=== PATIENT | female | born 1965 | race Caucasian/White ===

== ENCOUNTER 2016-10-26 10:09 | Outpatient (CLI) | payer OTHER ==
[~2016-10-26 10:09] MED LIST: AMLO1TAB12 PO; ATRN IH; CLON0.1T42 PO; HYDR-4446 PO; IBUP-974 PO; ORE25 PO; PRON IH
[2016-10-26 10:35] LABS: BASOPHILS # (AUTO) 0.1 K/uL (0.00-0.22); BASOPHILS % (AUTO) 0.9 % (0.0-2.0); EOSINOPHILS # (AUTO) 0.2 K/uL (0-0.4); HEMATOCRIT 37.3 % (36-48); HEMOGLOBIN 11.9 g/dL (12.0-16.0); LYMPHOCYTES # (AUTO) 0.9 K/uL (2.5-16.5); LYMPHOCYTES % (AUTO) 11.8 % (20.5-51.1); MEAN CORPUSCULAR HEMOGLOBIN 23 pg (27-31); MEAN CORPUSCULAR HGB CONC 32 g/dL (33-37); MEAN CORPUSCULAR VOLUME 72 fL (80-94); MONOCYTES # (AUTO) 0.2 K/uL (0.8-1.0); MONOCYTES % (AUTO) 3.3 % (1.7-9.3); NEUTROPHILS # (AUTO) 5.9 K/uL (1.8-7.7); PLATELET COUNT (AUTO) 238 K/uL (140-450); RED CELL DISTRIBUTION WIDTH 18.3 % (11.6-13.7); WHITE BLOOD COUNT (AUTO) 7.3 K/uL (4.8-10.8)
== END 2016-10-26 19:58 | disposition home or self-care (01) ==
LOC: MLB 10:09 → MRD 19:58
DX: L03.115 Cellulitis of right lower limb (principal)
CPT/HCPCS: 36415; 73610; 73630; 85025; 87040

== ENCOUNTER 2017-01-15 12:08 | Outpatient (CLI) | payer OTHER ==
[2017-01-15 13:06] LABS: ALANINE AMINOTRANSFERASE 17 U/L (14-59); ASPARTATE AMINOTRANSFERASE 22 U/L (15-37)
== END 2017-01-15 21:19 | disposition home or self-care (01) ==
LOC: MLB 12:08
DX: B35.1 Tinea unguium (principal)
CPT/HCPCS: 36415; 84450; 84460

== ENCOUNTER 2017-01-19 22:32 | Emergency (ER) | payer OTHER ==
[~2017-01-19] VITALS: Ht 167.6 cm; Wt 160.6 kg
[2017-01-19 22:36] VITALS: BP 179/102
[2017-01-20 03:05] VITALS: BP 140/80
== END 2017-01-20 03:00 | disposition home or self-care (01) ==
LOC: MED 22:32
DX: F41.0 Panic disorder [episodic paroxysmal anxiety] (principal); J45.909 Unspecified asthma, uncomplicated; I10 Essential (primary) hypertension; Z88.0 Allergy status to penicillin; Z88.8 Allergy status to other drugs, medicaments and biological substances; Z79.899 Other long term (current) drug therapy
CPT/HCPCS: 99284

== ENCOUNTER 2017-01-25 08:26 | Outpatient (CLI) | payer OTHER ==
[2017-01-25 09:05] LABS: BASOPHILS # (AUTO) 0.1 K/uL (0.00-0.22); BASOPHILS % (AUTO) 1.3 % (0.0-2.0); EOSINOPHILS # (AUTO) 0.1 K/uL (0-0.4); EOSINOPHILS % (AUTO) 2.3 % (0.0-4.0); HEMATOCRIT 36.8 % (36-48); HEMOGLOBIN 11.7 g/dL (12.0-16.0); LYMPHOCYTES # (AUTO) 0.9 K/uL (2.5-16.5); LYMPHOCYTES % (AUTO) 15.4 % (20.5-51.1); MEAN CORPUSCULAR HEMOGLOBIN 23 pg (27-31); MEAN CORPUSCULAR HGB CONC 32 g/dL (33-37); MEAN CORPUSCULAR VOLUME 74 fL (80-94); MONOCYTES # (AUTO) 0.2 K/uL (0.8-1.0); MONOCYTES % (AUTO) 3.3 % (1.7-9.3); NEUTROPHILS # (AUTO) 4.5 K/uL (1.8-7.7); NEUTROPHILS % (AUTO) 77.7 % (42.2-75.2); PLATELET COUNT (AUTO) 247 K/uL (140-450); RED BLOOD CELL COUNT(AUTO) 5.01 MIL/uL (4.20-5.40); RED CELL DISTRIBUTION WIDTH 17.5 % (11.6-13.7); WHITE BLOOD COUNT (AUTO) 5.8 K/uL (4.8-10.8)
[2017-01-25 10:02] LABS: ALBUMIN 3.7 g/dL (3.4-5.0); ANION GAP 11.3 (8-16); CALCIUM 8.6 mg/dL (8.5-10.1); CARBON DIOXIDE 28.7 mmol/L (21-32); CHOL/HDL RATIO 3.6 (1-4.5); CREATININE 0.9 mg/dL (0.6-1.3); FREE T4 (FREE THYROXINE) 1.17 ng/dL (0.76-1.46); THYROID STIMULATING HORMONE 2.46 uIU/mL (0.34-3.74); TOTAL BILIRUBIN 0.4 mg/dL (0.0-1.0); TOTAL PROTEIN, SERUM 8.2 g/dL (6.4-8.2)
[2017-01-26 06:22] LABS: HEMOGLOBIN A1C 5.1 % (4.8-5.6)
[2017-01-26 08:53] LABS: VITAMIN D, 25-HYDROXY 20.8 ng/mL (30.0-100.0)
== END 2017-01-25 21:19 | disposition home or self-care (01) ==
LOC: MLB 08:26
DX: I10 Essential (primary) hypertension (principal); E66.9 Obesity, unspecified; E11.9 Type 2 diabetes mellitus without complications; J45.909 Unspecified asthma, uncomplicated
CPT/HCPCS: 36415; 80053; 82306; 83036; 84439; 84443; 85025

== ENCOUNTER 2017-03-10 05:52 | Inpatient (IN) | payer OTHER ==
[~2017-03-10] VITALS: Ht 167.6 cm; Wt 168.7 kg
[~2017-03-10 05:52] MED LIST changes: -AMLO1TAB12 PO; -ATRN IH; +ATROVENT 00.5 MG/3 M IH; +CATAPRES0.1 MG PO; -CLON0.1T42 PO; +EXFORGE 10 MG-11 TAB PO; -HYDR-4446 PO; -IBUP-974 PO; +IRON325 M2; +MOTRIN800 MG PO; +NORCO 5/325 MG1 TAB PO; -ORE25 PO; +ORETIC25 MG PO; -PRON IH; +PROVENTIL2.5 MG/3 M IH
[2017-03-10 05:56] VITALS: BP 151/88
--- NOTE | 2017-03-10 05:58 | NUR ---
Pt taken to bed 4.
[2017-03-10] MEDS ORDERED: MORPHINE SULFATE 10 MG/ML SYR IVP ONE (06:00)
[2017-03-10] MEDS ORDERED: ONDANSETRON 4 MG/2 ML VIAL IVP ONE (06:00)
--- NOTE | 2017-03-10 06:00 | NUR ---
Patient being evaluated by Dr. Tabares at bedside.
--- NOTE | 2017-03-10 06:28 | NUR ---
51Y/F PT. PRESENTS TO ED WITH C/O LT. FLANK PAIN X 1 DAY. WAS SEEN BY ER MD AT [facility], CT DONE. HX. HTN, ASTHMA. DENIES N/V/D; SKIN IS PINK/WARM/DRY; AAOX4 WITH EVEN AND STEADY GAIT; LUNGS CLEAR BL; HR EVEN AND REGULAR; PT DENIES ANY FEVER, CP, SOB, OR COUGH AT THIS TIME; PATIENT STATES PAIN OF 8/10 AT THIS TIME; VSS; PATIENT POSITIONED FOR COMFORT; HOB ELEVATED; BEDRAILS UP X2; BED DOWN. ER MD MADE AWARE OF PT STATUS.
--- NOTE | 2017-03-10 07:17 | NUR ---
REPORT GIVEN TO JONNA AMARAL FOR CONTINUITY OF CARE.
--- NOTE | 2017-03-10 07:21 | NUR ---
REPORT RECEIVED FROM SHANTAL RN---PT AWAKE ALERT SEMI-HURT'S , ADMITS LUQ PAIN 2/10 AT THIS TIME BELOW TOLERABLE LEVEL---SMILING HOLDING CONVERSATION WITH STAFF. CONTINUES TO WAIT FOR ASSIGNED ROOM FOR ADMISSION
[2017-03-10] MEDS ORDERED: ASPIRIN81 M1 PO (07:27)
[2017-03-10] MEDS ORDERED: PULMICORT0.5 MG/2 M NEB (07:27)
[2017-03-10] MEDS ORDERED: LASIX40 MG PO (07:27)
[2017-03-10] MEDS ORDERED: ZOCOR10 MG PO (07:27)
[2017-03-10] MEDS ORDERED: LOPRESSOR25 MG PO ×2 (07:27)
[2017-03-10] MEDS ORDERED: PULMICORT0.5 MG/2 M INH (07:27)
[2017-03-10] MEDS ORDERED: XANAX0.5 MG PO (07:27)
[2017-03-10] MEDS ORDERED: HYDRALAZINE HCL25 M2 PO (07:27)
--- NOTE | 2017-03-10 08:01 | NUR ---
PT INFORMED ME SHE HAD A DIME SIZE WOUND TO RIGHT ANTERIOR GREAT TOE, BEING TREATED BY HER PMD. PICTURE TAKEN AND DOCUMENTED WITH PT'S CHART. NO DRAINAGE, PINK SURROUNDING WOUND--SENSITIVE TO TOUCH PER PT.
--- NOTE | 2017-03-10 08:02 | NUR ---
Pt report given to JT COYLE. Transfer of care at this tiME TO M/S RM 112-A
--- NOTE | 2017-03-10 08:15 | NUR ---
PT ARRIVED ON THE FLOOR. PT IS A&OX4. PT HAS IV ON R AC 20 G SL INTACT. PT HAS LUQ FLANK PAIN AND HEADACHE BOTH 2/10 TOLERABLE. PT HAS OPEN WOUND ON L GREAT TOE FROM A BLISTER, OTHERWISE INTACT SKIN. ORIENTED PT TO ROOM AND USE OF CALL LIGHT. CALL LIGHT WITHIN REACH. WILL CONTINUE TO MONITOR. Addendum: 03/10/17 at 1834 by Andressa Rhodes RN R BIG TOE, NOT L BIG TOE
[2017-03-10 09:00] VITALS: BP 140/74
[2017-03-10] MEDS ORDERED: HYDROcodone/APAP 7.5/325 MG 1 TAB PO PRN (09:35)
[2017-03-10] MEDS ORDERED: ONDANSETRON 4 MG/2 ML VIAL IVP PRN (09:35)
[2017-03-10] MEDS: NACL 0.9% 1,000 ML IV SCH ×3 (10:00→22:00)
--- NOTE | 2017-03-10 10:00 | NUR ---
PT IS COMFORTABLE IN BED. NO COMPLAINTS. CALL LIGHT WITHIN REACH. WILL CONTINUE TO MONITOR.
--- NOTE | 2017-03-10 10:26 | NUR ---
PATIENT HAS BEEN SCREENED AND CATEGORIZED HIGH NUTRITION RISK. PATIENT WILL BE SEEN WITHIN 1-2 DAYS OF ADMISSION. 03/11/17 - 03/12/17 KOTA SANTA MBA, RD
[2017-03-10] MEDS ORDERED: IBUPROFEN 800 MG TAB PO PRN (11:05)
[2017-03-10] MEDS ORDERED: ALPRAZolam 0.5 MG TAB PO PRN (11:05)
[2017-03-10] MEDS: ACETAMINOPHEN 325 MG TAB PO PRN (11:19)
[2017-03-10 12:00] VITALS: BP 132/74
--- NOTE | 2017-03-10 12:00 | NUR ---
PT IS RESTING COMFORTABLY IN BED. NO COMPLAINT. CALL LIGHT WITHIN REACH. WILL CONTINUE TO MONITOR.
[2017-03-10] MEDS: hydrALAZINE 25 MG TAB PO SCH ×2 (12:13→16:22)
[2017-03-10] MEDS ORDERED: cloNIDine 0.1 MG TAB PO SCH (13:00)
[2017-03-10] MEDS ORDERED: METOPROLOL 50 MG TAB PO SCH (14:00)
--- NOTE | 2017-03-10 14:00 | NUR ---
DAUGHTER AND NIECE VISITING AT BEDSIDE. PT IS STABLE. CALL LIGHT WITHIN REACH. WILL CONTINUE TO MONITOR.
[2017-03-10] MEDS: IPRATROPIUM 0.02% 0.5 MG/2.5 ML NEBU INH PRN ×2 (14:45→19:18)
[2017-03-10] MEDS: ALBUTEROL 0.083% 2.5 MG/3 ML NEBU INH PRN ×2 (14:45→19:18)
--- NOTE | 2017-03-10 15:00 | NUR ---
PT IS REQUESTING A BREATHING TX. CALLED RT. PT IN NO DISTRESS. CALL LIGHT WITHIN REACH. WILL CONTINUE TO MONITOR.
[2017-03-10] MEDS: HYDROcodone/APAP 5/325 MG 1 TAB TAB PO PRN ×2 (15:39→21:45)
[2017-03-10 16:00] VITALS: BP 118/71
--- NOTE | 2017-03-10 17:15 | NUR ---
HELPED PT AMBULATE TO BATHROOM WITHOUT TAKING OFF NASAL CANULA. PT WAS VOIDED AND TOLERATED WELL. CALL LIGHT WITHIN REACH AND WILL CONTINUE MONITOR.
--- NOTE | 2017-03-10 18:11 | NUR ---
PT TOLERATED WELL DINNER. FINISHED 100% MEAL TRAY. CALL LIGHT WITHIN REACH AND WILL CONTINUE TO MONITOR.
[2017-03-10] MEDS: BUDESONIDE 0.5 MG/2 ML NEBU INH SCH (19:18)
--- NOTE | 2017-03-10 19:22 | NUR ---
ENDORSED CARE OF PT TO IT APPLICATIONS MANAGER NURSE AT BEDSIDE. PT IN STABLE CONDITION.
--- NOTE | 2017-03-10 19:23 | NUR ---
RECEIVED PATIENT REPORT AT BEDSIDE FROM MORNING NURSE. PATIENT AWAKE, ALERT AND ORIENTED. NO SIGNS AND SYMPTOMS OF DISTRESS NOTED. NO COMPLAINTS OF PAIN AT THIS TIME. IV SITE NOTED ON RIGHT AC, IVF INFUSING WELL. PATIENT ON O2 2L VIA NC. BED IN LOWEST POSITION, SIDE RAILS UP AND CALL LIGHT WITHIN REACH. WILL CONTINUE TO MONITOR.
[2017-03-10 20:00] VITALS: BP 118/69
[2017-03-10] MEDS: METOPROLOL 50 MG TAB PO SCH (21:00)
[2017-03-10] MEDS: DOCUSATE SODIUM 100 MG GELCAP PO SCH (21:05)
--- NOTE | 2017-03-10 23:30 | NUR ---
CHECKED ON PATIENT, PATIENT IS ASLEEP. NO SIGNS AND SYMPTOMS OF DISTRESS NOTED. BED IN LOWEST POSITION, SIDE RAILS UP AND CALL LIGHT WITHIN REACH. WILL CONTINUE TO MONITOR.
[2017-03-11] VITALS: BP 115/72
[2017-03-11 04:00] VITALS: BP 141/86
[2017-03-11] MEDS: NACL 0.9% 1,000 ML IV SCH ×5 (04:00→20:31)
[2017-03-11] MEDS: ACETAMINOPHEN 325 MG TAB PO PRN (04:08)
[2017-03-11] MEDS: BUDESONIDE 0.5 MG/2 ML NEBU INH SCH ×2 (06:34→19:17)
--- NOTE | 2017-03-11 07:20 | NUR ---
PATIENT REPORT GIVEN AT BEDSIDE TO MORNING NURSE. PATIENT IS IN STABLE CONDITION
--- NOTE | 2017-03-11 07:23 | NUR ---
RECEIVED PT REPORT AT BEDSIDE FROM NIGHT NURSE. PATIENT IS AAOX4 AND SHOWS NO S/S OF ACUTE DISTRESS ON O2 @ 2LPM. PT DENIES PAIN. PATIENT IV NOTED ON THE R AC WITH IVF'S INFUSING WELL. DRX NOTED ON THE R 1ST DIGIT CLEAN DRY AND INTACT. PATIENT ON TELE MONITOR. DISCUSSED WITH PT POC FOR TODAY AND VERBALIZED UNDERSTANDING. THE BED IS LOWERED WITH CALL LIGHT WITHIN REACH. WILL CONTINUE TO MONITOR.
[2017-03-11 07:55] VITALS: BP 131/75
[2017-03-11] MEDS: DOCUSATE SODIUM 100 MG GELCAP PO SCH ×2 (08:30→20:34)
[2017-03-11] MEDS: ASPIRIN 81 MG TAB.CHEW PO SCH (08:30)
[2017-03-11] MEDS: VALSARTAN 80 MG TAB PO SCH (08:31)
[2017-03-11] MEDS: FUROSEMIDE 40 MG TAB PO SCH (08:31)
[2017-03-11] MEDS: METOPROLOL 50 MG TAB PO SCH ×2 (08:32→20:33)
[2017-03-11] MEDS: amLODIPine 5 MG TAB PO SCH (08:32)
[2017-03-11] MEDS: SIMVASTATIN 10 MG TAB PO SCH (08:32)
[2017-03-11] MEDS: hydrALAZINE 25 MG TAB PO SCH ×3 (08:33→16:20)
--- NOTE | 2017-03-11 08:35 | NUR ---
ADMINISTERED SCHEDULED MEDICATIONS. PT TOLERATED WELL. PT THEN AMB TO BATHROOM WITH STEADY GAIT. ALL NEEDS MET AT THIS TIME.
[2017-03-11] MEDS: SKINTEGRITY HYDROGEL TP SCH (08:57)
[2017-03-11] MEDS ORDERED: HYDRAGUARD CREAM TP SCH (09:00)
[2017-03-11] MEDS ORDERED: METOPROLOL 25 MG TAB PO SCH (09:00)
[2017-03-11] MEDS ORDERED: methylPREDNISolone SS 125 MG/2 ML VIAL IVP SCH (10:00)
--- NOTE | 2017-03-11 10:05 | NUR ---
ADMINISTERED SCHEDULED MEDICATIONS. PT TOLERATED WELL. PT RESTING IN BED AND SHOWS NO S/S OF ACUTE DISTRESS ON O2 @ 2 LPM.
[2017-03-11] MEDS: HYDROcodone/APAP 5/325 MG 1 TAB TAB PO PRN (10:49)
--- NOTE | 2017-03-11 10:50 | NUR ---
ADMINISTERED NORCO 5/325 MG PO FOR 12/18 PAIN AT THE R FOOT 1ST DIGIT. PROVIDED PT WITH WOUND CARE. CLEANSED WOUND WITH NS, APPLIED HYDROGEL ON GAUZED AND WRAPPED TOE WITH KLINGE.
--- NOTE | 2017-03-11 11:50 | NUR ---
REASSESSED FOR PAIN. PATIENT STATES NO PAIN. WILL CONTINUE TO MONITOR.
[2017-03-11 12:00] VITALS: BP 122/75
[2017-03-11] MEDS ORDERED: METOPROLOL 50 MG TAB PO SCH (12:00)
[2017-03-11] MEDS: methylPREDNISolone SS 125 MG/2 ML VIAL IVP SCH ×2 (12:41→21:35)
--- NOTE | 2017-03-11 12:50 | NUR ---
DR HALL CAME TO SEE PT. PT VERBALIZED UNDERSTANDING OF POC FOR TODAY. ALSO, ADMINISTERED SCHEDULED MEDICATIONS. PT TOLERATED WELL. ALL NEEDS MET AT THIS TIME. WILL CONTINUE TO MONITOR.
[2017-03-11] MEDS ORDERED: PETROLATUM WHITE 30 GM TUBE TP PRN (13:25)
--- NOTE | 2017-03-11 13:45 | NUR ---
PT IS SITTING UP IN BED WITH AT BEDSIDE. PT SHOWS NO S/S OF ACUTE DISTRESS ON O2 @ 2LPM. WILL CONTINUE TO MONITOR.
--- NOTE | 2017-03-11 14:55 | NUR ---
PATIENT IS SITTING UP IN BED WATCHING TV. PT DENIES PAIN AND SOB. BED IS IN LOW POSITION WITH CALL LIGHT WITHIN REACH. ALL NEEDS MET AT THIS TIME. WILL CONTINUE TO MONITOR.
[2017-03-11 16:00] VITALS: BP 136/99
--- NOTE | 2017-03-11 16:30 | NUR ---
ADMINISTERED SCHEDULED MEDICATIONS. PT TOLERATED WELL. PROVIDED PT WITH WOUND CARE ON THE RIGHT FOOT BIG TOE. CLEANSED WITH NS, APPLIED SANTYL OINTMENT ON ADAPTIC AND WRAPPED TOE WITH KERLIX. ALL NEEDS MET AT THIS TIME. WILL CONTINUE TO MONITOR.
--- NOTE | 2017-03-11 17:30 | NUR ---
PT IS AAOX4 AND SHOWS NO S/S OF ACUTE DISTRESS ON O2 @ 2LPM. PT DENIES PAIN AND SOB. PT NEEDS MET AT THIS TIME. WILL CONTINUE TO MONITOR.
--- NOTE | 2017-03-11 19:14 | NUR ---
GAVE REPORT TO NIGHT NURSE AT BEDSIDE. PT IS RECEIVING A BREATHING TX AND IS AAOX4 AND SHOWS NO S/S OF ACUTE DISTRESS ON O2 @ 2LPM.
[2017-03-11] MEDS: ALBUTEROL 0.083% 2.5 MG/3 ML NEBU INH PRN (19:17)
[2017-03-11] MEDS: IPRATROPIUM 0.02% 0.5 MG/2.5 ML NEBU INH PRN (19:18)
--- NOTE | 2017-03-11 19:20 | NUR ---
PATIENT REPORT RECEIVED FROM MORNING NURSE. PATIENT IS SITTING UP IN BED GETTING A BREATHING TREATMENT. NO SIGNS AND SYMPTOMS OF DISTRESS NOTED. PATIENT ON O2 2L VIA NASAL CANNULA. IV SITE NOTED ON RIGHT AC, IVF INFUSING WELL. CALL LIGHT WITHIN REACH. WILL CONTINUE TO MONITOR.
[2017-03-11 20:00] VITALS: BP 150/82
--- NOTE | 2017-03-11 23:00 | NUR ---
Patient's Plan of Care was discussed and reviewed with MUSIC SPECIALIST: JUNO MESA
--- NOTE | 2017-03-11 23:05 | NUR ---
REPORT RECEIVED FROM JONNA DAVALOS PATIENT IS CURRENTLY SLEEPING ON HER RT SIDE WITH CPAP AT 32% NO CURRENT DISTRESS.IV SITE CURRENTLY PATENT AND IVF INFUSING WELL.RESP THERAPIST JUVE CAME AND IS CURRENTLY MAKING ROUNDS.WILL CONTINUE TO OBSERVE THE PATIENT CALL LIGHT WITHIN REACH.
--- NOTE | 2017-03-12 00:10 | NUR ---
I ASSISTED THE PATIENT TO THE BATHROOM AND BACK TO BED GOT A LITTLE SOB O2SAT 88%-90% PATIENT WAS PLACED BACK ON THE BIPAP AND O2SAT SLOWLY WENT UP TO 96%.PATIENT DENIES PAIN.WILL CONTINUE TO OBSERVE.
[2017-03-12 00:15] VITALS: BP 129/67
[2017-03-12] MEDS: NACL 0.9% 1,000 ML IV SCH ×5 (01:31→21:45)
--- NOTE | 2017-03-12 01:33 | NUR ---
I MADE ROUNDS I HEARD THE CPAP MACHINE BEEPING BUT PATIENT IS DOING WELL JUST REPOSITIONING IN BED, AND O2SAT IS 98%. PATIENT VERBALIZES TO CALL IF SHE NEEDS ANY ASSISTANCE.WILL CONTINUE TO MONITOR.
--- NOTE | 2017-03-12 02:30 | NUR ---
PATIENT IS CURRENTLY SLEEPING WELL TURNS AND REPOSITIONS NO PAIN OR DISCOMFORT.IVF INFUSING WELL IV SITE PATENT.PATIENT DOESN'T WANT TO WEAR SCD'S WANTS TO HAVE THEM REMOVED EDUCATION GIVEN ON THE IMPORTANCE TO WEAR SCD'S TO PREVENT DVT. PATIENT VERBALIZES UNDERSTANDING.
[2017-03-12 04:26] VITALS: BP 123/58
--- NOTE | 2017-03-12 04:29 | NUR ---
PATIENT IS CURRENTLY ASLEEP IN BED HAS EPISODE OF LOW HEART RATE 45BPM I WAS INFORMED BY ARCHIE MCGHEE SO I WENT TO CHECK UP ON THE PATIENT SHE IS ASLEEP WITH CPAP MACHINE ON. I INFORMED MD RESIDENT CARRANZA THAT PATIENTS HEART RATE IS LOWER THAN USUAL AT THIS TIME AT 45BPM I INFORMED MD THAT SHE WAS EFE AROUND MIDNIGHT HEART RATE WAS 55BPM AND WAS ASYMPTOMATIC.MD RESIDENT CARRANZA GAVE NO NEW ORDERS HE HAS BEEN INFORMED OF PATIENTS CURRENT CONDITION.
--- NOTE | 2017-03-12 04:51 | NUR ---
JUVE THE RESP THERAPIST CAME BY AND MADE ROUNDS. PATIENT CURRENTLY SLEEPING.CALL LIGHT WITHIN REACH.
[2017-03-12] MEDS: methylPREDNISolone SS 125 MG/2 ML VIAL IVP SCH (05:32)
[2017-03-12] MEDS: BUDESONIDE 0.5 MG/2 ML NEBU INH SCH ×2 (06:23→18:55)
[2017-03-12] MEDS: IPRATROPIUM 0.02% 0.5 MG/2.5 ML NEBU INH PRN ×2 (06:24→18:55)
[2017-03-12] MEDS: ALBUTEROL 0.083% 2.5 MG/3 ML NEBU INH PRN ×2 (06:24→18:55)
--- NOTE | 2017-03-12 06:26 | NUR ---
PATIENT IS CURRENTLY STABLE RESTING IN BED SLEEPING WILL CONTINUE TO OBSERVE.CALL LIGHT WITHIN REACH.
--- NOTE | 2017-03-12 06:53 | NUR ---
PATIENT CURRENTLY SITTING UP IN BED WITH OXYGEN AT 3L VIA NASAL CANNULA.PATIENT DENIES PAIN.IVF INFUSING WELL.PATIENT RECEIVED A BREATHING TREATMENT EARLIER. I GAVE SOME ALOE VERA WIPES SO SHE CAN CLEAN HERSELF UP LATER AND I ALSO TOLD DENIS CASH TO GIVE HER SUPPLIES.CALL LIGHT WITHIN REACH.
--- NOTE | 2017-03-12 07:30 | NUR ---
RECEIVED PT IN BED. AWAKE, ALERT ORIENTEDX4. NO SOB NOTED. ON O2 AT 3LPM NC. TRENT ANY PAIN OR DISCOMFORT AT THIS TIME. PT AMBULATORY. SAFETY PRECAUTION IN PLACE. CALL LIGHT WITHIN REACH.
--- NOTE | 2017-03-12 07:33 | NUR ---
REPORT ENDORSED TO JONNA MONTES SHE WILL RESUME CARE OF THE PATIENT.
[2017-03-12 08:00] VITALS: BP 150/76
[2017-03-12] MEDS: amLODIPine 5 MG TAB PO SCH (08:20)
[2017-03-12] MEDS: FUROSEMIDE 40 MG TAB PO SCH (08:20)
[2017-03-12] MEDS: hydrALAZINE 25 MG TAB PO SCH ×3 (08:20→16:17)
[2017-03-12] MEDS: VALSARTAN 80 MG TAB PO SCH (08:20)
[2017-03-12] MEDS: METOPROLOL 50 MG TAB PO SCH ×2 (08:20→21:15)
[2017-03-12] MEDS: SKINTEGRITY HYDROGEL TP SCH (08:21)
[2017-03-12] MEDS: SIMVASTATIN 10 MG TAB PO SCH (08:21)
[2017-03-12] MEDS: DOCUSATE SODIUM 100 MG GELCAP PO SCH ×2 (08:21→21:15)
[2017-03-12] MEDS: ASPIRIN 81 MG TAB.CHEW PO SCH (08:21)
--- NOTE | 2017-03-12 09:45 | NUR ---
SIX MINUTE WALK WITH PT AND PHYSICAL THERAPY, PT'S START O2SAT WAS 91% ON ROOM AIR HR WAS 107 TEST STARTED: I MINUTE: O2 SAT 91% HR 107 2 MINUTE: O2 SAT 89% HR 133 3 MINUTE: O2 SAT 86% HR 117 4 MINUTE: O2 SAT 87% HR 119 5 MINUTE: 02 SAT 86% HR 120 6 MINUTE: O2 SAT 65% HR 120 PT RETURNED TO ROOM SAT ON CHAIR V\S HR 114 O2 SAT 88% PLACED PT BACK ON 2LNC AND O2 SAT CAME UP TO 93% PT IS AWAKE AND ALERT, AT 1000 GAVE REPORT ON SIX MINUTE WALK TO DR. FLOREZ.
--- NOTE | 2017-03-12 10:35 | NUR ---
PER PT REPORT HER WOUND CARE DOCTOR PRESCRIBED SANTYL FOR HER RIGHT TOE WOUND. DR. ABEL MADE AWARE AND TO CHANGE PREVIOUSLY ORDERED HYDROGEL FOR RIGHT TOE WOUND.
--- NOTE | 2017-03-12 11:11 | NUR ---
03/12/17 RD INITIAL ASSESSMENT COMPLETED PLEASE REFER TO NUTRITION ASSESSMENT UNDER CARE ACTIVITY FOR ESTIMATED NUTRITIONAL NEEDS. 1. CONTINUE REGULAR DIET 2. PROVIDE NUTRITION THERAPY EDUCATION NEEDED 2. RD TO FOLLOW-UP 7 DAYS, LOW RISK JEN LOPEZ RD
[2017-03-12 12:00] VITALS: BP 136/74
[2017-03-12] MEDS: methylPREDNISolone SS 40 MG/ML VIAL IVP SCH ×2 (12:15→21:15)
[2017-03-12] MEDS ORDERED: SIMETHICONE 40 MG/0.6 ML PO PRN (12:55)
[2017-03-12] MEDS ORDERED: SANTYL TP (14:06)
[2017-03-12] MEDS ORDERED: [UNRECOGNIZED DRUG - OTHER] TP (14:06)
--- NOTE | 2017-03-12 15:08 | NUR ---
PT IN BED. AWAKE, NO SOB NOTED, DENIES ANY PAIN OR DISCOMFORT AT THIS TIME.
[2017-03-12 16:00] VITALS: BP 143/78
--- NOTE | 2017-03-12 16:05 | NUR ---
PT VERBALIZED THAT HER LAST BOWEL MOVEMENT WAS LAST Sunday, AND WOULD WANT TO TAKE SOMETHING FOR BOWEL MOVEMENT. DR. ABEL MADE AWARE AND SAID TO GIVE MYLICON.
--- NOTE | 2017-03-12 16:31 | NUR ---
CALLED [facility] AND SPOKE WITH VALORIE. SHE SAID TO FAX H&P, FACE SHEET AND ORDER TO HER AT [phone]. PHONE [phone]. I CALL DANYELLE CUTLER, CURTAIN INSPECTOR AND LEFT A MESSAGE. [phone].
--- NOTE | 2017-03-12 19:18 | NUR ---
PT KEPT CLEAN,DRY AND COMFORTABLE, NEEDS ATTENDED. ENDORSED TO NEXT SHIFT ON STABLE CONDITION. NO SOB NOTED. DENIES ANY PAIN OR DISCOMFORT NOTED AT THIS TIME. FOR CONTINUITY OF CARE.
--- NOTE | 2017-03-12 19:25 | NUR ---
RECEIVED REPORT FROM DAY RN. PATIENT RESTING IN BED, AWAKE ALERT ORIENTED X4, NO S/S OF ACUTE DISTRESS NOTED, RESPIRATION EVEN AND UNLABORED, IV PATENT AND INTACT, INFUSING NS AT 200ML/HR. PATIENT STATED, HER LBM WAS TODAY. PLAN OF CARE DISCUSSED, PATIENT VERBALIZED UNDERSTANDING. CALL LIGHT WITHIN REACH, SAFETY MEASURE ENSURED, WILL CONTINUE TO MONITOR.
[2017-03-12 20:00] VITALS: BP 145/83
--- NOTE | 2017-03-12 21:22 | NUR ---
PM MEDICATION GIVEN, PATIENT TOLERATED WELL. WILL CONTINUE TO MONITOR.
--- NOTE | 2017-03-12 23:25 | NUR ---
PATIENT ON CPAP AND SLEEPING AT THIS TIME, NO S/S OF ACUTE DISTRESS NOTED, RESPIRATION EVEN AND UNLABORED. CALL LIGHT WITHIN REACH, SAFETY MEASURE ENSURED, WILL CONTINUE TO MONITOR.
[2017-03-13] VITALS: BP 130/69
--- NOTE | 2017-03-13 01:27 | NUR ---
PATIENT IS SLEEPING, NO CHANGE IN CONDITION. RESPIRATION EVEN AND UNLABORED, CALL LIGHT WITHIN REACH, SAFETY MEASURE ENSURED, WILL CONTINUE TO MONITOR.
[2017-03-13] MEDS: NACL 0.9% 1,000 ML IV SCH ×5 (02:40→23:25)
--- NOTE | 2017-03-13 02:41 | NUR ---
STARTED A NEW BAG OF NS. PATIENT IS SLEEPING AT THIS TIME. NO CHANGE IN CONDITION. RESPIRATION EVEN AND UNLABORED, WILL CONTINUE TO MONITOR.
[2017-03-13 04:00] VITALS: BP 135/79
[2017-03-13] MEDS: methylPREDNISolone SS 40 MG/ML VIAL IVP SCH (04:38)
--- NOTE | 2017-03-13 04:47 | NUR ---
AM MEDICATION GIVEN, PATIENT TOLERATED WELL. NO S/S OF ACUTE DISTRESS NOTED, RESPIRATION EVEN AND UNLABORED, WILL CONTINUE TO MONITOR.
--- NOTE | 2017-03-13 06:53 | NUR ---
PATIENT IS SLEEPING AT THIS TIME. NO CHANGE IN CONDITION. RESPIRATION EVEN AND UNLABORED, NO S/S OF ACUTE DISTRESS NOTED, CALL LIGHT WITHIN REACH, SAFETY MEASURE ENSURED, WILL CONTINUE TO MONITOR.
[2017-03-13] MEDS: BUDESONIDE 0.5 MG/2 ML NEBU INH SCH ×2 (06:57→20:09)
[2017-03-13] MEDS: IPRATROPIUM 0.02% 0.5 MG/2.5 ML NEBU INH PRN ×3 (06:58→20:10)
[2017-03-13] MEDS: ALBUTEROL 0.083% 2.5 MG/3 ML NEBU INH PRN ×3 (06:58→20:10)
--- NOTE | 2017-03-13 07:20 | NUR ---
ENDORSED PLAN OF CARE TO DAY RN. PATIENT IS IN STABLE CONDITION, NO S/S OF ACUTE DISTRESS, RESPIRATION EVEN AND UNLABORED.
--- NOTE | 2017-03-13 07:27 | NUR ---
RECEIVED PT IN BED. AWAKE. RT AT BEDSIDE GIVING BREATHING TREATMENT. DENIES ANY PAIN OR DISCOMFORT AT THIS TIME. ALERT ORIENTED X4. PT AMBULATORY. POSITIVE BOWEL SOUNDS NOTED ON FOUR QUADRANTS. DENIES ANY PROBLEM WITH BOWEL OR BLADDER ELIMINATION AT THIS TIME. SAFETY PRECAUTION IN PLACE. CALL LIGHT WITHIN REACH.
[2017-03-13 07:58] VITALS: BP 149/85
[2017-03-13] MEDS: DOCUSATE SODIUM 100 MG GELCAP PO SCH ×2 (08:29→21:32)
[2017-03-13] MEDS: VALSARTAN 80 MG TAB PO SCH (08:29)
[2017-03-13] MEDS: ASPIRIN 81 MG TAB.CHEW PO SCH (08:29)
[2017-03-13] MEDS: FUROSEMIDE 40 MG TAB PO SCH (08:29)
[2017-03-13] MEDS: HYDROcodone/APAP 5/325 MG 1 TAB TAB PO PRN (08:29)
[2017-03-13] MEDS: METOPROLOL 50 MG TAB PO SCH ×2 (08:30→21:33)
[2017-03-13] MEDS: SIMVASTATIN 10 MG TAB PO SCH (08:30)
[2017-03-13] MEDS: hydrALAZINE 25 MG TAB PO SCH ×3 (08:30→16:13)
[2017-03-13] MEDS: amLODIPine 5 MG TAB PO SCH (08:30)
--- NOTE | 2017-03-13 08:30 | NUR ---
NORCO FOR RIGHT TOE PAIN ACCIDENTALLY DROPPED. [facility] PHARMACIST MADE AWARE, DISCARDED DROPPED NORCO AND NEW ONE RECEIVED FROM PHARMACY.
[2017-03-13] MEDS: SKINTEGRITY HYDROGEL TP SCH (09:00)
[2017-03-13] MEDS ORDERED: SKINTEGRITY HYDROGEL TP SCH (09:00)
[2017-03-13] MEDS: COLLAGENASE TP SCH (09:42)
--- NOTE | 2017-03-13 10:37 | NUR ---
SPOKE WITH BRYAN BASSETTPLUCK TRIMMER FOR [facility] PHONE [phone] AND INFORMED HER I FAXED THE ORDER FOR O2 AND NEBULIZER. SHE SAID SHE WILL NEED AN ABG. WHEN I GET THE RESULTS, FAX IT T.O [phone]
--- NOTE | 2017-03-13 11:00 | NUR ---
SIX MINUTE WALK ORDERED BY DR. ABEL ON ROOM AIR PT IS ALERT. O2SAT AT START 91% HR 86: START TEST: 1 MINUTE: O2SAT 91% HR 86% 2 MINUTE: O2SAT 88% HR 92 3 MINUTE: O2SAT 87% HR 95 4 MINUTE: O2SAT 86% HR 98% 5 MINUTE: O2SAT 84% HR 99 6 MINUTE: O2SAT 83% HR 99 PT BACK IN ROOM FOR ABG WHICH WAS DRAWN ON RB WITHOUT INCIDENT AND AT 1135 ABG RESULTS GIVEN TO DR. ABEL
[2017-03-13 12:00] VITALS: BP 145/77
--- NOTE | 2017-03-13 12:29 | NUR ---
DR. ABEL MADE AWARE THAT THE RESULT OF ABG IS ALREADY UP ON THE COMPUTER.
--- NOTE | 2017-03-13 12:42 | NUR ---
FAXED ORDER AND ABG'S RESULTS TO DANYELLE AT [facility] [phone] .
--- NOTE | 2017-03-13 12:52 | NUR ---
EXPLAINED TO PT NEED TO GET THE [facility] OF ABD[facility] FROM [facility] TO COMPARE RESULT FROM [place]. PT VERBALIZED UNDERSTANDING.CONSENT OBTAINED FOR THE RESULT OF CT OF ABDOMEN FROM [facility] TO BE FAXED TO [place] [facility].
--- NOTE | 2017-03-13 12:59 | NUR ---
CONSENT FOR HEALTH DISCLOSURE OF HEALTH INFORMATION FAXED TO [phone]. FAXED CONFIRMATION RECEIVED. AWAITING FAX BACK.
--- NOTE | 2017-03-13 13:00 | NUR ---
PT WALKED ALONG HALLWAY. TOLERATED WELL.
--- NOTE | 2017-03-13 14:12 | NUR ---
PT IN BED RIGHT NOW TALKING ON HER PHONE. NO SOB NOTED. ON O2 AT 2LPM NC. DENIES ANY PAIN OR DISCOMFORT AT THIA TIME.
--- NOTE | 2017-03-13 14:56 | NUR ---
LEFT 2 MESSAGES FOR DANYELLE FROM [facility] ABOUT OXYGEN. RECEIVED A CALL FROM JEN FROM [facility] . THEY CANNOT AUTHORIZE THE O2. SHE SAID PER ABG'S PATIENT DOES NOT QUALIFY FOR O2. JEN SAID SHE WILL ARRANGE FOR THE NEBULIZER. I INFORMED HER THAT THIS PATIENT USES [facility] FOR HER CPAP.
--- NOTE | 2017-03-13 15:29 | NUR ---
PER JEN FROM [facility], SHE WILL ARRANGE THE NEBULIZER TO BE DELIVERED TO THE HOME BY [facility]. PHONE FOR JEN [phone]
[2017-03-13 16:00] VITALS: BP 143/89
[2017-03-13] MEDS: FERROUS GLUCONATE 324 MG TAB PO SCH (16:13)
--- NOTE | 2017-03-13 17:06 | NUR ---
DAVID (RADIOLOGIST) HANDED RESULT OF CT OF ABDOMEN, RESULT GIVEN TO DR. ABEL.
--- NOTE | 2017-03-13 17:35 | NUR ---
ORDERED FOR PT TO BE WALKED FOR 10-15 MINUTES TO QUALIFY FOR HOME O2 PTS O2 SAT WENT DOWN TO 77% AND ABG WAS DRAWN ON RB WITHOUT INCIDENT AND RESULTS WERE GIVEN TO DR. GORDILLO AT 1755 PT BACK IN ROOM AND PLACED BACK ON 2LNC O2 SAT 97%
--- NOTE | 2017-03-13 17:37 | NUR ---
RESPIRATORY THERAPIST EDITH WITH PT. RT TO WALK PT ALONG THE HALLWAY.
--- NOTE | 2017-03-13 18:00 | NUR ---
RT HANDED RESULT OF ABG TO RESIDENT DOCTOR, DR. GORDILLO, TO BE GIVEN TO DR. ABEL.
--- NOTE | 2017-03-13 19:27 | NUR ---
PT KEPT CLEAN, DRY, AND COMFORTABLE, NEEDS ATTENDED, NO SOB NOTED. DENIES ANY PAIN OF DISCOMFORT AT THIS TIME. PT ON STABLE CONDITION. ENDORSED TO NEXT SHIFT ON STABLE CONDITION FOR CONTINUITY OF CARE.
--- NOTE | 2017-03-13 19:30 | NUR ---
RECEIVED REPORT FROM DAY RN. PATIENT RESTING IN BED, AWAKE ALERT ORIENTED X4, NO S/S OF ACUTE DISTRESS NOTED, RESPIRATION EVEN AND UNLABORED, IV PATENT AND INTACT, INFUSING NS AT 200ML/HR. CALL LIGHT WITHIN REACH, SAFETY MEASURE ENSURED, WILL CONTINUE TO MONITOR.
--- NOTE | 2017-03-13 20:15 | NUR ---
PLACED PT ON NOC CPAP AN CHANGED TO EPAP OF 15, BECAUSE PT S CPAP HOME IS ORDER FOR 15.PT LOOKS COMFORTABLE WITHOUT ANY RESP DISTRESS
--- NOTE | 2017-03-13 21:34 | NUR ---
PM MEDICATION GIVEN PATIENT TOLERATED WELL. WILL CONTINUE TO MONITOR.
--- NOTE | 2017-03-13 23:27 | NUR ---
STARTED A NEW BAG OF NS. PATIENT IS SLEEPING AND ON CPAP. NO S/S OF ACUTE DISTRESS NOTED, WILL CONTINUE TO MONITOR.
[2017-03-14] VITALS: BP 133/87
--- NOTE | 2017-03-14 01:53 | NUR ---
NO CHANGE IN CONDITION. PATIENT IS SLEEPING, NO S/S OF ACUTE DISTRESS NOTED, RESPIRATION EVEN AND UNLABORED, WILL CONTINUE TO MONITOR.
[2017-03-14] MEDS: NACL 0.9% 1,000 ML IV SCH (03:42)
--- NOTE | 2017-03-14 03:54 | NUR ---
PT IS SLEEPING. NO S/S OF ACUTE DISTRESS NOTED, RESPIRATION EVEN AND UNLABORED, WILL CONTINUE TO MONITOR.
--- NOTE | 2017-03-14 07:27 | NUR ---
RECEIVED REPORT FROM MANAGER PORT RN. PATIENT IS ALERT AND ORIENTED X4, NO SIGNS AND SYMPTOMS OF DISTRESS NOTED AT THIS TIME. LUNG SOUNDS ARE CLEAR. BOWEL SOUNDS ARE ACTIVE. PATIENT HAS IV 22G ON LEFT HAND. PATENT, CLEAN, DRY AND INTACT. HAS WOUND ON RIGHT BIG TOE. DENIES ANY PAIN AT THIS TIME. BED IS IN LOWEST POSITION, SIDERAILS X2, CALL LIGHT IS WITHIN REACH. ROOM IS FREE OF OBSTACLES. WILL CONTINUE TO MONITOR.
--- NOTE | 2017-03-14 07:27 | NUR ---
ENDORSED PLAN OF CARE TO DAY RN. PATIENT IS IN STABLE CONDITION, NO S/S OF ACUTE DISTRESS AND RESPIRATION EVEN AND UNLABORED.
--- NOTE | 2017-03-14 07:40 | NUR ---
[facility] V60 BIPAP AT BEDSIDE
[2017-03-14] MEDS: BUDESONIDE 0.5 MG/2 ML NEBU INH SCH ×2 (07:44→18:51)
[2017-03-14] MEDS: IPRATROPIUM 0.02% 0.5 MG/2.5 ML NEBU INH PRN ×3 (07:45→18:51)
[2017-03-14] MEDS: ALBUTEROL 0.083% 2.5 MG/3 ML NEBU INH PRN ×3 (07:45→18:51)
[2017-03-14 08:00] VITALS: BP 146/87
[2017-03-14] MEDS: VALSARTAN 80 MG TAB PO SCH (08:51)
[2017-03-14] MEDS: ASPIRIN 81 MG TAB.CHEW PO SCH (08:51)
[2017-03-14] MEDS: METOPROLOL 50 MG TAB PO SCH ×2 (08:52→21:15)
[2017-03-14] MEDS: DOCUSATE SODIUM 100 MG GELCAP PO SCH ×2 (08:52→21:15)
[2017-03-14] MEDS: hydrALAZINE 25 MG TAB PO SCH ×3 (08:53→16:57)
[2017-03-14] MEDS: HYDROcodone/APAP 5/325 MG 1 TAB TAB PO PRN ×2 (08:53→21:16)
[2017-03-14] MEDS: SIMVASTATIN 10 MG TAB PO SCH (08:53)
[2017-03-14] MEDS: amLODIPine 5 MG TAB PO SCH (08:54)
[2017-03-14] MEDS: FUROSEMIDE 40 MG TAB PO SCH (08:54)
[2017-03-14] MEDS: SKINTEGRITY HYDROGEL TP SCH (09:00)
[2017-03-14] MEDS: FERROUS GLUCONATE 324 MG TAB PO SCH ×2 (09:01→16:56)
[2017-03-14] MEDS: COLLAGENASE TP SCH (09:02)
--- NOTE | 2017-03-14 09:09 | NUR ---
DRESSING CHANGE ON PATIENT DONE. PATIENT TOLERATED PROCEDURE WELL. PAIN MEDICATIONS GIVEN PRIOR TO DRESSING CHANGE.
[2017-03-14] MEDS: IBUPROFEN 800 MG TAB PO PRN (10:28)
--- NOTE | 2017-03-14 10:30 | NUR ---
PATIENT STATED THAT SHE STUBBED HER RIGHT TOE 1ST DIGIT WITH WOUND WHILE WALKING TO THE BATHROOM, COMPLAINS OF THROBBING PAIN. ASKED FOR MOTRIN.
--- NOTE | 2017-03-14 13:00 | NUR ---
CM NOTE FAXED REQUEST FOR RECONSIDERATION OF 02 HOME USE INCLUDING RECENT ABG / FAX# [phone], ATTN: JEN
[2017-03-14 13:15] VITALS: BP 120/63
--- NOTE | 2017-03-14 14:06 | NUR ---
CM NOTE SPOKE W/ JEN FROM [facility]. PATIENT HAS BEEN APPROVED FOR BOTH HOME 02 AND A NEBULIZER AND WILL BE DELIVERED TO HOME BUT DID NOT SET UP TANK DELIVERY TO HOSPITAL FOR DISCHARGE. CALLED [facility]; ([phone]). DR. ABEL MADE AWARE.
--- NOTE | 2017-03-14 15:23 | NUR ---
CM NOTE SPOKE W/ KINGSLEY ([phone]). FROM [facility]. AUTH WAS NOT GIVEN FOR TRAVEL TANK. CALLED JEN FROM [facility] RE. TRAVEL TANK; FAXED ORDER. WILL F/U TOMORROW.
--- NOTE | 2017-03-14 19:15 | NUR ---
ENDORSED PATIENT TO PUT IN BEAT ADJUSTER RN FOR CONTINUITY OF CARE. PATIENT STABLE AT THIS TIME.
--- NOTE | 2017-03-14 19:20 | NUR ---
RECEIVED REPORT FROM AM NURSE. PT IS AAOX4, ON O2 2L VIA NC. SHOWING NO SIGNS OF ACUTE DISTRESS. IV ACCESS IS ASYMPTOMATIC AND PATENT. BOWEL AND BLADDER CONTINENCE. RIGHT TOE WITH OPEN WOUND, DRESSING IN PLACE, DRY AND INTACT. PLAN OF CARE DISCUSSED, PT VERBALIZED UNDERSTANDING. BED ON LOW POSITION, BILATERAL HALF SIDE RAILS UP, CALL LIGHT WITHIN REACH, WILL CONTINUE TO MONITOR.
[2017-03-14 20:00] VITALS: BP 133/76
[2017-03-15] VITALS: BP 102/47
--- NOTE | 2017-03-15 00:05 | NUR ---
PT IS SLEEPING, WITH CPAP IN PLACE. SHOWING NO SIGNS OF ACUTE DISTRESS, BED ON LOW POSITION, BILATERAL HALF SIDE RAILS UP, CALL LIGHT WITHIN REACH, WILL CONTINUE TO MONITOR.
--- NOTE | 2017-03-15 05:10 | NUR ---
PT IS SLEEPING, EASY TO AROUSE. NO SIGNS OF ACUTE DISTRESS, BED ON LOW POSITION, BILATERAL HALF SIDE RAILS UP, CALL LIGHT WITHIN REACH, WILL CONTINUE TO MONITOR.
--- NOTE | 2017-03-15 07:10 | NUR ---
RECEIVED REPORT FROM POLICY VALUE CALCULATOR RN. PATIENT IS SITTING IN CHAIR AT THE BEDSIDE. HAS NO SIGNS AND SYMPTOMS OF ACUTE DISTRESS NOTED AT THIS TIME. PATIENT IS ALERT, AWAKE, AND ORIENTED X4. LUNG SOUNDS ARE CLEAR, BOWEL SOUNDS ARE ACTIVE. DISCUSSED PLAN OF CARE WITH PATIENT, SHE VERBALIZED UNDERSTANDING. CALL LIGHT IS WITHIN REACH, BED IN LOWEST POSITION. WILL CONTINUE TO MONITOR.
[2017-03-15] MEDS: ALBUTEROL 0.083% 2.5 MG/3 ML NEBU INH PRN ×2 (07:35→13:29)
[2017-03-15] MEDS: BUDESONIDE 0.5 MG/2 ML NEBU INH SCH (07:35)
[2017-03-15] MEDS: IPRATROPIUM 0.02% 0.5 MG/2.5 ML NEBU INH PRN ×2 (07:35→13:30)
--- NOTE | 2017-03-15 07:36 | NUR ---
ENDORSED PT TO AM NURSE FOR CONTINUITY OF CARE. PT IN STABLE CONDITION.
[2017-03-15 08:00] VITALS: BP 145/81
[2017-03-15] MEDS: FERROUS GLUCONATE 324 MG TAB PO SCH (08:48)
[2017-03-15] MEDS: DOCUSATE SODIUM 100 MG GELCAP PO SCH (08:49)
[2017-03-15] MEDS: hydrALAZINE 25 MG TAB PO SCH ×2 (08:50→13:24)
[2017-03-15] MEDS: amLODIPine 5 MG TAB PO SCH (08:50)
[2017-03-15] MEDS: METOPROLOL 50 MG TAB PO SCH (08:51)
[2017-03-15] MEDS: FUROSEMIDE 40 MG TAB PO SCH (08:51)
[2017-03-15] MEDS: VALSARTAN 80 MG TAB PO SCH (08:52)
[2017-03-15] MEDS: ASPIRIN 81 MG TAB.CHEW PO SCH (08:52)
--- NOTE | 2017-03-15 09:10 | NUR ---
DRESSING CHANGE ON PATIENT RIGHT BIG TOE DONE. TOLERATED WELL.
[2017-03-15] MEDS: SIMVASTATIN 10 MG TAB PO SCH (09:36)
[2017-03-15] MEDS: IBUPROFEN 800 MG TAB PO PRN (09:38)
[2017-03-15] MEDS: COLLAGENASE TP SCH (09:39)
[2017-03-15] MEDS: SKINTEGRITY HYDROGEL TP SCH (09:40)
--- NOTE | 2017-03-15 10:20 | NUR ---
CM NOTE SPOKE W/ PATIENT AT BEDSIDE. SAID SHE RECEIVED A CALL FROM [facility] AND WILL MAKE HOME DELIVERY BETWEEN 1400 AND 1600. NO MENTION OF PORTABLE TO BE DELIVERED. SPOKE W/ KINGSLEY FROM [facility] RE. PORTABLE; NO CHANGES MADE FROM INSURANCE. SPOKE W/ JEN FROM [facility]. PROVIDED JEN WYNN'S EXTENSION FOR F/U
--- NOTE | 2017-03-15 11:00 | NUR ---
PATIENT SITTING IN CHAIR NEXT TO BEDSIDE, NO SIGNS AND SYMPTOMS OF DISTRESS NOTED.
[2017-03-15] MEDS ORDERED: CALCIUM CARB/VIT-D 500 MG/200 IU 1 TAB PO SCH (11:30)
--- NOTE | 2017-03-15 11:30 | NUR ---
CM NOTE PER JEN FROM [employer] ([employer]), PORTABLE TANK TO BE DELIVERED WITHIN THE HOUR. PATIENT MADE AWARE.
--- NOTE | 2017-03-15 12:00 | NUR ---
DISCHARGE ORDER IN PLACE. VERBALIZED TO PATIENT. SHE SPOKE WITH THE [facility] DELIVERY SERVICE AND THEY WILL BE DROPPING OFF THE EQUIPMENT AT THE HOSPITAL BETWEEN 2-4.
--- NOTE | 2017-03-15 15:00 | NUR ---
GAVE PATIENT INSTRUCTIONS ON FOLLOWING UP WITH DR MINER, UNDER DR HIDALGO, AND DR SANDERS. INSTRUCTIONS GIVEN ON WHEN TO SEEK EMERGENCY CARE. PATIENT VERBALIZED UNDERSTANDING. IV WAS ON SALINE LOCK. DISCONTINUED IV SITE, APPLIED DRESSING. CLEAN, DRY AND INTACT. REMOVED ID BAND, AND ALL BELONGINGS WERE WITH PATIENT. WHEELED PATIENT OUT IN WHEELCHAIR.
[2017-03-21] MEDS ORDERED: LIDEX TP (08:58)
[2017-03-21] MEDS ORDERED: CEPHALEXIN500 M2 PO (08:58)
== END 2017-03-15 15:00 | disposition home or self-care (01) | DRG 545 ==
LOC: MED 05:52 → MTU 08:13
PROVIDERS: ADMIT Family Medicine Sports Medicine; ATTEND Family Medicine Sports Medicine
DX: M31.1 Thrombotic microangiopathy (principal); N17.0 Acute kidney failure with tubular necrosis; J96.00 Acute respiratory failure, unspecified whether with hypoxia or hypercapnia; J44.1 Chronic obstructive pulmonary disease with (acute) exacerbation; Z68.43 Body mass index [BMI] 50.0-59.9, adult; J45.901 Unspecified asthma with (acute) exacerbation; E83.51 Hypocalcemia; E66.01 Morbid (severe) obesity due to excess calories; R16.1 Splenomegaly, not elsewhere classified; F41.9 Anxiety disorder, unspecified; G47.33 Obstructive sleep apnea (adult) (pediatric); R80.9 Proteinuria, unspecified; B34.9 Viral infection, unspecified; D50.9 Iron deficiency anemia, unspecified; E11.9 Type 2 diabetes mellitus without complications; E78.5 Hyperlipidemia, unspecified; I11.9 Hypertensive heart disease without heart failure; M17.0 Bilateral primary osteoarthritis of knee; S91.301A Unspecified open wound, right foot, initial encounter; Z87.891 Personal history of nicotine dependence; Z79.899 Other long term (current) drug therapy; Z88.8 Allergy status to other drugs, medicaments and biological substances; Z88.0 Allergy status to penicillin

== ENCOUNTER 2017-03-18 15:22 | Inpatient (IN) | payer OTHER ==
[~2017-03-18] VITALS: Ht 167.6 cm; Wt 154.2 kg
[~2017-03-18 15:22] MED LIST changes: +ACET-8386 PO; +ALPR0.5T2 PO; +AMLO1TAB12 PO; +ASPI81CT89 PO; +ATRN IH; -ATROVENT 00.5 MG/3 M IH; -CATAPRES0.1 MG PO; +CLON0.1T42 PO; +COLL30OI TP; -EXFORGE 10 MG-11 TAB PO; +FURO-570 PO; +HYDR-1098 PO; +IBUP-974 PO; -IRON325 M2; +METO25TA PO; -MOTRIN800 MG PO; -NORCO 5/325 MG1 TAB PO; -ORETIC25 MG PO; +PRON IH; -PROVENTIL2.5 MG/3 M IH; +PUL.5N INH; +PUL.5N NEB; +SIMV10TA1 PO
[2017-03-18 15:28] VITALS: BP 158/95
--- NOTE | 2017-03-18 17:20 | NUR ---
Patient ambulated to bed 5 with family. RN evaluating patient at bedside.
--- NOTE | 2017-03-18 17:40 | NUR ---
51/F PRESENT TO ED C/O BL LOWER EXTREMITY PAIN x YESTERDAY AFTERNOON; PT STATES NO TRAUMA OR INJURY TO SITE AT THIS TIME. PAIN 12/18 STABBING INTERMITENT NON-RADIATING. PT STATES SHE WAS D/C FROM [facility] 03/15/2017 FOR ABDOMINAL PAIN. AAOx4, PERRLA, BREATHING EVEN AND UNLABORED. FAMILY AT BEDSIDE. ERMD NOTIFIED OF PATIENT STATUS.
[2017-03-18] MEDS ORDERED: ACETAMINOPHEN EXTRA STRENGTH 500 MG TAB ONE (18:19)
[2017-03-18 18:40] LABS: BASOPHILS # (AUTO) 0.1 K/uL (0.00-0.22); BASOPHILS % (AUTO) 0.9 % (0.0-2.0); EOSINOPHILS % (AUTO) 0.8 % (0.0-4.0); HEMATOCRIT 35.5 % (36-48); HEMOGLOBIN 11.3 g/dL (12.0-16.0); LYMPHOCYTES # (AUTO) 0.9 K/uL (2.5-16.5); LYMPHOCYTES % (AUTO) 15.8 % (20.5-51.1); MEAN CORPUSCULAR HEMOGLOBIN 24 pg (27-31); MEAN CORPUSCULAR HGB CONC 32 g/dL (33-37); MEAN CORPUSCULAR VOLUME 74 fL (80-94); MONOCYTES # (AUTO) 0.1 K/uL (0.8-1.0); MONOCYTES % (AUTO) 2.6 % (1.7-9.3); NEUTROPHILS # (AUTO) 4.5 K/uL (1.8-7.7); NEUTROPHILS % (AUTO) 79.9 % (42.2-75.2); PLATELET COUNT (AUTO) 170 K/uL (140-450); RED BLOOD CELL COUNT(AUTO) 4.79 MIL/uL (4.20-5.40); RED CELL DISTRIBUTION WIDTH 18.4 % (11.6-13.7); WHITE BLOOD COUNT (AUTO) 5.6 K/uL (4.8-10.8)
--- NOTE | 2017-03-18 18:49 | NUR ---
Herbert. EVALUATING PT AT BEDSIDE.
[2017-03-18 18:52] LABS: ANION GAP 13.9 (8-16); CREATININE 1.1 mg/dL (0.6-1.3); POTASSIUM 3.9 mmol/L (3.5-5.1)
[2017-03-18 18:58] LABS: ALBUMIN 3.7 g/dL (3.4-5.0); TOTAL BILIRUBIN 0.8 mg/dL (0.0-1.0)
--- NOTE | 2017-03-18 19:08 | NUR ---
Pt report given to JONNA GARCIA. Transfer of care at this time.
--- NOTE | 2017-03-18 19:30 | NUR ---
PT RESTING COMFORTABLY ON BED, VSS, PT C/O /10 PAIN TO BRADLEY LEGS, BLE NOTED WITH +2 PITTING EDEMA, EYTHEMA AND WARM AND TENDER TO TOUCH, PERIPHERAL PULSES PRESENT, PT HAS FULL MOBILITY OF BLE. OPEN WOUND TO RT BIG TOE NOTED APPROX 0.5CM X0.5 CM, PT REPORTS IT WAS A BLISTER THAT POPPED. PT BEING SEEN BY WOUND MD AND PT HAS SANTYL OINTMENT FOR WOUND. ED MADE AWARE OF PT STATUS
[2017-03-18] MEDS ORDERED: ONDANSETRON 4 MG/2 ML VIAL IVP ONE (19:55)
[2017-03-18] MEDS ORDERED: MORPHINE SULFATE 4 MG/ML SYR IVP ONE (19:55)
--- NOTE | 2017-03-18 20:43 | NUR ---
Dr. Lu evaluating patient at bedside.
[2017-03-18 20:45] LABS: APPEARANCE,URINE CLEAR (CLEAR); BILIRUBIN,URINE NEGATIVE (NEGATIVE); BLOOD, URINE 2+ (NEGATIVE); COLOR,URINE YELLOW (YELLOW); LEUKOCYTE ESTERASE ,URINE NEGATIVE (NEGATIVE); NITRITE, URINE NEGATIVE (NEGATIVE); PH,URINE 7.5 (5.0-9.0); UGLUCOSE NEGATIVE (NEGATIVE)
[2017-03-18] MEDS ORDERED: CLINDAMYCIN 600 MG in DEXTROSE 5% 50 ML IV ONE (20:55)
[2017-03-18 20:56] LABS: RBC,URINE >100 /HPF (0-5); WBC,URINE 0-5 (RARE) /HPF (0-5)
[2017-03-18] MEDS ORDERED: CLINDAMYCIN 600 MG/4 ML VIAL ONE (21:09)
[2017-03-18] MEDS ORDERED: COLLAGENASE TP SCH (21:10)
[2017-03-18] MEDS ORDERED: ALPRAZolam 0.5 MG TAB PO SCH (21:10)
[2017-03-18] MEDS ORDERED: cloNIDine 0.1 MG TAB PO PRN (21:10)
[2017-03-18] MEDS: NACL 0.9% 1,000 ML IV SCH (21:11)
[2017-03-18] MEDS ORDERED: ACETAMINOPHEN 325 MG TAB PO PRN (21:15)
[2017-03-18] MEDS ORDERED: ONDANSETRON 4 MG/2 ML VIAL IM/IVP PRN (21:15)
[2017-03-18] MEDS ORDERED: DOCUSATE SODIUM 100 MG GELCAP PO PRN (21:15)
[2017-03-18] MEDS ORDERED: HYDROcodone/APAP 7.5/325 MG 1 TAB PO PRN (21:15)
--- NOTE | 2017-03-18 21:33 | NUR ---
RECEIVED REPORT FROM ER NURSE OVER PHONE.
[2017-03-18] MEDS ORDERED: BUDESONIDE 0.5 MG/2 ML NEBU INH PRN (21:35)
[2017-03-18] MEDS ORDERED: ALBUTEROL SULFATE/IPRATROPIU 3 ML SOL IH PRN (21:35)
[2017-03-18] MEDS ORDERED: IPRATROPIUM 0.02% 0.5 MG/2.5 ML NEBU INH PRN (21:35)
--- NOTE | 2017-03-18 21:40 | NUR ---
PT ARRIVED TO UNIT ON [facility] ACCOMPANIED BY ER NURSE. PT AMBULATED FROM [facility] TO BED USING A CANE. PT IS AAOX4, ON ROOM AIR. PT VITAL SIGNS ARE STABLE, DENIES PAIN. THERE IS ERYTHEMA ON BOTH LOWER EXTREMITIES. PT HAS AN OPEN BLISTER ON THE RIGHT TOE. 20 GAUGE IV ON RIGHT AC SL. UPDATED BOARD, DISCUSSED PLAN OF CARE WITH PT, PT VERBALIZED UNDERSTANDING. PT IN STABLE CONDITION, NO SIGNS OF DISTRESS NOTED. ORIENTED PT TO ROOM, PT STATED SHE JUST LEFT THE SAME ROOM DAYS AGO. BED IN LOW POSITION, CALL LIGHT WITHIN REACH. WILL CONTINUE TO MONITOR.
--- NOTE | 2017-03-18 21:40 | NUR ---
Patient will be admitted to care of DR DEVINE. Admited to TELE. Will go to [id number]. Belongings list completed. Report to GAYE COYLE. TRANSPORTED VIA GURNEY WITH CARDIAC MONITORING, PT STABLE, VSS AT THIS TIME, DENIES ANY PAIN, IV SL
[2017-03-18 21:45] VITALS: BP 141/81
[2017-03-18 22:02] LABS: CHOL/HDL RATIO 4.3 (1-4.5); FREE T4 (FREE THYROXINE) 1.33 ng/dL (0.76-1.46); MAGNESIUM 2.1 mg/dL (1.8-2.4); PHOSPHORUS 3.9 mg/dL (2.5-4.9); PROTHROMBIN TIME 11.2 secs (10.8-13.4); THYROID STIMULATING HORMONE 1.94 uIU/mL (0.34-3.74)
[2017-03-18] MEDS ORDERED: HYDROcodone/APAP 5/325 MG 1 TAB TAB PO PRN (22:40)
[2017-03-18] MEDS ORDERED: IBUPROFEN 800 MG TAB PO SCH (22:40)
--- NOTE | 2017-03-18 22:45 | NUR ---
SPOKE WITH DR KRAUS ABOUT PT VTE SCORE BEING 3, HE SAID HE WOULD ORDER HEPARIN AND ULTRASOUND.
[2017-03-18] MEDS: MORPHINE SULFATE 2 MG/ML SYR IVP PRN (23:28)
[2017-03-19 00:38] VITALS: BP 123/74
--- NOTE | 2017-03-19 00:45 | NUR ---
ULTRASOUND DONE, PT VITAL SIGNS ARE WITHIN NORMAL LIMITS AND STABLE ON 2L OF O2 VIA NC. PT READY TO SET UP CPAP. PT IN STABLE CONDITION, NO SIGNS OF DISTRESS NOTED. BED IN LOW POSITION, CALL LIGHT WITHIN REACH. WILL CONTINUE TO MONITOR.
--- NOTE | 2017-03-19 03:00 | NUR ---
EDUCATED PT ON USING INCENTIVE SPIROMETER, PT VERBALIZED UNDERSTANDING. PT IN STABLE CONDITION, NO SIGNS OF DISTRESS NOTED. BED IN LOW POSITION, CALL LIGHT WITHIN REACH. WILL CONTINUE TO MONITOR.
[2017-03-19 04:00] VITALS: BP 129/77
--- NOTE | 2017-03-19 05:30 | NUR ---
ADMINISTERED ANCEF VIA IVPB, ADVISED PT TO USE CALL LIGHT IMMEDIATELY IF SHE FEELS REACTION TO MEDICATION SUCH WHEEZING, SOB, RASH BECAUSE POSSIBLE CROSS ALLERGY WITH PENICILLINS. TALKED TO PHARMACY AND PT AND AGREED TO ADMINISTER WHILE CLOSELY MONITORING FOR REACTION. PT IN STABLE CONDITION, NO SIGNS OF DISTRESS NOTED. BED IN LOW POSITION, CALL LIGHT WITHIN REACH. WILL CONTINUE TO MONITOR.
[2017-03-19] MEDS ORDERED: ceFAZolin 1,000 MG VIAL ONE (05:31)
[2017-03-19 06:07] LABS: BASOPHILS % (AUTO) 0.9 % (0.0-2.0); EOSINOPHILS # (AUTO) 0.1 K/uL (0-0.4); EOSINOPHILS % (AUTO) 1.7 % (0.0-4.0); HEMATOCRIT 29.4 % (36-48); HEMOGLOBIN 9.2 g/dL (12.0-16.0); LYMPHOCYTES # (AUTO) 0.8 K/uL (2.5-16.5); LYMPHOCYTES % (AUTO) 20.6 % (20.5-51.1); MEAN CORPUSCULAR HEMOGLOBIN 24 pg (27-31); MEAN CORPUSCULAR HGB CONC 31 g/dL (33-37); MEAN CORPUSCULAR VOLUME 75 fL (80-94); MONOCYTES # (AUTO) 0.2 K/uL (0.8-1.0); MONOCYTES % (AUTO) 5.8 % (1.7-9.3); NEUTROPHILS # (AUTO) 2.7 K/uL (1.8-7.7); PLATELET COUNT (AUTO) 134 K/uL (140-450); RED BLOOD CELL COUNT(AUTO) 3.93 MIL/uL (4.20-5.40); RED CELL DISTRIBUTION WIDTH 18.6 % (11.6-13.7); WHITE BLOOD COUNT (AUTO) 3.8 K/uL (4.8-10.8)
[2017-03-19 06:27] LABS: CREATININE 0.9 mg/dL (0.6-1.3)
[2017-03-19 07:13] LABS: PROTHROMBIN TIME 11.6 secs (10.8-13.4)
--- NOTE | 2017-03-19 07:15 | NUR ---
ENDORSED PT TO DAY SHIFT NURSE FOR CONTINUITY OF CARE. PT IN STABLE CONDITION.
[2017-03-19] MEDS: BUDESONIDE 0.5 MG/2 ML NEBU INH SCH ×2 (07:42→19:02)
[2017-03-19] MEDS: ALBUTEROL SULFATE/IPRATROPIU 3 ML SOL IH SCH ×5 (07:43→22:29)
[2017-03-19 08:00] VITALS: BP 140/72
--- NOTE | 2017-03-19 08:00 | NUR ---
RECEIVED PT AT BEDSIDE, PT STABLE, RESTING, NO DISTRESS NOTED, AAOX4, BLISTER ON R BIG TOE, DRESSING CLEAN DRY AND INTACT, BLE DISCOLORATION, IV R AC 20G RUNNING NS @60ML/HR INFUSING WELL, CALL LIGHT WITHIN REACH, WILL CONTINUE TO MONITOR.
[2017-03-19] MEDS: VALSARTAN 80 MG TAB PO SCH (08:35)
[2017-03-19] MEDS: METOPROLOL 50 MG TAB PO SCH ×2 (08:35→21:01)
[2017-03-19] MEDS: ASPIRIN 81 MG TAB.CHEW PO SCH (08:35)
[2017-03-19] MEDS: SIMVASTATIN 10 MG TAB PO SCH (08:36)
[2017-03-19] MEDS: amLODIPine 5 MG TAB PO SCH (08:36)
[2017-03-19] MEDS: hydrALAZINE 25 MG TAB PO SCH ×3 (08:36→17:25)
[2017-03-19] MEDS: FUROSEMIDE 40 MG TAB PO SCH (08:37)
[2017-03-19] MEDS ORDERED: VALSARTAN PO SCH (09:00)
[2017-03-19] MEDS ORDERED: AMLODIPINE PO SCH (09:00)
--- NOTE | 2017-03-19 09:52 | NUR ---
PATIENT HAS BEEN SCREENED AND CATEGORIZED HIGH NUTRITION RISK. PATIENT WILL BE SEEN WITHIN 1-2 DAYS OF ADMISSION. 03/19/17-03/20/[address]
--- NOTE | 2017-03-19 10:10 | NUR ---
PT AMBULATES AROUND UNIT, TOLERATED WELL, WILL CONTINUE TO MONITOR
[2017-03-19] MEDS ORDERED: ALPRAZolam 0.5 MG TAB PO PRN (10:15)
[2017-03-19] MEDS: MULTIVITAMIN/MINERALS 1 TAB PO SCH (10:43)
[2017-03-19 11:54] VITALS: BP 114/64
--- NOTE | 2017-03-19 12:05 | NUR ---
PT EATING LUNCH, NO DISTRESS NOTED, CALL LIGHT WITHIN REACH, WILL CONTINUE TO MONITOR.
[2017-03-19] MEDS ORDERED: COLLAGENASE TP PRN (12:20)
[2017-03-19] MEDS: COLLAGENASE TP SCH (12:31)
--- NOTE | 2017-03-19 13:54 | NUR ---
PT REPORTED FEELING ANXIOUS, BP 130/74 HR 74, NO DISTRESS NOTED, MEDICATED WITH ORDERED XANAX. WILL CONTINUE TO MONITOR.
--- NOTE | 2017-03-19 15:00 | NUR ---
PT IS IN STABLE CONDITION. NO DISTRESS NOTED. CALL LIGHT WITHIN REACH. WILL CONTINUE TO MONITOR.
[2017-03-19 16:00] VITALS: BP 113/64
--- NOTE | 2017-03-19 17:10 | NUR ---
DR. MEANS CALLED AND ORDERED 2 UNNA BOOTS, 4 CAST PADDINGS, AND 4 LISET BANDAGES TO BE PLACED AT BEDSIDE. CARRIED ORDER OUT. INFORMED PT THAT DR. MEANS IS COMING TO SEE HER.
[2017-03-19] MEDS: NACL 0.9% 1,000 ML IV SCH (17:59)
--- NOTE | 2017-03-19 18:27 | NUR ---
DR. MEANS STATED HE WILL COME TO WRAP LEGS AND PERFORM DEBRIDEMENT TMR DUE TO PT'S SORENESS TODAY. ASKED PT IF SHE WANTS RN TO WRAP UP THE TOE AT THIS TIME. PT WANTED TO FINISH DINNER FIRST. CALL LIGHT WITHIN REACH. WILL CONTINUE TO MONITOR.
--- NOTE | 2017-03-19 19:10 | NUR ---
ENDORSE TO NIGHT NURSE, PT RESTING, NO DISTRESS NOTED, STABLE, CALL LIGHT WITHIN REACH.
--- NOTE | 2017-03-19 19:11 | NUR ---
RECEIVED REPORT FROM DAY SHIFT NURSE AT PT BEDSIDE FOR CONTINUITY OF CARE. PT IS AAOX4, ON ROOM AIR, CPAP IN ROOM. PT VITAL SIGNS ARE STABLE, DENIES PAIN. THERE IS ERYTHEMA ON BOTH LOWER EXTREMITIES. PT HAS AN OPEN BLISTER ON THE RIGHT TOE. 20 GAUGE IV ON RIGHT AC INFUSING NS @60ML/HR. UPDATED BOARD, DISCUSSED PLAN OF CARE WITH PT, PT VERBALIZED UNDERSTANDING. PT IN STABLE CONDITION, NO SIGNS OF DISTRESS NOTED. ORIENTED PT TO ROOM, PT STATED SHE JUST LEFT THE SAME ROOM DAYS AGO. BED IN LOW POSITION, CALL LIGHT WITHIN REACH. WILL CONTINUE TO MONITOR.
[2017-03-19 20:00] VITALS: BP 119/68
[2017-03-19] MEDS: MORPHINE SULFATE 2 MG/ML SYR IVP PRN (21:10)
--- NOTE | 2017-03-19 21:13 | NUR ---
ADMINISTERED SCHEDULED MEDICATIONS AND PRN PAIN MEDICATION FOR PAIN OF 7/10. PT TOLERATED WELL. PT IN STABLE CONDITION, NO SIGNS OF DISTRESS NOTED. BED IN LOW POSITION, CALL LIGHT WITHIN REACH. WILL CONTINUE TO MONITOR.
--- NOTE | 2017-03-19 22:55 | NUR ---
RT GAVE BREATHING TREATMENT TO PT AND APPLIED CPAP. PT IN STABLE CONDITION, NO SIGNS OF DISTRESS NOTED. BED IN LOW POSITION, CALL LIGHT WITHIN REACH. WILL CONTINUE TO MONITOR.
[2017-03-20] VITALS: BP 113/67
--- NOTE | 2017-03-20 00:45 | NUR ---
PT EASILY AWAKENED BY NAME. CPAP ON. VITAL SIGNS WNL. PT IN STABLE CONDITION, NO SIGNS OF DISTRESS NOTED. CALL LIGHT WITHIN REACH. WILL CONTINUE TO MONITOR.
--- NOTE | 2017-03-20 01:40 | NUR ---
TOOK CONSENT FORM FOR EXCISIONAL DEBRIDEMENT OF RIGHT HALLUX ULCERATION TO PT FOR HER SIGNATURE. PT ASKED TO DO SO LATER. WILL TRY AGAIN IN THE MORNING. PT IN STABLE CONDITION, NO SIGNS OF DISTRESS NOTED. CALL LIGHT WITHIN REACH. WILL CONTINUE TO MONITOR.
[2017-03-20] MEDS: ALBUTEROL SULFATE/IPRATROPIU 3 ML SOL IH SCH ×6 (03:11→22:55)
--- NOTE | 2017-03-20 03:45 | NUR ---
PT VITAL SIGNS WNL. PT WANTS TO SIGN CONSENT FORM FOR DEBRIDEMENT IN THE MORNING AND NOT AT THIS TIME. PT IN STABLE CONDITION, NO SIGNS OF DISTRESS NOTED. CALL LIGHT WITHIN REACH. WILL CONTINUE TO MONITOR.
[2017-03-20 04:00] VITALS: BP 126/67
--- NOTE | 2017-03-20 05:10 | NUR ---
ADMINISTERED SCHEDULED ANTIBIOTIC. PT STILL ON CPAP, A PT IN STABLE CONDITION, NO SIGNS OF DISTRESS NOTED. CALL LIGHT WITHIN REACH. WILL CONTINUE TO MONITOR. PT IN STABLE CONDITION, NO SIGNS OF DISTRESS NOTED. CALL LIGHT WITHIN REACH.
[2017-03-20 06:14] LABS: ANION GAP 10.6 (8-16); CARBON DIOXIDE 27.7 mmol/L (21-32); CREATININE 0.9 mg/dL (0.6-1.3); EOSINOPHILS # (AUTO) 0.1 K/uL (0-0.4); EOSINOPHILS % (AUTO) 1.5 % (0.0-4.0); HEMOGLOBIN 8.9 g/dL (12.0-16.0); LYMPHOCYTES # (AUTO) 0.6 K/uL (2.5-16.5); LYMPHOCYTES % (AUTO) 16.9 % (20.5-51.1); MEAN CORPUSCULAR HEMOGLOBIN 24 pg (27-31); MEAN CORPUSCULAR HGB CONC 32 g/dL (33-37); MEAN CORPUSCULAR VOLUME 74 fL (80-94); MONOCYTES # (AUTO) 0.2 K/uL (0.8-1.0); MONOCYTES % (AUTO) 5.5 % (1.7-9.3); NEUTROPHILS # (AUTO) 2.8 K/uL (1.8-7.7); NEUTROPHILS % (AUTO) 75.1 % (42.2-75.2); PLATELET COUNT (AUTO) 137 K/uL (140-450); POTASSIUM 4.3 mmol/L (3.5-5.1); RED BLOOD CELL COUNT(AUTO) 3.79 MIL/uL (4.20-5.40); WHITE BLOOD COUNT (AUTO) 3.7 K/uL (4.8-10.8)
[2017-03-20] MEDS: NACL 0.9% 1,000 ML IV SCH (06:31)
--- NOTE | 2017-03-20 07:06 | NUR ---
ENDORSED PT TO DAY SHIFT RN FOR CONTINUITY OF CARE. PATIENT AWAKE ORIENTED AND IN STABLE CONDITION.
--- NOTE | 2017-03-20 07:07 | NUR ---
RECEIVED PT FROM GAYE COYLE AT BEDSIDE. PT IS A&OX4. PT HAS IV ON R AC 20G RUNNING NS@60. PT HAS BL LE DISCOLORATION. PT HAS R BIG TOE WOUND FROM BLISTER, DSG INTACT. PT IS ON CONT PULSE OX MONITOR. PT BREATHING LABORED AFTER COMING BACK TO BED FROM BATHROOM. BREATHING BECAME NORMAL AND UNLABORED AFTER 3 MINS OF SITTING, O2 SAT 95% RA. CALL LIGHT WITHIN REACH. WILL CONTINUE TO MONITOR.
[2017-03-20] MEDS: BUDESONIDE 0.5 MG/2 ML NEBU INH SCH ×2 (07:13→19:16)
--- NOTE | 2017-03-20 07:32 | NUR ---
AWAKE AND ALERT RESPONSIVE TO SKIDWAY MAN VERBAL COMMANDS SITTING ON SIDE OF BED TOLERATED INCENTIVE SPIROMETRY THERAPY WELL WITHOUT ADVERSE REACTIONS NOTED ENCOURAGED PATIENT WITH ACKNOWLEDGEMENT TO USE EVERY 1-2 HOURS WHILE AWAKE
[2017-03-20 08:00] VITALS: BP 128/73
[2017-03-20 08:25] LABS: T4 (THYROXINE) 8.7 ug/dL (4.5-12.0)
[2017-03-20] MEDS: SIMVASTATIN 10 MG TAB PO SCH (08:31)
[2017-03-20] MEDS: MULTIVITAMIN/MINERALS 1 TAB PO SCH (08:31)
[2017-03-20] MEDS: VALSARTAN 80 MG TAB PO SCH (08:31)
[2017-03-20] MEDS: hydrALAZINE 25 MG TAB PO SCH ×3 (08:32→16:18)
[2017-03-20] MEDS: ASPIRIN 81 MG TAB.CHEW PO SCH (08:32)
[2017-03-20] MEDS: METOPROLOL 50 MG TAB PO SCH ×2 (08:32→20:12)
[2017-03-20] MEDS: amLODIPine 5 MG TAB PO SCH (08:32)
[2017-03-20] MEDS: FUROSEMIDE 40 MG TAB PO SCH (08:33)
[2017-03-20] MEDS: COLLAGENASE TP SCH (08:42)
--- NOTE | 2017-03-20 08:42 | NUR ---
PT REFUSED SANTYL DUE TO DSG CHANGE IS DAILY AND DONE LAST NIGHT.
[2017-03-20] MEDS ORDERED: COMMUNICATION ORDER MC SCH (09:00)
--- NOTE | 2017-03-20 09:06 | NUR ---
PT GOT UP TO WASH UP AT BEDSIDE. TOLERATING WELL. CALL LIGHT WITHIN REACH. WILL CONTINUE TO MONITOR.
[2017-03-20] MEDS: LACTOBACILLUS RHAMNOSUS GG 1 EACH CAP PO SCH (09:15)
--- NOTE | 2017-03-20 10:33 | NUR ---
PT IS TAKING A WALK IN THE UNIT. TOLERATED WELL. CALL LIGHT WITHIN REACH. WILL CONTINUE TO MONITOR.
--- NOTE | 2017-03-20 10:46 | NUR ---
03/20/17 RD INITIAL ASSESSMENT COMPLETED PLEASE REFER TO NUTRITION ASSESSMENT UNDER CARE ACTIVITY FOR ESTIMATED NUTRITIONAL NEEDS. 1. CONTINUE CARDIAC DIET 2. PROVIDE NUTRITION EDUCATION NEEDED 3. RD TO FOLLOW-UP 3-5 DAYS, MODERATE RISK JEN LOPEZ RD
[2017-03-20 11:40] VITALS: BP 110/73
--- NOTE | 2017-03-20 12:30 | NUR ---
PT TOLERATED LUNCH WELL. NO DISTRESS NOTED. CALL LIGHT WITHIN REACH. WILL CONTINUE TO MONITOR.
--- NOTE | 2017-03-20 14:30 | NUR ---
PT IS RESTING COMFORTABLY IN BED. SNACKS PROVIDED. CALL LIGHT WITHIN REACH. WILL CONTINUE TO MONITOR.
--- NOTE | 2017-03-20 15:26 | NUR ---
AWAKE AND ALERT RESPONSIVE TO SPECIAL EDUCATION SECRETARY PATIENT REFUSES HHN THERAPY AT THIS TIME NO EVIDENCE OF PULMONARY DISTRESS NOTED
[2017-03-20 16:00] VITALS: BP 122/62
[2017-03-20] MEDS: IBUPROFEN 800 MG TAB PO PRN (16:18)
--- NOTE | 2017-03-20 16:18 | NUR ---
PT C/O MILD PAIN IN TOES AND ALSO WISH TO BE PREMEDICATED BEFORE PODIATRY PERFORMS DEBRIDEMENT. MEDICATED WITH MOTRIN. TOLERATED WELL. CALL LIGHT WITHIN REACH. WILL CONTINUE TO MONITOR.
[2017-03-20] MEDS: MORPHINE SULFATE 2 MG/ML SYR IVP PRN (17:59)
--- NOTE | 2017-03-20 18:00 | NUR ---
DR. MEANS AT BEDSIDE TO PERFORM DEBRIDEMENT AND WRAPPED THE LEGS WITH UNNA BOOTS. SITE CONFIRMED, CONSENT SIGNED IN CHART. MEDICATE PT WITH MORPHINE FOR PAIN.
--- NOTE | 2017-03-20 18:10 | NUR ---
DR. MEANS GAVE ORDER TO DRESS DEBRIDED WOUND ON R BIG TOE WITH ADAPTIC AND KERLIX DAILY AND TO DISCONTINUE SANTYL. WILL CARRY IT OUT.
--- NOTE | 2017-03-20 18:15 | NUR ---
APPLIED ADAPTIC AND KERLIX TO WOUND. PT TOLERATED WELL. CALL LIGHT WITHIN REACH. WILL CONTINUE TO MONITOR.
--- NOTE | 2017-03-20 19:10 | NUR ---
ENDORSED CARE OF PT TO LEAD MASON TENDER NURSE AT BEDSIDE. PT IN STABLE CONDITION.
--- NOTE | 2017-03-20 19:16 | NUR ---
RECEIVED REPORT FROM DAY RN. PATIENT RESTING IN BED, NO S/S OF ACUTE DISTRESS NOTED ,RESPIRATION EVEN AND UNLABORED, DENIES PAIN AT THIS TIME. DRESSING ON RT BIG TOE CLEAN AND INTACT, IV PATENT AND INTACT, INFUSING NS AT 20ML/HR. PLAN OF CARE DISCUSSED, PATIENT VERBALIZED UNDERSTANDING, CALL LIGHT WITHIN REACH, SAFETY MEASURE ENSURED, WILL CONTINUE TO MONITOR.
[2017-03-20 20:05] VITALS: BP 124/62
[2017-03-20] MEDS ORDERED: FLUOCINONIDE 0.05% CRM 60 GM TUBE TP SCH (20:20)
--- NOTE | 2017-03-20 20:20 | NUR ---
PM MEDICATION GIVEN, PATIENT TOLERATED WELL. WILL CONTINUE TO MONITOR.
--- NOTE | 2017-03-20 22:45 | NUR ---
PATIENT RESTING IN BED, NO S/S OF ACUTE DISTRESS NOTED, RESPIRATION EVEN AND UNLABORED, CALL LIGHT WITHIN REACH, SAFETY MEASURE ENSURED, WILL CONTINUE TO MONITOR.
[2017-03-21] MEDS: IBUPROFEN 800 MG TAB PO PRN (00:24)
[2017-03-21 00:34] VITALS: BP 101/63
--- NOTE | 2017-03-21 00:55 | NUR ---
WOUND VAC IN PLACE, PRESSURE IS SET AT 125MMHG, INTACT AND PATENT. ABDOMINAL PAD IS NOT ADMINISTERED. PATIENT DENIES PAIN AT THIS TIME. VITAL SIGNS ARE STABLE, CALL LIGHT WITHIN REACH, SAFETY MEASURE ENSURED, WILL CONTINUE TO MONITOR. Addendum: 03/21/17 at 0110 by Christina Santiago RN WRONG PATIENT
--- NOTE | 2017-03-21 01:11 | NUR ---
PATIENT IS SLEEPING WITH CPAP ON, NO S/S OF ACUTE DISTRESS NOTED, RESPIRATION EVEN AND UNLABORED, VITAL SIGNS STABLE, AND PAIN MEDICATION WAS ADMINISTERED ORDERED, CALL LIGHT WITHIN REACH, SAFETY MEASURE ENSURED, WILL CONTINUE TO MONITOR.
--- NOTE | 2017-03-21 03:26 | NUR ---
AT 0301, HEART RATE 46 BPM, ASSESSED PATIENT AT BEDSIDE, PATIENT STATED," I AM OKAY." NO S/S OF ACUTE DISTRESS NOTED, NO CHANGE OF LOC, CALL LIGHT WITHIN REACH, SAFETY MEASURE ENSURED, WILL CONTINUE TO MONITOR.
[2017-03-21] MEDS: ALBUTEROL SULFATE/IPRATROPIU 3 ML SOL IH SCH ×2 (03:48→06:31)
[2017-03-21 04:10] VITALS: BP 132/83
--- NOTE | 2017-03-21 04:40 | NUR ---
ANCEF STARTED, PATIENT TOLERATED WELL. WILL CONTINUE TO MONITOR.
[2017-03-21 05:31] LABS: BASOPHILS # (AUTO) 0.1 K/uL (0.00-0.22); BASOPHILS % (AUTO) 1.6 % (0.0-2.0); EOSINOPHILS # (AUTO) 0.1 K/uL (0-0.4); EOSINOPHILS % (AUTO) 2.1 % (0.0-4.0); HEMATOCRIT 27.6 % (36-48); HEMOGLOBIN 8.8 g/dL (12.0-16.0); LYMPHOCYTES # (AUTO) 0.7 K/uL (2.5-16.5); LYMPHOCYTES % (AUTO) 19.6 % (20.5-51.1); MEAN CORPUSCULAR HEMOGLOBIN 24 pg (27-31); MEAN CORPUSCULAR HGB CONC 32 g/dL (33-37); MEAN CORPUSCULAR VOLUME 74 fL (80-94); MONOCYTES # (AUTO) 0.2 K/uL (0.8-1.0); MONOCYTES % (AUTO) 5.5 % (1.7-9.3); NEUTROPHILS # (AUTO) 2.5 K/uL (1.8-7.7); NEUTROPHILS % (AUTO) 71.2 % (42.2-75.2); PLATELET COUNT (AUTO) 141 K/uL (140-450); RED BLOOD CELL COUNT(AUTO) 3.72 MIL/uL (4.20-5.40); RED CELL DISTRIBUTION WIDTH 18.3 % (11.6-13.7); WHITE BLOOD COUNT (AUTO) 3.6 K/uL (4.8-10.8)
[2017-03-21] MEDS: NACL 0.9% 1,000 ML IV SCH (05:58)
--- NOTE | 2017-03-21 06:24 | NUR ---
PATIENT IS SLEEPING WITH CPAP ON, NO S/S OF ACUTE DISTRESS NOTED, RESPIRATION EVEN AND UNLABORED, CALL LIGHT WITHIN REACH, SAFETY MEASURE ENSURED, WILL CONTINUE TO MONITOR.
[2017-03-21] MEDS: BUDESONIDE 0.5 MG/2 ML NEBU INH SCH (06:41)
--- NOTE | 2017-03-21 07:10 | NUR ---
ENDORSED PLAN OF CARE TO DAY RN. PATIENT RESTING IN BED, NO S/S OF ACUTE DISTRESS, PATIENT IS IN STABLE CONDITION.
--- NOTE | 2017-03-21 07:15 | NUR ---
RECEIVED REPORT FROM AGILE TEST LEAD NURSE, PT IS SITTING UP IN BED, A/OX4, AMBULATES WITH CANE, IV IS ON THE RT AC, PATENT, INTACT, INFUSING WELL, PT HAS BILATERAL LEGS WRAPPED, S/P RT TOE DEBRIDEMENT ON 03/20/17, NO S/S OF RESPIRATORY DISTRESS OR DISCOMFORT NOTED, DISCUSSED PLAN OF CARE WITH PT, PT VERBALIZED UNDERSTANDING, SAFETY/FALL PRECAUTIONS ARE IN PLACE, CALL LIGHT WITHIN REACH, WILL CONTINUE TO MONITOR.
[2017-03-21 08:00] VITALS: BP 122/70
[2017-03-21] MEDS ORDERED: CEPH500C16 PO (08:58)
[2017-03-21] MEDS ORDERED: LIDC TP (08:58)
[2017-03-21] MEDS: hydrALAZINE 25 MG TAB PO SCH (09:32)
[2017-03-21] MEDS: ASPIRIN 81 MG TAB.CHEW PO SCH (09:32)
--- NOTE | 2017-03-21 09:32 | NUR ---
DUE MEDICATIONS GIVEN, PT TOLERATED WELL, CALL LIGHT WITHIN REACH. DR. GORDILLO IN PATIENT'S ROOM SPEAKING WITH PT REGARDING DISCHARGE.
[2017-03-21] MEDS: LACTOBACILLUS RHAMNOSUS GG 1 EACH CAP PO SCH (09:33)
[2017-03-21] MEDS: VALSARTAN 80 MG TAB PO SCH (09:34)
[2017-03-21] MEDS: FUROSEMIDE 40 MG TAB PO SCH (09:35)
[2017-03-21] MEDS: amLODIPine 5 MG TAB PO SCH (09:35)
[2017-03-21] MEDS: METOPROLOL 50 MG TAB PO SCH (09:35)
[2017-03-21] MEDS: MULTIVITAMIN/MINERALS 1 TAB PO SCH (09:36)
[2017-03-21] MEDS: SIMVASTATIN 10 MG TAB PO SCH (09:36)
--- NOTE | 2017-03-21 10:30 | NUR ---
DISCHARGE INSTRUCTIONS GIVEN, IV REMOVED, CATHETER TIP INTACT, ID WRIST BAND REMOVED, WOUND CARE DONE ON PATIENT'S RIGHT TOE.
--- NOTE | 2017-03-21 11:00 | NUR ---
PT STABLE UPON DISCHARGE ACCOMPANIED BY FAMILY MEMBER.
== END 2017-03-21 11:00 | disposition home or self-care (01) | DRG 570 ==
LOC: MED 15:22 → MTU 21:29 → OBSVTOIN 03-19 08:53
PROVIDERS: ADMIT Student in an Organized Health Care Education/Training Program; ATTEND Student in an Organized Health Care Education/Training Program
PROC: 0JBQ0ZZ Excision of Right Foot Subcutaneous Tissue and Fascia, Open Approach (ICD-10-PCS; principal; 2017-03-20)
DX: L03.116 Cellulitis of left lower limb (principal); N17.0 Acute kidney failure with tubular necrosis; Z68.43 Body mass index [BMI] 50.0-59.9, adult; L03.115 Cellulitis of right lower limb; I10 Essential (primary) hypertension; D64.9 Anemia, unspecified; E66.01 Morbid (severe) obesity due to excess calories; G47.33 Obstructive sleep apnea (adult) (pediatric); J45.909 Unspecified asthma, uncomplicated; F41.9 Anxiety disorder, unspecified; Z88.0 Allergy status to penicillin; E83.51 Hypocalcemia; Z88.8 Allergy status to other drugs, medicaments and biological substances
CPT/HCPCS: 36415; 71010; 80048; 80053; 81001; 81025; 82150; 83036; 83605; 83690; 83735; 83880; 84100; 84436; 84439; 84443; 84479; 85025; 85610; 85730; 87040; 87081; 87086; 93005; 93925; 93970; 94640; 94660; 96365; 96375; 99285; G0378; J0690; J1644; J2270; J2405; J3490; J7030; J7060; J7620; J7626; Q0092

== ENCOUNTER 2017-04-03 08:47 | Outpatient (CLI) | payer OTHER ==
[~2017-04-03 08:47] MED LIST changes: -ACET-8386 PO; +CEPH500C16 PO; +LIDC TP; -PUL.5N INH
[2017-04-03 09:32] LABS: ALBUMIN 3.6 g/dL (3.4-5.0); ANION GAP 10.5 (8-16); CARBON DIOXIDE 28.5 mmol/L (21-32); CREATININE 0.9 mg/dL (0.6-1.3); TOTAL BILIRUBIN 0.3 mg/dL (0.0-1.0)
[2017-04-03 11:04] LABS: HEMATOCRIT 33.3 % (36-48); HEMOGLOBIN 10.6 g/dL (12.0-16.0); MEAN CORPUSCULAR HEMOGLOBIN 24 pg (27-31); MEAN CORPUSCULAR HGB CONC 32 g/dL (33-37); MEAN CORPUSCULAR VOLUME 75 fL (80-94); PLATELET COUNT (AUTO) 208 K/uL (140-450); RED BLOOD CELL COUNT(AUTO) 4.45 MIL/uL (4.20-5.40); RED CELL DISTRIBUTION WIDTH 19.5 % (11.6-13.7); WHITE BLOOD COUNT (AUTO) 4.5 K/uL (4.8-10.8)
[2017-04-03 11:05] LABS: BASOPHILS % (AUTO) 0.6 % (0.0-2.0); EOSINOPHILS % (AUTO) 0.8 % (0.0-4.0); LYMPHOCYTES # (AUTO) 0.7 K/uL (2.5-16.5); LYMPHOCYTES % (AUTO) 15.4 % (20.5-51.1); MONOCYTES # (AUTO) 0.1 K/uL (0.8-1.0); MONOCYTES % (AUTO) 3.1 % (1.7-9.3); NEUTROPHILS # (AUTO) 3.6 K/uL (1.8-7.7); NEUTROPHILS % (AUTO) 80.1 % (42.2-75.2)
== END 2017-04-03 20:47 | disposition home or self-care (01) ==
LOC: MLB 08:47
PROVIDERS: ATTEND General Practice
DX: I97.3 Postprocedural hypertension (principal); D64.9 Anemia, unspecified
CPT/HCPCS: 36415; 80053; 85025

== ENCOUNTER 2017-04-18 10:24 | Outpatient (CLI) | payer OTHER ==
[2017-04-18 10:49] LABS: BASOPHILS # (AUTO) 0.2 K/uL (0.00-0.22); BASOPHILS % (AUTO) 3.2 % (0.0-2.0); EOSINOPHILS % (AUTO) 0.7 % (0.0-4.0); HEMATOCRIT 36.3 % (36-48); HEMOGLOBIN 11.8 g/dL (12.0-16.0); LYMPHOCYTES # (AUTO) 0.9 K/uL (2.5-16.5); LYMPHOCYTES % (AUTO) 14.2 % (20.5-51.1); MEAN CORPUSCULAR HEMOGLOBIN 24 pg (27-31); MEAN CORPUSCULAR HGB CONC 33 g/dL (33-37); MEAN CORPUSCULAR VOLUME 75 fL (80-94); MONOCYTES # (AUTO) 0.1 K/uL (0.8-1.0); MONOCYTES % (AUTO) 1.7 % (1.7-9.3); NEUTROPHILS # (AUTO) 5.1 K/uL (1.8-7.7); NEUTROPHILS % (AUTO) 80.2 % (42.2-75.2); PLATELET COUNT (AUTO) 174 K/uL (140-450); RED BLOOD CELL COUNT(AUTO) 4.86 MIL/uL (4.20-5.40); RED CELL DISTRIBUTION WIDTH 18.3 % (11.6-13.7); WHITE BLOOD COUNT (AUTO) 6.3 K/uL (4.8-10.8)
[2017-04-18 10:56] LABS: ALBUMIN 3.7 g/dL (3.4-5.0); ANION GAP 12.2 (8-16); CARBON DIOXIDE 28.7 mmol/L (21-32); CREATININE 0.9 mg/dL (0.6-1.3); POTASSIUM 3.9 mmol/L (3.5-5.1); TOTAL BILIRUBIN 0.5 mg/dL (0.0-1.0)
[2017-04-18 11:11] LABS: APPEARANCE,URINE CLEAR (CLEAR); BILIRUBIN,URINE NEGATIVE (NEGATIVE); BLOOD, URINE TRACE-L (NEGATIVE); COLOR,URINE YELLOW (YELLOW); LEUKOCYTE ESTERASE ,URINE NEGATIVE (NEGATIVE); NITRITE, URINE NEGATIVE (NEGATIVE); PH,URINE 6.5 (5.0-9.0); UGLUCOSE NEGATIVE (NEGATIVE)
[2017-04-18 11:27] LABS: RBC,URINE 3-10 (FEW) /HPF (0-5); WBC,URINE 0-5 (RARE) /HPF (0-5)
== END 2017-04-18 18:57 | disposition home or self-care (01) ==
LOC: MLB 10:24
PROVIDERS: ATTEND General Practice
DX: D64.9 Anemia, unspecified (principal); R16.1 Splenomegaly, not elsewhere classified; R10.30 Lower abdominal pain, unspecified; Z86.2 Personal history of diseases of the blood and blood-forming organs and certain disorders involving the immune mechanism
CPT/HCPCS: 36415; 80053; 81001; 83690; 85025

== ENCOUNTER 2017-05-01 10:18 | Outpatient (CLI) | payer OTHER ==
[2017-05-01 12:59] LABS: BASOPHILS # (AUTO) 0.1 K/uL (0.00-0.22); BASOPHILS % (AUTO) 1.7 % (0.0-2.0); EOSINOPHILS % (AUTO) 0.8 % (0.0-4.0); HEMATOCRIT 35.4 % (36-48); HEMOGLOBIN 11.1 g/dL (12.0-16.0); LYMPHOCYTES # (AUTO) 0.6 K/uL (2.5-16.5); LYMPHOCYTES % (AUTO) 14.9 % (20.5-51.1); MEAN CORPUSCULAR HEMOGLOBIN 24 pg (27-31); MEAN CORPUSCULAR HGB CONC 31 g/dL (33-37); MEAN CORPUSCULAR VOLUME 76 fL (80-94); MONOCYTES # (AUTO) 0.1 K/uL (0.8-1.0); MONOCYTES % (AUTO) 1.7 % (1.7-9.3); NEUTROPHILS # (AUTO) 3.4 K/uL (1.8-7.7); NEUTROPHILS % (AUTO) 80.9 % (42.2-75.2); PLATELET COUNT (AUTO) 149 K/uL (140-450); RED BLOOD CELL COUNT(AUTO) 4.68 MIL/uL (4.20-5.40); WHITE BLOOD COUNT (AUTO) 4.2 K/uL (4.8-10.8)
[2017-05-01 13:09] LABS: ALBUMIN 3.6 g/dL (3.4-5.0); BILIRUBIN,DIRECT 0.1 mg/dL (0.0-0.3); TOTAL BILIRUBIN 0.4 mg/dL (0.0-1.0)
== END 2017-05-01 20:22 | disposition home or self-care (01) ==
LOC: MLB 10:18
DX: R10.9 Unspecified abdominal pain (principal); R61 Generalized hyperhidrosis; Z88.0 Allergy status to penicillin
CPT/HCPCS: 36415; 80076; 82728; 83540; 83615; 85025; 86803

== ENCOUNTER 2017-06-14 09:24 | Outpatient (CLI) | payer OTHER ==
[2017-06-14 10:41] LABS: BASOPHILS % (AUTO) 0.5 % (0.0-2.0); EOSINOPHILS % (AUTO) 0.8 % (0.0-4.0); HEMATOCRIT 34.2 % (36-48); HEMOGLOBIN 10.9 g/dL (12.0-16.0); LYMPHOCYTES # (AUTO) 0.7 K/uL (2.5-16.5); LYMPHOCYTES % (AUTO) 19.6 % (20.5-51.1); MEAN CORPUSCULAR HEMOGLOBIN 24 pg (27-31); MEAN CORPUSCULAR HGB CONC 32 g/dL (33-37); MEAN CORPUSCULAR VOLUME 74 fL (80-94); MONOCYTES % (AUTO) 1.4 % (1.7-9.3); NEUTROPHILS # (AUTO) 2.7 K/uL (1.8-7.7); NEUTROPHILS % (AUTO) 77.7 % (42.2-75.2); PLATELET COUNT (AUTO) 151 K/uL (140-450); RED CELL DISTRIBUTION WIDTH 17.5 % (11.6-13.7)
[2017-06-14 10:50] LABS: APPEARANCE,URINE CLEAR (CLEAR); BILIRUBIN,URINE NEGATIVE (NEGATIVE); BLOOD, URINE 1+ (NEGATIVE); COLOR,URINE YELLOW (YELLOW); LEUKOCYTE ESTERASE ,URINE NEGATIVE (NEGATIVE); NITRITE, URINE NEGATIVE (NEGATIVE); UGLUCOSE NEGATIVE (NEGATIVE)
[2017-06-14 11:07] LABS: ALBUMIN 3.5 g/dL (3.4-5.0); ANION GAP 12.4 (8-16); CARBON DIOXIDE 27.5 mmol/L (21-32); CHOL/HDL RATIO 6.6 (1-4.5); POTASSIUM 3.9 mmol/L (3.5-5.1); THYROID STIMULATING HORMONE 3.01 uIU/mL (0.34-3.74); TOTAL BILIRUBIN 0.4 mg/dL (0.0-1.0)
[2017-06-14 11:12] LABS: RBC,URINE 11-20 (MOD) /HPF (0-5)
[2017-06-14 11:13] LABS: WBC,URINE NONE SEEN /HPF (0-5)
[2017-06-14 12:56] LABS: WHITE BLOOD COUNT (AUTO) 3.4 K/uL (4.8-10.8)
== END 2017-06-14 22:55 | disposition home or self-care (01) ==
LOC: MLB 09:24
PROVIDERS: ATTEND General Practice
DX: J45.909 Unspecified asthma, uncomplicated (principal); I77.819 Aortic ectasia, unspecified site; I10 Essential (primary) hypertension; R06.02 Shortness of breath
CPT/HCPCS: 36415; 71046; 80053; 81001; 82306; 83036; 84443; 85025

== ENCOUNTER 2017-06-23 06:27 | Outpatient (CLI) | payer OTHER | END 2017-06-23 20:27 | disposition home or self-care (01) | LOC: CANPRECLI → MLB 06:27 | DX: Z53.21 Procedure and treatment not carried out due to patient leaving prior to being seen by health care provider (principal) ==

== ENCOUNTER 2017-06-24 21:22 | Inpatient (IN) | payer OTHER ==
[~2017-06-24] VITALS: Ht 167.6 cm; Wt 150.6 kg
[2017-06-24 21:44] VITALS: BP 130/66
--- NOTE | 2017-06-24 22:00 | NUR ---
PT TAKEN TO BED 10
[2017-06-24] MEDS ORDERED: NACL 0.9% 1,000 ML IV ONE (22:35)
[2017-06-24] MEDS ORDERED: fentaNYL 0.05 MG/ML VIAL IVP ONE (22:35)
[2017-06-24] MEDS ORDERED: ALBUTEROL SULFATE/IPRATROPIU 3 ML SOL IH ONE (22:35)
--- NOTE | 2017-06-24 22:45 | NUR ---
PATIENT IS A 51 Y/O FEMALE WHO PRESENTS TO THE ED C/O ABD PAIN. PT STATES, "MY ABD HAS BEEN HURTING FOR ABOUT 5 DAYS." PT REPORTS 6/10 CONSTANT AND DULL LLQ THAT DOES NOT RADIATE. PT DENIES CP, SOB, N/V/D. PT AAOX4, RR EVEN/UNLABORED. PT REPOSITIONED FOR COMFORT, BED IN LOWEST POSITION. ER MD DR. AMBROSIO NOTIFIED. WILL CONTINUE TO MONITOR.
[2017-06-24 23:14] LABS: BASOPHILS # (AUTO) 0.1 K/uL (0.00-0.22); BASOPHILS % (AUTO) 1.5 % (0.0-2.0); EOSINOPHILS # (AUTO) 0.1 K/uL (0-0.4); EOSINOPHILS % (AUTO) 1.3 % (0.0-4.0); HEMATOCRIT 32.9 % (36-48); HEMOGLOBIN 10.7 g/dL (12.0-16.0); LYMPHOCYTES # (AUTO) 0.7 K/uL (2.5-16.5); MEAN CORPUSCULAR HEMOGLOBIN 24 pg (27-31); MEAN CORPUSCULAR HGB CONC 32 g/dL (33-37); MEAN CORPUSCULAR VOLUME 74 fL (80-94); MONOCYTES # (AUTO) 0.2 K/uL (0.8-1.0); MONOCYTES % (AUTO) 4.4 % (1.7-9.3); NEUTROPHILS # (AUTO) 2.8 K/uL (1.8-7.7); NEUTROPHILS % (AUTO) 73.8 % (42.2-75.2); PLATELET COUNT (AUTO) 151 K/uL (140-450); RED BLOOD CELL COUNT(AUTO) 4.42 MIL/uL (4.20-5.40); WHITE BLOOD COUNT (AUTO) 3.9 K/uL (4.8-10.8)
[2017-06-24 23:17] LABS: ANION GAP 12.7 (8-16); CARBON DIOXIDE 26.7 mmol/L (21-32); POTASSIUM 4.4 mmol/L (3.5-5.1)
[2017-06-24 23:24] LABS: ALBUMIN 3.3 g/dL (3.4-5.0); TOTAL BILIRUBIN 0.3 mg/dL (0.0-1.0)
[2017-06-25] MEDS ORDERED: MORPHINE SULFATE 2 MG/ML SYR IVP ONE (03:10)
[2017-06-25] MEDS ORDERED: ONDANSETRON 4 MG/2 ML VIAL IM/IVP PRN (03:30)
[2017-06-25] MEDS ORDERED: MORPHINE SULFATE 2 MG/ML SYR IVP PRN (03:30)
[2017-06-25] MEDS ORDERED: DOCUSATE SODIUM 100 MG GELCAP PO PRN (03:30)
[2017-06-25] MEDS ORDERED: ACETAMINOPHEN 325 MG TAB PO PRN (03:30)
[2017-06-25] MEDS ORDERED: NAPR-54 PO (03:39)
[2017-06-25] MEDS ORDERED: ACET-2869 PO (03:39)
[2017-06-25 03:51] LABS: APPEARANCE,URINE HAZY (CLEAR); BILIRUBIN,URINE NEGATIVE (NEGATIVE); BLOOD, URINE 3+ (NEGATIVE); COLOR,URINE YELLOW (YELLOW); LEUKOCYTE ESTERASE ,URINE NEGATIVE (NEGATIVE); NITRITE, URINE NEGATIVE (NEGATIVE); UGLUCOSE NEGATIVE (NEGATIVE)
[2017-06-25 03:58] LABS: BARBITURATE, URINE NEG. ng/ml (NEG <=200); BENZODIAZEPINE, URINE NEG. ng/mL (NEG <=200); CANNABINOID, URINE NEG. ng/mL (NEG <=50); COCAINE, URINE NEG. ng/mL (NEG <=300); OPIATE, URINE NEG. ng/mL (NEG <=2000); PHENCYCLIDINE SCREEN,URINE NEG. ng/mL (NEG <=25)
[2017-06-25 04:05] LABS: FREE T4 (FREE THYROXINE) 1.15 ng/dL (0.76-1.46); MAGNESIUM 2.1 mg/dL (1.8-2.4); PHOSPHORUS 3.7 mg/dL (2.5-4.9); THYROID STIMULATING HORMONE 3.46 uIU/mL (0.34-3.74)
--- NOTE | 2017-06-25 04:05 | NUR ---
DR. Virgie COLUNGA EVALUATING PATIENT AT BEDSIDE.
[2017-06-25 04:26] LABS: RBC,URINE 11-20 (MOD) /HPF (0-5); WBC,URINE 0-5 (RARE) /HPF (0-5)
[2017-06-25 04:27] LABS: YEAST,URINE Rare /HPF (None Seen)
--- NOTE | 2017-06-25 04:30 | NUR ---
Patient will be admitted to care of DR. DEVINE. Admited to TELE. Will go to room 115. Belongings list completed. Report to ENZO COYLE.
--- NOTE | 2017-06-25 04:30 | NUR ---
ADMITTED PATIENT TO THE TELE UNIT, PATIENT AWAKE ALERT ORIENTED X4, NO S/S OF DISTRESS NOTED, RESPIRATION EVEN AND UNLABORED, IV PATENT AND INTACT, INFUSING NS AT 60ML/HR, PLAN OF CARE DISCUSSED, PATIENT VERBALIZED UNDERSTANDING, CALL LIGHT WITHIN REACH, SAFETY MEASURE ENSURED, WILL CONTINUE TO MONITOR.
[2017-06-25] MEDS: NACL 0.9% 1,000 ML IV SCH ×2 (04:48→20:34)
[2017-06-25] MEDS ORDERED: ALBUTEROL SULFATE/IPRATROPIU 3 ML SOL IH PRN (05:05)
[2017-06-25 05:07] VITALS: BP 133/77
[2017-06-25] MEDS ORDERED: ALPRAZolam 0.5 MG TAB PO PRN (07:10)
--- NOTE | 2017-06-25 07:15 | NUR ---
RECEIVED PATIENT REPORT AT BEDSIDE FROM NIGHT NURSE. PATIENT IS AAOX4 AND SHOWS NO S/S OF ACUTE DISTRESS ON ROOM AIR. PATIENT STATES ABD PAIN OF 6/10, WILL ADMINISTER PRN PAIN MEDICATION. ON TELE MONITOR, SKIN INTACT, IV NOTED ON THE R AC SL AND RT HAND WITH IVF'S INFUSING WELL. PATIENT WAS EXPLAINED POC FOR TODAY AND SHE VERBALIZED UNDERSTANDING. BED IN LOW POSITION WITH CALL LIGHT WITHIN REACH.
--- NOTE | 2017-06-25 07:35 | NUR ---
PATIENT RESTING IN BED, NO S/S OF DISTRESS NOTED, RESPIRATION EVEN AND UNLABORED, ENDORSED PLAN OF CARE TO THE DAY SHIFT NURSE, PATIENT IS IN STABLE CONDITION.
[2017-06-25 07:40] VITALS: BP 138/76
[2017-06-25] MEDS: HYDROcodone/APAP 7.5/325 MG 1 TAB PO PRN ×3 (07:41→22:53)
--- NOTE | 2017-06-25 07:45 | NUR ---
ADMINISTERED PRN PAIN MEDICATION FOR ABD PAIN 6/10, WILL REASSESS IN ONE HR.
[2017-06-25] MEDS: ALBUTEROL SULFATE/IPRATROPIU 3 ML SOL IH SCH ×3 (07:52→20:03)
[2017-06-25] MEDS: BUDESONIDE 0.25 MG/2 ML NEBU INH SCH ×2 (07:52→20:03)
[2017-06-25] MEDS: METOPROLOL 25 MG TAB PO SCH ×2 (08:25→20:34)
[2017-06-25] MEDS: hydrALAZINE 25 MG TAB PO SCH ×3 (08:26→17:01)
[2017-06-25] MEDS: ASPIRIN 81 MG TAB.CHEW PO SCH (08:26)
[2017-06-25] MEDS: FUROSEMIDE 40 MG TAB PO SCH (08:26)
[2017-06-25] MEDS: PSYLLIUM 12.2 GM/PKT PO SCH (08:26)
--- NOTE | 2017-06-25 08:29 | NUR ---
ADMINISTERED SCHEDULED MEDICATIONS. PATIENT SWALLOWED WITHOUT DIFFICULTY, DID NOT GIVE SCHEDULED METAMUCIL D/T POSSIBLE SURGERY TODAY AND CANNOT INTAKE LARGE AMOUNT OF FLUIDS.
--- NOTE | 2017-06-25 10:05 | NUR ---
PATIENT HAS BEEN SCREENED AND CATEGORIZED HIGH NUTRITION RISK. PT WILL BE SEEN WITHIN 1-2 DAYS OF ADMISSION. 06/25/17-06/26/[address]
--- NOTE | 2017-06-25 10:25 | NUR ---
PATIENT IS SITTING ON CHAIR, SHOWS NO S/S OF ACUTE DISTRESS ON ROOM AIR, DENIES PAIN.
[2017-06-25 12:05] VITALS: BP 115/70
--- NOTE | 2017-06-25 13:00 | NUR ---
ADMINISTERED SCHEDULED MEDICATIONS. PATIENT SWALLOWED MEDICATIONS WITHOUT DIFFICULTY, DENIES PAIN AT THIS TIME. BED IN LOW POSITION WITH CALL LIGHT WITHIN REACH.
--- NOTE | 2017-06-25 13:45 | NUR ---
DR. RUBIO AT BEDSIDE NO SOB NOTED TOBACCO CLOTH RECLAIMER TO ATTEMPT HHN THERAPY AT A LATER TIME
--- NOTE | 2017-06-25 13:45 | NUR ---
DR SEGUNDO AT BEDSIDE OKAYED PATIENT TO HAVE REGULAR DIET AND STOP NPO ORDER.
[2017-06-25] MEDS ORDERED: FLUCONAZOLE 100 MG TAB PO SCH (16:00)
[2017-06-25] MEDS ORDERED: hePARIN / DEXT 5% PREMIX 250 ML IV SCH ×2 (17:00→18:30)
[2017-06-25] MEDS ORDERED: HEPARIN PER PHARMACY MC PRN (17:00)
[2017-06-25 17:41] VITALS: BP 135/68
--- NOTE | 2017-06-25 19:00 | NUR ---
DR PAN AT BEDSIDE UPDATING PATIENT ON POC.
--- NOTE | 2017-06-25 19:15 | NUR ---
GAVE REPORT AT BEDSIDE TO NIGHT NURSE. PATIENT ENDORSED IN STABLE CONDITION.
[2017-06-25 19:55] VITALS: BP 120/63
[2017-06-25] MEDS ORDERED: INFLUENZA VIRUS VACCINE QUAD 0.5 ML SYR IMVAC PRN (19:55)
[2017-06-25] MEDS ORDERED: PNEUMOCOCCAL VACCINE 23 MCG/0.5 ML VIAL IMVAC PRN (19:55)
[2017-06-25] MEDS: SIMVASTATIN 10 MG TAB PO SCH (20:35)
--- NOTE | 2017-06-25 20:43 | NUR ---
DUE MEDICATION GIVEN, PATIENT TOLERATED WELL. NO S/S OF DISTRESS NOTED, RESPIRATION EVEN AND UNLABORED. CALL LIGHT WITHIN REACH, SAFETY MEASURE ENSURED, WILL CONTINUE TO MONITOR.
--- NOTE | 2017-06-25 22:53 | NUR ---
STATED PAIN 6/10, PAIN MEDICATION ADMINISTERED ORDERED, CALL LIGHT WITHIN REACH, SAFETY MEASURE ENSURED, WILL CONTINUE TO MONITOR.
[2017-06-26] VITALS: BP 125/77
--- NOTE | 2017-06-26 00:01 | NUR ---
PATIENT IS SLEEPING, NO S/S OF DISTRESS NOTED, RESPIRATION EVEN AND UNLABORED, ON CPAP, CALL LIGHT WITHIN REACH, SAFETY MEASURE ENSURED, WILL CONTINUE TO MONITOR.
[2017-06-26] MEDS: ALBUTEROL SULFATE/IPRATROPIU 3 ML SOL IH SCH ×4 (01:00→19:28)
--- NOTE | 2017-06-26 03:15 | NUR ---
NO CHANGE IN CONDITION, PATIENT IS SLEEPING, RESPIRATION EVEN AND UNLABORED, NO S/S OF DISTRESS NOTED, ON CPAP, CALL LIGHT WITHIN REACH, SAFETY MEASURE ENSURED, WILL CONTINUE TO MONITOR.
[2017-06-26 04:00] VITALS: BP 108/59
--- NOTE | 2017-06-26 05:56 | NUR ---
PATIENT IS SLEEPING, NO S/S OF DISTRESS NOTED, RESPIRATION EVEN AND UNLABORED, CALL LIGHT WITHIN REACH, SAFETY MEASURE ENSURED ,WILL CONTINUE TO MONITOR.
[2017-06-26 06:16] LABS: FOLIC ACID 6.5 ng/mL (>3.0)
--- NOTE | 2017-06-26 07:05 | NUR ---
ENDORSED PLAN OF CARE TO DAY SHIFT RN, PATIENT RESTING IN BED, NO S/S OF DISTRESS, PATIENT IS IN STABLE CONDITION.
[2017-06-26] MEDS: BUDESONIDE 0.25 MG/2 ML NEBU INH SCH ×2 (07:07→19:28)
--- NOTE | 2017-06-26 07:15 | NUR ---
RECEIVED PATIENT REPORT AT BEDSIDE FROM NIGHT NURSE. PATIENT IS AAOX4 AND SHOWS NO S/S OF ACUTE DISTRESS ON ROOM AIR. PATIENT DENIES PAIN AT THIS TIME. SKIN INTACT, IV NOTED ON THE R HAND WITH IVF'S INFUSING WELL. PATIENT WAS EXPLAINED POC FOR TODAY AND SHE VERBALIZED UNDERSTANDING. BED IN LOW POSITION WITH CALL LIGHT WITHIN REACH.
[2017-06-26 07:29] LABS: BASOPHILS # (AUTO) 0.1 K/uL (0.00-0.22); BASOPHILS % (AUTO) 2.1 % (0.0-2.0); EOSINOPHILS % (AUTO) 1.3 % (0.0-4.0); HEMATOCRIT 31.1 % (36-48); HEMOGLOBIN 10.2 g/dL (12.0-16.0); LYMPHOCYTES # (AUTO) 0.6 K/uL (2.5-16.5); LYMPHOCYTES % (AUTO) 17.5 % (20.5-51.1); MEAN CORPUSCULAR HEMOGLOBIN 24 pg (27-31); MEAN CORPUSCULAR HGB CONC 33 g/dL (33-37); MEAN CORPUSCULAR VOLUME 73 fL (80-94); MONOCYTES # (AUTO) 0.1 K/uL (0.8-1.0); NEUTROPHILS # (AUTO) 2.7 K/uL (1.8-7.7); NEUTROPHILS % (AUTO) 76.1 % (42.2-75.2); PLATELET COUNT (AUTO) 140 K/uL (140-450); RED BLOOD CELL COUNT(AUTO) 4.27 MIL/uL (4.20-5.40); RED CELL DISTRIBUTION WIDTH 17.7 % (11.6-13.7); WHITE BLOOD COUNT (AUTO) 3.5 K/uL (4.8-10.8)
[2017-06-26 07:56] VITALS: BP 130/74
[2017-06-26 08:20] LABS: PROTHROMBIN TIME 10.5 secs (10.8-13.4)
[2017-06-26 09:07] LABS: T4 (THYROXINE) 9.2 ug/dL (4.5-12.0)
[2017-06-26] MEDS: HYDROcodone/APAP 7.5/325 MG 1 TAB PO PRN ×3 (09:13→20:40)
[2017-06-26] MEDS: ASPIRIN 81 MG TAB.CHEW PO SCH (09:14)
[2017-06-26] MEDS: METOPROLOL 25 MG TAB PO SCH ×2 (09:14→20:39)
[2017-06-26] MEDS: hydrALAZINE 25 MG TAB PO SCH ×3 (09:14→16:42)
[2017-06-26] MEDS: PSYLLIUM 12.2 GM/PKT PO SCH (09:15)
[2017-06-26] MEDS: FUROSEMIDE 40 MG TAB PO SCH (09:15)
[2017-06-26 09:20] LABS: PHOSPHORUS 4.9 mg/dL (2.5-4.9)
[2017-06-26 09:25] LABS: ANION GAP 12.5 (8-16); CARBON DIOXIDE 26.1 mmol/L (21-32); POTASSIUM 4.6 mmol/L (3.5-5.1); TOTAL BILIRUBIN 0.4 mg/dL (0.0-1.0)
--- NOTE | 2017-06-26 09:34 | NUR ---
ADMINISTERED SCHEDULED MEDICATIONS, PATIENT SWALLOWED WITHOUT DIFFICULTY. PATIENT C/O OF 6/10 ABD PAIN WILL REASSESS PAIN IN ONE HR. PATIENT'S NEEDS MET AT THIS TIME. BED IN LOW POSITION WITH CALL LIGHT WITHIN REACH.
--- NOTE | 2017-06-26 09:35 | NUR ---
DR JONES AT PATIENT'S BEDSIDE.
--- NOTE | 2017-06-26 11:30 | NUR ---
PATIENT SHOWS NO S/S OF ACUTE DISTRESS ON ROOM AIR, VISITOR AT BEDSIDE. BED IN LOW POSITION WITH CALL LIGHT WITHIN REACH.
--- NOTE | 2017-06-26 12:20 | NUR ---
PATIENT GIVEN HYGIENE PRODUCTS, PATIENT INDEPENDENTLY PERFORMING ADLS'S. PATIENT'S NEEDS MET AT THIS TIME.
[2017-06-26 12:41] VITALS: BP 128/68
--- NOTE | 2017-06-26 12:44 | NUR ---
ADMINISTERED SCHEDULED MEDICATIONS, PATIENT SWALLOWED WITHOUT DIFFICULTY. PATIENT'S NEEDS MET AT THIS TIME. BED IN LOW POSITION WITH CALL LIGHT WITHIN REACH.
[2017-06-26] MEDS: NACL 0.9% 1,000 ML IV SCH (12:48)
[2017-06-26] MEDS: TAMSULOSIN 0.4 MG CAP PO SCH (13:45)
[2017-06-26] MEDS ORDERED: TAMSULOSIN 0.4 MG CAP PO SCH (14:00)
--- NOTE | 2017-06-26 14:15 | NUR ---
ADMINISTERED SCHEDULED MEDICATIONS, PATIENT SWALLOWED WITHOUT DIFFICULTY. PATIENT'S NEEDS MET AT THIS TIME. BED IN LOW POSITION WITH CALL LIGHT WITHIN REACH.
[2017-06-26] MEDS: CHLORHEXADINE GLUC 2% CLOTH TP SCH (14:16)
--- NOTE | 2017-06-26 15:09 | NUR ---
06/26/2017 RD INITIAL ASSESSMENT COMPLETED PLEASE REFER TO NUTRITION ASSESSMENT UNDER CARE ACTIVITY FOR ESTIMATED NUTRITIONAL NEEDS. PT TO CONTINUE TO RECEIVE REGULAR HEALTHY DIET. DIETARY IS PROVIDING APPROXIMATELY 2200 KCALS AND 120 GM PRO/DAY, PT CONSUMING 75-80% OF MEALS, AN ESTIMATED 1595 KCALS AND 87 GM PRO TO MEET 97% EST KCAL AND 100% EST PRO NEEDS/DAY. RD TO FOLLOW-UP IN 3-5 DAYS PATIENT IS MODERATE RISK. MAURICE MEADE, RD
[2017-06-26 16:00] VITALS: BP 116/61
--- NOTE | 2017-06-26 16:41 | NUR ---
DR MC AT BEDSIDE WITH PATIENT
--- NOTE | 2017-06-26 16:46 | NUR ---
ADMINISTERED SCHEDULED MEDICATIONS, PATIENT SWALLOWED WITHOUT DIFFICULTY. PATIENT'S NEEDS MET AT THIS TIME. BED IN LOW POSITION WITH CALL LIGHT WITHIN REACH.
--- NOTE | 2017-06-26 17:55 | NUR ---
PATIENT COMFORTABLY WATCHING TV AND SHOWS NO S/S OF ACUTE DISTRESS ON ROOM AIR. BED IN LOW POSITION WITH CALL LIGHT WITHIN REACH.
--- NOTE | 2017-06-26 19:15 | NUR ---
GAVE PATIENT REPORT AT BEDSIDE TO NIGHT NURSE. PATIENT ENDORSED IN STABLE CONDITION.
--- NOTE | 2017-06-26 19:16 | NUR ---
RECD. SITTING ON CHAIR, AWAKE, A/OX4. RESPIRATION EVEN AND UNLABORED. IV OF NS AT 60 ML/HR INFUSING, RIGHT HAND G22. PLAN OF CARE FOR THE SHIFT DISCUSSED. VERBALIZED UNDERSTANDING. DENIES PAIN 0/10.
--- NOTE | 2017-06-26 19:45 | NUR ---
STANDING NEAR SINK, DOING HER PM CARE.
[2017-06-26 20:00] VITALS: BP 139/79
--- NOTE | 2017-06-26 20:00 | NUR ---
Patient's Plan of Care was discussed and reviewed with WINDOW TREATMENT INSTALLER: MORGAN MORTENSEN
[2017-06-26] MEDS: SIMVASTATIN 10 MG TAB PO SCH (20:40)
--- NOTE | 2017-06-26 22:00 | NUR ---
IV INFILTRATED, NEW IV LINE INSERTED BY LILIANA RN AT THE RIGHT FOREARM G 22.
[2017-06-27] VITALS: BP 146/76
[2017-06-27] MEDS: ALBUTEROL SULFATE/IPRATROPIU 3 ML SOL IH SCH ×3 (00:19→12:44)
--- NOTE | 2017-06-27 00:19 | NUR ---
PER PT REQUEST TO NOT BE AWAKEN FOR HHN TX. WILL CONTINUE TO MONITOR.
--- NOTE | 2017-06-27 00:30 | NUR ---
SLEEPING COMFORTABLY IN BED.
--- NOTE | 2017-06-27 04:00 | NUR ---
STILL SLEEPING COMFORTABLY WITH CPAP ON.
[2017-06-27] MEDS: NACL 0.9% 1,000 ML IV SCH (05:25)
[2017-06-27] MEDS: BUDESONIDE 0.25 MG/2 ML NEBU INH SCH (06:55)
[2017-06-27 07:09] LABS: BASOPHILS # (AUTO) 0.1 K/uL (0.00-0.22); BASOPHILS % (AUTO) 2.4 % (0.0-2.0); EOSINOPHILS % (AUTO) 0.9 % (0.0-4.0); HEMATOCRIT 30.7 % (36-48); HEMOGLOBIN 10.1 g/dL (12.0-16.0); LYMPHOCYTES # (AUTO) 0.6 K/uL (2.5-16.5); LYMPHOCYTES % (AUTO) 16.9 % (20.5-51.1); MEAN CORPUSCULAR HEMOGLOBIN 24 pg (27-31); MEAN CORPUSCULAR HGB CONC 33 g/dL (33-37); MEAN CORPUSCULAR VOLUME 73 fL (80-94); MONOCYTES # (AUTO) 0.1 K/uL (0.8-1.0); MONOCYTES % (AUTO) 2.2 % (1.7-9.3); NEUTROPHILS # (AUTO) 2.5 K/uL (1.8-7.7); NEUTROPHILS % (AUTO) 77.6 % (42.2-75.2); PLATELET COUNT (AUTO) 134 K/uL (140-450); RED BLOOD CELL COUNT(AUTO) 4.18 MIL/uL (4.20-5.40); RED CELL DISTRIBUTION WIDTH 17.5 % (11.6-13.7); WHITE BLOOD COUNT (AUTO) 3.3 K/uL (4.8-10.8)
--- NOTE | 2017-06-27 07:15 | NUR ---
CONDITION REMAIN STABLE. ENDORSED TO JONNA CASH FOR CONTINUITY OF CARE.
[2017-06-27 07:38] LABS: CARBON DIOXIDE 25.5 mmol/L (21-32); POTASSIUM 4.5 mmol/L (3.5-5.1)
[2017-06-27 07:57] LABS: MAGNESIUM 1.9 mg/dL (1.8-2.4); PHOSPHORUS 4.2 mg/dL (2.5-4.9)
[2017-06-27 08:00] VITALS: BP 141/74
[2017-06-27] MEDS: hydrALAZINE 25 MG TAB PO SCH ×2 (08:44→13:44)
[2017-06-27] MEDS: ASPIRIN 81 MG TAB.CHEW PO SCH (08:44)
[2017-06-27] MEDS: TAMSULOSIN 0.4 MG CAP PO SCH (08:44)
[2017-06-27] MEDS: FUROSEMIDE 40 MG TAB PO SCH (08:45)
[2017-06-27] MEDS: PSYLLIUM 12.2 GM/PKT PO SCH (08:45)
[2017-06-27] MEDS: HYDROcodone/APAP 7.5/325 MG 1 TAB PO PRN (08:45)
[2017-06-27] MEDS: METOPROLOL 25 MG TAB PO SCH (08:45)
--- NOTE | 2017-06-27 08:48 | NUR ---
ADMINISTERED SCHEDULED MEDICATIONS. PATIENT C/O ABD PAIN 10/18. PATIENT SWALLOWED WITHOUT DIFFICULTY, ALL NEEDS MET AT THIS TIME.
[2017-06-27] MEDS ORDERED: TAMS0.4C96 PO (10:10)
[2017-06-27] MEDS ORDERED: DOCU-299 PO (10:10)
[2017-06-27] MEDS ORDERED: ACET-9529 PO (10:10)
[2017-06-27] MEDS ORDERED: BACTO TP (10:10)
[2017-06-27] MEDS ORDERED: CHLO118S2 TP (10:10)
--- NOTE | 2017-06-27 10:30 | NUR ---
PATIENT IS SITTING ON CHAIR AND SHOWS NO S/S OF ACUTE DISTRESS ON ROOM AIR. PATIENT STATES TOLERABLE ABD PAIN OF 3/10. ALL NEEDS MET AT THIS TIME.
[2017-06-27 13:00] VITALS: BP 111/72
[2017-06-27] MEDS: CHLORHEXADINE GLUC 2% CLOTH TP SCH (13:44)
--- NOTE | 2017-06-27 13:50 | NUR ---
ADMINISTERED SCHEDULED MEDICATIONS. PATIENT SWALLOWED WITHOUT DIFFICULTY, ALL NEEDS MET AT THIS TIME.
[2017-06-27] MEDS ORDERED: MUPIROCIN 2% OINT 22 GM TUBE TP SCH (14:00)
--- NOTE | 2017-06-27 14:48 | NUR ---
PATIENT HAS BEEN DISCHARGED. ALL DISCHARGE INSTRUCTIONS, PRESCRIPTIONS, AND CD IMAGING GIVEN, ALL QUESTIONS ANSWERED, PATIENT AND FAMILY VERBALIZED UNDERSTANDING OF CONTINUITY OF CARE. ALL BELONGINGS IN PATIENT'S POSSESSION. IV DISCONTINUED WITH CANNULA INTACT. WRISTBANDS REMOVED. OFFERED PATIENT A WHEELCHAIR AND PATIENT REFUSED AND PREFERRED TO AMB OFF UNIT. PATIENT FAMILY PRESENT AT SIDE, PATIENT LEFT IN STABLE CONDITION.
== END 2017-06-27 14:48 | disposition home or self-care (01) | DRG 814 ==
LOC: MED 21:22 → MTU 06-25 03:34
PROVIDERS: ADMIT Student in an Organized Health Care Education/Training Program; ATTEND Student in an Organized Health Care Education/Training Program
PROC: 3E0234Z Introduction of Serum, Toxoid and Vaccine into Muscle, Percutaneous Approach (ICD-10-PCS; principal; 2016-06-25)
DX: D73.5 Infarction of spleen (principal); E43 Unspecified severe protein-calorie malnutrition; M31.1 Thrombotic microangiopathy; E87.8 Other disorders of electrolyte and fluid balance, not elsewhere classified; E66.01 Morbid (severe) obesity due to excess calories; B37.9 Candidiasis, unspecified; Z68.43 Body mass index [BMI] 50.0-59.9, adult; D64.9 Anemia, unspecified; I10 Essential (primary) hypertension; J45.909 Unspecified asthma, uncomplicated; E78.5 Hyperlipidemia, unspecified; F41.9 Anxiety disorder, unspecified; G47.33 Obstructive sleep apnea (adult) (pediatric); M19.90 Unspecified osteoarthritis, unspecified site; K57.90 Diverticulosis of intestine, part unspecified, without perforation or abscess without bleeding; Z23 Encounter for immunization
CPT/HCPCS: 36415; 71045; 76770; 80048; 80053; 80305; 81001; 82150; 82607; 82728; 82746; 83036; 83540; 83615; 83690; 83735; 83880; 84100; 84436; 84439; 84443; 84479; 84484; 85025; 85045; 85610; 85730; 86880; 86886; 86900; 86901; 87081; 90732; 94640; 96361; 96374; 99285; J1644; J2270; J3010; J7030; J7620; J7626; Q0092; Q9967

== ENCOUNTER 2017-07-11 08:54 | Inpatient (IN) | payer OTHER ==
[~2017-07-11] VITALS: Ht 167.6 cm; Wt 147.6 kg
[~2017-07-11 08:54] MED LIST changes: +ACET-9529 PO; +BACTO TP; -CEPH500C16 PO; +CHLO118S2 TP; -COLL30OI TP; +DOCU-299 PO; -LIDC TP; +TAMS0.4C96 PO
[2017-07-11 08:58] VITALS: BP 141/74
--- NOTE | 2017-07-11 09:00 | NUR ---
Pt ambulated with a cane to bed 12.
--- NOTE | 2017-07-11 09:15 | NUR ---
Dr. Hernandez at bedside.
[2017-07-11] MEDS ORDERED: KETOROLAC 30 MG/ML VIAL IVP ONE (09:20)
--- NOTE | 2017-07-11 09:20 | NUR ---
Received pt in bed, in nad. Resp even and unlabored, on RA@98% Reports being treated for infected wound to right foot with doxycline and yesterday was changed to Bactrim and now c/o chills, fever since 1500, bilateral lower leg swelling and redness since last night. States she was here 1 month ago for same issue, was admitted and discharged for cellulitis. Pt currently afebrile. 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 reports normal bm this am, denies vomitting/diarrhea. hx: infarcteD spleen, HTN, asthma, OA, sleep apnea
[2017-07-11 09:47] LABS: BASOPHILS % (AUTO) 0.6 % (0.0-2.0); EOSINOPHILS % (AUTO) 0.3 % (0.0-4.0); HEMATOCRIT 32.4 % (36-48); HEMOGLOBIN 10.4 g/dL (12.0-16.0); LYMPHOCYTES # (AUTO) 0.4 K/uL (2.5-16.5); LYMPHOCYTES % (AUTO) 9.3 % (20.5-51.1); MEAN CORPUSCULAR HEMOGLOBIN 23 pg (27-31); MEAN CORPUSCULAR HGB CONC 32 g/dL (33-37); MEAN CORPUSCULAR VOLUME 73 fL (80-94); MONOCYTES # (AUTO) 0.1 K/uL (0.8-1.0); MONOCYTES % (AUTO) 2.2 % (1.7-9.3); NEUTROPHILS % (AUTO) 87.6 % (42.2-75.2); PLATELET COUNT (AUTO) 196 K/uL (140-450); RED BLOOD CELL COUNT(AUTO) 4.44 MIL/uL (4.20-5.40); RED CELL DISTRIBUTION WIDTH 17.7 % (11.6-13.7); WHITE BLOOD COUNT (AUTO) 4.5 K/uL (4.8-10.8)
--- NOTE | 2017-07-11 09:51 | NUR ---
PT REPORTS FEELING BETER AFTER TORADOL IVP.
[2017-07-11 10:01] LABS: PROTHROMBIN TIME 12.2 secs (10.8-13.4)
[2017-07-11 10:03] LABS: ALBUMIN 3.3 g/dL (3.4-5.0); CREATININE 1.2 mg/dL (0.6-1.3); TOTAL BILIRUBIN 0.6 mg/dL (0.0-1.0)
[2017-07-11] MEDS ORDERED: VANCOMYCIN 1,000 MG in DEXTROSE 5% 250 ML IV ONE (10:20)
[2017-07-11] MEDS ORDERED: VANCOMYCIN 1,000 MG VIAL ONE (10:21)
[2017-07-11] MEDS ORDERED: DOCUSATE SODIUM 100 MG GELCAP PO PRN (11:05)
[2017-07-11] MEDS ORDERED: ACETAMINOPHEN 325 MG TAB PO PRN (11:05)
[2017-07-11] MEDS ORDERED: ONDANSETRON 4 MG/2 ML VIAL IM/IVP PRN (11:05)
[2017-07-11 12:00] VITALS: BP 117/65
--- NOTE | 2017-07-11 12:09 | NUR ---
PATIENT WAS TRANSFERRED FROM ER IN [facility]. REPORT WAS GIVEN AT BEDSIDE. PATIENT IS AWAKE, ALERT. RESPIRATION EVEN, UNLABOR ON ROOM AIR. SKIN DRY AND WARM. VS WAS TAKEN, MRSA WAS SWABBED. IV PATENT AND INTACT. PLAN OF CARE WAS DISCUSSED WITH PATIENT. PATIENT WAS ORIENTED TO ROOM, STAFF, AND CALL LIGHT. COMPLAINED OF LEG PAIN 5/10, WILL MEDICATE PER ORDER.
[2017-07-11] MEDS: NACL 0.9% 1,000 ML IV SCH (12:28)
[2017-07-11 13:37] LABS: CHOL/HDL RATIO 5.5 (1-4.5); FREE T4 (FREE THYROXINE) 1.18 ng/dL (0.76-1.46); MAGNESIUM 1.9 mg/dL (1.8-2.4); PHOSPHORUS 3.6 mg/dL (2.5-4.9); THYROID STIMULATING HORMONE 3.17 uIU/mL (0.34-3.74)
[2017-07-11] MEDS ORDERED: IPRATROPIUM 0.02% 0.5 MG/2.5 ML NEBU INH PRN (14:15)
--- NOTE | 2017-07-11 14:27 | NUR ---
PATIENT IS AWAKE, ALERT. RESPIRATION EVEN, UNLABOR ON ROOM AIR. WOUND PICTURE WAS TAKEN. DENIED PAIN AT THIS TIME. CALL LIGHT WITHIN REACH
[2017-07-11] MEDS ORDERED: ALPRAZolam 0.5 MG TAB PO PRN (15:05)
[2017-07-11] MEDS ORDERED: IBUPROFEN 800 MG TAB PO PRN (15:05)
[2017-07-11 16:00] VITALS: BP 138/80
--- NOTE | 2017-07-11 16:30 | NUR ---
PATIENT AWAKE, ALERT. RESPIRATION EVEN, UNLABOR ON ROOM AIR. COMPLAINED OF PAIN 7/10 ON LEFT ABDOMEN, WILL MEDICATE PER ORDER. CALL LIGHT WITHIN REACH
[2017-07-11] MEDS: HYDROcodone/APAP 7.5/325 MG 1 TAB PO PRN (16:44)
[2017-07-11] MEDS: CLINDAMYCIN 600 MG in DEXTROSE 5% 50 ML IV SCH ×2 (18:07→23:55)
--- NOTE | 2017-07-11 18:26 | NUR ---
PATIENT IS AWAKE, ALERT. RESPIRATION IS EVEN, UNLABOR. DENIED PAIN AT THIS TIME. US TECH IS AT BEDSIDE. IV PATENT AND INTACT. MED WAS GIVEN PER ORDER. CALL LIGHT WITHIN REACH
[2017-07-11] MEDS ORDERED: ALBUTEROL SULFATE/IPRATROPIU 3 ML SOL IH SCH (19:00)
--- NOTE | 2017-07-11 19:16 | NUR ---
ENDORSEMENT GIVEN TO THE GEAR CUTTER NURSE. PATIENT IS STABLE AT THIS TIME
--- NOTE | 2017-07-11 19:17 | NUR ---
RECEIVED BEDSIDE REPORT FROM DAY SHIFT NURSE ALLISON RN, PT STABLE, NO DISTRESS NOTED, IV TO L AC 20G RUNNING NS @ 60ML/HR, INFUSING WELL, PT ON ROOM AIR NO SOB, INITIAL ASSESSMENT DONE, ALL SAFETY PRECAUTION MET, WILL CONTINUE TO MONITOR.
[2017-07-11 20:00] VITALS: BP 127/71
[2017-07-11] MEDS: ALBUTEROL SULFATE/IPRATROPIU 3 ML SOL IH PRN (20:21)
[2017-07-11] MEDS: BUDESONIDE 0.5 MG/2 ML NEBU INH SCH (20:21)
[2017-07-11] MEDS: hydrALAZINE 25 MG TAB PO SCH (20:24)
[2017-07-11] MEDS: SIMVASTATIN 10 MG TAB PO SCH (20:24)
[2017-07-11] MEDS: METOPROLOL 50 MG TAB PO SCH (20:25)
--- NOTE | 2017-07-11 20:34 | NUR ---
DUE MEDICATION GIVEN, PT TOLERATED WELL, NO DISTRESS NOTED, RT BY BEDSIDE GIVING BREATHING TREATMENT, WILL CONTINUE TO MONITOR.
--- NOTE | 2017-07-11 23:09 | NUR ---
CHECKED ON PT, PT SLEEPING NO DISTRESS NOTED, CPAP IN PLACE, CALL LIGHT WITHIN REACH, WILL CONTINUE TO MONITOR.
[2017-07-11 23:10] LABS: APPEARANCE,URINE SL CLOUDY (CLEAR); BILIRUBIN,URINE NEGATIVE (NEGATIVE); BLOOD, URINE 2+ (NEGATIVE); COLOR,URINE YELLOW (YELLOW); LEUKOCYTE ESTERASE ,URINE NEGATIVE (NEGATIVE); NITRITE, URINE NEGATIVE (NEGATIVE); UGLUCOSE NEGATIVE (NEGATIVE)
[2017-07-11 23:45] LABS: RBC,URINE 11-20 (MOD) /HPF (0-5); WBC,URINE 0-5 (RARE) /HPF (0-5)
--- NOTE | 2017-07-11 23:55 | NUR ---
DUE MEDICATION GIVEN, PT TOLERATED WELL, NO DISTRESS NOTED, WILL CONTINUE TO MONITOR.
[2017-07-12] VITALS (7 sets, daily range): BP systolic 126–137; BP diastolic 71–83
--- NOTE | 2017-07-12 02:10 | NUR ---
CHECKED ON PT, PT SLEEPING, NO DISTRESS NOTED, CALL LIGHT WITHIN REACH, WILL CONTINUE TO MONITOR.
[2017-07-12] MEDS: NACL 0.9% 1,000 ML IV SCH ×2 (03:43→20:32)
--- NOTE | 2017-07-12 04:15 | NUR ---
CHECKED ON PT, PT SLEEPING, NO DISTRESS NOTED, PT ON CPAP, NO SOB, CALL LIGHT WITHIN REACH, WILL CONTINUE TO MONITOR.
--- NOTE | 2017-07-12 04:20 | NUR ---
BEDSIDE REPORT GIVEN TO NURSE MERCEDES RN, ENDORSED PLAN OF CARE, PT STABLE, SLEEPING, NO DISTRESS NOTED, CALL LIGHT WITHIN REACH.
--- NOTE | 2017-07-12 04:36 | NUR ---
RECEIVED REPORT FROM JONNA CROWDER, PATIENT IS SLEEPING, NO S/S OF DISTRESS NOTED, RESPIRATION EVEN AND UNLABORED, ON CPAP. IV PATENT AND INTACT, INFUSING NS AT 60ML/HR. CALL LIGHT WITHIN REACH, SAFETY MEASURE ENSURED, WILL CONTINUE TO MONITOR.
[2017-07-12] MEDS: CLINDAMYCIN 600 MG in DEXTROSE 5% 50 ML IV SCH ×4 (05:05→23:17)
[2017-07-12 06:12] LABS: BASOPHILS % (AUTO) 1.6 % (0.0-2.0); HEMATOCRIT 28.5 % (36-48); HEMOGLOBIN 9.2 g/dL (12.0-16.0); LYMPHOCYTES # (AUTO) 0.5 K/uL (2.5-16.5); LYMPHOCYTES % (AUTO) 17.7 % (20.5-51.1); MEAN CORPUSCULAR HEMOGLOBIN 24 pg (27-31); MEAN CORPUSCULAR HGB CONC 32 g/dL (33-37); MEAN CORPUSCULAR VOLUME 73 fL (80-94); MONOCYTES # (AUTO) 0.1 K/uL (0.8-1.0); MONOCYTES % (AUTO) 2.6 % (1.7-9.3); NEUTROPHILS # (AUTO) 2.5 K/uL (1.8-7.7); NEUTROPHILS % (AUTO) 77.1 % (42.2-75.2); PLATELET COUNT (AUTO) 162 K/uL (140-450); RED BLOOD CELL COUNT(AUTO) 3.89 MIL/uL (4.20-5.40); RED CELL DISTRIBUTION WIDTH 17.5 % (11.6-13.7); WHITE BLOOD COUNT (AUTO) 3.1 K/uL (4.8-10.8)
[2017-07-12 06:16] LABS: ANION GAP 13.2 (8-16); CARBON DIOXIDE 26.8 mmol/L (21-32)
[2017-07-12 06:25] LABS: MAGNESIUM 1.9 mg/dL (1.8-2.4)
--- NOTE | 2017-07-12 07:11 | NUR ---
ENDORSED PLAN OF CARE TO DAY SHIFT RN, PATIENT IS IN STABLE CONDITION, NO S/S OF DISTRESS NOTED.
--- NOTE | 2017-07-12 07:29 | NUR ---
ENDORSEMENT RECEIVED FROM FURNACE HELPER NURSE. PATIENT AWAKE, ALERT. RESPIRATION EVEN, UNLABOR ON ROOM AIR. SKIN DRY AND WARM. IV PATENT AND INTACT. DENIED PAIN, SOB AT THIS TIME. BED AT LOW POSITION. CARE PLAN WAS DISCUSSED WITH PATIENT. CALL LIGHT WITHIN REACH.
[2017-07-12 08:20] LABS: T4 (THYROXINE) 9.3 ug/dL (4.5-12.0)
[2017-07-12] MEDS: ALBUTEROL SULFATE/IPRATROPIU 3 ML SOL IH PRN ×2 (08:42→19:32)
[2017-07-12] MEDS: BUDESONIDE 0.5 MG/2 ML NEBU INH SCH ×2 (08:42→19:32)
[2017-07-12] MEDS: FUROSEMIDE 40 MG TAB PO SCH (08:51)
[2017-07-12] MEDS: hydrALAZINE 25 MG TAB PO SCH ×2 (08:51→20:31)
[2017-07-12] MEDS: LACTOBACILLUS RHAMNOSUS GG 1 EACH CAP PO SCH (08:51)
[2017-07-12] MEDS: METOPROLOL 50 MG TAB PO SCH ×2 (08:52→20:31)
[2017-07-12] MEDS: ASPIRIN 81 MG TAB.CHEW PO SCH (08:52)
--- NOTE | 2017-07-12 08:57 | NUR ---
PATIENT HAS BEEN SCREENED AND CATEGORIZED HIGH NUTRITION RISK. PATIENT WILL BE SEEN WITHIN 1-2 DAYS OF ADMISSION. 07/11/17-07/12/[address]
[2017-07-12] MEDS: HYDROcodone/APAP 7.5/325 MG 1 TAB PO PRN ×2 (11:26→23:16)
--- NOTE | 2017-07-12 12:00 | NUR ---
PATIENT AWAKE, ALERT, SITTING ON THE BED. RESPIRATION EVEN, UNLABOR ON ROOM AIR. DENIED SOB, COMPLAINED OF PAIN 7/10 BILATERAL LEGS. VS WAS TAKEN. MEDS WERE GIVEN PER ORDER. CALL LIGHT WITHIN REACH
--- NOTE | 2017-07-12 15:35 | NUR ---
07/12/2017 RD INITIAL ASSESSMENT COMPLETED PLEASE REFER TO NUTRITION ASSESSMENT UNDER CARE ACTIVITY FOR ESTIMATED NUTRITIONAL NEEDS. PT TO RECEIVE APPROPRIATE KCALS AND PRO ESTIMATED FOR ADULT <65 Y/O, BMI >40 RD TO FOLLOW-UP IN 2-3 DAYS PATIENT IS HIGH RISK. MAURICE MEADE, RD
--- NOTE | 2017-07-12 16:28 | NUR ---
DR. MATAMOROS WAS MADE AWARE OF PATIENT'S CA LEVEL 7.7. WILL CONTINUE TO FOLLOW UP
--- NOTE | 2017-07-12 16:35 | NUR ---
PATIENT IS AWAKE, ALERT, SITTING ON THE CHAIR. RESPIRATION EVEN, UNLABOR ON ROOM AIR. DENIED PAIN, SOB AT THIS TIME. VS WAS TAKEN. CALL LIGHT WITHIN REACH
--- NOTE | 2017-07-12 18:18 | NUR ---
PATIENT AWAKE, ALERT. RESPIRATION EVEN, UNLABOR ON ROOM AIR. DENIED PAIN, SOB AT THIS TIME. IV PATENT AND INTACT. CALL LIGHT WITHIN REACH
--- NOTE | 2017-07-12 19:24 | NUR ---
ENDORSEMENT GIVEN TO THE REFUSE LABORER NURSE. PATIENT IS STABLE AT THIS TIME
--- NOTE | 2017-07-12 19:36 | NUR ---
RECEIVED REPORT FROM DAY SHIFT RN, PATIENT RESTING IN BED, AWAKE ALERT ORIENTED X4, NO S/S OF DISTRESS NOTED, RESPIRATION EVEN AND UNLABORED, IV PATENT AND INTACT, INFUSING NS AT 60ML/HR, CALL LIGHT WITHIN REACH, SAFETY MEASURE ENSURED, WILL CONTINUE TO MONITOR.
[2017-07-12] MEDS: SIMVASTATIN 10 MG TAB PO SCH (20:31)
--- NOTE | 2017-07-12 20:38 | NUR ---
DUE MEDICATION GIVEN, PATIENT TOLERATED WELL. NO S/S OF DISTRESS NOTED, RESPIRATION EVEN AND UNLABORED, CALL LIGHT WITHIN REACH, SAFETY MEASURE ENSURED, WILL CONTINUE TO MONITOR.
--- NOTE | 2017-07-12 22:30 | NUR ---
PT ON CPAP 15 SLEEPING COMFORTABLY. CPAP CONNECTED TO RED OUTLET. ALARMS ARE AUDIBLE. NO SOB OR DISTRESS NOTED. WILL CONTINUE TO MONITOR.
--- NOTE | 2017-07-12 23:22 | NUR ---
DUE MEDICATION GIVEN, PATIENT TOLERATED WELL, NO S/S OF DISTRESS NOTED, RESPIRATION EVEN AND UNLABORED, ON CPAP, CALL LIGHT WITHIN REACH, SAFETY MEASURE ENSURED, WILL CONTINUE TO MONITOR.
--- NOTE | 2017-07-13 02:14 | NUR ---
NO CHANGE IN CONDITION, PATIENT IS SLEEPING, RESPIRATION EVEN AND UNLABORED, CALL LIGHT WITHIN REACH, SAFETY MEASURE ENSURED, WILL CONTINUE TO MONITOR.
[2017-07-13 04:00] VITALS: BP 130/78
--- NOTE | 2017-07-13 04:05 | NUR ---
PATIENT IS SLEEPING, RESPIRATION EVEN AND UNLABORED, CALL LIGHT WITHIN REACH, SAFETY MEASURE ENSURED, WILL CONTINUE TO MONITOR.
[2017-07-13] MEDS: CLINDAMYCIN 600 MG in DEXTROSE 5% 50 ML IV SCH ×2 (05:00→11:48)
--- NOTE | 2017-07-13 06:32 | NUR ---
NO CHANGE IN CONDITION, PATIENT IS SLEEPING, RESPIRATION EVEN AND UNLABORED, CALL LIGHT WITHIN REACH, SAFETY MEASURE ENSURED, WILL CONTINUE TO MONITOR.
[2017-07-13 07:07] LABS: ANION GAP 12.8 (8-16); BASOPHILS % (AUTO) 0.8 % (0.0-2.0); CARBON DIOXIDE 26.4 mmol/L (21-32); CREATININE 1.1 mg/dL (0.6-1.3); EOSINOPHILS % (AUTO) 1.2 % (0.0-4.0); HEMATOCRIT 28.3 % (36-48); LYMPHOCYTES # (AUTO) 0.5 K/uL (2.5-16.5); LYMPHOCYTES % (AUTO) 21.1 % (20.5-51.1); MEAN CORPUSCULAR HEMOGLOBIN 24 pg (27-31); MEAN CORPUSCULAR HGB CONC 32 g/dL (33-37); MEAN CORPUSCULAR VOLUME 74 fL (80-94); MONOCYTES # (AUTO) 0.1 K/uL (0.8-1.0); MONOCYTES % (AUTO) 4.1 % (1.7-9.3); NEUTROPHILS # (AUTO) 1.9 K/uL (1.8-7.7); NEUTROPHILS % (AUTO) 72.8 % (42.2-75.2); PLATELET COUNT (AUTO) 148 K/uL (140-450); POTASSIUM 4.2 mmol/L (3.5-5.1); RED BLOOD CELL COUNT(AUTO) 3.83 MIL/uL (4.20-5.40); RED CELL DISTRIBUTION WIDTH 17.8 % (11.6-13.7); WHITE BLOOD COUNT (AUTO) 2.6 K/uL (4.8-10.8)
[2017-07-13 07:09] LABS: PHOSPHORUS 4.6 mg/dL (2.5-4.9)
--- NOTE | 2017-07-13 07:20 | NUR ---
ENDORSED PLAN OF CARE TO DAY SHIFT RN, PATIENT RESTING IN BED, IN STABLE CONDITION, NO S/S OF DISTRESS.
--- NOTE | 2017-07-13 07:21 | NUR ---
RECEIVED REPORT FROM SUPPORT DIRECTOR NURSE MERCEDES AT BEDSIDE FOR CONTINUITY OF CARE. PT IS AWAKE AND ORIENTED. INTRODUCED SELF AND UPDATED BOARD. NO SIGNS OF DISTRESS. PT ASKED TO HAVE TV ON, WATCHING TV IN ROOM RIGHT NOW. BED IN LOW POSITION, WHEELS LOCKED, CALL LIGHT WITHIN REACH. WILL CONTINUE TO MONITOR.
[2017-07-13] MEDS: BUDESONIDE 0.5 MG/2 ML NEBU INH SCH (07:30)
[2017-07-13] MEDS: ALBUTEROL SULFATE/IPRATROPIU 3 ML SOL IH PRN (07:33)
[2017-07-13 08:00] VITALS: BP 135/74
[2017-07-13] MEDS ORDERED: FERROUS GLUCONATE 324 MG TAB PO SCH (08:00)
--- NOTE | 2017-07-13 08:10 | NUR ---
RECIVED PT OFF OF BIPAPP SITTING ON EDGE OF BED AWAKE ALERT NO RESP DISTRESS NOTED
[2017-07-13] MEDS ORDERED: ASCORBIC ACID 500 MG TAB PO SCH (09:00)
[2017-07-13] MEDS ORDERED: CALCIUM CARB/VIT-D 500 MG/200 IU 1 TAB PO SCH (09:00)
[2017-07-13] MEDS ORDERED: amLODIPine 5 MG TAB PO SCH (09:00)
[2017-07-13] MEDS ORDERED: LACT10CA PO (09:02)
[2017-07-13] MEDS ORDERED: CLIN300C2 PO (09:02)
[2017-07-13] MEDS ORDERED: FERR324T11 PO (09:02)
[2017-07-13] MEDS ORDERED: CALC-846 PO (09:02)
[2017-07-13] MEDS ORDERED: VITC500 PO (09:02)
[2017-07-13] MEDS: LACTOBACILLUS RHAMNOSUS GG 1 EACH CAP PO SCH (10:05)
[2017-07-13] MEDS: FUROSEMIDE 40 MG TAB PO SCH (10:06)
[2017-07-13] MEDS: hydrALAZINE 25 MG TAB PO SCH (10:06)
--- NOTE | 2017-07-13 10:06 | NUR ---
ADMINISTERED SCHEDULED MEDS. NON-ADMINISTERED FERRIC GLUCONATE PO. PT STATED HER PCP REQUESTED TO STOP MED. TOLERATED ADMINISTERED MEDS WELL. PT GOT UP TO USE BATHROOM. NO SIGNS OF DISTRESS. WILL CONTINUE TO MONITOR.
[2017-07-13] MEDS: METOPROLOL 50 MG TAB PO SCH (10:07)
[2017-07-13] MEDS: ASPIRIN 81 MG TAB.CHEW PO SCH (10:07)
[2017-07-13] MEDS ORDERED: FERRIC GLUCONATE 125 MG in NACL 0.9% 100 ML IV SCH (11:00)
[2017-07-13] MEDS ORDERED: MECL-270 PO (11:18)
[2017-07-13] MEDS: HYDROcodone/APAP 7.5/325 MG 1 TAB PO PRN (11:48)
--- NOTE | 2017-07-13 11:48 | NUR ---
PT COMPLAINED OF PAIN IN RIGHT LEG 12/18. ADMINISTERED NORCO FOR PAIN. PT TOLERATED WELL. PT HAD BM OF SOFT BROWN STOOL. TOOK STOOL SAMPLE FOR OCCULT STOOL. NO SIGNS OF DISTRESS. PT SITTING UP IN CHAIR WATCHING TV. CALL LIGHT WITHIN REACH. WILL CONTINUE TO MONITOR.
[2017-07-13 12:00] VITALS: BP 119/63
[2017-07-13] MEDS: NACL 0.9% 1,000 ML IV SCH (13:03)
--- NOTE | 2017-07-13 15:00 | NUR ---
PT D/C'D TO GO HOME. GAVE D/C FORMS, INSTRUCTIONS, FOLLOW UP APPOINTMENT, RX, AND LABS. PT VERBALIZED UNDERSTANDING AND SIGNED FORMS. REMOVED IV FROM L AC 20#. IV CATHETER TIP INTACT. APPLIED DRESSING AND PRESSURE TO SITE. NO BLEEDING NOTED. REMOVED ID BAND AND TELE MONITOR. PT CHANGED IN OWN CLOTHES AND LEFT WITH ALL PERSONAL BELONGINGS. LEFT VIA WHEELCHAIR ACCOMPANIED BY RN AND DAUGHTER. LEFT IN STABLE CONDITION.
[2017-07-14 10:11] LABS: FOLIC ACID 6.1 ng/mL (>3.0)
== END 2017-07-13 15:00 | disposition home or self-care (01) | DRG 602 ==
LOC: MED 08:54 → MTU 10:35
PROVIDERS: ADMIT Family Medicine Sports Medicine; ATTEND Family Medicine Sports Medicine
DX: L03.115 Cellulitis of right lower limb (principal); E43 Unspecified severe protein-calorie malnutrition; Z68.43 Body mass index [BMI] 50.0-59.9, adult; L03.116 Cellulitis of left lower limb; E66.01 Morbid (severe) obesity due to excess calories; E78.5 Hyperlipidemia, unspecified; J45.909 Unspecified asthma, uncomplicated; I10 Essential (primary) hypertension; D50.9 Iron deficiency anemia, unspecified; G47.33 Obstructive sleep apnea (adult) (pediatric); F41.1 Generalized anxiety disorder; I87.2 Venous insufficiency (chronic) (peripheral); L85.3 Xerosis cutis; Z88.0 Allergy status to penicillin; Z88.8 Allergy status to other drugs, medicaments and biological substances; Z22.322 Carrier or suspected carrier of Methicillin resistant Staphylococcus aureus
CPT/HCPCS: 36415; 71045; 73590; 76881; 80048; 80053; 81001; 82150; 82272; 82607; 82728; 82746; 83036; 83540; 83605; 83690; 83735; 83880; 84100; 84436; 84439; 84443; 84479; 84484; 85025; 85045; 85610; 85730; 87040; 87081; 87086; 93005; 93925; 93970; 94640; 94660; 96365; 96375; 99285; J1644; J1885; J2916; J3370; J3490; J7030; J7060; J7620; J7626; Q0092

== ENCOUNTER 2017-07-25 08:38 | Outpatient (CLI) | payer OTHER ==
[~2017-07-25 08:38] MED LIST changes: +ACET-2869 PO; +CALC-846 PO; +CEPH500C16 PO; +CLIN300C2 PO; +COLL30OI TP; +FERR324T11 PO; +LACT10CA PO; +LIDC TP; +MECL-270 PO; +NAPR-54 PO; +VITC500 PO
[2017-07-25 10:22] LABS: EOSINOPHILS % (AUTO) 0.6 % (0.0-4.0); HEMATOCRIT 31.3 % (36-48); HEMOGLOBIN 10.1 g/dL (12.0-16.0); LYMPHOCYTES % (AUTO) 18.4 % (20.5-51.1); MEAN CORPUSCULAR HEMOGLOBIN 23 pg (27-31); MEAN CORPUSCULAR HGB CONC 32 g/dL (33-37); MEAN CORPUSCULAR VOLUME 73 fL (80-94); MONOCYTES % (AUTO) 3.8 % (1.7-9.3); NEUTROPHILS % (AUTO) 76.2 % (42.2-75.2); PLATELET COUNT (AUTO) 134 K/uL (140-450); RED CELL DISTRIBUTION WIDTH 19.2 % (11.6-13.7)
[2017-07-25 10:23] LABS: LYMPHOCYTES # (AUTO) 0.4 K/uL (2.5-16.5); MONOCYTES # (AUTO) 0.1 K/uL (0.8-1.0); NEUTROPHILS # (AUTO) 1.5 K/uL (1.8-7.7)
[2017-07-25 10:40] LABS: ALBUMIN 3.2 g/dL (3.4-5.0); ANION GAP 11.5 (8-16); CARBON DIOXIDE 28.5 mmol/L (21-32); TOTAL BILIRUBIN 0.5 mg/dL (0.0-1.0)
== END 2017-07-26 20:41 | disposition home or self-care (01) ==
LOC: MLB 08:38
PROVIDERS: ATTEND General Practice
DX: D64.9 Anemia, unspecified (principal); B95.62 Methicillin resistant Staphylococcus aureus infection as the cause of diseases classified elsewhere; Z87.898 Personal history of other specified conditions
CPT/HCPCS: 36415; 80053; 85025; 85651

== ENCOUNTER 2017-08-10 19:08 | Outpatient (CLI) | payer OTHER ==
[~2017-08-10 19:08] MED LIST changes: -ACET-2869 PO; -AMLO1TAB12 PO; -CEPH500C16 PO; -CHLO118S2 TP; -CLON0.1T42 PO; -COLL30OI TP; -FERR324T11 PO; -LIDC TP; -NAPR-54 PO; -TAMS0.4C96 PO; -VITC500 PO
[2017-09-03 22:57] LABS: ANION GAP 12.1 (8-16); CARBON DIOXIDE 26.6 mmol/L (21-32); POTASSIUM 3.7 mmol/L (3.5-5.1); TOTAL BILIRUBIN 0.5 mg/dL (0.0-1.0)
[2017-09-03 22:58] LABS: ALBUMIN 3.5 g/dL (3.4-5.0); HEMOGLOBIN 10.1 g/dL (12.0-16.0); RED BLOOD CELL COUNT(AUTO) 4.46 MIL/uL (4.20-5.40); WHITE BLOOD COUNT (AUTO) 3.4 K/uL (4.8-10.8)
[2017-09-03 22:59] LABS: BASOPHILS % (AUTO) 1.5 % (0.0-2.0); EOSINOPHILS % (AUTO) 1.1 % (0.0-4.0); HEMATOCRIT 31.6 % (36-48); LYMPHOCYTES % (AUTO) 20.3 % (20.5-51.1); MEAN CORPUSCULAR HEMOGLOBIN 23 pg (27-31); MEAN CORPUSCULAR HGB CONC 32 g/dL (33-37); NEUTROPHILS % (AUTO) 75.1 % (42.2-75.2); PLATELET COUNT (AUTO) 146 K/uL (140-450); RED CELL DISTRIBUTION WIDTH 17.4 % (11.6-13.7)
[2017-09-03 23:00] LABS: APPEARANCE,URINE HAZY (CLEAR); BASOPHILS # (AUTO) 0.1 K/uL (0.00-0.22); COLOR,URINE AMBER (YELLOW); LYMPHOCYTES # (AUTO) 0.7 K/uL (2.5-16.5); MONOCYTES # (AUTO) 0.1 K/uL (0.8-1.0); NEUTROPHILS # (AUTO) 2.5 K/uL (1.8-7.7)
[2017-09-03 23:01] LABS: BILIRUBIN,URINE NEGATIVE (NEGATIVE); BLOOD, URINE TRACE (NEGATIVE); LEUKOCYTE ESTERASE ,URINE NEGATIVE (NEGATIVE); NITRITE, URINE NEGATIVE (NEGATIVE); PH,URINE 5.5 (5.0-9.0); UGLUCOSE NEGATIVE (NEGATIVE)
[2017-09-03 23:02] LABS: RBC,URINE 11-20 (MOD) /HPF (0-5); WBC,URINE 0-5 (RARE) /HPF (0-5)
== END 2017-08-10 23:59 ==
LOC: MLB 19:08
PROVIDERS: ATTEND General Practice
DX: D64.9 Anemia, unspecified (principal); D73.5 Infarction of spleen; L03.031 Cellulitis of right toe; R10.84 Generalized abdominal pain
CPT/HCPCS: 36415; 80053; 81001; 83690; 85025; 87086

== ENCOUNTER 2017-08-17 11:09 | Outpatient (CLI) | payer OTHER ==
[2017-08-17 12:54] LABS: BASOPHILS # (AUTO) 0.1 K/uL (0.00-0.22); BASOPHILS % (AUTO) 1.5 % (0.0-2.0); HEMATOCRIT 30.9 % (36-48); HEMOGLOBIN 9.8 g/dL (12.0-16.0); LYMPHOCYTES # (AUTO) 0.6 K/uL (2.5-16.5); LYMPHOCYTES % (AUTO) 17.5 % (20.5-51.1); MEAN CORPUSCULAR HEMOGLOBIN 23 pg (27-31); MEAN CORPUSCULAR HGB CONC 32 g/dL (33-37); MEAN CORPUSCULAR VOLUME 71 fL (80-94); MONOCYTES # (AUTO) 0.1 K/uL (0.8-1.0); MONOCYTES % (AUTO) 1.8 % (1.7-9.3); NEUTROPHILS # (AUTO) 2.8 K/uL (1.8-7.7); NEUTROPHILS % (AUTO) 78.2 % (42.2-75.2); PLATELET COUNT (AUTO) 134 K/uL (140-450); RED BLOOD CELL COUNT(AUTO) 4.33 MIL/uL (4.20-5.40); RED CELL DISTRIBUTION WIDTH 18.3 % (11.6-13.7); WHITE BLOOD COUNT (AUTO) 3.6 K/uL (4.8-10.8)
[2017-08-18 08:18] LABS: FERRITIN 71 ng/mL (15-150)
[2017-08-19 09:12] LABS: ANTI DOUBLE STRANDED DNA AB 7 IU/mL (0-9); ANTI-NUCLEAR ANTIBODY,DIRECT Negative (Negative)
== END 2017-08-17 17:14 | disposition home or self-care (01) ==
LOC: MLB 11:09
DX: D50.9 Iron deficiency anemia, unspecified (principal); D72.819 Decreased white blood cell count, unspecified; Z86.2 Personal history of diseases of the blood and blood-forming organs and certain disorders involving the immune mechanism
CPT/HCPCS: 36415; 82728; 83540; 85025; 85660; 86038

== ENCOUNTER 2017-10-10 16:16 | Inpatient (IN) | payer OTHER ==
[~2017-10-10] VITALS: Ht 167.6 cm; Wt 137.9 kg
[~2017-10-10 16:16] MED LIST changes: +ACETAMINOPHEN 325 MG TAB PO PRN
[2017-10-10 16:23] VITALS: BP 159/102
--- NOTE | 2017-10-10 16:25 | NUR ---
PT AMBULATED TO VIK WITH STEADY GAIT
--- NOTE | 2017-10-10 16:44 | NUR ---
PATIENT TO ER BED 10
--- NOTE | 2017-10-10 17:00 | NUR ---
51f bib with c/o 7/10 right ankle pain d/t wound on right ankle x 3 wks, progressively getting worse. Patient sent home on oral abx and ointment without improvement. Odor and yellow drainage noted to wound. Patient denies fever but reports chills. Patient is aox4. GCS=15. RR are even and unlabored. No acute distress. Awaiting er md boone. All needs met at this time. Will continue to monitor.
[2017-10-10] MEDS ORDERED: NACL 0.9% 500 ML IV SCH (17:42)
[2017-10-10] MEDS ORDERED: VANCOMYCIN 1,000 MG in DEXTROSE 5% 250 ML IV ONE (17:45)
[2017-10-10] MEDS ORDERED: VANCOMYCIN 1,000 MG VIAL ONE (18:04)
[2017-10-10] MEDS ORDERED: fentaNYL 0.05 MG/ML VIAL IVP ONE (18:05)
--- NOTE | 2017-10-10 18:31 | NUR ---
LAB BY BEDSIDE FOR SECOND SET OF BLOOD CULTURES
[2017-10-10] MEDS: NACL 0.9% 1,000 ML IV SCH (18:41)
[2017-10-10] MEDS ORDERED: MORPHINE SULFATE 4 MG/ML SYR IVP PRN (18:45)
[2017-10-10] MEDS ORDERED: ACETAMINOPHEN 325 MG TAB PO PRN (18:45)
[2017-10-10] MEDS ORDERED: DOCUSATE SODIUM 100 MG GELCAP PO PRN ×2 (18:45→20:40)
[2017-10-10] MEDS ORDERED: ONDANSETRON 4 MG/2 ML VIAL IM/IVP PRN (18:45)
[2017-10-10 18:53] LABS: BASOPHILS # (AUTO) 0.1 K/uL (0.00-0.22); BASOPHILS % (AUTO) 1.4 % (0.0-2.0); HEMATOCRIT 27.9 % (36-48); HEMOGLOBIN 8.6 g/dL (12.0-16.0); LYMPHOCYTES # (AUTO) 0.6 K/uL (2.5-16.5); LYMPHOCYTES % (AUTO) 15.3 % (20.5-51.1); MEAN CORPUSCULAR HEMOGLOBIN 22 pg (27-31); MEAN CORPUSCULAR HGB CONC 31 g/dL (33-37); MEAN CORPUSCULAR VOLUME 70.1 fL (80-94); MONOCYTES # (AUTO) 0.1 K/uL (0.8-1.0); MONOCYTES % (AUTO) 1.3 % (1.7-9.3); NEUTROPHILS # (AUTO) 3.4 K/uL (1.8-7.7); PLATELET COUNT (AUTO) 163 K/uL (140-450); RED BLOOD CELL COUNT(AUTO) 3.98 MIL/uL (4.20-5.40); WHITE BLOOD COUNT (AUTO) 4.2 K/uL (4.8-10.8)
[2017-10-10 18:54] LABS: APPEARANCE,URINE HAZY (CLEAR); BILIRUBIN,URINE NEGATIVE (NEGATIVE); BLOOD, URINE 3+ (NEGATIVE); COLOR,URINE YELLOW (YELLOW); LEUKOCYTE ESTERASE ,URINE NEGATIVE (NEGATIVE); NITRITE, URINE NEGATIVE (NEGATIVE); PH,URINE 6.5 (5.0-9.0); UGLUCOSE NEGATIVE (NEGATIVE)
[2017-10-10] MEDS ORDERED: ALBUTEROL SULFATE/IPRATROPIU 3 ML SOL IH PRN (18:55)
--- NOTE | 2017-10-10 19:00 | NUR ---
RECEIVED PT FROM ER NURSE CHELSEY-RN. PT RESTING IN BED WITH AT BEDSIDE. AOX4, ON ROOM AIR WITH IV LEFT AC 22G. SKIN NOT INTACT, OPEN WOUND ON RIGHT ANKLE WITH PITTING EDEMA +1. AMBULATORY WITH CANE. DISCUSSED PLAN OF CARE AND PT VERBALIZED UNDERSTANDING. UPDATED WHITE BOARD. BED IN LOWEST POSITION, BED BREAKS LOCKED. BED SIDE TABLE AND CALL LIGHT WITHIN REACH. NO S/S OF RESPIRATORY DISTRESS OR DISCOMFORT NOTED AT THIS TIME. WILL CONTINUE TO MONITOR.
[2017-10-10 19:08] LABS: ANION GAP 12.7 (8-16); CREATININE 1.4 mg/dL (0.6-1.3); POTASSIUM 3.7 mmol/L (3.5-5.1); TOTAL BILIRUBIN 0.6 mg/dL (0.0-1.0)
[2017-10-10 19:09] LABS: ALBUMIN 3.4 g/dL (3.4-5.0)
[2017-10-10 19:16] LABS: BARBITURATE, URINE NEG. ng/ml (NEG <=200); BENZODIAZEPINE, URINE NEG. ng/mL (NEG <=200); CANNABINOID, URINE NEG. ng/mL (NEG <=50); COCAINE, URINE NEG. ng/mL (NEG <=300); OPIATE, URINE NEG. ng/mL (NEG <=2000); PHENCYCLIDINE SCREEN,URINE NEG. ng/mL (NEG <=25)
[2017-10-10 19:19] LABS: RBC,URINE TOO NUMEROUS TO COUN /HPF (0-5); WBC,URINE 0-5 (RARE) /HPF (0-5)
[2017-10-10 19:22] LABS: CHOL/HDL RATIO 4.4 (1-4.5); FREE T4 (FREE THYROXINE) 1.23 ng/dL (0.76-1.46); MAGNESIUM 1.9 mg/dL (1.8-2.4); PHOSPHORUS 4.3 mg/dL (2.5-4.9); THYROID STIMULATING HORMONE 3.92 uIU/mL (0.34-3.74)
--- NOTE | 2017-10-10 19:22 | NUR ---
Patient will be admitted to care of [facility]. Admited to Tele. Will go to room 117. Belongings list completed. Bedside report to Kristin COYLE.
[2017-10-10 19:52] LABS: PROTHROMBIN TIME 11.1 secs (10.8-13.4)
[2017-10-10 20:00] VITALS: BP 177/97
--- NOTE | 2017-10-10 20:00 | NUR ---
VANCOMYCIN STILL INFUSING. VITAL SIGNS TOLERATED WELL. WILL CONTINUE TO MONITOR.
[2017-10-10] MEDS ORDERED: ALBUTEROL 0.083% 2.5 MG/3 ML NEBU INH PRN ×2 (20:25→20:40)
[2017-10-10] MEDS ORDERED: IPRATROPIUM 0.02% 0.5 MG/2.5 ML NEBU INH PRN (20:25)
[2017-10-10] MEDS ORDERED: IPRATROPIUM 0.02% 0.5 MG/2.5 ML NEBU INH SCH (20:40)
[2017-10-10] MEDS ORDERED: IBUPROFEN 800 MG TAB PO SCH (20:40)
[2017-10-10] MEDS ORDERED: HYDROcodone/APAP 7.5/325 MG 1 TAB PO PRN (20:40)
[2017-10-10] MEDS ORDERED: ALPRAZolam 0.5 MG TAB PO SCH (20:40)
[2017-10-10] MEDS ORDERED: METOPROLOL 50 MG TAB PO SCH ×2 (21:00→22:00)
[2017-10-10] MEDS ORDERED: ALPRAZolam 0.5 MG TAB PO PRN (21:40)
[2017-10-10] MEDS: hydrALAZINE 25 MG TAB PO SCH (21:50)
[2017-10-10] MEDS: HYDROcodone/APAP 7.5/325 MG 1 TAB PO PRN (21:51)
[2017-10-10] MEDS ORDERED: CLINDAMYCIN 600 MG/4 ML VIAL ONE (22:11)
[2017-10-10] MEDS: LEVOFLOXACIN 750 MG/D5W PREMIX 150 ML IV SCH (22:15)
[2017-10-10] MEDS: CLINDAMYCIN 600 MG in DEXTROSE 5% 50 ML IV SCH (22:16)
[2017-10-10] MEDS: ALBUTEROL SULFATE/IPRATROPIU 3 ML SOL IH PRN (22:28)
--- NOTE | 2017-10-10 23:00 | NUR ---
SCHEDULED MEDICATIONS GIVEN AND TOLERATED WELL. NO REACTIONS NOTED. NO S/S OF RESPIRATORY DISTRESS OR DISCOMFORT NOTED. WILL CONTINUE TO MONITOR. CPAP IN PLACE.
[2017-10-11] VITALS: BP 141/82
--- NOTE | 2017-10-11 | NUR ---
VITAL SIGNS TAKEN AND TOLERATED WELL. WILL CONTINUE TO MONITOR.
--- NOTE | 2017-10-11 02:00 | NUR ---
PT CONTINUES TO SLEEP WITH CPAP. NO S/S OF RESPIRATORY DISTRESS OR DISCOMFORT. WILL CONTINUE TO MONITOR.
[2017-10-11 04:00] VITALS: BP 144/85
--- NOTE | 2017-10-11 04:00 | NUR ---
VITAL SIGNS TAKEN AND TOLERATED WELL. WILL CONTINUE TO MONITOR.
[2017-10-11] MEDS ORDERED: CLINDAMYCIN 600 MG/4 ML VIAL ONE (04:44)
[2017-10-11] MEDS: CLINDAMYCIN 600 MG in DEXTROSE 5% 50 ML IV SCH (05:01)
--- NOTE | 2017-10-11 05:05 | NUR ---
SCHEDULED MEDICATION GIVEN AND TOLERATED WELL. WILL CONTINUE TO MONITOR.
[2017-10-11 06:07] LABS: ANION GAP 13.4 (8-16); BASOPHILS % (AUTO) 0.6 % (0.0-2.0); CARBON DIOXIDE 27.6 mmol/L (21-32); CREATININE 1.3 mg/dL (0.6-1.3); EOSINOPHILS % (AUTO) 1.3 % (0.0-4.0); HEMATOCRIT 23.4 % (36-48); HEMOGLOBIN 7.4 g/dL (12.0-16.0); LYMPHOCYTES # (AUTO) 0.5 K/uL (2.5-16.5); LYMPHOCYTES % (AUTO) 14.5 % (20.5-51.1); MEAN CORPUSCULAR HEMOGLOBIN 22 pg (27-31); MEAN CORPUSCULAR HGB CONC 32 g/dL (33-37); MEAN CORPUSCULAR VOLUME 70.4 fL (80-94); MONOCYTES # (AUTO) 0.1 K/uL (0.8-1.0); MONOCYTES % (AUTO) 2.7 % (1.7-9.3); NEUTROPHILS # (AUTO) 2.8 K/uL (1.8-7.7); NEUTROPHILS % (AUTO) 80.9 % (42.2-75.2); PLATELET COUNT (AUTO) 126 K/uL (140-450); RED BLOOD CELL COUNT(AUTO) 3.33 MIL/uL (4.20-5.40); WHITE BLOOD COUNT (AUTO) 3.5 K/uL (4.8-10.8)
[2017-10-11 06:34] LABS: T4 (THYROXINE) 9.4 ug/dL (4.5-12.0)
--- NOTE | 2017-10-11 07:10 | NUR ---
ENDORSED PT CARE TO DAY SHIFT NURSE CRISTAL-RN FOR CONTINUITY OF CARE. PT STABLE AT THIS TIME.
--- NOTE | 2017-10-11 07:36 | NUR ---
REPORT RECEIVED FROM EVENT SALES ASSISTANT. PT IN STABLE CONDITION. ARM BAND IN PLACE. BED LOCKED AND IN LOW POSITION. CALL DEL TORO WITHIN REACH. WILL CONTINUE TO MONITOR.
[2017-10-11] MEDS ORDERED: LACTOBACILLUS RHAMNOSUS GG 1 EACH CAP PO SCH (08:00)
[2017-10-11 08:10] VITALS: BP 159/85
--- NOTE | 2017-10-11 08:15 | NUR ---
AM ASSESSMENT COMPLETE. AM MEDS GIVEN. PT TOLERATED WELL. VS WITHIN NORMAL LIMITS. PT IS NOT IN ACUTE DISTRESS. BED LOCKED IN LOW POSITION. CALL DEL TORO WITHIN REACH. WILL CONTINUE TO MONITOR.
[2017-10-11] MEDS: FUROSEMIDE 40 MG TAB PO SCH (08:23)
[2017-10-11] MEDS: hydrALAZINE 25 MG TAB PO SCH ×2 (08:23→20:06)
[2017-10-11] MEDS: SIMVASTATIN 10 MG TAB PO SCH (08:23)
[2017-10-11] MEDS: CALCIUM CARB/VIT-D 500 MG/200 IU 1 TAB PO SCH (08:23)
[2017-10-11] MEDS: DOCUSATE SODIUM 100 MG GELCAP PO SCH ×2 (08:23→20:07)
[2017-10-11] MEDS: LACTOBACILLUS RHAMNOSUS GG 1 EACH CAP PO SCH (08:24)
[2017-10-11] MEDS: ASPIRIN 81 MG TAB.CHEW PO SCH (08:24)
[2017-10-11] MEDS: METOPROLOL 50 MG TAB PO SCH ×2 (08:24→20:06)
--- NOTE | 2017-10-11 08:39 | NUR ---
PATIENT HAS BEEN SCREENED AND CATEGORIZED HIGH NUTRITION RISK. PATIENT WILL BE SEEN WITHIN 1-2 DAYS OF ADMISSION. 10/11/17 10/12/[address]
--- NOTE | 2017-10-11 08:53 | NUR ---
ASSESSED PATIENT. UPON ENTERING ROOM, PATIENT IS ON ROOM AIR SPO2 97. B/S: CLEAR BILATERALLY. PATIENT STATES THAT SHE IS COMFORTABLE AND NOT IN ANY RESPIRATORY DISTRESS. NO TREATMENT REQUESTED AT THIS TIME.
[2017-10-11] MEDS ORDERED: DOCUSATE SODIUM 100 MG GELCAP PO SCH (09:00)
--- NOTE | 2017-10-11 09:56 | NUR ---
ALL ROUND LOGGER AT BEDSIDE TO ASSESS WOUND.
[2017-10-11] MEDS: HYDROcodone/APAP 7.5/325 MG 1 TAB PO PRN ×2 (10:24→20:07)
[2017-10-11 12:00] VITALS: BP 156/91
[2017-10-11] MEDS: NACL 0.9% 1,000 ML IV SCH (12:37)
--- NOTE | 2017-10-11 13:22 | NUR ---
PATIENT REQUESTED BREATHING TREATMENT, STATED THAT SHE FEELS SHORT OF BREATH. PT TOLERATED TREATMENT WELL WITH NO ADVERSE EFFECTS. PLACED PT ON 2L/M NASAL CANNULA. SPO2 96
[2017-10-11] MEDS: CLINDAMYCIN PHOS. 600MG/D5W PM 50 ML IV SCH ×2 (13:46→20:49)
[2017-10-11] MEDS: ALBUTEROL SULFATE/IPRATROPIU 3 ML SOL IH PRN (14:05)
--- NOTE | 2017-10-11 14:18 | NUR ---
10/11/17 RD INITIAL ASSESSMENT COMPLETED PLEASE REFER TO NUTRITION ASSESSMENT UNDER CARE ACTIVITY FOR ESTIMATED NUTRITIONAL NEEDS. 1. CONTINUE REGULAR DIET TOLERATED 2. RD TO FOLLOW-UP 2-3 DAYS, HIGH RISK MARIAN RUGGIERO RD
--- NOTE | 2017-10-11 14:44 | NUR ---
CHECKED IN ON PT. PT UP IN BED, ON THE PHONE AND IN STABLE CONDITION. FAMILY AT BEDSIDE. BED LOCKED AND IN LOW POSITION. CALL DEL TORO WITHIN REACH. Addendum: 10/11/17 at 1445 by Michael Gaytan RN WILL CONTINUE TO MONITOR.
[2017-10-11 16:00] VITALS: BP 151/85
--- NOTE | 2017-10-11 19:35 | NUR ---
REPORT GIVEN TO NIGHT NURSE AT BEDSIDE. PT IN STABLE CONDITION.
--- NOTE | 2017-10-11 19:36 | NUR ---
RECD. RESTING IN BED, AWAKE, A/OX4. RESPIRATION EVEN AND UNLABORED. 02 SAT - 97% ON ROOM AIR. IV OF NS AT 60 ML/HR INFUSING, LEFT AC G20. NOTED SLIGHT SWELLING IN THE RIGHT LOWER EXTREMITY, ELEVATED ON PILLOW, WOUND COVERED WITH DRESSING DRY AND INTACT. PAIN IN THE RIGHT LOWER EXTREMITY, /, WANTS PAIN MEDICATION WITH THE NIGHT MEDS. PLAN OF CARE FOR THE SHIFT DISCUSSED. VERBALIZED UNDERSTANDING.
[2017-10-11] MEDS: LEVOFLOXACIN 750 MG/D5W PREMIX 150 ML IV SCH (19:45)
[2017-10-11 20:00] VITALS: BP 167/98
--- NOTE | 2017-10-11 20:00 | NUR ---
Patient's Plan of Care was discussed and reviewed with DOOR FURRING INSTALLER: MORGAN MORTENSEN
--- NOTE | 2017-10-11 20:06 | NUR ---
BP CHECKED - 167/98, HR - 88, DUE PO BLOOD PRESSURE MEDICATIONS GIVEN.
--- NOTE | 2017-10-11 20:30 | NUR ---
RIDDHI CAME TO DO BILATERAL LOWER EXTREMITY ARTERIAL US, CAME TO MD ROOM AND INFORMED DR. PIERRE PATIENT HAD THE SAME PROCEDURE DONE LAST JUNE OF THIS YEAR, IF SHE STILL NEEDS TO DO THE PROCEDURE. RESIDENT STATED NO NEED TO DO THE US.
--- NOTE | 2017-10-11 21:20 | NUR ---
SLEEPING COMFORTABLY ON HER RIGHT SIDE, CPAP ON.
[2017-10-12] VITALS: BP 144/89
--- NOTE | 2017-10-12 | NUR ---
SLEEPING ON HER RIGHT SIDE, BP CHECKED - 144/89, HR -71. STILL ON CPAP, 02 SAT - 100%. Addendum: 10/12/17 at 0306 by Irais Valdovinos LVN CORRECTION: SLEEPING ON HER LEFT SIDE.
--- NOTE | 2017-10-12 02:00 | NUR ---
STILL SLEEPING COMFORTABLY, CPAP ON.
[2017-10-12 04:00] VITALS: BP 152/97
--- NOTE | 2017-10-12 04:00 | NUR ---
SLEEPING ON HER BACK, 02 SAT -97%, CPAP ON.
[2017-10-12] MEDS: NACL 0.9% 1,000 ML IV SCH ×2 (04:01→21:10)
[2017-10-12] MEDS: CLINDAMYCIN PHOS. 600MG/D5W PM 50 ML IV SCH ×3 (05:08→22:33)
[2017-10-12 06:00] LABS: BASOPHILS % (AUTO) 0.6 % (0.0-2.0); EOSINOPHILS % (AUTO) 1.5 % (0.0-4.0); HEMATOCRIT 23.9 % (36-48); HEMOGLOBIN 7.5 g/dL (12.0-16.0); LYMPHOCYTES # (AUTO) 0.6 K/uL (2.5-16.5); LYMPHOCYTES % (AUTO) 18.5 % (20.5-51.1); MEAN CORPUSCULAR HEMOGLOBIN 22 pg (27-31); MEAN CORPUSCULAR HGB CONC 32 g/dL (33-37); MEAN CORPUSCULAR VOLUME 70.4 fL (80-94); MONOCYTES # (AUTO) 0.1 K/uL (0.8-1.0); MONOCYTES % (AUTO) 3.9 % (1.7-9.3); NEUTROPHILS # (AUTO) 2.6 K/uL (1.8-7.7); NEUTROPHILS % (AUTO) 75.5 % (42.2-75.2); PLATELET COUNT (AUTO) 137 K/uL (140-450); RED BLOOD CELL COUNT(AUTO) 3.39 MIL/uL (4.20-5.40); RED CELL DISTRIBUTION WIDTH 18.8 % (11.6-13.7); WHITE BLOOD COUNT (AUTO) 3.3 K/uL (4.8-10.8)
[2017-10-12 06:18] LABS: CARBON DIOXIDE 29.2 mmol/L (21-32); CREATININE 1.4 mg/dL (0.6-1.3); POTASSIUM 4.2 mmol/L (3.5-5.1)
[2017-10-12 06:21] LABS: MAGNESIUM 1.8 mg/dL (1.8-2.4)
--- NOTE | 2017-10-12 06:35 | NUR ---
AWAKE, GET OUT OF BED TO GO RO BR TO VOID, BACK TO BED AFTER VOIDING. NO BM THIS SHIFT.
--- NOTE | 2017-10-12 07:21 | NUR ---
CONDITION REMAIN STABLE. ENDORSED TO AM NURSES FOR CONTINUITY OF CARE.
--- NOTE | 2017-10-12 07:31 | NUR ---
RECEIVED REPORT FROM MORGAN EVANS AT BEDSIDE. PT IN STABLE CONDITION AND IN NO ACUTE DISTRESS. ARMBAND IN PLACE, BED LOCKED IN LOW POSITION, SIDE RAILS UP X2, CALL DEL TORO WITHIN REACH. WILL CONTINUE TO MONITOR.
[2017-10-12 08:00] VITALS: BP 165/98
--- NOTE | 2017-10-12 08:04 | NUR ---
HEPARIN HELD DUE TO NO PTT LAB VALUE AND PLT AT 137.
[2017-10-12] MEDS: SIMVASTATIN 10 MG TAB PO SCH (08:16)
[2017-10-12] MEDS: CALCIUM CARB/VIT-D 500 MG/200 IU 1 TAB PO SCH (08:16)
[2017-10-12] MEDS: ASPIRIN 81 MG TAB.CHEW PO SCH (08:16)
[2017-10-12] MEDS: LACTOBACILLUS RHAMNOSUS GG 1 EACH CAP PO SCH (08:16)
[2017-10-12] MEDS: FUROSEMIDE 40 MG TAB PO SCH (08:16)
[2017-10-12] MEDS: hydrALAZINE 25 MG TAB PO SCH ×2 (08:17→20:33)
[2017-10-12] MEDS: DOCUSATE SODIUM 100 MG GELCAP PO SCH ×2 (08:17→20:33)
[2017-10-12] MEDS: METOPROLOL 50 MG TAB PO SCH ×2 (08:17→20:34)
--- NOTE | 2017-10-12 08:20 | NUR ---
AM MEDS GIVEN. PT TOLERATED WELL. PT SITTING UP IN BED EATING BREAKFAST. PT NOT IN ANY ACUTE DISTRESS. WILL CONTINUE TO MONITOR.
--- NOTE | 2017-10-12 09:33 | NUR ---
PT SITTING UP IN CHAIR. STATES IT FELT NICE TO BE ABLE TO WASH UP. LINENS CHANGED. PT BACK ON IV AND SPO2 MONITOR. WILL CONTINUE TO MONITOR.
--- NOTE | 2017-10-12 11:30 | NUR ---
DR LOYA IS AWARE OF INCREASED BP. WILL PRESCRIBE MEDICATION ACCORDINGLY.
[2017-10-12 12:00] VITALS: BP 171/94
--- NOTE | 2017-10-12 12:05 | NUR ---
AWAKE AND ALERT RESPONSIVE TO [employer]S [employer] V60 BIPAP AT BEDSIDE
--- NOTE | 2017-10-12 12:50 | NUR ---
REASSESSED PT BP AFTER XANAX WAS GIVEN. PT STATES SHE FEELS A LITTLE BETTER. BP WAS 151/93. WILL RECOMMEND TO DR FOR BP MED. PT IS IN STABLE CONDITION. BED LOCKED IN LOW POSITION. CALL DEL TORO WITHIN REACH.
[2017-10-12] MEDS ORDERED: cloNIDine 0.1 MG TAB PO SCH (14:00)
--- NOTE | 2017-10-12 14:30 | NUR ---
REASSESSED PT BP. NEW ORDER FOR CLONIDINE. ADMINISTERED TO PT FOR BP 147/84 AND PULSE OF 79. PT IN STABLE CONDITION NOT IN ANY ACUTE DISTRESS.
[2017-10-12 16:00] VITALS: BP 136/67
--- NOTE | 2017-10-12 18:30 | NUR ---
PT LAYING IN BED. WATCHING TV. PRESENT IN ROOM. PT IN NO ACUTE DISTRESS.
--- NOTE | 2017-10-12 19:35 | NUR ---
REPORT GIVEN TO NIGHT NURSE. PT IN STABLE CONDITION.
--- NOTE | 2017-10-12 19:37 | NUR ---
RECEIVED REPORT FROM NIGHT RN. PT RESTING IN BED. AAO4 NO S/S OF ACUTE DISTRESS. PT DENIES PAIN. ON O2 2L NC. DRESSING TO RIGHT LEG DRY AND INTACT. IV SITE PATENT AND INTACT. CALL LIGHT WITHIN REACH. SAFETY MEASURE ENSURED. WILL CONTINUE TO MONITOR.
[2017-10-12] MEDS: ALBUTEROL SULFATE/IPRATROPIU 3 ML SOL IH PRN (19:47)
[2017-10-12 20:00] VITALS: BP 171/102
[2017-10-12] MEDS: LEVOFLOXACIN 750 MG/D5W PREMIX 150 ML IV SCH (20:33)
[2017-10-12] MEDS: cloNIDine 0.1 MG TAB PO SCH (20:33)
[2017-10-13] VITALS: BP 136/82
--- NOTE | 2017-10-13 00:16 | NUR ---
PT SLEEPING IN BED. NO S/S OF ACUTE DISTRESS. CALL LIGHT WITHIN REACH. SAFETY MEASURES ENSURED. WILL CONTINUE TO MONITOR.
[2017-10-13 04:00] VITALS: BP 152/98
[2017-10-13] MEDS: CLINDAMYCIN PHOS. 600MG/D5W PM 50 ML IV SCH ×2 (05:33→12:54)
[2017-10-13] MEDS: NACL 0.9% 1,000 ML IV SCH ×2 (05:37→16:25)
--- NOTE | 2017-10-13 07:26 | NUR ---
ENDORSED PLAN OF CARE TO NIGHT RN.
--- NOTE | 2017-10-13 07:35 | NUR ---
RECEIVED REPORT FROM WINDLACE MACHINE OPERATOR NURSE, PT IS AAOX4, AMBULATORY, PT IS ON BIPAP MACHINE, PT HAS IV ON HER LEFT AC, PATENT, INTACT, FLUSHING WELL, PT HAS DRESSING ON HER RIGHT LOWER EXT. NO S/S OF RESPIRATORY DISTRESS OR DISCOMFORT NOTED, DISCUSSED PLAN OF CARE WITH PT, PT VERBALIZED UNDERSTANDING, CALL LIGHT WITHIN REACH, WILL CONTINUE TO MONITOR.
[2017-10-13] MEDS: ALBUTEROL SULFATE/IPRATROPIU 3 ML SOL IH PRN (07:40)
--- NOTE | 2017-10-13 07:50 | NUR ---
PT IS AWAKE AND ALERT. GAVE HHN TX FOR SOB. PT ON 1 L NC. NO DISTRESS NOTED. WILL CONTINUE TO MONITOR.
[2017-10-13 08:00] VITALS: BP 144/89
--- NOTE | 2017-10-13 08:52 | NUR ---
PATIENT TAKEN OFF UNIT TO HAVE CT-SCAN OF ABDOMEN DONE. PT LEFT IN STABLE CONDITION VIA WHEELCHAIR.
[2017-10-13 09:05] LABS: BASOPHILS % (AUTO) 0.6 % (0.0-2.0); EOSINOPHILS % (AUTO) 1.2 % (0.0-4.0); HEMATOCRIT 23.5 % (36-48); HEMOGLOBIN 7.5 g/dL (12.0-16.0); LYMPHOCYTES # (AUTO) 0.5 K/uL (2.5-16.5); MEAN CORPUSCULAR HEMOGLOBIN 22 pg (27-31); MEAN CORPUSCULAR HGB CONC 32 g/dL (33-37); MEAN CORPUSCULAR VOLUME 70.4 fL (80-94); MONOCYTES # (AUTO) 0.1 K/uL (0.8-1.0); MONOCYTES % (AUTO) 2.9 % (1.7-9.3); NEUTROPHILS # (AUTO) 2.3 K/uL (1.8-7.7); NEUTROPHILS % (AUTO) 79.3 % (42.2-75.2); PLATELET COUNT (AUTO) 122 K/uL (140-450); RED BLOOD CELL COUNT(AUTO) 3.34 MIL/uL (4.20-5.40); RED CELL DISTRIBUTION WIDTH 20.1 % (11.6-13.7); WHITE BLOOD COUNT (AUTO) 2.9 K/uL (4.8-10.8)
--- NOTE | 2017-10-13 09:16 | NUR ---
PATIENT RETURNED TO UNIT, PT IS RESTING IN BED, AAOX4, NO S/S OF RESPIRATORY DISTRESS OR DISCOMFORT NOTED, CALL LIGHT IS WITHIN REACH.
[2017-10-13] MEDS: LACTOBACILLUS RHAMNOSUS GG 1 EACH CAP PO SCH (09:41)
[2017-10-13] MEDS: METOPROLOL 50 MG TAB PO SCH (09:42)
[2017-10-13] MEDS: FUROSEMIDE 40 MG TAB PO SCH (09:42)
[2017-10-13] MEDS: SIMVASTATIN 10 MG TAB PO SCH (09:43)
[2017-10-13] MEDS: hydrALAZINE 25 MG TAB PO SCH (09:43)
[2017-10-13] MEDS: CALCIUM CARB/VIT-D 500 MG/200 IU 1 TAB PO SCH (09:44)
[2017-10-13] MEDS: cloNIDine 0.1 MG TAB PO SCH (09:44)
[2017-10-13] MEDS: ASPIRIN 81 MG TAB.CHEW PO SCH (09:45)
[2017-10-13] MEDS: DOCUSATE SODIUM 100 MG GELCAP PO SCH (09:45)
--- NOTE | 2017-10-13 09:45 | NUR ---
DUE MEDICATIONS GIVEN. PT TOLERATED WELL. DR. ODELL IS AT PATIENT'S BEDSIDE SPEAKING WITH PATIENT.
[2017-10-13 09:51] LABS: ANION GAP 11.7 (8-16); CARBON DIOXIDE 27.3 mmol/L (21-32); CREATININE 1.4 mg/dL (0.6-1.3)
[2017-10-13 09:54] LABS: MAGNESIUM 1.8 mg/dL (1.8-2.4); PHOSPHORUS 4.4 mg/dL (2.5-4.9)
--- NOTE | 2017-10-13 10:30 | NUR ---
PATIENT AMBULATING DOWN THE LANZA AND AROUND THE NURSES STATION.
[2017-10-13 12:00] VITALS: BP 135/78
--- NOTE | 2017-10-13 12:05 | NUR ---
PT SITTING IN BED EATING LUNCH, CALL LIGHT IS WITHIN REACH.
--- NOTE | 2017-10-13 13:07 | NUR ---
10/13/17 RD FOLLOW UP COMPLETED PLEASE REFER TO NUTRITION PROGRESS NOTE UNDER CARE ACTIVITY FOR ESTIMATED NUTRITION NEEDS. RD RECOMMENDATIONS: 1. RECOMMEND CHANGING PATIENTS DIET TO 2 GM NA DIET DUE TO PT WITH PMH OF HTN AND CONSISTENT ELEVATED BLOOD PRESSURE LEVELS. -NOTE PT ALSO WITH ABNORMAL RENAL LABS. -NOT PT IS EATING FAIRLY, MEETING GREATER THAN 75% OF ESTIMATED NUTRITION NEEDS. 2. RECOMMEND ORDERING 1 TAB OF MULTIVITAMIN PO DAILY DUE TO PT WITH RIGHT ANKLE STASIS ULCER (OPEN). -RD WILL MONITOR RENAL FUNCTIONS AND ASSESS IF VITAMIN C IS APPROPRIATE FOR WOUND HEALING. 3. RD WILL F/U 3-5 DAYS; MODERATE RISK. STEWART BARLOW, RD
[2017-10-13] MEDS ORDERED: LIDOCAINE 1% ***ER ONLY *** 10 MG/ML VIAL INJ SCH (13:30)
[2017-10-13] MEDS ORDERED: CLIN300C2 PO (13:34)
[2017-10-13] MEDS: HYDROcodone/APAP 7.5/325 MG 1 TAB PO PRN (13:34)
[2017-10-13] MEDS ORDERED: LEVO750T2 PO (13:34)
[2017-10-13] MEDS ORDERED: DOCU-299 PO (13:34)
[2017-10-13] MEDS ORDERED: CLON0.1T42 PO (13:34)
[2017-10-13] MEDS ORDERED: LISI-420 PO (13:39)
[2017-10-13] MEDS ORDERED: ATOR40TA PO (13:40)
--- NOTE | 2017-10-13 14:30 | NUR ---
BEDSIDE EXCISIONAL DEBRIDEMENT OF THE RIGHT LOWER EXTREMITY DONE BY DR. HOLDEN. PT TOLERATED WELL, WILL CONTINUE TO MONITOR.
[2017-10-13 16:00] VITALS: BP 149/90
--- NOTE | 2017-10-13 18:00 | NUR ---
DISCHARGE INSTRUCTIONS GIVEN, ID WRIST BAND REMOVED, IV REMOVED, CATHETER TIP INTACT. PT STABLE UPON DISCHARGE ACCOMPANIED BY HER .
== END 2017-10-13 18:00 | disposition home or self-care (01) | DRG 602 ==
LOC: MED 16:16 → MTU 18:49
PROVIDERS: ADMIT Family Medicine Sports Medicine; ATTEND Family Medicine Sports Medicine
PROC: 5A09357 Assistance with Respiratory Ventilation, Less than 24 Consecutive Hours, Continuous Positive Airway Pressure (ICD-10-PCS; 2017-10-10)
PROC: 5A09357 Assistance with Respiratory Ventilation, Less than 24 Consecutive Hours, Continuous Positive Airway Pressure (ICD-10-PCS; 2017-10-11)
PROC: 5A09357 Assistance with Respiratory Ventilation, Less than 24 Consecutive Hours, Continuous Positive Airway Pressure (ICD-10-PCS; 2017-10-12)
PROC: 0HBMXZZ Excision of Right Foot Skin, External Approach (ICD-10-PCS; principal; 2017-10-13)
PROC: 5A09357 Assistance with Respiratory Ventilation, Less than 24 Consecutive Hours, Continuous Positive Airway Pressure (ICD-10-PCS; 2017-10-13)
DX: L03.115 Cellulitis of right lower limb (principal); N17.0 Acute kidney failure with tubular necrosis; F32.0 Major depressive disorder, single episode, mild; L97.319 Non-pressure chronic ulcer of right ankle with unspecified severity; Z68.42 Body mass index [BMI] 45.0-49.9, adult; D56.9 Thalassemia, unspecified; J45.909 Unspecified asthma, uncomplicated; E66.01 Morbid (severe) obesity due to excess calories; I10 Essential (primary) hypertension; F41.0 Panic disorder [episodic paroxysmal anxiety]; F41.1 Generalized anxiety disorder; G47.33 Obstructive sleep apnea (adult) (pediatric); M19.90 Unspecified osteoarthritis, unspecified site; I73.9 Peripheral vascular disease, unspecified; R31.29 Other microscopic hematuria; Z88.1 Allergy status to other antibiotic agents; Z88.0 Allergy status to penicillin; Z88.8 Allergy status to other drugs, medicaments and biological substances; Z79.82 Long term (current) use of aspirin; Z79.899 Other long term (current) drug therapy; Z88.2 Allergy status to sulfonamides; Z87.891 Personal history of nicotine dependence; Z98.51 Tubal ligation status; Z87.442 Personal history of urinary calculi
CPT/HCPCS: 36415; 71045; 73700; 76770; 80048; 80053; 80305; 81001; 82150; 82550; 82553; 83036; 83605; 83690; 83735; 83874; 83880; 84100; 84436; 84439; 84443; 84479; 85025; 85610; 85730; 87040; 87070; 87075; 87081; 87086; 93005; 93926; 93971; 94640; 94660; 96374; 99285; J1644; J1956; J2001; J3010; J3370; J3490; J7030; J7060; J7620; Q0092; Q9967

== ENCOUNTER 2017-10-14 18:05 | Emergency (ER) | payer OTHER ==
[~2017-10-14] VITALS: Ht 167.6 cm; Wt 137.0 kg
[~2017-10-14 18:05] MED LIST changes: -ACETAMINOPHEN 325 MG TAB PO PRN; +ATOR40TA PO; -BACTO TP; +LEVO750T2 PO; +LISI-420 PO; -SIMV10TA1 PO
[2017-10-14 18:21] VITALS: BP 157/91
--- NOTE | 2017-10-14 19:19 | NUR ---
Patient to bed 12. RN evaluating patient at bedside.
--- NOTE | 2017-10-14 19:25 | NUR ---
51/F CAME IN, C/O 5/10 MOUTH AND THROAT PAIN SINCE AM. PT STATED "I WOKE UP WITH THIS SWELLING AND PAIN." UPPER LIP SWOLLEN WITH NO REDNESS. PT DENIES EXPERIENCING ANY BUG BITES OR EATING ANYTHING DIFFERENT. REPORTS TAKING USUAL MEDS, NO NEW MEDS. PT REPORTS DISCOMFORT UNDER RIBS. PT DENIES SOB, N/V/D, DYSURIA. PT REPORTS TAKING 12.5MG BENADRYL AT 1330 AND 25MG AT 1530 WITH NO RELIEF. PT WAS RECENTLY DISCHARGED YESTERDAY FOR OPEN WOUND ON R LATERAL ANKLE, DRESSING CLEAN DRY AND INTACT. HX OA, ASTHMA, HTN, ENLARGED INFARCT SPLEEN, SLEEP APNEA. ALLERGY TO PCN, BACTRIM AND SINGULAIR
--- NOTE | 2017-10-14 19:45 | NUR ---
Dr. Nieto evaluating patient at bedside.
[2017-10-14] MEDS ORDERED: methylPREDNISolone SS 125 MG/2 ML VIAL IVP ONE (20:05)
[2017-10-14] MEDS ORDERED: diphenhydrAMINE 50 MG/ML VIAL IVP ONE (20:05)
[2017-10-14] MEDS ORDERED: FAMOTIDINE 20 MG/2 ML VIAL IVP ONE (20:05)
[2017-10-14] MEDS ORDERED: FAMOTIDINE 20 MG/2 ML VIAL ONE (20:20)
--- NOTE | 2017-10-14 21:46 | NUR ---
Patient appears to be resting comfortably in bed. Vital Signs within normal limits. Respirations even and unlabored.
[2017-10-14 23:46] VITALS: BP 128/72
--- NOTE | 2017-10-14 23:46 | NUR ---
Patient discharged with v/s stable. Written and verbal after care instructions given and explained. Patient alert, oriented and verbalized understanding of instructions. Ambulatory with steady gait. All questions addressed prior to discharge. ID band removed. Patient advised to follow up with PMD. Rx of PREDNISONE, PEPCID, DIPHENHIST given. Patient educated on indication of medication including possible reaction and side effects. Opportunity to ask questions provided and answered. IV removed, catheter intact and site benign. Applied folded 4x4 gauze and tape to stop bleeding.
== END 2017-10-14 23:46 | disposition home or self-care (01) ==
LOC: MED 18:05 → EEVIPCON 18:05 → MED 23:46
DX: T78.3XXA Angioneurotic edema, initial encounter (principal); J45.909 Unspecified asthma, uncomplicated; I10 Essential (primary) hypertension; Z79.899 Other long term (current) drug therapy; Z88.0 Allergy status to penicillin; Z88.2 Allergy status to sulfonamides; Z88.8 Allergy status to other drugs, medicaments and biological substances
CPT/HCPCS: 96374; 96375; 99284; J1200; J2930; J3490

== ENCOUNTER → 2017-11-02 | Outpatient (CLI) | payer OTHER ==
[2017-11-02 21:05] LABS: BASOPHILS % (AUTO) 0.6 % (0.0-2.0); EOSINOPHILS # (AUTO) 0.1 K/uL (0-0.4); EOSINOPHILS % (AUTO) 1.5 % (0.0-4.0); HEMATOCRIT 28.1 % (36-48); LYMPHOCYTES # (AUTO) 0.8 K/uL (2.5-16.5); LYMPHOCYTES % (AUTO) 13.5 % (20.5-51.1); MEAN CORPUSCULAR HEMOGLOBIN 23 pg (27-31); MEAN CORPUSCULAR HGB CONC 32 g/dL (33-37); MEAN CORPUSCULAR VOLUME 70.7 fL (80-94); MONOCYTES # (AUTO) 0.2 K/uL (0.8-1.0); MONOCYTES % (AUTO) 3.1 % (1.7-9.3); NEUTROPHILS # (AUTO) 4.9 K/uL (1.8-7.7); NEUTROPHILS % (AUTO) 81.3 % (42.2-75.2); PLATELET COUNT (AUTO) 160 K/uL (140-450); RED BLOOD CELL COUNT(AUTO) 3.97 MIL/uL (4.20-5.40); RED CELL DISTRIBUTION WIDTH 20.5 % (11.6-13.7)
[2017-11-02 21:34] LABS: ALBUMIN 3.4 g/dL (3.4-5.0); ANION GAP 12.9 (8-16); CARBON DIOXIDE 26.5 mmol/L (21-32); CREATININE 1.7 mg/dL (0.6-1.3); POTASSIUM 3.4 mmol/L (3.5-5.1); TOTAL BILIRUBIN 0.4 mg/dL (0.0-1.0)
== END ==
LOC: MLB 20:17
PROVIDERS: ATTEND General Practice
DX: L03.115 Cellulitis of right lower limb (principal); I10 Essential (primary) hypertension; J45.909 Unspecified asthma, uncomplicated
CPT/HCPCS: 36415; 80053; 85025

== ENCOUNTER 2017-11-19 08:28 | Outpatient (CLI) | payer OTHER ==
[2017-11-19 09:19] LABS: BASOPHILS % (AUTO) 0.5 % (0.0-2.0); EOSINOPHILS % (AUTO) 0.6 % (0.0-4.0); HEMATOCRIT 24.1 % (36-48); HEMOGLOBIN 7.7 g/dL (12.0-16.0); LYMPHOCYTES # (AUTO) 0.8 K/uL (2.5-16.5); LYMPHOCYTES % (AUTO) 14.4 % (20.5-51.1); MEAN CORPUSCULAR HEMOGLOBIN 23 pg (27-31); MEAN CORPUSCULAR HGB CONC 32 g/dL (33-37); MEAN CORPUSCULAR VOLUME 72.5 fL (80-94); MONOCYTES # (AUTO) 0.2 K/uL (0.8-1.0); MONOCYTES % (AUTO) 3.7 % (1.7-9.3); NEUTROPHILS # (AUTO) 4.3 K/uL (1.8-7.7); NEUTROPHILS % (AUTO) 80.8 % (42.2-75.2); PLATELET COUNT (AUTO) 162 K/uL (140-450); RED BLOOD CELL COUNT(AUTO) 3.32 MIL/uL (4.20-5.40); RED CELL DISTRIBUTION WIDTH 20.3 % (11.6-13.7); WHITE BLOOD COUNT (AUTO) 5.4 K/uL (4.8-10.8)
[2017-11-19 10:16] LABS: ANION GAP 11.1 (8-16); CARBON DIOXIDE 27.1 mmol/L (21-32); CREATININE 1.7 mg/dL (0.6-1.3); POTASSIUM 3.2 mmol/L (3.5-5.1)
[2017-11-19 10:22] LABS: ALBUMIN 3.3 g/dL (3.4-5.0); TOTAL BILIRUBIN 0.3 mg/dL (0.0-1.0)
[2017-11-20 15:07] LABS: FERRITIN 137 ng/mL (15-150)
== END 2017-11-19 21:46 | disposition home or self-care (01) ==
LOC: MLB 08:28
PROVIDERS: ATTEND Internal Medicine Cardiovascular Disease
DX: I10 Essential (primary) hypertension (principal); D64.9 Anemia, unspecified; E66.01 Morbid (severe) obesity due to excess calories; D50.9 Iron deficiency anemia, unspecified; D72.819 Decreased white blood cell count, unspecified; D73.5 Infarction of spleen; K63.5 Polyp of colon; Z83.2 Family history of diseases of the blood and blood-forming organs and certain disorders involving the immune mechanism; Z86.2 Personal history of diseases of the blood and blood-forming organs and certain disorders involving the immune mechanism
CPT/HCPCS: 36415; 80053; 82728; 83021; 83036; 83540; 85025

== ENCOUNTER 2017-11-30 11:06 | Inpatient (IN) | payer OTHER ==
[~2017-11-30] VITALS: Ht 167.6 cm; Wt 131.5 kg
[2017-11-30 11:13] VITALS: BP 151/77
--- NOTE | 2017-11-30 11:23 | NUR ---
PT AMBULATES TO BED 6
--- NOTE | 2017-11-30 11:23 | NUR ---
Gave report to Liza COYLE
--- NOTE | 2017-11-30 11:25 | NUR ---
PATIENT PRESENTS TO ED WITH COMPLAINTS OF SKIN RASH AND BRUISING. PATIENT STATES SHE WAS AT [facility] THIS MORNING AND SHE WAS TOLD SHE MIGHT HAVE THROMBOCYTOPENIA. PATIENTS SKIN APPEARS TO HAVE PETECHIAE OVER ARMS AND LEGS, BRUISING TO ARMS AND LEGS WITH DISCOLORATION AND DIFFERENT STAGES OF HEALING. PATIENT ALSO APPEARS TO HAVE SUBCONJUNCTIVAL HEMORRAGE TO OS. GENERALIZED PAIN AT 3/10. PT DENIES ANY FEVER, CP, SOB, OR COUGH AT THIS TIME; VSS; PATIENT POSITIONED FOR COMFORT; HOB ELEVATED; BEDRAILS UP X1; BED DOWN. ER MD MADE AWARE OF PT STATUS.
--- NOTE | 2017-11-30 12:00 | NUR ---
DR AMBROSIO EVALUATING PT AT BEDSIDE
[2017-11-30] MEDS ORDERED: NACL 0.9% 1,000 ML IV ONE (12:05)
[2017-11-30 12:27] LABS: BASOPHILS % (AUTO) 0.6 % (0.0-2.0); EOSINOPHILS % (AUTO) 0.9 % (0.0-4.0); HEMATOCRIT 24.8 % (36-48); HEMOGLOBIN 8.2 g/dL (12.0-16.0); LYMPHOCYTES # (AUTO) 0.6 K/uL (2.5-16.5); LYMPHOCYTES % (AUTO) 12.8 % (20.5-51.1); MEAN CORPUSCULAR HEMOGLOBIN 23 pg (27-31); MEAN CORPUSCULAR HGB CONC 33 g/dL (33-37); MEAN CORPUSCULAR VOLUME 70.1 fL (80-94); MONOCYTES # (AUTO) 0.1 K/uL (0.8-1.0); MONOCYTES % (AUTO) 2.1 % (1.7-9.3); NEUTROPHILS # (AUTO) 3.7 K/uL (1.8-7.7); NEUTROPHILS % (AUTO) 83.6 % (42.2-75.2); PLATELET COUNT (AUTO) 164 K/uL (140-450); RED BLOOD CELL COUNT(AUTO) 3.53 MIL/uL (4.20-5.40); RED CELL DISTRIBUTION WIDTH 20.1 % (11.6-13.7); WHITE BLOOD COUNT (AUTO) 4.5 K/uL (4.8-10.8)
[2017-11-30 12:28] LABS: APPEARANCE,URINE CLEAR (CLEAR); BILIRUBIN,URINE NEGATIVE (NEGATIVE); BLOOD, URINE 3+ (NEGATIVE); COLOR,URINE YELLOW (YELLOW); LEUKOCYTE ESTERASE ,URINE NEGATIVE (NEGATIVE); NITRITE, URINE NEGATIVE (NEGATIVE); UGLUCOSE NEGATIVE (NEGATIVE)
[2017-11-30 12:37] LABS: ANION GAP 14.9 (8-16); CARBON DIOXIDE 25.1 mmol/L (21-32); CREATININE 2.1 mg/dL (0.6-1.3)
[2017-11-30 12:40] LABS: PROTHROMBIN TIME 10.7 secs (10.8-13.4)
[2017-11-30 12:51] LABS: ALBUMIN 3.2 g/dL (3.4-5.0); THYROID STIMULATING HORMONE 1.94 uIU/mL (0.34-3.74); TOTAL BILIRUBIN 0.4 mg/dL (0.0-1.0)
[2017-11-30 12:55] LABS: RBC,URINE 20-50 /HPF (0-5); WBC,URINE 0-5 (RARE) /HPF (0-5)
[2017-11-30] MEDS ORDERED: POTASSIUM CHLORIDE 10 MEQ TABER PO ONE (13:20)
--- NOTE | 2017-11-30 13:30 | NUR ---
Patient appears to be resting comfortably in bed. Vital Signs within normal limits. Respirations even and unlabored.
[2017-11-30] MEDS ORDERED: MORPHINE SULFATE 2 MG/ML SYR IVP PRN (14:20)
[2017-11-30] MEDS ORDERED: ACETAMINOPHEN 325 MG TAB PO PRN (14:20)
[2017-11-30] MEDS ORDERED: MUPIROCIN 2% OINT 22 GM TUBE TP PRN (14:20)
[2017-11-30] MEDS ORDERED: HYDROcodone/APAP 5/325 MG 1 TAB TAB PO PRN (14:20)
[2017-11-30] MEDS ORDERED: LORazepam 2 MG/ML VIAL IM/IVP PRN (14:20)
[2017-11-30] MEDS ORDERED: DOCUSATE SODIUM 100 MG GELCAP PO PRN (14:20)
[2017-11-30] MEDS ORDERED: ZOLPIDEM 5 MG TAB PO PRN (14:20)
--- NOTE | 2017-11-30 14:50 | NUR ---
Patient will be admitted to care of DR. PICKENS. Admited to TELE. Will go to room 116. Belongings list completed. Report to JONNA PALMER.
--- NOTE | 2017-11-30 14:50 | NUR ---
[facility]
--- NOTE | 2017-11-30 15:00 | NUR ---
PATIENT AMBULATED TO BED FROM [facility] ON STEADY GAIT WITH HER CANE. RECEIVED REPORT FROM ER NURSE AT BEDSIDE FOR CONTINUITY OF CARE. PATIENT AOX4, DX IS ANEMIA, HEMATURIA. PATIENT DENIES PAIN AT THE MOMENT. IV INTACT, PATENT, AND ASYMPTOMATIC. LUNG SOUNDS CLEAR, BOWEL SOUNDS PRESENT. MRSA SCREEN DONE, ORIENTED PATIENT TO FLOOR, ROOM, PHONE, CALL LIGHT AND BATHROOM. UPDATED PATIENT WITH PLAN OF CARE. UPDATED THE BOARD. SAFETY PRECAUTION IN PLACE, CALL LIGHT WITHIN REACH, WILL CONTINUE TO MONITOR PATIENT.
[2017-11-30 16:09] LABS: CHOL/HDL RATIO 4.1 (1-4.5); MAGNESIUM 1.5 mg/dL (1.8-2.4); PHOSPHORUS 4.8 mg/dL (2.5-4.9)
[2017-11-30 16:10] LABS: BARBITURATE, URINE NEG. ng/ml (NEG <=200); BENZODIAZEPINE, URINE NEG. ng/mL (NEG <=200); CANNABINOID, URINE NEG. ng/mL (NEG <=50); COCAINE, URINE NEG. ng/mL (NEG <=300); OPIATE, URINE NEG. ng/mL (NEG <=2000); PHENCYCLIDINE SCREEN,URINE NEG. ng/mL (NEG <=25)
--- NOTE | 2017-11-30 16:30 | NUR ---
BLOOD PRESSURE ELEVATED, INFORMED DR. CORTEZ, WILL AWAIT FOR HIS UPDATED ORDERS.
[2017-11-30] MEDS: NACL 0.9% 1,000 ML IV SCH (18:00)
[2017-11-30] MEDS ORDERED: ALPRAZolam 0.5 MG TAB PO PRN (18:05)
[2017-11-30] MEDS ORDERED: FOLI1TAB90 PO (18:11)
[2017-11-30] MEDS ORDERED: HYDR100T79 PO (18:11)
[2017-11-30] MEDS ORDERED: AMLO10TA PO (18:11)
[2017-11-30] MEDS ORDERED: PANT40EC PO (18:11)
[2017-11-30] MEDS ORDERED: MAG SULF 2000 MG/WATER PREMIX 100 ML IV SCH (18:45)
--- NOTE | 2017-11-30 18:50 | NUR ---
INFORMED DR. CORTEZ ABOUT PATIENT'S MAGNESIUM LEVEL, NEW ORDER IN FOR MAG RIDER. MEDICATION ADMINISTERED. PATIENT TOLERATING IT WELL. PATIENT REQUESTING FOR XANAX, WILL ASSESS AND ADMINISTERE. RESPIRATIONS EVEN AND UNLABORED. PATIENT DENIES PAIN. MOLDING PROCESS TECHNICIAN RUTH BELTRAN, RN AWARE. WILL ENDORSE TO BILLBOARD POSTER NURSE AND EXPIRATION TIME OF 2300 TONIGHT. SAFETY PRECAUTION IN PLACE, CALL LIGHT WITHIN REACH, WILL CONTINUE TO MONITOR PATIENT.
[2017-11-30] MEDS: SODIUM FERRIC GLUCONATE 125 MG in NACL 0.9% 100 ML IV SCH (19:00)
[2017-11-30] MEDS: BUDESONIDE 0.5 MG/2 ML NEBU INH SCH (19:00)
--- NOTE | 2017-11-30 19:15 | NUR ---
GAVE REPORT TO R D MANAGER NURSE AT BEDSIDE FOR CONTINUITY OF CARE. PATIENT IN STABLE CONDITION.
--- NOTE | 2017-11-30 19:16 | NUR ---
RECEIVED REPORT FROM DAY SHIFT RN. PATIENT IS AAOX4, HAS NO SIGNS AND SYMPTOMS OF ACUTE DISTRESS NOTED AT THIS TIME. PATIENT AMBULATES WITH A CANE, WHICH IS KEPT ON THE BEDSIDE TABLE. HAS IV TO THE RIGHT AC 20G, SITE IS CLEAN, DRY, PATENT AND INTACT. HAS WOUND TO THE RIGHT ANKLE. DISCUSSED PLAN OF CARE WITH PATIENT AND SHE VERBALIZED UNDERSTANDING. BED IN LOWEST POSITION, SIDE RAILS UP X2, CALL LIGHT WITHIN REACH. WILL CONTINUE TO MONITOR.
[2017-11-30 20:00] VITALS: BP 152/83
[2017-11-30] MEDS ORDERED: amLODIPine 5 MG TAB PO SCH (20:00)
[2017-11-30] MEDS ORDERED: FOLIC ACID 1 MG TAB PO SCH (20:00)
[2017-11-30] MEDS ORDERED: ALBUTEROL SULFATE/IPRATROPIU 3 ML SOL IH SCH (20:00)
[2017-11-30] MEDS: hydrALAZINE 25 MG TAB PO SCH (20:34)
[2017-11-30] MEDS: METOPROLOL 25 MG TAB PO SCH (20:34)
--- NOTE | 2017-11-30 20:34 | NUR ---
PATIENT DIDN'T WANT TO TAKE THE AMLODIPINE BECAUSE SHE SAID SHE USUALLY TAKES IT ONCE A DAY AND HAD HER MORNING DOSE ALREADY. BP WAS 152/53. GAVE HER THE HYDRALAZINE 25 MG, AND METOPROLOL 100 MG. WILL CONTINUE TO MONITOR.
--- NOTE | 2017-11-30 23:59 | NUR ---
PATIENT IS SLEEPING, HAS BIPAP ON. NO SIGNS AND SYMPTOMS OF ACUTE DISTRESS NOTED AT THIS TIME. WILL CONTINUE TO MONITOR.
[2017-12-01] VITALS: BP 125/68
[2017-12-01 04:00] VITALS: BP 130/73
[2017-12-01] MEDS: PANTOPRAZOLE 40 MG TABEC PO SCH ×2 (06:43→16:39)
--- NOTE | 2017-12-01 06:50 | NUR ---
PATIENT HAS BEEN SCREENED AND CATEGORIZED MODERATE NUTRITION RISK. PATIENT WILL BE SEEN WITHIN 3-5 DAYS OF ADMISSION. 12/03/17-12/05/17 AMI WILDE MS, RDN
[2017-12-01] MEDS: ALBUTEROL SULFATE/IPRATROPIU 3 ML SOL IH SCH ×3 (07:08→19:28)
--- NOTE | 2017-12-01 07:19 | NUR ---
ENDORSED PATIENT TO DAY SHIFT RN FOR CONTINUITY OF CARE. PATIENT IN STABLE CONDITION.
[2017-12-01] MEDS: BUDESONIDE 0.5 MG/2 ML NEBU INH SCH ×2 (07:20→19:28)
--- NOTE | 2017-12-01 07:20 | NUR ---
ENDORSED PATIENT TO DAY SHIFT RN FOR CONTINUITY OF CARE. PATIENT IN STABLE CONDITION.
--- NOTE | 2017-12-01 07:21 | NUR ---
RECEIVED REPORT FROM ESCAPEMENT MATCHER NURSE AT BEDSIDE FOR CONTINUITY OF CARE. PATIENT IS AAOX4, HAS NO SIGNS AND SYMPTOMS OF ACUTE DISTRESS NOTED AT THIS TIME. PATIENT AMBULATES WITH A CANE, WHICH IS KEPT ON THE BEDSIDE TABLE. HAS IV TO THE LEFT HAND 22G, SITE IS CLEAN, DRY, PATENT AND INTACT, INFUSING NS @ 60 ML/HR. HAS WOUND TO THE RIGHT ANKLE. DISCUSSED PLAN OF CARE WITH PATIENT AND SHE VERBALIZED UNDERSTANDING. UPDATED BOARD. SAFETY PREACUTION IN PLACE, BED IN LOWEST POSITION, SIDE RAILS UP X2, CALL LIGHT WITHIN REACH. WILL CONTINUE TO MONITOR PATIENT.
[2017-12-01 08:00] VITALS: BP 141/75
[2017-12-01] MEDS ORDERED: methylPREDNISolone SS 125 MG/2 ML VIAL IVP SCH (08:04)
--- NOTE | 2017-12-01 08:10 | NUR ---
PATIENT WAS NOT PRESENT DURING MORNING LAB DRAW BECAUSE SHE WAS IN XRAY FOR CT. CALLED LAB TO TELL THEM PATIENT BACK IN ROOM AND READY FOR BLOOD DRAW.
[2017-12-01] MEDS: FUROSEMIDE 40 MG TAB PO SCH (09:00)
[2017-12-01] MEDS: METOPROLOL 25 MG TAB PO SCH ×2 (09:54→20:39)
[2017-12-01] MEDS: FOLIC ACID 1 MG TAB PO SCH (09:55)
[2017-12-01] MEDS: hydrALAZINE 25 MG TAB PO SCH ×2 (09:55→20:38)
[2017-12-01] MEDS: ATORVASTATIN 20 MG TAB PO SCH (09:55)
--- NOTE | 2017-12-01 09:55 | NUR ---
ORDERED MEDICATIONS GIVEN, LASIX WITHHELD BECAUSE NEW LABS FOR TODAY NOT DRAWN YET, POTASSIUM LEVEL YESTERDAY 11/30/17 WAS 3.0. PATIENT TOLERATED THEM WELL. BREATHING EVEN AND UNLABORED.PATIENT DENIES PAIN AT THE MOMENT. PATIENT HAD SORE ON LEFT UPPER PALATE OF MOUTH. PATIENT STATED THAT SHE WILL MENTION IT TO THE DOCTORS WHEN THEY MAKE THEIR ROUNDS. SAFETY PRECAUTION IN PLACE, CALL LIGHT WITHIN REACH, WILL CONTINUE TO MONITOR PATIENT.
[2017-12-01] MEDS: ASPIRIN 81 MG TAB.CHEW PO SCH (09:56)
[2017-12-01] MEDS: amLODIPine 5 MG TAB PO SCH (09:56)
[2017-12-01] MEDS: NACL 0.9% 1,000 ML IV SCH ×2 (10:18→14:51)
--- NOTE | 2017-12-01 10:24 | NUR ---
DOCTORS DOING THEIR ROUNDS. WILL FOLLOW UPDATED ORDERS.
--- NOTE | 2017-12-01 10:45 | NUR ---
FAMILY AT BEDSIDE, INFORMED DR NUNEZ. DR NUNEZ WILL GO AND SEE PATIENT AND HER FAMILY. PATIENT INFORMED.
[2017-12-01 11:54] LABS: BASOPHILS % (AUTO) 0.3 % (0.0-2.0); EOSINOPHILS % (AUTO) 0.6 % (0.0-4.0); HEMATOCRIT 22.3 % (36-48); HEMOGLOBIN 7.4 g/dL (12.0-16.0); LYMPHOCYTES # (AUTO) 0.3 K/uL (2.5-16.5); LYMPHOCYTES % (AUTO) 5.3 % (20.5-51.1); MEAN CORPUSCULAR HEMOGLOBIN 23 pg (27-31); MEAN CORPUSCULAR HGB CONC 33 g/dL (33-37); MONOCYTES # (AUTO) 0.1 K/uL (0.8-1.0); MONOCYTES % (AUTO) 1.2 % (1.7-9.3); NEUTROPHILS # (AUTO) 5.1 K/uL (1.8-7.7); NEUTROPHILS % (AUTO) 92.6 % (42.2-75.2); PLATELET COUNT (AUTO) 159 K/uL (140-450); RED BLOOD CELL COUNT(AUTO) 3.18 MIL/uL (4.20-5.40); RED CELL DISTRIBUTION WIDTH 20.1 % (11.6-13.7); WHITE BLOOD COUNT (AUTO) 5.5 K/uL (4.8-10.8)
[2017-12-01 12:00] VITALS: BP 138/81
[2017-12-01 12:02] LABS: ANION GAP 14.3 (8-16); CARBON DIOXIDE 25.1 mmol/L (21-32); CREATININE 1.8 mg/dL (0.6-1.3); POTASSIUM 3.4 mmol/L (3.5-5.1)
[2017-12-01 12:06] LABS: MAGNESIUM 2.4 mg/dL (1.8-2.4); PHOSPHORUS 4.4 mg/dL (2.5-4.9)
--- NOTE | 2017-12-01 12:06 | NUR ---
24H URINE PROTEIN COLLECTION BEGUN. PATIENT INFORMED AND SHE VERBALIZED UNDERSTANDING.
--- NOTE | 2017-12-01 13:21 | NUR ---
ORDERED MEDICATIONS GIVEN, PATIENT TOLERATED THEM WELL. BREATHING EVEN AND UNLABORED.PATIENT MEDICATED FOR PAIN ON MOUTH AT 1202. SAFETY PRECAUTION IN PLACE, CALL LIGHT WITHIN REACH, WILL CONTINUE TO MONITOR PATIENT.
[2017-12-01] MEDS: methylPREDNISolone SS 125 MG/2 ML VIAL IVP SCH ×2 (13:25→20:38)
--- NOTE | 2017-12-01 13:50 | NUR ---
DR BAIG, TUCKPOINTER IN TO SEE THE PATIENT. DR NUNEZ CALLED SO SHE COULD BE PRESENT. WILL FOLLOW UP WITH NEW ORDERS.
[2017-12-01] MEDS ORDERED: POTASSIUM CHLORIDE 10 MEQ TABER PO SCH (14:14)
[2017-12-01 16:00] VITALS: BP 139/84
--- NOTE | 2017-12-01 16:50 | NUR ---
FOLLOWED UP WITH DR NUNEZ ABOUT LIDOCAINE FOR PATIENT TO SWISH BEFORE MEALS D/T SORE. NEW ORDERS IN. PATIENT INFORMED. SHE VERBALIZED UNDERSTANDING. WILL CONTINUE TO MONITOR PATIENT.
[2017-12-01] MEDS: LIDOCAINE VISCOUS 2% 20 ML UDC PO SCH (17:46)
[2017-12-01] MEDS: SODIUM FERRIC GLUCONATE 125 MG in NACL 0.9% 100 ML IV SCH (18:15)
--- NOTE | 2017-12-01 18:15 | NUR ---
ORDERED MEDICATION GIVEN, PATIENT TOLERATED IT WELL. BREATHING EVEN AND UNLABORED. PATIENT MEDICATED FOR PAIN WITH SCHEDULED LIDOCAINE AT 1746 PRIOR TO DINNER. SAFETY PRECAUTION IN PLACE, CALL LIGHT WITHIN REACH, WILL CONTINUE TO MONITOR PATIENT.
--- NOTE | 2017-12-01 19:22 | NUR ---
REPORT GIVEN TO TECHNICIAN BIOLOGICAL HEALTH NURSE AT BEDSIDE FOR CONTINUITY OF CARE. PATIENT IN STABLE CONDITION.
--- NOTE | 2017-12-01 19:23 | NUR ---
PATIENT REPORT RECEIVED FROM MORNING NURSE AT BEDSIDE. PATIENT IS AWAKE, ALERT AND ORIENTED. NO SIGNS AND SYMPTOMS OF DISTRESS NOTED. NO C/O PAIN AT THIS TIME. PATIENT IS CURRENTLY SITTING IN CHAIR NEXT TO BED, WITH BEDSIDE TABLE IN FRONT OF HER. PATIENT IS ON ROOM AIR. IV SITE NOTED ON LEFT HAND, IV FLUID INFUSING WELL. WOUND DRESSING NOTED ON RIGHT ANKLE, DRY AND INTACT. PLAN OF CARE DISCUSSED WITH PATIENT. PATIENT VERBALIZED UNDERSTANDING. BED IN LOWEST POSITION, SIDE RAILS UP AND CALL LIGHT WITHIN REACH. WILL CONTINUE TO MONITOR.
[2017-12-01 20:00] VITALS: BP 145/86
--- NOTE | 2017-12-01 21:00 | NUR ---
MEDICATION EDUCATION GIVEN. PATIENT VERBALIZED UNDERSTANDING. MEDICATION ADMINISTERED ORDERED. PATIENT TOLERATED WELL. WILL CONTINUE TO MONITOR
[2017-12-02] VITALS: BP 127/70
--- NOTE | 2017-12-02 | NUR ---
CHECKED ON PATIENT. PATIENT IS ASLEEP. NO SIGNS AND SYMPTOMS OF DISTRESS NOTED. BREATHING EVEN AND UNLABORED. WILL CONTINUE TO MONITOR
--- NOTE | 2017-12-02 03:03 | NUR ---
CHECKED ON PATIENT. PATIENT IS ASLEEP. NO SIGNS AND SYMPTOMS OF DISTRESS NOTED. BREATHING EVEN AND UNLABORED. WILL CONTINUE TO MONITOR
[2017-12-02 04:00] VITALS: BP 130/75
--- NOTE | 2017-12-02 05:00 | NUR ---
IV SITE INFILTRATED. NEW IV SITE INSERTED BY CHARGE NURSE BRISEIDA, LEFT HAND 22 GAUGE. PATIENT TOLERATED WELL.
[2017-12-02] MEDS: methylPREDNISolone SS 125 MG/2 ML VIAL IVP SCH ×2 (05:41→13:00)
[2017-12-02] MEDS: NACL 0.9% 1,000 ML IV SCH (06:14)
[2017-12-02] MEDS: PANTOPRAZOLE 40 MG TABEC PO SCH ×2 (06:35→16:16)
--- NOTE | 2017-12-02 07:20 | NUR ---
PATIENT REPORT GIVEN TO MORNING NURSE AT BEDSIDE FOR CONTINUITY OF CARE. PATIENT IS IN STABLE CONDITION
--- NOTE | 2017-12-02 07:21 | NUR ---
RECEIVED REPORT FROM MANAGER CAREER NURSE AT BEDSIDE FOR CONTINUITY OF CARE. PATIENT IS AAOX4, HAS NO SIGNS AND SYMPTOMS OF ACUTE DISTRESS NOTED AT THIS TIME. PATIENT AMBULATES WITH A CANE, WHICH IS KEPT ON THE BEDSIDE TABLE. HAS IV TO THE LEFT HAND 22G, SITE IS CLEAN, DRY, PATENT AND INTACT, INFUSING NS @ 100 ML/HR. HAS WOUND TO THE RIGHT ANKLE. DISCUSSED PLAN OF CARE WITH PATIENT AND SHE VERBALIZED UNDERSTANDING. UPDATED BOARD. SAFETY PRECAUTION IN PLACE, BED IN LOWEST POSITION, SIDE RAILS UP X2, CALL LIGHT WITHIN REACH. WILL CONTINUE TO MONITOR PATIENT.
[2017-12-02] MEDS: ALBUTEROL SULFATE/IPRATROPIU 3 ML SOL IH SCH ×2 (07:29→13:52)
[2017-12-02] MEDS: BUDESONIDE 0.5 MG/2 ML NEBU INH SCH (07:40)
[2017-12-02 08:00] VITALS: BP 146/87
[2017-12-02 08:55] LABS: HEMOGLOBIN 7.6 g/dL (12.0-16.0); MEAN CORPUSCULAR HEMOGLOBIN 24 pg (27-31); MEAN CORPUSCULAR HGB CONC 34 g/dL (33-37); PLATELET COUNT (AUTO) 155 K/uL (140-450); RED BLOOD CELL COUNT(AUTO) 3.14 MIL/uL (4.20-5.40); RED CELL DISTRIBUTION WIDTH 19.5 % (11.6-13.7); WHITE BLOOD COUNT (AUTO) 6.9 K/uL (4.8-10.8)
[2017-12-02] MEDS: LIDOCAINE VISCOUS 2% 20 ML UDC PO SCH ×2 (09:00→13:00)
[2017-12-02 09:26] LABS: ANION GAP 14.7 (8-16); CARBON DIOXIDE 25.3 mmol/L (21-32); CREATININE 1.8 mg/dL (0.6-1.3)
[2017-12-02] MEDS: ASPIRIN 81 MG TAB.CHEW PO SCH (09:26)
[2017-12-02] MEDS: hydrALAZINE 25 MG TAB PO SCH (09:27)
[2017-12-02] MEDS: METOPROLOL 25 MG TAB PO SCH (09:27)
[2017-12-02] MEDS: FUROSEMIDE 40 MG TAB PO SCH (09:27)
--- NOTE | 2017-12-02 09:27 | NUR ---
ORDERED MEDICATIONS ADMINISTERED. PATIENT TOLERATED THEM WELL. NO SIGNS OF DISTRESS OR SOB NOTED ON ROOM AIR. PATIENT DENIES PAIN. PATIENT REFUSED LIDOCAINE STATING THAT "BREAKFAST FOOD WAS NOT HARD" SO IT DID NOT HURT HER PALATE. SAFETY PRECAUTION IN PLACE, BED IN LOWEST POSITION, SIDE RAILS UP X2, CALL LIGHT WITHIN REACH. WILL CONTINUE TO MONITOR PATIENT.
[2017-12-02] MEDS: ATORVASTATIN 20 MG TAB PO SCH (09:28)
[2017-12-02] MEDS: FOLIC ACID 1 MG TAB PO SCH (09:28)
[2017-12-02] MEDS: amLODIPine 5 MG TAB PO SCH (09:28)
[2017-12-02 09:40] LABS: MAGNESIUM 2.1 mg/dL (1.8-2.4); PHOSPHORUS 5.4 mg/dL (2.5-4.9)
[2017-12-02 10:48] LABS: BASOPHILS % (MANUAL) 0 % (0-2); EOSINOPHILS % (MANUAL) 0 % (0-4); LYMPHOCYTES % (MANUAL) 5 % (20-46); MONOCYTES % (MANUAL) 6 % (5-12)
[2017-12-02] MEDS ORDERED: METH4TAB1 PO (11:33)
[2017-12-02 12:00] VITALS: BP 140/83
--- NOTE | 2017-12-02 12:08 | NUR ---
24 HOUR URINE SAMPLE BROUGHT TO LAB.
--- NOTE | 2017-12-02 12:30 | NUR ---
IV INFILTRATED, SOLUMEDROL IVP COULD NOT BE GIVEN. CALLED PHARMACY FOR A POSSIBLE ORAL REPLACEMENT. PHARMACY LOOKED BUT NO EQUIVALENT FOUND. PATIENT STATED THAT SHE DID NOT WANT ANOTHER IV INSERTED BECAUSE SHE WILL BE DISCHARGE TODAY. RN VERBALIZED UNDERSTANDING. SAFETY PRECAUTION IN PLACE, CALL LIGHT WITHIN REACH, WILL CONTINUE TO MONITOR PATIENT.
[2017-12-02] MEDS ORDERED: CALCIUM ACETATE 667 MG TAB PO SCH (12:42)
[2017-12-02 16:00] VITALS: BP 149/85
--- NOTE | 2017-12-02 16:42 | NUR ---
DISCHARGE INSTRUCTIONS AND EDUCATION GIVEN TO PATIENT. PATIENT VERBALIZED UNDERSTANDING. IV REMOVED, IV CATHETER INTACT, MINIMAL BLOOD NOTED. ID BANDS REMOVED, PATIENT DENIES PAIN. RESPIRATIONS EVEN AND UNLABORED. PATIENT WILL NOW GET DRESSED AND WAIT FOR HER TO COME AND PICK HER UP.
--- NOTE | 2017-12-02 16:50 | NUR ---
PATIENT WHEELED OFF FLOOR IN WHEELCHAIR WITH AND RN BY HER SIDE. SHE TOOK ALL HER BELONGINGS WITH HER. PATIENT IN STABLE CONDITION.
[2017-12-03 21:30] LABS: SODIUM TIMED,URINE 104 mmol/L
--- NOTE | 2017-12-04 08:35 | NUR ---
WOUND CARE EVALUATION NOT DONE. PT. DISCHARGED 12/02/2017.
== END 2017-12-02 16:50 | disposition home or self-care (01) | DRG 545 ==
LOC: MED 11:06 → MTU 14:23
PROVIDERS: ADMIT Family Medicine; ATTEND Family Medicine
DX: I77.6 Arteritis, unspecified (principal); N17.0 Acute kidney failure with tubular necrosis; E44.1 Mild protein-calorie malnutrition; Z68.42 Body mass index [BMI] 45.0-49.9, adult; M19.90 Unspecified osteoarthritis, unspecified site; I10 Essential (primary) hypertension; J45.909 Unspecified asthma, uncomplicated; R31.9 Hematuria, unspecified; E87.6 Hypokalemia; D69.2 Other nonthrombocytopenic purpura; K21.9 Gastro-esophageal reflux disease without esophagitis; G47.33 Obstructive sleep apnea (adult) (pediatric); E83.42 Hypomagnesemia; H11.32 Conjunctival hemorrhage, left eye; R51 Headache; E66.01 Morbid (severe) obesity due to excess calories; I87.2 Venous insufficiency (chronic) (peripheral); D50.9 Iron deficiency anemia, unspecified; E83.39 Other disorders of phosphorus metabolism; Z88.1 Allergy status to other antibiotic agents; Z88.0 Allergy status to penicillin; Z88.2 Allergy status to sulfonamides; Z88.8 Allergy status to other drugs, medicaments and biological substances; Z79.82 Long term (current) use of aspirin; Z79.899 Other long term (current) drug therapy
CPT/HCPCS: 36415; 70450; 71250; 80048; 80053; 80305; 81001; 82306; 83036; 83690; 83735; 84100; 84134; 84300; 84443; 85025; 85610; 85613; 85651; 85730; 86140; 87081; 93925; 93970; 94640; 94660; 96360; 96361; 99285; J2916; J2930; J3475; J7030; J7620; J7626; Q0092

== ENCOUNTER 2017-12-12 11:44 | Outpatient (CLI) | payer OTHER ==
[~2017-12-12 11:44] MED LIST changes: +AMLO10TA PO; -CLIN300C2 PO; +FOLI1TAB90 PO; -LACT10CA PO; -LEVO750T2 PO; +METH4TAB1 PO; +PANT40EC PO
[2017-12-12 14:00] LABS: ALBUMIN 3.5 g/dL (3.4-5.0); ANION GAP 10.3 (8-16); CARBON DIOXIDE 27.7 mmol/L (21-32); CREATININE 2.1 mg/dL (0.6-1.3); TOTAL BILIRUBIN 0.6 mg/dL (0.0-1.0)
[2017-12-12 14:12] LABS: HEMATOCRIT 24.2 % (36-48); MEAN CORPUSCULAR HEMOGLOBIN 25 pg (27-31); MEAN CORPUSCULAR HGB CONC 33 g/dL (33-37); MEAN CORPUSCULAR VOLUME 74.6 fL (80-94); PLATELET COUNT (AUTO) 114 K/uL (140-450); RED BLOOD CELL COUNT(AUTO) 3.25 MIL/uL (4.20-5.40); RED CELL DISTRIBUTION WIDTH 23.2 % (11.6-13.7); WHITE BLOOD COUNT (AUTO) 4.7 K/uL (4.8-10.8)
[2017-12-12 14:40] LABS: LYMPHOCYTES % (MANUAL) 13 % (20-46); MYELOCYTES % 1 % (0-0); PROMYELOCYTES % 1 % (0-0)
[2017-12-12 15:40] LABS: APPEARANCE,URINE SL CLOUDY (CLEAR); BILIRUBIN,URINE NEGATIVE (NEGATIVE); BLOOD, URINE 3+ (NEGATIVE); COLOR,URINE YELLOW (YELLOW); LEUKOCYTE ESTERASE ,URINE TRACE (NEGATIVE); NITRITE, URINE NEGATIVE (NEGATIVE); UGLUCOSE NEGATIVE (NEGATIVE)
[2017-12-12 19:15] LABS: RBC,URINE TOO NUMEROUS TO COUN /HPF (0-5)
[2017-12-12 20:34] LABS: URINE PROTEIN QUANT RANDOM 51.7 mg/dL (15-45)
[2017-12-15 09:15] LABS: IMMUNOGLOBULIN A 322 mg/dL (87-352); IMMUNOGLOBULIN G 1286 mg/dL (700-1600)
[2017-12-15 09:46] LABS: IMMUNOGLOBULIN M 389 mg/dL (26-217)
[2017-12-15 15:07] LABS: HEPATITIS A ANTIBODY IGM Negative (Negative); HEPATITIS B SURFACE ANTIGEN Negative (Negative)
[2017-12-16 09:06] LABS: ANTI DOUBLE STRANDED DNA AB 2 IU/mL (0-9)
== END 2017-12-12 20:35 | disposition home or self-care (01) ==
LOC: MLB 11:44
DX: S37.009A Unspecified injury of unspecified kidney, initial encounter (principal); I10 Essential (primary) hypertension; K21.9 Gastro-esophageal reflux disease without esophagitis; J45.909 Unspecified asthma, uncomplicated; X58.XXXA Exposure to other specified factors, initial encounter; Y93.89 Activity, other specified; Y92.89 Other specified places as the place of occurrence of the external cause; Y99.8 Other external cause status
CPT/HCPCS: 36415; 80053; 80074; 81001; 82570; 83516; 83520; 84157; 85025; 85651; 86140; 86160; 87086

== ENCOUNTER 2017-12-14 10:59 | Inpatient (IN) | payer OTHER ==
[~2017-12-14] VITALS: Ht 167.6 cm; Wt 133.8 kg
[2017-12-14 11:08] VITALS: BP 126/72
--- NOTE | 2017-12-14 11:14 | NUR ---
PT AMBULATED TO ER BED12.
--- NOTE | 2017-12-14 11:38 | NUR ---
Patient being evaluated by physician at bedside.
--- NOTE | 2017-12-14 11:50 | NUR ---
EMT AT BEDSIDE FOR EKG
--- NOTE | 2017-12-14 12:08 | NUR ---
LAB AT BEDSIDE
[2017-12-14 12:19] LABS: BASOPHILS % (AUTO) 0.6 % (0.0-2.0); EOSINOPHILS % (AUTO) 0.7 % (0.0-4.0); HEMATOCRIT 23.9 % (36-48); HEMOGLOBIN 7.6 g/dL (12.0-16.0); LYMPHOCYTES # (AUTO) 0.5 K/uL (2.5-16.5); LYMPHOCYTES % (AUTO) 10.8 % (20.5-51.1); MEAN CORPUSCULAR HEMOGLOBIN 24 pg (27-31); MEAN CORPUSCULAR HGB CONC 32 g/dL (33-37); MEAN CORPUSCULAR VOLUME 76.3 fL (80-94); MONOCYTES # (AUTO) 0.2 K/uL (0.8-1.0); MONOCYTES % (AUTO) 3.6 % (1.7-9.3); NEUTROPHILS # (AUTO) 3.5 K/uL (1.8-7.7); NEUTROPHILS % (AUTO) 84.3 % (42.2-75.2); PLATELET COUNT (AUTO) 114 K/uL (140-450); RED BLOOD CELL COUNT(AUTO) 3.13 MIL/uL (4.20-5.40); RED CELL DISTRIBUTION WIDTH 22.6 % (11.6-13.7); WHITE BLOOD COUNT (AUTO) 4.2 K/uL (4.8-10.8)
[2017-12-14 12:38] LABS: ANION GAP 14.8 (8-16); CARBON DIOXIDE 25.5 mmol/L (21-32); CREATININE 2.2 mg/dL (0.6-1.3); POTASSIUM 3.3 mmol/L (3.5-5.1)
[2017-12-14 12:42] LABS: PROTHROMBIN TIME 10.8 secs (10.8-13.4)
[2017-12-14 12:53] LABS: ALBUMIN 3.2 g/dL (3.4-5.0); TOTAL BILIRUBIN 0.5 mg/dL (0.0-1.0)
--- NOTE | 2017-12-14 13:34 | NUR ---
PT IN NAD, RESTING ON STRETCHER, no identidied requests at this time
[2017-12-14] MEDS ORDERED: DOCUSATE SODIUM 100 MG GELCAP PO PRN (14:25)
[2017-12-14] MEDS ORDERED: ZOLPIDEM 5 MG TAB PO PRN (14:25)
[2017-12-14] MEDS ORDERED: ONDANSETRON 4 MG/2 ML VIAL IM/IVP PRN (14:25)
[2017-12-14] MEDS ORDERED: HYDROcodone/APAP 5/325 MG 1 TAB TAB PO PRN (14:25)
[2017-12-14] MEDS ORDERED: ACETAMINOPHEN 325 MG TAB PO PRN (14:25)
--- NOTE | 2017-12-14 14:38 | NUR ---
XRAY AT BEDSIDE
[2017-12-14] MEDS ORDERED: POTASSIUM CHLORIDE 10 MEQ TABER PO SCH ×2 (15:30→17:00)
--- NOTE | 2017-12-14 15:30 | NUR ---
PATIENT ARRIVE ON FLOOR VIA GURNEY, PATIENT AMBUALTED ON STEADY GAIT WITH CANE TO BED. FELIX AT BEDSIDE. PATIENT AOX4, DX IS ANEMIA. RESPIRATIONS EVEN AND UNLABORED ON ROOM AIR. VITAL SIGNS WNL. WOUND TO R ANKLE, PICTURE TAKEN IN ER. LUNG SOUNDS CLEAR, BOWEL SOUNDS ACTIVE. MRSA SCREENING DONE, ORIENTED PATIENT AND TO ROOM, BATHROOM, CALL LIGHT, AND TV. INITIAL ASSESSMENT DONE. SAFETY PRECAUTION IN PLACE, CALL LIGHT WITHIN REACH, WILL CONTINUE TO MONITOR PATIENT.
--- NOTE | 2017-12-14 15:33 | NUR ---
Patient will be admitted to care of DR FERNANDEZ. Admited to TELE. Will go to room 116. Belongings list completed. Report to SHAD COYLE .
[2017-12-14 15:38] LABS: CHOL/HDL RATIO 3.2 (1-4.5); FREE T4 (FREE THYROXINE) 1.1 ng/dL (0.76-1.46); MAGNESIUM 1.5 mg/dL (1.8-2.4); PHOSPHORUS 4.6 mg/dL (2.5-4.9); THYROID STIMULATING HORMONE 1.8 uIU/mL (0.34-3.74)
[2017-12-14 16:00] VITALS: BP 138/78
[2017-12-14 16:06] LABS: APPEARANCE,URINE SL CLOUDY (CLEAR); BILIRUBIN,URINE NEGATIVE (NEGATIVE); BLOOD, URINE 3+ (NEGATIVE); COLOR,URINE YELLOW (YELLOW); LEUKOCYTE ESTERASE ,URINE TRACE (NEGATIVE); NITRITE, URINE NEGATIVE (NEGATIVE); PH,URINE 5.5 (5.0-9.0); UGLUCOSE NEGATIVE (NEGATIVE)
[2017-12-14] MEDS: NACL 0.9% 1,000 ML IV SCH (16:12)
--- NOTE | 2017-12-14 16:14 | NUR ---
ORDERED MEDICATIONS GIVNE. PATIENT TOLEARTED THEM WELL. NO SIGNS OF DISTRSES OR SOB ON ROOM AIR. SAFETY PRECAUTION IN PLACE, CALL LIGHT WITHIN REACH. WILL CONTINUE TO MONITOR PATIENT.
[2017-12-14 16:32] LABS: BARBITURATE, URINE NEG. ng/ml (NEG <=200); BENZODIAZEPINE, URINE NEG. ng/mL (NEG <=200); CANNABINOID, URINE NEG. ng/mL (NEG <=50); COCAINE, URINE NEG. ng/mL (NEG <=300); OPIATE, URINE NEG. ng/mL (NEG <=2000); PHENCYCLIDINE SCREEN,URINE NEG. ng/mL (NEG <=25); RBC,URINE TOO NUMEROUS TO COUN /HPF (0-5)
[2017-12-14] MEDS ORDERED: ALPRAZolam 0.5 MG TAB PO SCH (16:45)
[2017-12-14] MEDS ORDERED: IPRATROPIUM 0.02% 0.5 MG/2.5 ML NEBU INH SCH (16:45)
[2017-12-14] MEDS ORDERED: FUROSEMIDE 20 MG/2 ML VIAL IVP SCH (17:00)
[2017-12-14] MEDS ORDERED: ACETAMINOPHEN EXTRA STRENGTH 500 MG TAB PO SCH (17:00)
[2017-12-14] MEDS ORDERED: ALPRAZolam 0.5 MG TAB PO PRN (17:20)
--- NOTE | 2017-12-14 18:00 | NUR ---
CONSENT OBTAINED. PATIENT RESTING IN BED, EATING DINNER. FELIX AT BEDSIDE.
--- NOTE | 2017-12-14 18:25 | NUR ---
BLOOD COMPONENT TRANSFUSION FORM AND BLOOD PRODUCE VERIFIED BY MURALI HOLMAN RN. PATIENT FINISHING HER DINNER. PATIENT AMBULATED TO BATHROOM ON STEADY GAIT AND VOIDED. WILL CONTINUE TO MONITOR PATIENT.
--- NOTE | 2017-12-14 18:35 | NUR ---
PRE TRANFUSION VS: T 98.4, HR 82,RR 18, BP146/79, NO PAIN. VS AT TRANSFUSION TIME T 98.2, HR 84, RR 18, BP 131/56, NO PAIN. BLOOD TRANSFUSING AT 60 ML/HR PER DOCTOR'S ORDERS. WILL CONTINUE TO MONITOR PATIENT. LENNIE WASHINGTON AT BEDSIDE.
--- NOTE | 2017-12-14 18:50 | NUR ---
PATIENT TOLERATING TRANSFUSION WELL. TEMP 100.6, RETOOK TEMP 99.8. INFORMED DR. HILARIO. NO OTHER REACTION. DR. HILARIO SAID TO CONTINUE WITH TRANSFUSION AND KEEP MONITOR PATIENT'S VS. RN VERBALIZED UNDERSTANDING. Addendum: 12/14/17 at 1955 by Gamaliel Mtz RN RATE OF BLOOD TRANSFUSION CHANGED TO 100 ML/HR PER ORDERS. PATIENT TOLERATING IT WELL.
--- NOTE | 2017-12-14 19:35 | NUR ---
REPORT GIVEN TO ENGRAVER PANTOGRAPH NURSE AT BEDSIDE FOR CONTINUITY OF CARE. PATIENT IN STABLE CONDITION. FELIX AT BEDSIDE.
--- NOTE | 2017-12-14 19:40 | NUR ---
RECEIVED REPORT AT BEDSIDE FROM [facility] NURSE ESTELA FOR CONTINUITY OF CARE.PATIENT AMBULATED ON STEADY GAIT WITH CANE TO BED. FELIX AT BEDSIDE. PATIENT AOX4, DX IS ANEMIA. RESPIRATIONS EVEN AND UNLABORED ON ROOM AIR. VITAL SIGNS WNL. WOUND TO R ANKLE, PICTURE TAKEN IN ER. LUNG SOUNDS CLEAR, BOWEL SOUNDS ACTIVE. SAFETY PRECAUTION IN PLACE, CALL LIGHT WITHIN REACH, WILL CONTINUE TO MONITOR PATIENT.
[2017-12-14 20:00] VITALS: BP 112/50
[2017-12-14] MEDS: BUDESONIDE 0.5 MG/2 ML NEBU INH SCH (20:30)
[2017-12-14] MEDS: ALBUTEROL SULFATE/IPRATROPIU 3 ML SOL IH PRN (20:31)
[2017-12-14] MEDS: hydrALAZINE 25 MG TAB PO SCH (21:00)
[2017-12-14] MEDS: MAGNESIUM OXIDE 400 MG TAB PO SCH (21:19)
[2017-12-14] MEDS: METOPROLOL 25 MG TAB PO SCH (21:19)
--- NOTE | 2017-12-14 21:20 | NUR ---
PT BLOOD TRANSFUSION ENDED. WILL CONTINUE TO MONITOR. VITALS WNL. AWARE HE WILL ORDER LABS.
[2017-12-14 22:00] LABS: BASOPHILS % (AUTO) 0.7 % (0.0-2.0); EOSINOPHILS % (AUTO) 0.7 % (0.0-4.0); HEMATOCRIT 23.7 % (36-48); HEMOGLOBIN 7.5 g/dL (12.0-16.0); LYMPHOCYTES # (AUTO) 0.5 K/uL (2.5-16.5); LYMPHOCYTES % (AUTO) 12.8 % (20.5-51.1); MEAN CORPUSCULAR HEMOGLOBIN 24 pg (27-31); MEAN CORPUSCULAR HGB CONC 32 g/dL (33-37); MEAN CORPUSCULAR VOLUME 76.4 fL (80-94); MONOCYTES # (AUTO) 0.1 K/uL (0.8-1.0); MONOCYTES % (AUTO) 3.8 % (1.7-9.3); NEUTROPHILS # (AUTO) 2.9 K/uL (1.8-7.7); PLATELET COUNT (AUTO) 113 K/uL (140-450); RED CELL DISTRIBUTION WIDTH 22.2 % (11.6-13.7); WHITE BLOOD COUNT (AUTO) 3.5 K/uL (4.8-10.8)
--- NOTE | 2017-12-14 22:00 | NUR ---
PT SLEEPS ON CPAP. CPAP AT BEDSIDE. WILL CONTINUE TO MONITOR.
[2017-12-15] VITALS: BP 133/76
--- NOTE | 2017-12-15 02:16 | NUR ---
PT SLEEPING NO SOB NO S/S OF DISTRESS. ON CPAP. WILL CONTINUE TO MONITOR.
[2017-12-15 04:00] VITALS: BP 137/72
[2017-12-15] MEDS: PANTOPRAZOLE 40 MG TABEC PO SCH ×2 (06:34→16:04)
[2017-12-15 07:07] LABS: BASOPHILS % (AUTO) 0.4 % (0.0-2.0); EOSINOPHILS % (AUTO) 0.7 % (0.0-4.0); HEMATOCRIT 24.5 % (36-48); LYMPHOCYTES # (AUTO) 0.4 K/uL (2.5-16.5); LYMPHOCYTES % (AUTO) 10.7 % (20.5-51.1); MEAN CORPUSCULAR HEMOGLOBIN 25 pg (27-31); MEAN CORPUSCULAR HGB CONC 33 g/dL (33-37); MEAN CORPUSCULAR VOLUME 76.4 fL (80-94); MONOCYTES # (AUTO) 0.1 K/uL (0.8-1.0); MONOCYTES % (AUTO) 3.6 % (1.7-9.3); NEUTROPHILS # (AUTO) 3.2 K/uL (1.8-7.7); NEUTROPHILS % (AUTO) 84.6 % (42.2-75.2); PLATELET COUNT (AUTO) 111 K/uL (140-450); RED BLOOD CELL COUNT(AUTO) 3.21 MIL/uL (4.20-5.40); RED CELL DISTRIBUTION WIDTH 21.9 % (11.6-13.7); WHITE BLOOD COUNT (AUTO) 3.8 K/uL (4.8-10.8)
--- NOTE | 2017-12-15 07:20 | NUR ---
ENDORSED REPORT TO DAYSHIFT NURSE AT BEDSIDE FOR CONTINUITY OF CARE.
--- NOTE | 2017-12-15 07:22 | NUR ---
RECEIVED REPORT FROM NIGHTSHIFT NURSE AT BEDSIDE. PATIENT IS AWAKE AT THIS TIME. PATIENT PRESENTS IN HIGH FOWLERS POSITION AT THIS TIME. PATIENT ALERT AND ORIENTED X4. NO DISTRESS NOTED. NO COMPLAINTS OF PAIN. PATIENT HAS A WOUND ON RIGHT ANKLE. PATIENT HAS A RIGHT AC 20 G RUNNING AT 60 ML/HR. LOWERED PATIENT'S BED TO LOWEST SETTING. UPDATED BOARD IN PATIENT'S ROOM. WILL CONTINUE TO MONITOR THE PATIENT.
[2017-12-15 07:25] LABS: ANION GAP 12.2 (8-16); CARBON DIOXIDE 26.4 mmol/L (21-32); CREATININE 2.1 mg/dL (0.6-1.3); POTASSIUM 3.6 mmol/L (3.5-5.1)
[2017-12-15 07:35] LABS: MAGNESIUM 1.6 mg/dL (1.8-2.4)
[2017-12-15] MEDS: NACL 0.9% 1,000 ML IV SCH ×2 (07:42→23:43)
[2017-12-15 08:00] VITALS: BP 140/77
[2017-12-15] MEDS: ALBUTEROL SULFATE/IPRATROPIU 3 ML SOL IH PRN ×2 (08:49→19:35)
[2017-12-15] MEDS: BUDESONIDE 0.5 MG/2 ML NEBU INH SCH ×2 (08:49→19:35)
--- NOTE | 2017-12-15 08:49 | NUR ---
AWAKE AND ALERT RESPONSIVE HFW POSITION PATIENT C/O SOB ASSESSMENT DONE HHN PRN THERAPY GIVEN A THIS TIME [employer] V60 BIPAP AT BEDSIDE FOR NOC USE
[2017-12-15] MEDS ORDERED: FUROSEMIDE 40 MG TAB PO SCH (09:00)
[2017-12-15] MEDS: hydrALAZINE 25 MG TAB PO SCH ×2 (09:41→21:15)
[2017-12-15] MEDS: MAGNESIUM OXIDE 400 MG TAB PO SCH (09:41)
[2017-12-15] MEDS: METOPROLOL 25 MG TAB PO SCH (09:42)
[2017-12-15] MEDS: ASPIRIN 81 MG TAB.CHEW PO SCH (09:42)
--- NOTE | 2017-12-15 09:42 | NUR ---
PATIENT TOOK AM MEDICATIONS. PATIENT TOLERATED WELL. WILL CONTINUE TO MONITOR PATIENT.
[2017-12-15] MEDS: amLODIPine 5 MG TAB PO SCH (09:43)
[2017-12-15] MEDS: ATORVASTATIN 20 MG TAB PO SCH (09:43)
--- NOTE | 2017-12-15 09:52 | NUR ---
PATIENT HAS BEEN SCREENED AND CATEGORIZED HIGH NUTRITION RISK. PATIENT WILL BE SEEN WITHIN 1-2 DAYS OF ADMISSION. 12/15/17-12/16/[address]
--- NOTE | 2017-12-15 11:32 | NUR ---
PATIENT RESTING IN BED. NO DISTRESS NOTED. WILL CONTINUE TO MONITOR PATIENT.
[2017-12-15 12:00] VITALS: BP 124/68
[2017-12-15] MEDS ORDERED: ACETAMINOPHEN 325 MG TAB PO SCH (12:00)
[2017-12-15] MEDS ORDERED: FUROSEMIDE 20 MG TAB PO SCH (12:00)
[2017-12-15 12:15] LABS: FOLIC ACID 16.2 ng/mL (>3.0)
--- NOTE | 2017-12-15 14:25 | NUR ---
PATIENT RESTING AT THIS TIME. NO DISTRESS NOTED. WILL CONTINUE TO MONITOR PATIENT.
[2017-12-15 16:00] VITALS: BP 129/70
[2017-12-15] MEDS: CALCIUM ACETATE 667 MG TAB PO SCH (16:04)
[2017-12-15] MEDS ORDERED: CALCIUM ACETATE 667 MG TAB PO SCH (16:15)
--- NOTE | 2017-12-15 16:45 | NUR ---
PATIENT RESTING IN BED. NO DISTRESS NOTED. WILL CONTINUE TO MONITOR PATIENT.
[2017-12-15] MEDS ORDERED: cefTRIAXone 1,000 MG VIAL ONE ×2 (17:59→21:09)
--- NOTE | 2017-12-15 19:15 | NUR ---
GAVE REPORT TO NIGHTSHIFT NURSE. PATIENT IN STABLE CONDITION.
--- NOTE | 2017-12-15 19:16 | NUR ---
RECEIVED REPORT FROM DAYSHIFT NURSE AT BEDSIDE FOR CONTINUITY OF CARE. PT AAOX4.PT IV IS RAC 18G NS 60ML/HR. PT IS ON A 24HR URINE COLLECTION STARTED AT 1550. PT IS AMBULATORY. PT ON RA NO SOB NO S/S OF DISTRESS. AT NIGHT PT SLEEPS WITH CPAP MACHINE. BED LOWERED CALL LIGHT WITHIN REACH. WILL CONTINUE TO MONITOR.
[2017-12-15 20:00] VITALS: BP 137/67
[2017-12-15] MEDS: METOPROLOL 50 MG TAB PO SCH (21:15)
[2017-12-16] VITALS: BP 132/77
[2017-12-16 04:00] VITALS: BP 134/78
[2017-12-16] MEDS: PANTOPRAZOLE 40 MG TABEC PO SCH ×2 (06:31→16:39)
[2017-12-16] MEDS: ALBUTEROL SULFATE/IPRATROPIU 3 ML SOL IH PRN ×2 (07:29→18:40)
--- NOTE | 2017-12-16 07:33 | NUR ---
ENDORSED REPORT TO DAYSHIFT NURSE AT BEDSIDE FOR CONTINUITY OF CARE.
--- NOTE | 2017-12-16 07:34 | NUR ---
RECEIVED REPORT FROM COGNOS ANALYST NURSE AT BEDSIDE FOR CONTINUITY OF CARE. PT AAOX4. IV TO RAC 18G INFUSING NS 60ML/HR. PT IS ON A 24HR URINE COLLECTION STARTED ON 1550 ON 12/15/17, WILL END TODAY. PT IS AMBULATORY. NO SOB ON RA, NO S/S OF DISTRESS NOTED. PATIENT USES CPAP AT NIGHT D/T SLEEP APNEA. UPDATED BOARD, UPDATED PLAN OF CARE, PATIENT VERBALIZED UNDERSTANDING, SAFETY PRECAUTION IN PLACE, CALL LIGHT WITHIN REACH, WILL CONTINUE TO MONITOR PATIENT.
[2017-12-16] MEDS: BUDESONIDE 0.5 MG/2 ML NEBU INH SCH ×2 (07:39→18:40)
--- NOTE | 2017-12-16 07:58 | NUR ---
DOCTORS DOING THEIR ROUNDS, WILL WAIT FOR UPDATED ORDERS.
[2017-12-16 08:00] VITALS: BP 136/71
[2017-12-16 08:27] LABS: MAGNESIUM 1.4 mg/dL (1.8-2.4); PHOSPHORUS 5.1 mg/dL (2.5-4.9)
[2017-12-16 08:30] LABS: ALBUMIN 2.7 g/dL (3.4-5.0); CARBON DIOXIDE 26.5 mmol/L (21-32); CREATININE 2.1 mg/dL (0.6-1.3); POTASSIUM 3.5 mmol/L (3.5-5.1); TOTAL BILIRUBIN 0.3 mg/dL (0.0-1.0)
[2017-12-16 08:44] LABS: BASOPHILS % (AUTO) 0.6 % (0.0-2.0); HEMOGLOBIN 7.1 g/dL (12.0-16.0); LYMPHOCYTES # (AUTO) 0.4 K/uL (2.5-16.5); MEAN CORPUSCULAR HEMOGLOBIN 25 pg (27-31); MEAN CORPUSCULAR HGB CONC 32 g/dL (33-37); MEAN CORPUSCULAR VOLUME 76.5 fL (80-94); MONOCYTES # (AUTO) 0.1 K/uL (0.8-1.0); MONOCYTES % (AUTO) 4.1 % (1.7-9.3); NEUTROPHILS # (AUTO) 2.9 K/uL (1.8-7.7); PLATELET COUNT (AUTO) 109 K/uL (140-450); RED BLOOD CELL COUNT(AUTO) 2.87 MIL/uL (4.20-5.40); RED CELL DISTRIBUTION WIDTH 21.9 % (11.6-13.7); WHITE BLOOD COUNT (AUTO) 3.5 K/uL (4.8-10.8)
[2017-12-16 08:50] LABS: LYMPHOCYTES % (AUTO) 12.8 % (20.5-51.1); NEUTROPHILS % (AUTO) 81.5 % (42.2-75.2)
[2017-12-16] MEDS: CALCIUM ACETATE 667 MG TAB PO SCH ×3 (08:55→16:40)
[2017-12-16] MEDS: hydrALAZINE 25 MG TAB PO SCH ×2 (08:55→20:50)
--- NOTE | 2017-12-16 08:55 | NUR ---
ORDERED MEDICATIONS GIVEN. PATIENT TOLERATED THEM WELL. NO SIGNS OF DISTRESS OR SOB NOTED ON RA. PATIENT DENIES PAIN. SAFETY PRECAUTION IN PLACE, CALL LIGHT WITHIN REACH, WILL CONTINUE TO MONITOR PATIENT.
[2017-12-16] MEDS: ASPIRIN 81 MG TAB.CHEW PO SCH (08:56)
--- NOTE | 2017-12-16 08:56 | NUR ---
AM LAB RESULTS OUT. INFORMED DR. JONES, HBG 7.1, HCT 22.0, MAG 1.4.
[2017-12-16] MEDS: LACTOBACILLUS RHAMNOSUS GG 1 EACH CAP PO SCH (08:57)
[2017-12-16] MEDS: ATORVASTATIN 20 MG TAB PO SCH (08:58)
[2017-12-16] MEDS: FUROSEMIDE 20 MG TAB PO SCH (08:58)
[2017-12-16] MEDS: METOPROLOL 50 MG TAB PO SCH ×2 (09:00→20:51)
[2017-12-16] MEDS: MAGNESIUM OXIDE 400 MG TAB PO SCH (09:00)
--- NOTE | 2017-12-16 09:00 | NUR ---
ORDERED MEDICATIONS GIVEN. PATIENT TOLERATED THEM WELL. NO SIGNS OF DISTRESS OR SOB NOTED ROOM AIR. PATIENT DENIES PAIN. SAFETY PRECAUTION IN PLACE, CALL LIGHT WITHIN REACH. WILL CONTINUE TO MONITOR PATIENT.
[2017-12-16] MEDS: amLODIPine 5 MG TAB PO SCH (09:01)
--- NOTE | 2017-12-16 10:02 | NUR ---
PATIENT AMBULATED AROUND FLOOR ON STEADY GAIT. AM LABS AND RENAL US RESULTS EXPLAINED TO PATIENT. PATIENT VERBALIZED UNDERSTANDING. PATIENT NOW SITTING ON SIDE OF BED WATCHING TV. WILL CONTINUE TO MONITOR PATIENT.
[2017-12-16] MEDS ORDERED: MAGNESIUM OXIDE 400 MG TAB PO SCH (10:10)
[2017-12-16] MEDS ORDERED: CALCIUM ACETATE 667 MG TAB PO SCH (10:10)
--- NOTE | 2017-12-16 10:50 | NUR ---
PATIENT UPSET AND CRYING. DR. NGUYEN IN SPEAKING WITH PATIENT.
[2017-12-16] MEDS ORDERED: ACETAMINOPHEN 325 MG TAB PO SCH (12:00)
[2017-12-16] MEDS ORDERED: FUROSEMIDE 20 MG TAB PO SCH (12:00)
--- NOTE | 2017-12-16 12:00 | NUR ---
CONSENT FOR BLOOD TRANSFUSION OBTAINED. BLOOD BANK CALLED, BLOOD READY TO BE PICKED UP. BLOOD PICKED UP. BLOOD AND PATIENT VERIFIED BY DIONTE VARGAS RN.
[2017-12-16 12:05] VITALS: BP 135/75
--- NOTE | 2017-12-16 12:25 | NUR ---
15 MINUTES PRE TRANSFUSION VS: T 98.1 HR 66 RR 18 BP 133/75 PAIN 0. TRANSFUSION TIME VS: T 98.3 HR 73 RR 18 BP 111/61 PAIN 0/10. PATIENT TOLERATING BLOOD TRANSFUSION WELL. TRANSFUSION RATE STARTED AT 60 ML/HR PER ORDERS. WILL CONTINUE TO MONITOR PATIENT.
--- NOTE | 2017-12-16 12:40 | NUR ---
15 MINUTES AFTER TRANSFUSION BEGAN, VITAL SIGNS: T 98.4 HR 71 RR 18 BP 121/73 PAIN 0. PATIENT TOLERATED TRANSFUSION WELL. RATE OF BLOOD TRANSFUSION INCREASED TO 100 ML/HR. WILL CONTINUE TO MONITOR PATIENT.
--- NOTE | 2017-12-16 14:35 | NUR ---
PATIENT RESTING IN BED, NO SIGN OF REACTION OR DISTRESS NOTED ON BLOOD TRANSFUSION. FELIX AT BEDSIDE. WILL CONTINUE TO MONITOR PATIENT.
[2017-12-16 16:00] VITALS: BP 121/69
--- NOTE | 2017-12-16 16:20 | NUR ---
BLOOD TRANSFUSION FINISHED. PATIENT TOLERATED IT WELL. VS WNL. NO SIGNS OF DISTRESS OR SOB ON ROOM AIR. WILL CONTINUE TO MONITOR PATIENT.
[2017-12-16] MEDS: NACL 0.9% 1,000 ML IV SCH (16:23)
--- NOTE | 2017-12-16 16:50 | NUR ---
PATIENT RESTING IN BED, NO SIGN OF DISTRESS OR SOB NOTED ON ROOM AIR. VS WNL POST BLOOD TRANSFUSION. WILL CONTINUE TO MONITOR PATIENT.
--- NOTE | 2017-12-16 17:55 | NUR ---
IV LEAKING, IV REMOVED, IV CATHETER INTACT, MINIMAL BLOOD NOTED. NEW IV INSERTED INTO R HAND 20G, INTACT, ASYMPTOMATIC, AND PATENT.
[2017-12-16 19:10] LABS: BASOPHILS % (AUTO) 0.5 % (0.0-2.0); EOSINOPHILS % (AUTO) 0.8 % (0.0-4.0); HEMATOCRIT 27.2 % (36-48); HEMOGLOBIN 8.8 g/dL (12.0-16.0); LYMPHOCYTES # (AUTO) 0.5 K/uL (2.5-16.5); LYMPHOCYTES % (AUTO) 11.1 % (20.5-51.1); MEAN CORPUSCULAR HEMOGLOBIN 25 pg (27-31); MEAN CORPUSCULAR HGB CONC 32 g/dL (33-37); MEAN CORPUSCULAR VOLUME 77.4 fL (80-94); MONOCYTES # (AUTO) 0.1 K/uL (0.8-1.0); MONOCYTES % (AUTO) 2.5 % (1.7-9.3); NEUTROPHILS # (AUTO) 3.7 K/uL (1.8-7.7); NEUTROPHILS % (AUTO) 85.1 % (42.2-75.2); PLATELET COUNT (AUTO) 122 K/uL (140-450); RED BLOOD CELL COUNT(AUTO) 3.52 MIL/uL (4.20-5.40); RED CELL DISTRIBUTION WIDTH 21.6 % (11.6-13.7); WHITE BLOOD COUNT (AUTO) 4.3 K/uL (4.8-10.8)
--- NOTE | 2017-12-16 19:25 | NUR ---
REPORT GIVEN TO FINANCIAL RECORDING CLERK NURSE AT BEDSIDE FOR CONTINUITY OF CARE. PATIENT IN STABLE CONDITION.
--- NOTE | 2017-12-16 19:25 | NUR ---
RECEIVED REPORT FROM DAY SHIFT NURSE AT BEDSIDE. PT IN STABLE CONDITION. IV ACCESS IN L HAND 20G WITH NS AT 60ML/HR. IV IS PATENT. FAMILY IS CURRENTLY AT BEDSIDE. PT IS A/O X4. VS WITHIN NORMAL LIMITS. PT HAS A WOUND TO R ANKLE, COVERED WITH DRESSING. PT HAS NO COMPLAINTS OF PAIN AT THIS TIME. BED IN LOW POSITION, LOCKED AND SIDE RAILS ARE UP. BOARD UPDATED. WILL CONTINUE TO MONITOR.
[2017-12-16 20:05] VITALS: BP 132/73
--- NOTE | 2017-12-16 20:53 | NUR ---
ADMINISTERED EVENING MEDICATIONS. PT TOLERATED WELL. ALL NEEDS ARE MET AT THIS TIME. PT NOW WANTS TO GO TO SLEEP. WILL CONTINUE TO MONITOR.
--- NOTE | 2017-12-16 23:00 | NUR ---
PT SLEEPING IN BED. CPAP MACHINE IN USE. NO S/SX OF DISTRESS. WILL CONTINUE TO MONITOR.
[2017-12-17] VITALS: BP 126/62
--- NOTE | 2017-12-17 00:10 | NUR ---
PT VS WITHIN NORMAL LIMITS. PT IN STABLE CONDITION. WILL CONTINUE TO MONITOR.
--- NOTE | 2017-12-17 02:16 | NUR ---
NO CHANGE IN CONDITION. PT IS SLEEPING. NO S/SX OF DISTRESS. WILL CONTINUE TO MONITOR.
[2017-12-17] MEDS: NACL 0.9% 1,000 ML IV SCH (04:43)
--- NOTE | 2017-12-17 04:45 | NUR ---
NEW BAG OF NS FLUID HUNG. PT IS ASLEEP. NO S/SX OF DISTRESS. WILL CONTINUE TO MONITOR.
[2017-12-17] MEDS: PANTOPRAZOLE 40 MG TABEC PO SCH ×2 (06:38→17:58)
--- NOTE | 2017-12-17 06:38 | NUR ---
ADMINISTERED MORNING MEDICATION TO PT. PT TOLERATED WELL. WILL CONTINUE TO MONITOR.
[2017-12-17] MEDS: ALBUTEROL SULFATE/IPRATROPIU 3 ML SOL IH PRN (06:57)
[2017-12-17] MEDS: BUDESONIDE 0.5 MG/2 ML NEBU INH SCH (07:05)
--- NOTE | 2017-12-17 07:09 | NUR ---
ENDORSED PT TO DAY SHIFT NURSE FOR CONTINUITY OF CARE AT BEDSIDE. PT IN STABLE CONDITION.
--- NOTE | 2017-12-17 07:10 | NUR ---
RECEIVED REPORT FROM PHYSICIAN EXTENDER NURSE ANGELO AT BEDSIDE FOR CONTINUITY OF CARE. PT IS AWAKE AND ORIENTED X4. INTRODUCED SELF AND UPDATED BOARD. NO SOB. NO COUGH. O2 SAT 95% ON RA. PT DENIES PAIN. IV TO L HAND 20G INTACT. WITH NS @60ML/HR. SKIN WARM AND DRY. PT WITH DRESSING TO R ANKLE. PT STATES SHE HAS HER OWN WOUND CARE DR. DRESSING DRY AND INTACT. NO SIGNS OF DISTRESS. PT SITTING UP IN RECLINER CHAIR. STATED SHE JUST WASHED UP HER SELF AND FEELS A LOT BETTER. CALL LIGHT WITHIN REACH. WILL CONTINUE TO MONITOR.
[2017-12-17 08:00] VITALS: BP 122/64
[2017-12-17 08:24] LABS: BASOPHILS % (AUTO) 0.7 % (0.0-2.0); EOSINOPHILS % (AUTO) 1.2 % (0.0-4.0); HEMATOCRIT 23.7 % (36-48); HEMOGLOBIN 7.6 g/dL (12.0-16.0); LYMPHOCYTES # (AUTO) 0.5 K/uL (2.5-16.5); LYMPHOCYTES % (AUTO) 15.7 % (20.5-51.1); MEAN CORPUSCULAR HEMOGLOBIN 25 pg (27-31); MEAN CORPUSCULAR HGB CONC 32 g/dL (33-37); MEAN CORPUSCULAR VOLUME 77.6 fL (80-94); MONOCYTES # (AUTO) 0.1 K/uL (0.8-1.0); MONOCYTES % (AUTO) 3.7 % (1.7-9.3); NEUTROPHILS # (AUTO) 2.5 K/uL (1.8-7.7); NEUTROPHILS % (AUTO) 78.7 % (42.2-75.2); PLATELET COUNT (AUTO) 114 K/uL (140-450); RED BLOOD CELL COUNT(AUTO) 3.05 MIL/uL (4.20-5.40); WHITE BLOOD COUNT (AUTO) 3.2 K/uL (4.8-10.8)
[2017-12-17 08:25] LABS: MAGNESIUM 1.5 mg/dL (1.8-2.4)
[2017-12-17 08:28] LABS: ANION GAP 12.9 (8-16); CARBON DIOXIDE 25.8 mmol/L (21-32); CREATININE 2.1 mg/dL (0.6-1.3); POTASSIUM 3.7 mmol/L (3.5-5.1)
[2017-12-17] MEDS: CALCIUM ACETATE 667 MG TAB PO SCH ×3 (09:17→17:58)
[2017-12-17] MEDS: METOPROLOL 50 MG TAB PO SCH (09:18)
[2017-12-17] MEDS: ATORVASTATIN 20 MG TAB PO SCH (09:19)
[2017-12-17] MEDS: MAGNESIUM OXIDE 400 MG TAB PO SCH (09:19)
[2017-12-17] MEDS: hydrALAZINE 25 MG TAB PO SCH (09:19)
[2017-12-17] MEDS: FUROSEMIDE 20 MG TAB PO SCH (09:20)
[2017-12-17] MEDS: amLODIPine 5 MG TAB PO SCH (09:20)
[2017-12-17] MEDS: ASPIRIN 81 MG TAB.CHEW PO SCH (09:20)
[2017-12-17] MEDS: LACTOBACILLUS RHAMNOSUS GG 1 EACH CAP PO SCH (10:20)
--- NOTE | 2017-12-17 10:40 | NUR ---
REPORTED TO DR. LIU PT'S MAG 1.5. WILL WAIT FOR ORDERS.
[2017-12-17] MEDS ORDERED: ASCO1CAP75 PO (11:02)
[2017-12-17] MEDS ORDERED: CEPH250C16 PO (11:02)
[2017-12-17 16:00] VITALS: BP 143/81
[2017-12-17] MEDS ORDERED: PROC2I SUBQ (16:29)
--- NOTE | 2017-12-17 16:30 | NUR ---
RECEIVED A CALL EARLIER FROM DR. TOWNSEND ASKING IF I COULD GET AUTH FOR THIS PATIENT FOR OUT PATIENT KIDNEY BIOPSY. I CALL OUR HR DEPT AND WAS REFERRED TO ZANDRA FROM [employer]. SHE WASN'T SURE ABOUT HOW TO GET AUTH SO SHE REFERRED ME TO [employer]. PHONE [phone]. I CALLED AND LEFT A MESSAGE, NO CALL BACK. Addendum: 12/17/17 at 1633 by Stephanie Barraza PHONE FOR ZANDRA [phone].
--- NOTE | 2017-12-17 16:39 | NUR ---
I INFORMED DR. SWAIN ABOUT NO BEING ABLE TO SPEAK WITH [employer] ABOUT GETTING AUTH FOR KIDNEY BIOPSY.
--- NOTE | 2017-12-17 18:00 | NUR ---
DR. NGUYEN CAME IN AND SPOKE WITH PT. GAVE FOLLOW UP APPOINTMENT AND INSTRUCTIONS FOR OUTPATIENT.
--- NOTE | 2017-12-17 18:55 | NUR ---
PT D/C TO GO HOME. GAVE D/C INSTRUCTIONS, FORMS, RX, AND FOLLOW UP APPOINTMENT. PT VERBALIZED UNDERSTANDING AND SIGNED FORMS. REMOVED IV TO L HAND 20G. IV CATHETER TIP INTACT APPLIED DRESSING AND PRESSURE TO SITE. NO BLEEDING NOTED. REMOVED ID BAND. PT CHANGED IN OWN CLOTHES AND LEFT WITH ALL PERSONAL BELONGINGS. LEFT UNIT VIA WHEELCHAIR ACCOMPANIED BY RN. LEFT IN STABLE CONDITION WITH .
[2017-12-18 16:26] LABS: ANTI-NUCLEAR ANTIBODY,DIRECT Negative (Negative)
[2017-12-19 09:24] LABS: ANTI-GLUMERULAR BASE MEM AB QN 3 units (0-20)
== END 2017-12-17 18:55 | disposition home or self-care (01) | DRG 808 ==
LOC: MED 10:59 → MTU 14:32
PROVIDERS: ADMIT General Practice; ATTEND General Practice
PROC: 30233P1 Transfusion of Nonautologous Frozen Red Cells into Peripheral Vein, Percutaneous Approach (ICD-10-PCS; principal; 2017-12-14)
DX: D61.818 Other pancytopenia (principal); N17.0 Acute kidney failure with tubular necrosis; N39.0 Urinary tract infection, site not specified; E44.0 Moderate protein-calorie malnutrition; I10 Essential (primary) hypertension; N05.9 Unspecified nephritic syndrome with unspecified morphologic changes; E87.6 Hypokalemia; E83.42 Hypomagnesemia; E78.5 Hyperlipidemia, unspecified; K21.9 Gastro-esophageal reflux disease without esophagitis; J45.909 Unspecified asthma, uncomplicated; G47.33 Obstructive sleep apnea (adult) (pediatric); D50.9 Iron deficiency anemia, unspecified; E83.39 Other disorders of phosphorus metabolism; R31.9 Hematuria, unspecified; Z88.1 Allergy status to other antibiotic agents; Z88.0 Allergy status to penicillin; Z88.2 Allergy status to sulfonamides; Z98.51 Tubal ligation status; Z82.61 Family history of arthritis; Z84.89 Family history of other specified conditions; Z87.891 Personal history of nicotine dependence
CPT/HCPCS: 36415; 71045; 76770; 80048; 80053; 80305; 81001; 81025; 82150; 82550; 82570; 82575; 82607; 82728; 82746; 83036; 83516; 83540; 83690; 83735; 83880; 84100; 84134; 84436; 84439; 84443; 84479; 85025; 85045; 85610; 85730; 86038; 86160; 86886; 86900; 86901; 86920; 87081; 87086; 93005; 94640; 94660; 99285; J0696; J1940; J7030; J7060; J7620; J7626; P9016; Q0092; Q0163

== ENCOUNTER 2017-12-24 12:45 | Outpatient (CLI) | payer OTHER ==
[~2017-12-24 12:45] MED LIST changes: +ASCO1CAP75 PO; +CEPH250C16 PO; -LISI-420 PO
[2017-12-24 13:30] LABS: BASOPHILS % (AUTO) 0.2 % (0.0-2.0); EOSINOPHILS % (AUTO) 0.1 % (0.0-4.0); LYMPHOCYTES # (AUTO) 0.5 K/uL (2.5-16.5); LYMPHOCYTES % (AUTO) 6.2 % (20.5-51.1); MEAN CORPUSCULAR HEMOGLOBIN 25 pg (27-31); MEAN CORPUSCULAR HGB CONC 32 g/dL (33-37); MEAN CORPUSCULAR VOLUME 76.8 fL (80-94); MONOCYTES # (AUTO) 0.2 K/uL (0.8-1.0); MONOCYTES % (AUTO) 1.9 % (1.7-9.3); NEUTROPHILS # (AUTO) 8.1 K/uL (1.8-7.7); NEUTROPHILS % (AUTO) 91.6 % (42.2-75.2); PLATELET COUNT (AUTO) 212 K/uL (140-450); RED BLOOD CELL COUNT(AUTO) 3.65 MIL/uL (4.20-5.40); RED CELL DISTRIBUTION WIDTH 21.2 % (11.6-13.7); WHITE BLOOD COUNT (AUTO) 8.8 K/uL (4.8-10.8)
[2017-12-24 14:16] LABS: ANION GAP 17.1 (8-16); CARBON DIOXIDE 24.4 mmol/L (21-32); CREATININE 1.8 mg/dL (0.6-1.3); POTASSIUM 3.5 mmol/L (3.5-5.1)
== END 2017-12-24 19:40 | disposition home or self-care (01) ==
LOC: MLB 12:45
DX: D50.9 Iron deficiency anemia, unspecified (principal); D72.819 Decreased white blood cell count, unspecified; D73.5 Infarction of spleen; K63.5 Polyp of colon; K25.9 Gastric ulcer, unspecified as acute or chronic, without hemorrhage or perforation; D69.2 Other nonthrombocytopenic purpura; I10 Essential (primary) hypertension; J45.909 Unspecified asthma, uncomplicated; Z79.899 Other long term (current) drug therapy; Z86.2 Personal history of diseases of the blood and blood-forming organs and certain disorders involving the immune mechanism; Z83.2 Family history of diseases of the blood and blood-forming organs and certain disorders involving the immune mechanism
CPT/HCPCS: 36415; 80048; 82306; 82728; 83540; 85025

== ENCOUNTER 2018-01-14 09:59 | Outpatient (CLI) | payer OTHER ==
[~2018-01-14 09:59] MED LIST changes: +PROC2I SUBQ
[2018-01-14 10:48] LABS: BASOPHILS % (AUTO) 0.3 % (0.0-2.0); EOSINOPHILS % (AUTO) 0.4 % (0.0-4.0); HEMATOCRIT 28.6 % (36-48); HEMOGLOBIN 9.5 g/dL (12.0-16.0); LYMPHOCYTES # (AUTO) 1.1 K/uL (2.5-16.5); LYMPHOCYTES % (AUTO) 11.5 % (20.5-51.1); MEAN CORPUSCULAR HEMOGLOBIN 28 pg (27-31); MEAN CORPUSCULAR HGB CONC 33 g/dL (33-37); MEAN CORPUSCULAR VOLUME 83.1 fL (80-94); MONOCYTES # (AUTO) 0.3 K/uL (0.8-1.0); MONOCYTES % (AUTO) 2.8 % (1.7-9.3); NEUTROPHILS # (AUTO) 8.1 K/uL (1.8-7.7); PLATELET COUNT (AUTO) 83 K/uL (140-450); RED BLOOD CELL COUNT(AUTO) 3.44 MIL/uL (4.20-5.40); RED CELL DISTRIBUTION WIDTH 24.4 % (11.6-13.7); WHITE BLOOD COUNT (AUTO) 9.6 K/uL (4.8-10.8)
== END 2018-01-14 21:19 | disposition home or self-care (01) ==
LOC: MLB 09:59
DX: D50.9 Iron deficiency anemia, unspecified (principal); D72.819 Decreased white blood cell count, unspecified; D73.5 Infarction of spleen; K63.5 Polyp of colon; K25.9 Gastric ulcer, unspecified as acute or chronic, without hemorrhage or perforation; D69.2 Other nonthrombocytopenic purpura; I10 Essential (primary) hypertension; J45.909 Unspecified asthma, uncomplicated; Z86.2 Personal history of diseases of the blood and blood-forming organs and certain disorders involving the immune mechanism; Z83.2 Family history of diseases of the blood and blood-forming organs and certain disorders involving the immune mechanism; Z79.82 Long term (current) use of aspirin; Z79.899 Other long term (current) drug therapy
CPT/HCPCS: 36415; 82728; 83021; 83540; 85025

== ENCOUNTER 2018-02-05 10:54 | Outpatient (CLI) | payer OTHER ==
[2018-02-05 11:22] LABS: BASOPHILS # (AUTO) 0.1 K/uL (0.00-0.22); BASOPHILS % (AUTO) 0.6 % (0.0-2.0); EOSINOPHILS % (AUTO) 0.2 % (0.0-4.0); HEMATOCRIT 30.7 % (36-48); HEMOGLOBIN 10.4 g/dL (12.0-16.0); LYMPHOCYTES # (AUTO) 1.6 K/uL (2.5-16.5); LYMPHOCYTES % (AUTO) 17.1 % (20.5-51.1); MEAN CORPUSCULAR HEMOGLOBIN 28 pg (27-31); MEAN CORPUSCULAR HGB CONC 34 g/dL (33-37); MEAN CORPUSCULAR VOLUME 83.3 fL (80-94); MONOCYTES # (AUTO) 0.3 K/uL (0.8-1.0); MONOCYTES % (AUTO) 2.9 % (1.7-9.3); NEUTROPHILS # (AUTO) 7.3 K/uL (1.8-7.7); NEUTROPHILS % (AUTO) 79.2 % (42.2-75.2); PLATELET COUNT (AUTO) 165 K/uL (140-450); RED BLOOD CELL COUNT(AUTO) 3.68 MIL/uL (4.20-5.40); WHITE BLOOD COUNT (AUTO) 9.3 K/uL (4.8-10.8)
== END 2018-02-05 20:57 | disposition home or self-care (01) ==
LOC: MLB 10:54
DX: I12.9 Hypertensive chronic kidney disease with stage 1 through stage 4 chronic kidney disease, or unspecified chronic kidney disease (principal); N18.9 Chronic kidney disease, unspecified; K21.9 Gastro-esophageal reflux disease without esophagitis; J45.909 Unspecified asthma, uncomplicated; Z79.899 Other long term (current) drug therapy; Z86.2 Personal history of diseases of the blood and blood-forming organs and certain disorders involving the immune mechanism; Z83.2 Family history of diseases of the blood and blood-forming organs and certain disorders involving the immune mechanism; Z88.0 Allergy status to penicillin; Z88.8 Allergy status to other drugs, medicaments and biological substances
CPT/HCPCS: 36415; 82728; 83540; 85025

== ENCOUNTER 2018-02-08 11:00 | Outpatient (CLI) | payer OTHER ==
[2018-02-08 11:24] LABS: BASOPHILS # (AUTO) 0.1 K/uL (0.00-0.22); BASOPHILS % (AUTO) 0.7 % (0.0-2.0); EOSINOPHILS % (AUTO) 0.3 % (0.0-4.0); HEMATOCRIT 33.4 % (36-48); HEMOGLOBIN 11.1 g/dL (12.0-16.0); LYMPHOCYTES # (AUTO) 1.7 K/uL (2.5-16.5); LYMPHOCYTES % (AUTO) 16.6 % (20.5-51.1); MEAN CORPUSCULAR HEMOGLOBIN 28 pg (27-31); MEAN CORPUSCULAR HGB CONC 33 g/dL (33-37); MEAN CORPUSCULAR VOLUME 84.3 fL (80-94); MONOCYTES # (AUTO) 0.4 K/uL (0.8-1.0); MONOCYTES % (AUTO) 3.8 % (1.7-9.3); NEUTROPHILS # (AUTO) 7.9 K/uL (1.8-7.7); NEUTROPHILS % (AUTO) 78.6 % (42.2-75.2); PLATELET COUNT (AUTO) 179 K/uL (140-450); RED BLOOD CELL COUNT(AUTO) 3.96 MIL/uL (4.20-5.40); RED CELL DISTRIBUTION WIDTH 22.5 % (11.6-13.7); WHITE BLOOD COUNT (AUTO) 10.1 K/uL (4.8-10.8)
[2018-02-08 11:45] LABS: APPEARANCE,URINE CLEAR (CLEAR); BILIRUBIN,URINE NEGATIVE (NEGATIVE); BLOOD, URINE 2+ (NEGATIVE); COLOR,URINE YELLOW (YELLOW); LEUKOCYTE ESTERASE ,URINE 1+ (NEGATIVE); NITRITE, URINE NEGATIVE (NEGATIVE); PH,URINE 5.5 (5.0-9.0); UGLUCOSE NEGATIVE (NEGATIVE)
[2018-02-08 11:54] LABS: ALBUMIN 3.9 g/dL (3.4-5.0); ANION GAP 10.7 (8-16); CARBON DIOXIDE 27.1 mmol/L (21-32); CREATININE 1.3 mg/dL (0.6-1.3); MAGNESIUM 1.5 mg/dL (1.8-2.4); PHOSPHORUS 3.7 mg/dL (2.5-4.9); POTASSIUM 3.8 mmol/L (3.5-5.1); TOTAL BILIRUBIN 0.5 mg/dL (0.0-1.0)
[2018-02-08 11:58] LABS: RBC,URINE 11-20 (MOD) /HPF (0-5)
== END 2018-02-08 17:25 | disposition home or self-care (01) ==
LOC: MLB 11:00
DX: N17.9 Acute kidney failure, unspecified (principal); I10 Essential (primary) hypertension
CPT/HCPCS: 36415; 80053; 81001; 83735; 84100; 84157; 85025; 87086

== ENCOUNTER 2018-02-26 19:02 | Outpatient (CLI) | payer OTHER | END 2018-02-26 21:34 | disposition home or self-care (01) | LOC: MLB 19:02 | DX: Z11.1 Encounter for screening for respiratory tuberculosis (principal); M32.9 Systemic lupus erythematosus, unspecified; G47.33 Obstructive sleep apnea (adult) (pediatric); I10 Essential (primary) hypertension; J45.909 Unspecified asthma, uncomplicated; Z85.9 Personal history of malignant neoplasm, unspecified; Z88.0 Allergy status to penicillin | CPT/HCPCS: 36415 ==

== ENCOUNTER 2018-03-13 15:44 | Outpatient (CLI) | payer OTHER ==
[2018-03-13 16:47] LABS: BASOPHILS % (AUTO) 0.5 % (0.0-2.0); EOSINOPHILS # (AUTO) 0.1 K/uL (0-0.4); EOSINOPHILS % (AUTO) 0.8 % (0.0-4.0); HEMATOCRIT 34.3 % (36-48); HEMOGLOBIN 11.4 g/dL (12.0-16.0); LYMPHOCYTES # (AUTO) 1.4 K/uL (2.5-16.5); LYMPHOCYTES % (AUTO) 15.8 % (20.5-51.1); MEAN CORPUSCULAR HEMOGLOBIN 28 pg (27-31); MEAN CORPUSCULAR HGB CONC 33 g/dL (33-37); MEAN CORPUSCULAR VOLUME 84.2 fL (80-94); MONOCYTES # (AUTO) 0.3 K/uL (0.8-1.0); MONOCYTES % (AUTO) 3.5 % (1.7-9.3); NEUTROPHILS # (AUTO) 7.2 K/uL (1.8-7.7); NEUTROPHILS % (AUTO) 79.4 % (42.2-75.2); PLATELET COUNT (AUTO) 178 K/uL (140-450); RED BLOOD CELL COUNT(AUTO) 4.08 MIL/uL (4.20-5.40); RED CELL DISTRIBUTION WIDTH 18.2 % (11.6-13.7); WHITE BLOOD COUNT (AUTO) 9.1 K/uL (4.8-10.8)
[2018-03-13 17:45] LABS: BILIRUBIN,URINE NEGATIVE (NEGATIVE); BLOOD, URINE 3+ (NEGATIVE); COLOR,URINE YELLOW (YELLOW); LEUKOCYTE ESTERASE ,URINE 2+ (NEGATIVE); NITRITE, URINE NEGATIVE (NEGATIVE); UGLUCOSE NEGATIVE (NEGATIVE)
[2018-03-13 17:47] LABS: APPEARANCE,URINE HAZY (CLEAR)
[2018-03-13 20:15] LABS: RBC,URINE 3-10 (FEW) /HPF (0-5)
[2018-03-15 09:07] LABS: ANTI DOUBLE STRANDED DNA AB 1 IU/mL (0-9)
== END 2018-03-13 20:13 | disposition home or self-care (01) ==
LOC: MLB 15:44
DX: M32.14 Glomerular disease in systemic lupus erythematosus (principal); I12.9 Hypertensive chronic kidney disease with stage 1 through stage 4 chronic kidney disease, or unspecified chronic kidney disease; N18.3 Chronic kidney disease, stage 3 (moderate); J45.909 Unspecified asthma, uncomplicated; Z79.899 Other long term (current) drug therapy; Z88.0 Allergy status to penicillin
CPT/HCPCS: 36415; 81001; 85025; 85651; 86140; 86160; 87086

== ENCOUNTER 2018-03-25 11:32 | Outpatient (CLI) | payer OTHER ==
[2018-03-25 11:52] LABS: BASOPHILS # (AUTO) 0.1 K/uL (0.00-0.22); BASOPHILS % (AUTO) 0.6 % (0.0-2.0); EOSINOPHILS # (AUTO) 0.1 K/uL (0-0.4); EOSINOPHILS % (AUTO) 0.7 % (0.0-4.0); HEMATOCRIT 35.4 % (36-48); HEMOGLOBIN 11.8 g/dL (12.0-16.0); LYMPHOCYTES # (AUTO) 1.7 K/uL (2.5-16.5); LYMPHOCYTES % (AUTO) 16.5 % (20.5-51.1); MEAN CORPUSCULAR HEMOGLOBIN 28 pg (27-31); MEAN CORPUSCULAR HGB CONC 33 g/dL (33-37); MEAN CORPUSCULAR VOLUME 84.6 fL (80-94); MONOCYTES # (AUTO) 0.5 K/uL (0.8-1.0); MONOCYTES % (AUTO) 5.2 % (1.7-9.3); NEUTROPHILS # (AUTO) 7.7 K/uL (1.8-7.7); PLATELET COUNT (AUTO) 157 K/uL (140-450); RED BLOOD CELL COUNT(AUTO) 4.19 MIL/uL (4.20-5.40); RED CELL DISTRIBUTION WIDTH 17.6 % (11.6-13.7)
== END 2018-03-25 19:55 | disposition home or self-care (01) ==
LOC: MLB 11:32
DX: D72.819 Decreased white blood cell count, unspecified (principal); I12.9 Hypertensive chronic kidney disease with stage 1 through stage 4 chronic kidney disease, or unspecified chronic kidney disease; N18.9 Chronic kidney disease, unspecified; D50.9 Iron deficiency anemia, unspecified; D73.5 Infarction of spleen; K63.5 Polyp of colon; K25.9 Gastric ulcer, unspecified as acute or chronic, without hemorrhage or perforation; D69.2 Other nonthrombocytopenic purpura; G47.33 Obstructive sleep apnea (adult) (pediatric); Z83.2 Family history of diseases of the blood and blood-forming organs and certain disorders involving the immune mechanism; Z88.0 Allergy status to penicillin; Z88.8 Allergy status to other drugs, medicaments and biological substances
CPT/HCPCS: 36415; 85025

== ENCOUNTER 2018-04-11 16:11 | Inpatient (IN) | payer OTHER ==
[~2018-04-11] VITALS: Ht 167.6 cm; Wt 142.9 kg
[2018-04-11 16:25] VITALS: BP 163/90
[2018-04-11] MEDS ORDERED: fentaNYL 0.05 MG/ML VIAL IVP ONE (16:40)
[2018-04-11] MEDS ORDERED: NACL 0.9% 1,000 ML IV ONE (16:40)
[2018-04-11 17:12] LABS: BASOPHILS % (AUTO) 0.4 % (0.0-2.0); EOSINOPHILS # (AUTO) 0.1 K/uL (0-0.4); EOSINOPHILS % (AUTO) 0.6 % (0.0-4.0); HEMATOCRIT 37.3 % (36-48); HEMOGLOBIN 12.2 g/dL (12.0-16.0); LYMPHOCYTES # (AUTO) 1.4 K/uL (2.5-16.5); LYMPHOCYTES % (AUTO) 11.8 % (20.5-51.1); MEAN CORPUSCULAR HEMOGLOBIN 28 pg (27-31); MEAN CORPUSCULAR HGB CONC 33 g/dL (33-37); MEAN CORPUSCULAR VOLUME 84.1 fL (80-94); MONOCYTES # (AUTO) 0.6 K/uL (0.8-1.0); MONOCYTES % (AUTO) 4.9 % (1.7-9.3); NEUTROPHILS # (AUTO) 9.5 K/uL (1.8-7.7); NEUTROPHILS % (AUTO) 82.3 % (42.2-75.2); PLATELET COUNT (AUTO) 211 K/uL (140-450); RED BLOOD CELL COUNT(AUTO) 4.43 MIL/uL (4.20-5.40); RED CELL DISTRIBUTION WIDTH 16.5 % (11.6-13.7); WHITE BLOOD COUNT (AUTO) 11.6 K/uL (4.8-10.8)
[2018-04-11] MEDS ORDERED: VANCOMYCIN 1,000 MG in DEXTROSE 5% 250 ML IV ONE (17:30)
[2018-04-11 17:33] LABS: ANION GAP 10.6 (8-16); CARBON DIOXIDE 31.1 mmol/L (21-32); CREATININE 1.3 mg/dL (0.6-1.3); POTASSIUM 3.7 mmol/L (3.5-5.1)
[2018-04-11 17:38] LABS: ALBUMIN 3.8 g/dL (3.4-5.0); TOTAL BILIRUBIN 0.5 mg/dL (0.0-1.0)
[2018-04-11] MEDS ORDERED: VANCOMYCIN 1,000 MG VIAL ONE (17:57)
[2018-04-11] MEDS ORDERED: NACL 0.9% 1,000 ML IV SCH (18:03)
[2018-04-11] MEDS ORDERED: ONDANSETRON 4 MG/2 ML VIAL IM/IVP PRN (18:05)
[2018-04-11] MEDS ORDERED: MORPHINE SULFATE 2 MG/ML SYR IVP ONE (18:05)
[2018-04-11] MEDS ORDERED: LORazepam 2 MG/ML VIAL IM/IVP PRN (18:05)
[2018-04-11] MEDS ORDERED: DOCUSATE SODIUM 100 MG GELCAP PO PRN ×2 (18:05→18:15)
[2018-04-11] MEDS ORDERED: HYDROcodone/APAP 5/325 MG 1 TAB TAB PO PRN (18:05)
[2018-04-11] MEDS ORDERED: ACETAMINOPHEN 325 MG TAB PO PRN (18:05)
[2018-04-11] MEDS ORDERED: ZOLPIDEM 5 MG TAB PO PRN (18:05)
[2018-04-11 18:08] LABS: PROTHROMBIN TIME 9.6 secs (10.8-13.4)
[2018-04-11] MEDS ORDERED: ALPRAZolam 0.5 MG TAB PO SCH (18:15)
[2018-04-11] MEDS ORDERED: EPOETIN ALFA 2,000 UNITS/ML VIAL SUBQ SCH (18:15)
[2018-04-11] MEDS ORDERED: IBUPROFEN 800 MG TAB PO SCH (18:15)
[2018-04-11] MEDS ORDERED: ALBUTEROL SULFATE/IPRATROPIU 3 ML SOL IH PRN (18:15)
[2018-04-11 18:16] LABS: APPEARANCE,URINE CLEAR (CLEAR); BILIRUBIN,URINE NEGATIVE (NEGATIVE); BLOOD, URINE 2+ (NEGATIVE); COLOR,URINE YELLOW (YELLOW); LEUKOCYTE ESTERASE ,URINE NEGATIVE (NEGATIVE); NITRITE, URINE NEGATIVE (NEGATIVE); UGLUCOSE NEGATIVE (NEGATIVE)
[2018-04-11] MEDS ORDERED: MORPHINE SULFATE 4 MG/ML SYR ONE (18:21)
[2018-04-11 18:23] LABS: RBC,URINE 11-20 (MOD) /HPF (0-5)
[2018-04-11 18:24] LABS: WBC,URINE 0-5 (RARE) /HPF (0-5)
[2018-04-11] MEDS ORDERED: LEVOFLOXACIN 750 MG/D5W PREMIX 150 ML IV ONE (18:25)
[2018-04-11] MEDS ORDERED: CLINDAMYCIN 600 MG in DEXTROSE 5% 50 ML IV ONE (18:25)
[2018-04-11] MEDS ORDERED: PRED20TA5 PO (18:32)
[2018-04-11] MEDS ORDERED: CEL250 PO (18:32)
[2018-04-11] MEDS ORDERED: FERR-252 PO (18:32)
[2018-04-11] MEDS ORDERED: FURO-572 PO (18:32)
[2018-04-11] MEDS ORDERED: CLIN300C2 PO (18:32)
[2018-04-11 18:54] LABS: BARBITURATE, URINE NEG. ng/ml (NEG <=200); BENZODIAZEPINE, URINE NEG. ng/mL (NEG <=200); CANNABINOID, URINE NEG. ng/mL (NEG <=50); COCAINE, URINE NEG. ng/mL (NEG <=300); OPIATE, URINE NEG. ng/mL (NEG <=2000); PHENCYCLIDINE SCREEN,URINE NEG. ng/mL (NEG <=25)
[2018-04-11 19:02] LABS: CHOL/HDL RATIO 2.6 (1-4.5); MAGNESIUM 1.9 mg/dL (1.8-2.4); PHOSPHORUS 3.8 mg/dL (2.5-4.9); THYROID STIMULATING HORMONE 2.05 uIU/mL (0.34-3.74)
[2018-04-11] MEDS: BUDESONIDE 0.5 MG/2 ML NEBU INH SCH (19:35)
[2018-04-11] MEDS: hydrALAZINE 25 MG TAB PO SCH (20:22)
[2018-04-11] MEDS: METOPROLOL 50 MG TAB PO SCH (20:22)
[2018-04-11] MEDS: PANTOPRAZOLE 40 MG TABEC PO SCH (20:23)
[2018-04-11] MEDS ORDERED: CLINDAMYCIN 600 MG/4 ML VIAL ONE (20:48)
[2018-04-11] MEDS: LEVOFLOXACIN 750 MG/D5W PREMIX 150 ML IV SCH (20:52)
[2018-04-11] MEDS: MYCOPHENOLATE 250 MG CAP PO SCH (20:52)
[2018-04-11] MEDS: CLINDAMYCIN 600 MG in DEXTROSE 5% 50 ML IV SCH (23:11)
[2018-04-11] MEDS ORDERED: ALPRAZolam 0.25 MG TAB ONE (23:27)
[2018-04-11] MEDS ORDERED: hydrALAZINE 20 MG/ML VIAL IVP ONE (23:50)
[2018-04-12] MEDS: CLINDAMYCIN 600 MG in DEXTROSE 5% 50 ML IV SCH (04:47)
[2018-04-12] MEDS ORDERED: CLINDAMYCIN 600 MG/4 ML VIAL ONE (04:47)
[2018-04-12 06:58] LABS: BASOPHILS % (AUTO) 0.3 % (0.0-2.0); EOSINOPHILS % (AUTO) 0.2 % (0.0-4.0); HEMOGLOBIN 11.8 g/dL (12.0-16.0); LYMPHOCYTES # (AUTO) 0.7 K/uL (2.5-16.5); LYMPHOCYTES % (AUTO) 7.6 % (20.5-51.1); MEAN CORPUSCULAR HEMOGLOBIN 28 pg (27-31); MEAN CORPUSCULAR HGB CONC 34 g/dL (33-37); MONOCYTES # (AUTO) 0.3 K/uL (0.8-1.0); MONOCYTES % (AUTO) 3.7 % (1.7-9.3); NEUTROPHILS # (AUTO) 8.2 K/uL (1.8-7.7); NEUTROPHILS % (AUTO) 88.2 % (42.2-75.2); PLATELET COUNT (AUTO) 200 K/uL (140-450); RED BLOOD CELL COUNT(AUTO) 4.17 MIL/uL (4.20-5.40); RED CELL DISTRIBUTION WIDTH 16.2 % (11.6-13.7); WHITE BLOOD COUNT (AUTO) 9.3 K/uL (4.8-10.8)
[2018-04-12 07:15] LABS: ANION GAP 9.8 (8-16); CARBON DIOXIDE 30.7 mmol/L (21-32); CREATININE 1.1 mg/dL (0.6-1.3); POTASSIUM 4.5 mmol/L (3.5-5.1)
[2018-04-12] MEDS: ALBUTEROL SULFATE/IPRATROPIU 3 ML SOL IH SCH ×3 (07:30→19:02)
[2018-04-12] MEDS: BUDESONIDE 0.5 MG/2 ML NEBU INH SCH ×2 (07:30→19:02)
[2018-04-12 08:00] VITALS: BP 176/93
[2018-04-12 08:45] LABS: PHOSPHORUS 4.3 mg/dL (2.5-4.9)
[2018-04-12] MEDS: ASCORBIC ACID 500 MG TAB PO SCH (09:00)
[2018-04-12] MEDS ORDERED: ATORVASTATIN 20 MG TAB PO SCH (09:00)
[2018-04-12] MEDS ORDERED: FUROSEMIDE 40 MG TAB PO SCH (09:00)
[2018-04-12] MEDS: ATORVASTATIN 20 MG TAB PO SCH (09:16)
[2018-04-12] MEDS: FERROUS SULFATE 325 MG TABEC PO SCH ×3 (09:16→16:43)
[2018-04-12] MEDS: LACTOBACILLUS RHAMNOSUS GG 1 EACH CAP PO SCH (09:17)
[2018-04-12] MEDS: VITAMIN D 400 IU TAB PO SCH (09:18)
[2018-04-12] MEDS: METOPROLOL 50 MG TAB PO SCH ×2 (09:18→20:37)
[2018-04-12] MEDS: ASPIRIN 81 MG TAB.CHEW PO SCH (09:19)
[2018-04-12] MEDS: FUROSEMIDE 20 MG TAB PO SCH (09:20)
[2018-04-12] MEDS: hydrALAZINE 25 MG TAB PO SCH ×3 (09:21→20:37)
[2018-04-12] MEDS: MYCOPHENOLATE 250 MG CAP PO SCH ×2 (09:22→20:38)
[2018-04-12] MEDS: PANTOPRAZOLE 40 MG TABEC PO SCH ×2 (09:25→20:36)
[2018-04-12] MEDS: FOLIC ACID 1 MG TAB PO SCH (09:25)
[2018-04-12] MEDS: amLODIPine 5 MG TAB PO SCH (09:25)
[2018-04-12] MEDS: NACL 0.45% 1,000 ML IV SCH ×3 (09:27→23:00)
[2018-04-12] MEDS: MORPHINE SULFATE 4 MG/ML SYR IVP PRN (11:05)
[2018-04-12] MEDS: predniSONE 20 MG TAB PO SCH (12:08)
[2018-04-12] MEDS: CLINDAMYCIN PHOS 600MG/D5W PM 50 ML IV SCH ×2 (12:09→20:36)
[2018-04-12] MEDS ORDERED: MORPHINE SULFATE 4 MG/ML SYR IVP SCH (12:14)
[2018-04-12] MEDS: THERAHONEY GEL 42.5 GM TP SCH (13:17)
[2018-04-12 16:48] VITALS: BP 177/95
[2018-04-12] MEDS ORDERED: LABETALOL 100 MG/20 ML VIAL IV SCH (17:30)
[2018-04-12] MEDS ORDERED: ALPRAZolam 0.5 MG TAB PO PRN (18:15)
[2018-04-12] MEDS: LEVOFLOXACIN 750 MG/D5W PREMIX 150 ML IV SCH (18:35)
[2018-04-12 20:00] VITALS: BP 185/93
[2018-04-13] VITALS: BP 165/101
[2018-04-13] MEDS ORDERED: hydrALAZINE 20 MG/ML VIAL IVP SCH (00:30)
[2018-04-13] MEDS: CLINDAMYCIN PHOS 600MG/D5W PM 50 ML IV SCH ×3 (04:52→22:18)
[2018-04-13] MEDS: hydrALAZINE 25 MG TAB PO SCH ×3 (04:52→20:51)
[2018-04-13] MEDS ORDERED: LABETALOL 100 MG/20 ML VIAL IV SCH (05:30)
[2018-04-13 07:23] LABS: BASOPHILS % (AUTO) 0.5 % (0.0-2.0); EOSINOPHILS % (AUTO) 0.6 % (0.0-4.0); HEMATOCRIT 33.8 % (36-48); HEMOGLOBIN 11.2 g/dL (12.0-16.0); LYMPHOCYTES # (AUTO) 1.4 K/uL (2.5-16.5); LYMPHOCYTES % (AUTO) 17.8 % (20.5-51.1); MEAN CORPUSCULAR HEMOGLOBIN 28 pg (27-31); MEAN CORPUSCULAR HGB CONC 33 g/dL (33-37); MEAN CORPUSCULAR VOLUME 83.8 fL (80-94); MONOCYTES # (AUTO) 0.3 K/uL (0.8-1.0); MONOCYTES % (AUTO) 4.6 % (1.7-9.3); NEUTROPHILS # (AUTO) 5.9 K/uL (1.8-7.7); NEUTROPHILS % (AUTO) 76.5 % (42.2-75.2); PLATELET COUNT (AUTO) 185 K/uL (140-450); RED BLOOD CELL COUNT(AUTO) 4.04 MIL/uL (4.20-5.40); RED CELL DISTRIBUTION WIDTH 16.1 % (11.6-13.7); WHITE BLOOD COUNT (AUTO) 7.7 K/uL (4.8-10.8)
[2018-04-13 07:31] LABS: PHOSPHORUS 4.6 mg/dL (2.5-4.9)
[2018-04-13 07:37] LABS: ANION GAP 12.9 (8-16); CARBON DIOXIDE 29.3 mmol/L (21-32); POTASSIUM 4.2 mmol/L (3.5-5.1)
[2018-04-13] MEDS: ALBUTEROL SULFATE/IPRATROPIU 3 ML SOL IH SCH ×3 (07:37→20:32)
[2018-04-13] MEDS: BUDESONIDE 0.5 MG/2 ML NEBU INH SCH ×2 (07:37→20:32)
[2018-04-13 08:15] VITALS: BP 159/88
[2018-04-13] MEDS: FERROUS SULFATE 325 MG TABEC PO SCH ×3 (08:31→18:48)
[2018-04-13] MEDS: amLODIPine 5 MG TAB PO SCH (08:31)
[2018-04-13] MEDS: FUROSEMIDE 20 MG TAB PO SCH (08:32)
[2018-04-13] MEDS: VITAMIN D 400 IU TAB PO SCH (08:32)
[2018-04-13] MEDS: FOLIC ACID 1 MG TAB PO SCH (08:32)
[2018-04-13] MEDS: ASPIRIN 81 MG TAB.CHEW PO SCH (08:33)
[2018-04-13] MEDS: MYCOPHENOLATE 250 MG CAP PO SCH ×2 (08:33→20:45)
[2018-04-13] MEDS: METOPROLOL 50 MG TAB PO SCH ×2 (08:33→20:50)
[2018-04-13] MEDS: LACTOBACILLUS RHAMNOSUS GG 1 EACH CAP PO SCH (08:35)
[2018-04-13] MEDS: PANTOPRAZOLE 40 MG TABEC PO SCH ×2 (08:35→20:50)
[2018-04-13] MEDS: ATORVASTATIN 20 MG TAB PO SCH (08:36)
[2018-04-13] MEDS: ASCORBIC ACID 500 MG TAB PO SCH (09:00)
[2018-04-13] MEDS: THERAHONEY GEL 42.5 GM TP SCH (10:49)
[2018-04-13] MEDS: MORPHINE SULFATE 4 MG/ML SYR IVP PRN (10:53)
[2018-04-13] MEDS ORDERED: MAGNESIUM HYDROXIDE 2400 MG/30 ML UDC PO SCH (11:00)
[2018-04-13] MEDS: predniSONE 20 MG TAB PO SCH (12:48)
[2018-04-13 20:00] VITALS: BP 158/88
[2018-04-13] MEDS: LEVOFLOXACIN 750 MG/D5W PREMIX 150 ML IV SCH (20:45)
[2018-04-14] VITALS: BP 135/73
[2018-04-14 04:00] VITALS: BP 155/84
[2018-04-14] MEDS: hydrALAZINE 25 MG TAB PO SCH ×2 (04:29→12:26)
[2018-04-14] MEDS: CLINDAMYCIN PHOS 600MG/D5W PM 50 ML IV SCH ×2 (04:29→12:27)
[2018-04-14 07:18] LABS: BASOPHILS % (AUTO) 0.7 % (0.0-2.0); EOSINOPHILS # (AUTO) 0.1 K/uL (0-0.4); EOSINOPHILS % (AUTO) 0.9 % (0.0-4.0); HEMATOCRIT 33.1 % (36-48); LYMPHOCYTES # (AUTO) 1.3 K/uL (2.5-16.5); MEAN CORPUSCULAR HEMOGLOBIN 28 pg (27-31); MEAN CORPUSCULAR HGB CONC 33 g/dL (33-37); MEAN CORPUSCULAR VOLUME 84.1 fL (80-94); MONOCYTES # (AUTO) 0.3 K/uL (0.8-1.0); MONOCYTES % (AUTO) 4.5 % (1.7-9.3); NEUTROPHILS # (AUTO) 5.5 K/uL (1.8-7.7); NEUTROPHILS % (AUTO) 75.9 % (42.2-75.2); PLATELET COUNT (AUTO) 187 K/uL (140-450); RED BLOOD CELL COUNT(AUTO) 3.93 MIL/uL (4.20-5.40); RED CELL DISTRIBUTION WIDTH 16.6 % (11.6-13.7); WHITE BLOOD COUNT (AUTO) 7.3 K/uL (4.8-10.8)
[2018-04-14 07:23] LABS: ANION GAP 9.8 (8-16); CARBON DIOXIDE 30.4 mmol/L (21-32); CREATININE 1.3 mg/dL (0.6-1.3); POTASSIUM 4.2 mmol/L (3.5-5.1)
[2018-04-14 08:00] VITALS: BP 151/78
[2018-04-14] MEDS: BUDESONIDE 0.5 MG/2 ML NEBU INH SCH (08:02)
[2018-04-14] MEDS: ALBUTEROL SULFATE/IPRATROPIU 3 ML SOL IH SCH ×2 (08:02→13:50)
[2018-04-14] MEDS: MYCOPHENOLATE 250 MG CAP PO SCH (08:28)
[2018-04-14] MEDS: FERROUS SULFATE 325 MG TABEC PO SCH ×2 (08:28→12:26)
[2018-04-14] MEDS: VITAMIN D 400 IU TAB PO SCH (08:29)
[2018-04-14] MEDS: PANTOPRAZOLE 40 MG TABEC PO SCH (08:29)
[2018-04-14] MEDS: amLODIPine 5 MG TAB PO SCH (08:29)
[2018-04-14] MEDS: FUROSEMIDE 20 MG TAB PO SCH (08:30)
[2018-04-14] MEDS: FOLIC ACID 1 MG TAB PO SCH (08:30)
[2018-04-14] MEDS: LACTOBACILLUS RHAMNOSUS GG 1 EACH CAP PO SCH (08:30)
[2018-04-14] MEDS: ASPIRIN 81 MG TAB.CHEW PO SCH (08:31)
[2018-04-14] MEDS: METOPROLOL 50 MG TAB PO SCH (08:31)
[2018-04-14] MEDS: ASCORBIC ACID 500 MG TAB PO SCH (08:32)
[2018-04-14] MEDS ORDERED: HYDR100T79 PO (11:20)
[2018-04-14] MEDS ORDERED: LACT10CA1 PO (11:20)
[2018-04-14] MEDS ORDERED: CLIN300C2 PO (11:20)
[2018-04-14] MEDS ORDERED: LEVO750T2 PO (11:20)
[2018-04-14] MEDS: predniSONE 20 MG TAB PO SCH (12:26)
[2018-04-14] MEDS: MORPHINE SULFATE 4 MG/ML SYR IVP PRN (12:27)
[2018-04-14] MEDS: THERAHONEY GEL 42.5 GM TP SCH (12:27)
[2018-04-14] MEDS ORDERED: ATORVASTATIN 20 MG TAB PO SCH (21:00)
== END 2018-04-14 15:00 | disposition home or self-care (01) | DRG 602 ==
LOC: MED 16:11 → MTU 18:07
PROVIDERS: ADMIT Family Medicine; ATTEND Family Medicine
DX: L03.115 Cellulitis of right lower limb (principal); N17.0 Acute kidney failure with tubular necrosis; L97.319 Non-pressure chronic ulcer of right ankle with unspecified severity; Z68.43 Body mass index [BMI] 50.0-59.9, adult; J45.909 Unspecified asthma, uncomplicated; I10 Essential (primary) hypertension; E78.00 Pure hypercholesterolemia, unspecified; D89.9 Disorder involving the immune mechanism, unspecified; M19.90 Unspecified osteoarthritis, unspecified site; G47.33 Obstructive sleep apnea (adult) (pediatric); R31.9 Hematuria, unspecified; E66.01 Morbid (severe) obesity due to excess calories; M32.9 Systemic lupus erythematosus, unspecified; M32.14 Glomerular disease in systemic lupus erythematosus; I73.9 Peripheral vascular disease, unspecified; I25.10 Atherosclerotic heart disease of native coronary artery without angina pectoris; E86.0 Dehydration; S91.001A Unspecified open wound, right ankle, initial encounter; X58.XXXA Exposure to other specified factors, initial encounter; N20.0 Calculus of kidney; D64.9 Anemia, unspecified; M77.31 Calcaneal spur, right foot; B96.4 Proteus (mirabilis) (morganii) as the cause of diseases classified elsewhere; B96.89 Other specified bacterial agents as the cause of diseases classified elsewhere; Z88.1 Allergy status to other antibiotic agents; Z88.0 Allergy status to penicillin; Z88.2 Allergy status to sulfonamides; Z88.8 Allergy status to other drugs, medicaments and biological substances; Z79.899 Other long term (current) drug therapy; Z98.51 Tubal ligation status; Z87.891 Personal history of nicotine dependence; Y93.89 Activity, other specified; Y92.89 Other specified places as the place of occurrence of the external cause; Y99.8 Other external cause status
CPT/HCPCS: 36415; 71045; 73610; 76770; 76881; 78315; 80048; 80053; 80305; 81001; 83036; 83605; 83690; 83735; 83880; 84100; 84134; 84443; 84484; 85025; 85610; 85730; 87040; 87070; 87081; 87086; 87186; 93005; 93922; 93925; 93970; 94640; 94660; 96361; 96374; 96375; 99285; J0360; J1644; J1956; J2270; J3010; J3370; J3490; J7060; J7512; J7517; J7620; J7626; Q0092

== ENCOUNTER 2018-04-22 11:30 | Outpatient (CLI) | payer OTHER ==
[~2018-04-22 11:30] MED LIST changes: -ASCO1CAP75 PO; +CEL250 PO; -CEPH250C16 PO; +CLIN300C2 PO; +FERR-252 PO; -FURO-570 PO; +FURO-572 PO; -HYDR-1098 PO; +HYDR100T79 PO; -IBUP-974 PO; +LACT10CA1 PO; +LEVO750T2 PO; -MECL-270 PO; -METH4TAB1 PO; +PRED20TA5 PO; -PROC2I SUBQ
[2018-04-22 12:22] LABS: BASOPHILS # (AUTO) 0.1 K/uL (0.00-0.22); BASOPHILS % (AUTO) 0.5 % (0.0-2.0); EOSINOPHILS # (AUTO) 0.1 K/uL (0-0.4); EOSINOPHILS % (AUTO) 0.6 % (0.0-4.0); HEMATOCRIT 37.3 % (36-48); HEMOGLOBIN 12.2 g/dL (12.0-16.0); LYMPHOCYTES # (AUTO) 1.8 K/uL (2.5-16.5); LYMPHOCYTES % (AUTO) 15.2 % (20.5-51.1); MEAN CORPUSCULAR HEMOGLOBIN 28 pg (27-31); MEAN CORPUSCULAR HGB CONC 33 g/dL (33-37); MEAN CORPUSCULAR VOLUME 83.8 fL (80-94); MONOCYTES # (AUTO) 0.5 K/uL (0.8-1.0); MONOCYTES % (AUTO) 3.7 % (1.7-9.3); NEUTROPHILS # (AUTO) 9.7 K/uL (1.8-7.7); PLATELET COUNT (AUTO) 178 K/uL (140-450); RED BLOOD CELL COUNT(AUTO) 4.45 MIL/uL (4.20-5.40); RED CELL DISTRIBUTION WIDTH 16.6 % (11.6-13.7); WHITE BLOOD COUNT (AUTO) 12.1 K/uL (4.8-10.8)
[2018-04-22 12:40] LABS: ANION GAP 13.2 (8-16); CARBON DIOXIDE 32.4 mmol/L (21-32); CREATININE 1.3 mg/dL (0.6-1.3); POTASSIUM 3.6 mmol/L (3.5-5.1)
[2018-04-22 12:46] LABS: ALBUMIN 4.1 g/dL (3.4-5.0); TOTAL BILIRUBIN 0.5 mg/dL (0.0-1.0)
== END 2018-04-22 21:21 | disposition home or self-care (01) ==
LOC: MLB 11:30
PROVIDERS: ATTEND Internal Medicine
DX: N18.9 Chronic kidney disease, unspecified (principal)
CPT/HCPCS: 36415; 80053; 84157; 85025

== ENCOUNTER 2018-04-30 15:57 | Outpatient (CLI) | payer OTHER ==
[2018-04-30 16:19] LABS: BASOPHILS # (AUTO) 0.1 K/uL (0.00-0.22); BASOPHILS % (AUTO) 0.7 % (0.0-2.0); EOSINOPHILS # (AUTO) 0.1 K/uL (0-0.4); EOSINOPHILS % (AUTO) 0.8 % (0.0-4.0); HEMATOCRIT 37.6 % (36-48); HEMOGLOBIN 12.2 g/dL (12.0-16.0); LYMPHOCYTES # (AUTO) 1.7 K/uL (2.5-16.5); LYMPHOCYTES % (AUTO) 14.8 % (20.5-51.1); MEAN CORPUSCULAR HEMOGLOBIN 27 pg (27-31); MEAN CORPUSCULAR HGB CONC 32 g/dL (33-37); MEAN CORPUSCULAR VOLUME 84.4 fL (80-94); MONOCYTES # (AUTO) 0.5 K/uL (0.8-1.0); MONOCYTES % (AUTO) 3.9 % (1.7-9.3); NEUTROPHILS # (AUTO) 9.3 K/uL (1.8-7.7); NEUTROPHILS % (AUTO) 79.8 % (42.2-75.2); PLATELET COUNT (AUTO) 194 K/uL (140-450); RED BLOOD CELL COUNT(AUTO) 4.45 MIL/uL (4.20-5.40); RED CELL DISTRIBUTION WIDTH 16.2 % (11.6-13.7); WHITE BLOOD COUNT (AUTO) 11.7 K/uL (4.8-10.8)
== END 2018-04-30 20:50 | disposition home or self-care (01) ==
LOC: MLB 15:57
DX: D72.819 Decreased white blood cell count, unspecified (principal); D50.9 Iron deficiency anemia, unspecified; D69.2 Other nonthrombocytopenic purpura; D73.5 Infarction of spleen; K63.5 Polyp of colon; K52.9 Noninfective gastroenteritis and colitis, unspecified; I12.9 Hypertensive chronic kidney disease with stage 1 through stage 4 chronic kidney disease, or unspecified chronic kidney disease; N18.9 Chronic kidney disease, unspecified; J45.909 Unspecified asthma, uncomplicated; Z86.2 Personal history of diseases of the blood and blood-forming organs and certain disorders involving the immune mechanism; Z83.2 Family history of diseases of the blood and blood-forming organs and certain disorders involving the immune mechanism; Z88.0 Allergy status to penicillin
CPT/HCPCS: 36415; 85025

== ENCOUNTER 2018-05-14 10:50 | Outpatient (CLI) | payer OTHER ==
[2018-05-14 11:19] LABS: BASOPHILS # (AUTO) 0.1 K/uL (0.00-0.22); EOSINOPHILS % (AUTO) 0.3 % (0.0-4.0); HEMATOCRIT 42.3 % (36-48); HEMOGLOBIN 13.7 g/dL (12.0-16.0); LYMPHOCYTES # (AUTO) 2.3 K/uL (2.5-16.5); LYMPHOCYTES % (AUTO) 16.9 % (20.5-51.1); MEAN CORPUSCULAR HEMOGLOBIN 28 pg (27-31); MEAN CORPUSCULAR HGB CONC 32 g/dL (33-37); MEAN CORPUSCULAR VOLUME 86.2 fL (80-94); MONOCYTES # (AUTO) 0.5 K/uL (0.8-1.0); MONOCYTES % (AUTO) 3.7 % (1.7-9.3); NEUTROPHILS # (AUTO) 10.5 K/uL (1.8-7.7); NEUTROPHILS % (AUTO) 78.1 % (42.2-75.2); PLATELET COUNT (AUTO) 204 K/uL (140-450); RED BLOOD CELL COUNT(AUTO) 4.91 MIL/uL (4.20-5.40); RED CELL DISTRIBUTION WIDTH 16.5 % (11.6-13.7); WHITE BLOOD COUNT (AUTO) 13.5 K/uL (4.8-10.8)
[2018-05-14 11:39] LABS: ALBUMIN 4.2 g/dL (3.4-5.0); ANION GAP 14.6 (8-16); CARBON DIOXIDE 29.2 mmol/L (21-32); CREATININE 1.2 mg/dL (0.6-1.3); POTASSIUM 3.8 mmol/L (3.5-5.1); TOTAL BILIRUBIN 0.6 mg/dL (0.0-1.0)
[2018-05-14 11:58] LABS: APPEARANCE,URINE CLEAR (CLEAR); BILIRUBIN,URINE NEGATIVE (NEGATIVE); BLOOD, URINE SMALL (NEGATIVE); COLOR,URINE YELLOW (YELLOW); LEUKOCYTE ESTERASE ,URINE NEGATIVE (NEGATIVE); NITRITE, URINE NEGATIVE (NEGATIVE); PH,URINE 5.5 (5.0-9.0); UGLUCOSE NEGATIVE (NEGATIVE)
[2018-05-14 12:04] LABS: RBC,URINE 3-10 (FEW) /HPF (0-5); WBC,URINE 0-5 (RARE) /HPF (0-5)
[2018-05-16 06:27] LABS: ANTI DOUBLE STRANDED DNA AB 1 IU/mL (0-9)
== END 2018-05-14 20:00 | disposition home or self-care (01) ==
LOC: MLB 10:50
DX: M32.14 Glomerular disease in systemic lupus erythematosus (principal); I10 Essential (primary) hypertension; J45.909 Unspecified asthma, uncomplicated; E11.9 Type 2 diabetes mellitus without complications; Z79.899 Other long term (current) drug therapy
CPT/HCPCS: 36415; 80053; 81001; 85025; 85651; 86140; 86160; 87086

== ENCOUNTER 2018-05-28 18:50 | Emergency (ER) | payer OTHER ==
[~2018-05-28] VITALS: Ht 167.6 cm; Wt 150.6 kg
[2018-05-28 19:02] VITALS: BP 170/84
--- NOTE | 2018-05-28 19:10 | NUR ---
PT AMBULATED TO ER BED 11
--- NOTE | 2018-05-28 19:10 | NUR ---
PT PRESENTED ER WITH C/O HIGH BLOOD PRESSURE AND DREW X 1 DAY. PT STATES THAT SHE IS UNDER STRESS OF HAVING CHEMO. PT HAS HX OF HTN. PT BLOOD PRESSURE IN ER IS 160/102. PT IS A/O X 4. PT STATES HER DREW PAIN LEVEL IS 6/10 AT THIS TIME. VSS; PATIENT POSITIONED FOR COMFORT; HOB ELEVATED; BEDRAILS UP X2; BED DOWN. ER MD MADE AWARE OF PT STATUS.
--- NOTE | 2018-05-28 19:40 | NUR ---
BLOOD PRESSURE IS 160/102 MANUAL READ. ESTELLA VALENTINO MADE AWRE
[2018-05-28] MEDS ORDERED: METOPROLOL 50 MG TAB PO ONE (19:55)
[2018-05-28] MEDS ORDERED: hydrALAZINE 20 MG/ML VIAL IM ONE (20:30)
--- NOTE | 2018-05-28 21:00 | NUR ---
Note jaceone in EDM - 05/28/18 at 2104 by [email or web address] Patient discharged with v/s stable. Written and verbal after care instructions given and explained. Patient alert, oriented and verbalized understanding of instructions. Ambulatory with steady gait. All questions addressed prior to discharge. ID band removed. Patient advised to follow up with PMD. Rx of MOTRIN was given. Patient educated on indication of medication including possible reaction and side effects. Opportunity to ask questions provided and answered.
[2018-05-28] MEDS ORDERED: cloNIDine 0.1 MG TAB PO ONE (21:50)
[2018-05-28 22:30] VITALS: BP 143/86
--- NOTE | 2018-05-28 22:30 | NUR ---
Patient discharged with v/s stable. Written and verbal after care instructions given and explained. Patient verbalized understanding. Ambulatory with steady gait. All questions addressed prior to discharge. Advised to follow up with PMD.
== END 2018-05-28 22:30 | disposition home or self-care (01) ==
LOC: MED 18:50
DX: I10 Essential (primary) hypertension (principal); J45.909 Unspecified asthma, uncomplicated; Z88.0 Allergy status to penicillin; Z88.1 Allergy status to other antibiotic agents; Z88.2 Allergy status to sulfonamides; Z88.8 Allergy status to other drugs, medicaments and biological substances; Z79.82 Long term (current) use of aspirin; Z79.899 Other long term (current) drug therapy; Z79.2 Long term (current) use of antibiotics; Z79.891 Long term (current) use of opiate analgesic
CPT/HCPCS: 81002; 93005; 96372; 99283; J0360

== ENCOUNTER 2018-05-29 10:09 | Outpatient (CLI) | payer OTHER ==
[2018-05-29 10:23] LABS: BASOPHILS # (AUTO) 0.1 K/uL (0.00-0.22); BASOPHILS % (AUTO) 0.7 % (0.0-2.0); EOSINOPHILS % (AUTO) 0.5 % (0.0-4.0); HEMATOCRIT 40.7 % (36-48); HEMOGLOBIN 13.2 g/dL (12.0-16.0); LYMPHOCYTES # (AUTO) 1.5 K/uL (2.5-16.5); LYMPHOCYTES % (AUTO) 16.2 % (20.5-51.1); MEAN CORPUSCULAR HEMOGLOBIN 28 pg (27-31); MEAN CORPUSCULAR HGB CONC 33 g/dL (33-37); MEAN CORPUSCULAR VOLUME 86.5 fL (80-94); MONOCYTES # (AUTO) 0.3 K/uL (0.8-1.0); MONOCYTES % (AUTO) 3.5 % (1.7-9.3); NEUTROPHILS # (AUTO) 7.4 K/uL (1.8-7.7); NEUTROPHILS % (AUTO) 79.1 % (42.2-75.2); PLATELET COUNT (AUTO) 197 K/uL (140-450); RED CELL DISTRIBUTION WIDTH 17.1 % (11.6-13.7); WHITE BLOOD COUNT (AUTO) 9.3 K/uL (4.8-10.8)
[2018-05-29 10:41] LABS: ANION GAP 12.5 (8-16); CARBON DIOXIDE 30.9 mmol/L (21-32); CREATININE 1.1 mg/dL (0.6-1.3); POTASSIUM 3.4 mmol/L (3.5-5.1); TOTAL BILIRUBIN 0.4 mg/dL (0.0-1.0)
== END 2018-05-29 21:38 | disposition home or self-care (01) ==
LOC: MLB 10:09
DX: D50.9 Iron deficiency anemia, unspecified (principal); D72.819 Decreased white blood cell count, unspecified; D73.5 Infarction of spleen; K63.5 Polyp of colon; K25.9 Gastric ulcer, unspecified as acute or chronic, without hemorrhage or perforation; D69.2 Other nonthrombocytopenic purpura; I12.9 Hypertensive chronic kidney disease with stage 1 through stage 4 chronic kidney disease, or unspecified chronic kidney disease; N18.9 Chronic kidney disease, unspecified; Z86.2 Personal history of diseases of the blood and blood-forming organs and certain disorders involving the immune mechanism; J45.909 Unspecified asthma, uncomplicated; Z88.0 Allergy status to penicillin; Z88.8 Allergy status to other drugs, medicaments and biological substances
CPT/HCPCS: 36415; 80053; 85025

== ENCOUNTER 2018-06-28 11:23 | Outpatient (CLI) | payer OTHER ==
[2018-06-28 11:48] LABS: BASOPHILS # (AUTO) 0.1 K/uL (0.00-0.22); BASOPHILS % (AUTO) 1.1 % (0.0-2.0); EOSINOPHILS # (AUTO) 0.1 K/uL (0-0.4); EOSINOPHILS % (AUTO) 1.1 % (0.0-4.0); HEMATOCRIT 40.6 % (36-48); HEMOGLOBIN 13.2 g/dL (12.0-16.0); LYMPHOCYTES # (AUTO) 1.6 K/uL (2.5-16.5); LYMPHOCYTES % (AUTO) 14.4 % (20.5-51.1); MEAN CORPUSCULAR HEMOGLOBIN 29 pg (27-31); MEAN CORPUSCULAR HGB CONC 32 g/dL (33-37); MEAN CORPUSCULAR VOLUME 88.2 fL (80-94); MONOCYTES # (AUTO) 0.6 K/uL (0.8-1.0); MONOCYTES % (AUTO) 5.1 % (1.7-9.3); NEUTROPHILS # (AUTO) 8.9 K/uL (1.8-7.7); NEUTROPHILS % (AUTO) 78.3 % (42.2-75.2); PLATELET COUNT (AUTO) 186 K/uL (140-450); RED BLOOD CELL COUNT(AUTO) 4.61 MIL/uL (4.20-5.40); RED CELL DISTRIBUTION WIDTH 17.1 % (11.6-13.7); WHITE BLOOD COUNT (AUTO) 11.4 K/uL (4.8-10.8)
[2018-06-28 12:49] LABS: ALBUMIN 4.1 g/dL (3.4-5.0); ANION GAP 11.5 (8-16); CARBON DIOXIDE 30.1 mmol/L (21-32); CREATININE 1.1 mg/dL (0.6-1.3); POTASSIUM 3.6 mmol/L (3.5-5.1); TOTAL BILIRUBIN 0.5 mg/dL (0.0-1.0)
== END 2018-06-28 21:26 | disposition home or self-care (01) ==
LOC: MLB 11:23
DX: D50.9 Iron deficiency anemia, unspecified (principal); D72.819 Decreased white blood cell count, unspecified; D73.5 Infarction of spleen; K63.5 Polyp of colon; I12.9 Hypertensive chronic kidney disease with stage 1 through stage 4 chronic kidney disease, or unspecified chronic kidney disease; N18.9 Chronic kidney disease, unspecified; D69.2 Other nonthrombocytopenic purpura; Z86.2 Personal history of diseases of the blood and blood-forming organs and certain disorders involving the immune mechanism; Z88.0 Allergy status to penicillin
CPT/HCPCS: 36415; 80053; 85025

== ENCOUNTER 2018-07-12 10:51 | Outpatient (CLI) | payer OTHER ==
[~2018-07-12 10:51] MED LIST changes: +ASPI-1718 PO; -ASPI81CT89 PO; +CALC-55 PO; -CALC-846 PO
[2018-07-12 11:36] LABS: BASOPHILS # (AUTO) 0.1 K/uL (0.00-0.22); BASOPHILS % (AUTO) 0.8 % (0.0-2.0); EOSINOPHILS # (AUTO) 0.1 K/uL (0-0.4); EOSINOPHILS % (AUTO) 0.8 % (0.0-4.0); HEMATOCRIT 42.7 % (36-48); HEMOGLOBIN 13.9 g/dL (12.0-16.0); LYMPHOCYTES # (AUTO) 1.5 K/uL (2.5-16.5); LYMPHOCYTES % (AUTO) 13.9 % (20.5-51.1); MEAN CORPUSCULAR HEMOGLOBIN 29 pg (27-31); MEAN CORPUSCULAR HGB CONC 33 g/dL (33-37); MEAN CORPUSCULAR VOLUME 90.1 fL (80-94); MONOCYTES # (AUTO) 0.4 K/uL (0.8-1.0); MONOCYTES % (AUTO) 4.2 % (1.7-9.3); NEUTROPHILS # (AUTO) 8.5 K/uL (1.8-7.7); NEUTROPHILS % (AUTO) 80.3 % (42.2-75.2); PLATELET COUNT (AUTO) 172 K/uL (140-450); RED BLOOD CELL COUNT(AUTO) 4.74 MIL/uL (4.20-5.40); RED CELL DISTRIBUTION WIDTH 17.5 % (11.6-13.7); WHITE BLOOD COUNT (AUTO) 10.6 K/uL (4.8-10.8)
[2018-07-12 11:47] LABS: APPEARANCE,URINE CLEAR (CLEAR); BILIRUBIN,URINE NEGATIVE (NEGATIVE); BLOOD, URINE TRACE-I (NEGATIVE); COLOR,URINE YELLOW (YELLOW); LEUKOCYTE ESTERASE ,URINE TRACE (NEGATIVE); NITRITE, URINE NEGATIVE (NEGATIVE); UGLUCOSE NEGATIVE (NEGATIVE)
[2018-07-12 12:04] LABS: ALBUMIN 4.3 g/dL (3.4-5.0); ANION GAP 5.8 (8-16); CARBON DIOXIDE 33.2 mmol/L (21-32); CREATININE 1.2 mg/dL (0.6-1.3); TOTAL BILIRUBIN 0.6 mg/dL (0.0-1.0)
[2018-07-12 12:48] LABS: RBC,URINE 0-5 (RARE) /HPF (0-5)
== END 2018-07-12 19:52 | disposition home or self-care (01) ==
LOC: MLB 10:51
DX: I12.9 Hypertensive chronic kidney disease with stage 1 through stage 4 chronic kidney disease, or unspecified chronic kidney disease (principal); E11.22 Type 2 diabetes mellitus with diabetic chronic kidney disease; N18.3 Chronic kidney disease, stage 3 (moderate); E78.5 Hyperlipidemia, unspecified; J45.909 Unspecified asthma, uncomplicated
CPT/HCPCS: 36415; 80053; 81001; 84157; 85025; 87086

== ENCOUNTER 2018-07-26 13:14 | Outpatient (CLI) | payer OTHER ==
[2018-07-26 14:23] LABS: BASOPHILS % (AUTO) 0.4 % (0.0-2.0); EOSINOPHILS # (AUTO) 0.1 K/uL (0-0.4); HEMATOCRIT 42.5 % (36-48); LYMPHOCYTES # (AUTO) 0.9 K/uL (2.5-16.5); LYMPHOCYTES % (AUTO) 9.1 % (20.5-51.1); MEAN CORPUSCULAR HEMOGLOBIN 30 pg (27-31); MEAN CORPUSCULAR HGB CONC 33 g/dL (33-37); MEAN CORPUSCULAR VOLUME 89.6 fL (80-94); MONOCYTES # (AUTO) 0.5 K/uL (0.8-1.0); MONOCYTES % (AUTO) 5.5 % (1.7-9.3); NEUTROPHILS # (AUTO) 8.2 K/uL (1.8-7.7); PLATELET COUNT (AUTO) 187 K/uL (140-450); RED BLOOD CELL COUNT(AUTO) 4.75 MIL/uL (4.20-5.40); RED CELL DISTRIBUTION WIDTH 17.2 % (11.6-13.7); WHITE BLOOD COUNT (AUTO) 9.7 K/uL (4.8-10.8)
[2018-07-26 15:05] LABS: ALBUMIN 4.1 g/dL (3.4-5.0); ANION GAP 10.4 (8-16); CARBON DIOXIDE 29.2 mmol/L (21-32); CREATININE 1.2 mg/dL (0.6-1.3); POTASSIUM 3.6 mmol/L (3.5-5.1); TOTAL BILIRUBIN 0.5 mg/dL (0.0-1.0)
[2018-07-26 16:24] LABS: APPEARANCE,URINE CLEAR (CLEAR); BILIRUBIN,URINE NEGATIVE (NEGATIVE); BLOOD, URINE TRACE-I (NEGATIVE); COLOR,URINE YELLOW (YELLOW); LEUKOCYTE ESTERASE ,URINE 1+ (NEGATIVE); NITRITE, URINE NEGATIVE (NEGATIVE); UGLUCOSE NEGATIVE (NEGATIVE)
[2018-07-26 16:36] LABS: RBC,URINE 3-10 (FEW) /HPF (0-5); WBC,URINE 6-15 (FEW) /HPF (0-5)
== END 2018-07-26 17:40 | disposition home or self-care (01) ==
LOC: MLB 13:14
DX: D50.9 Iron deficiency anemia, unspecified (principal); Z86.2 Personal history of diseases of the blood and blood-forming organs and certain disorders involving the immune mechanism
CPT/HCPCS: 36415; 80053; 81001; 85025; 87086

== ENCOUNTER 2018-08-18 14:59 | Outpatient (CLI) | payer OTHER ==
[2018-08-18 15:35] LABS: BASOPHILS % (AUTO) 0.3 % (0.0-2.0); EOSINOPHILS # (AUTO) 0.1 K/uL (0-0.4); HEMATOCRIT 39.4 % (36-48); LYMPHOCYTES # (AUTO) 0.4 K/uL (2.5-16.5); LYMPHOCYTES % (AUTO) 5.2 % (20.5-51.1); MEAN CORPUSCULAR HEMOGLOBIN 30 pg (27-31); MEAN CORPUSCULAR HGB CONC 33 g/dL (33-37); MEAN CORPUSCULAR VOLUME 90.4 fL (80-94); MONOCYTES # (AUTO) 0.3 K/uL (0.8-1.0); MONOCYTES % (AUTO) 4.2 % (1.7-9.3); NEUTROPHILS # (AUTO) 7.1 K/uL (1.8-7.7); NEUTROPHILS % (AUTO) 89.3 % (42.2-75.2); PLATELET COUNT (AUTO) 160 K/uL (140-450); RED BLOOD CELL COUNT(AUTO) 4.36 MIL/uL (4.20-5.40); RED CELL DISTRIBUTION WIDTH 16.8 % (11.6-13.7); WHITE BLOOD COUNT (AUTO) 7.9 K/uL (4.8-10.8)
[2018-08-18 15:52] LABS: ANION GAP 10.4 (8-16); CARBON DIOXIDE 29.6 mmol/L (21-32); CREATININE 1.2 mg/dL (0.6-1.3)
== END 2018-08-18 19:40 | disposition home or self-care (01) ==
LOC: MLB 14:59
DX: D50.9 Iron deficiency anemia, unspecified (principal); D72.819 Decreased white blood cell count, unspecified; D69.2 Other nonthrombocytopenic purpura; D73.5 Infarction of spleen; K63.5 Polyp of colon; K25.9 Gastric ulcer, unspecified as acute or chronic, without hemorrhage or perforation; I12.9 Hypertensive chronic kidney disease with stage 1 through stage 4 chronic kidney disease, or unspecified chronic kidney disease; N18.9 Chronic kidney disease, unspecified; Z88.0 Allergy status to penicillin
CPT/HCPCS: 36415; 80048; 85025

== ENCOUNTER 2018-09-01 14:06 | Emergency (ER) | payer OTHER ==
[~2018-09-01] VITALS: Ht 167.6 cm; Wt 160.6 kg
[2018-09-01 14:10] VITALS: BP 149/77
--- NOTE | 2018-09-01 14:22 | NUR ---
PT WHEELCHAIRED TO BED 10
--- NOTE | 2018-09-01 14:30 | NUR ---
C/O R LOWER LEG PAIN ,SWELLING& BRUISE 5/10 ACHING S/P FALL UP STAIRS LAST SUNDAY. ABLE TO AMBULATE. HX OF HTN, LUPUS,,ASTHMA,VASCULITIS, NEPRITIS, OSTEOARTHRITIS, ENLARGE SPLEEN. PATIENT POSITIONED FOR COMFORT; RLL ELEVATED AT THIS TIME; BEDRAILS UP X2; BED DOWN. ER MD MADE AWARE OF PT STATUS.
--- NOTE | 2018-09-01 15:02 | NUR ---
Patient being evaluated by DR FLOYD at bedside.
[2018-09-01] MEDS ORDERED: CEFTRIAXONE IM ONE (15:05)
[2018-09-01] MEDS ORDERED: LIDOCAINE MPF 1% IM ONE (15:05)
[2018-09-01 16:23] VITALS: BP 149/77
--- NOTE | 2018-09-01 16:24 | NUR ---
Patient discharged BY DR FLOYD. Written and verbal after care instructions given and explained. Patient alert, oriented and verbalized understanding of instructions. Ambulatory with steady gait. All questions addressed prior to discharge. ID band removed. Patient advised to follow up with PMD. Rx of KEFLEX given. Patient educated on indication of medication including possible reaction and side effects. Opportunity to ask questions provided and answered.
== END 2018-09-01 16:24 | disposition home or self-care (01) ==
LOC: MED 14:06 → EEVIPCON 14:06 → MED 16:24
DX: L03.115 Cellulitis of right lower limb (principal); I10 Essential (primary) hypertension; J45.909 Unspecified asthma, uncomplicated; M19.90 Unspecified osteoarthritis, unspecified site; M32.14 Glomerular disease in systemic lupus erythematosus; G47.30 Sleep apnea, unspecified; Z88.0 Allergy status to penicillin; Z88.1 Allergy status to other antibiotic agents; Z88.8 Allergy status to other drugs, medicaments and biological substances; Z79.899 Other long term (current) drug therapy; Z79.2 Long term (current) use of antibiotics; Z79.1 Long term (current) use of non-steroidal anti-inflammatories (NSAID)
CPT/HCPCS: 73590; 96372; 99283; J0696; J2001; Q0092

== ENCOUNTER 2018-09-10 11:03 | Outpatient (CLI) | payer OTHER ==
[2018-09-10 13:10] LABS: BASOPHILS % (AUTO) 0.4 % (0.0-2.0); EOSINOPHILS # (AUTO) 0.1 K/uL (0-0.4); EOSINOPHILS % (AUTO) 0.8 % (0.0-4.0); HEMOGLOBIN 13.1 g/dL (12.0-16.0); LYMPHOCYTES # (AUTO) 0.8 K/uL (2.5-16.5); LYMPHOCYTES % (AUTO) 9.3 % (20.5-51.1); MEAN CORPUSCULAR HEMOGLOBIN 31 pg (27-31); MEAN CORPUSCULAR HGB CONC 34 g/dL (33-37); MEAN CORPUSCULAR VOLUME 91.4 fL (80-94); MONOCYTES # (AUTO) 0.4 K/uL (0.8-1.0); MONOCYTES % (AUTO) 4.9 % (1.7-9.3); NEUTROPHILS # (AUTO) 7.4 K/uL (1.8-7.7); NEUTROPHILS % (AUTO) 84.6 % (42.2-75.2); PLATELET COUNT (AUTO) 194 K/uL (140-450); RED BLOOD CELL COUNT(AUTO) 4.26 MIL/uL (4.20-5.40); RED CELL DISTRIBUTION WIDTH 16.5 % (11.6-13.7); WHITE BLOOD COUNT (AUTO) 8.8 K/uL (4.8-10.8)
[2018-09-10 13:19] LABS: APPEARANCE,URINE CLEAR (CLEAR); BILIRUBIN,URINE NEGATIVE (NEGATIVE); BLOOD, URINE NEGATIVE (NEGATIVE); COLOR,URINE YELLOW (YELLOW); LEUKOCYTE ESTERASE ,URINE NEGATIVE (NEGATIVE); NITRITE, URINE NEGATIVE (NEGATIVE); PH,URINE 6.5 (5.0-9.0); UGLUCOSE NEGATIVE (NEGATIVE)
[2018-09-10 13:50] LABS: ALBUMIN 3.9 g/dL (3.4-5.0); ANION GAP 10.9 (8-16); CARBON DIOXIDE 32.5 mmol/L (21-32); CREATININE 0.9 mg/dL (0.6-1.3); POTASSIUM 3.4 mmol/L (3.5-5.1); TOTAL BILIRUBIN 0.6 mg/dL (0.0-1.0)
== END 2018-09-10 16:43 | disposition home or self-care (01) ==
LOC: MLB 11:03
PROVIDERS: ATTEND Specialist
DX: E78.5 Hyperlipidemia, unspecified (principal); I12.9 Hypertensive chronic kidney disease with stage 1 through stage 4 chronic kidney disease, or unspecified chronic kidney disease; N18.3 Chronic kidney disease, stage 3 (moderate); M32.14 Glomerular disease in systemic lupus erythematosus; J45.909 Unspecified asthma, uncomplicated; Z88.0 Allergy status to penicillin; Z88.8 Allergy status to other drugs, medicaments and biological substances
CPT/HCPCS: 36415; 80053; 81003; 84157; 85025

== ENCOUNTER 2018-09-21 12:07 | Outpatient (CLI) | payer OTHER ==
[2018-09-21 13:50] LABS: BASOPHILS # (AUTO) 0.1 K/uL (0.00-0.22); EOSINOPHILS # (AUTO) 0.1 K/uL (0-0.4); EOSINOPHILS % (AUTO) 0.9 % (0.0-4.0); HEMOGLOBIN 13.2 g/dL (12.0-16.0); LYMPHOCYTES # (AUTO) 0.9 K/uL (2.5-16.5); LYMPHOCYTES % (AUTO) 10.2 % (20.5-51.1); MEAN CORPUSCULAR HEMOGLOBIN 30 pg (27-31); MEAN CORPUSCULAR HGB CONC 34 g/dL (33-37); MONOCYTES # (AUTO) 0.4 K/uL (0.8-1.0); MONOCYTES % (AUTO) 4.3 % (1.7-9.3); NEUTROPHILS # (AUTO) 7.6 K/uL (1.8-7.7); NEUTROPHILS % (AUTO) 83.6 % (42.2-75.2); PLATELET COUNT (AUTO) 212 K/uL (140-450); RED BLOOD CELL COUNT(AUTO) 4.34 MIL/uL (4.20-5.40); RED CELL DISTRIBUTION WIDTH 16.3 % (11.6-13.7); WHITE BLOOD COUNT (AUTO) 9.1 K/uL (4.8-10.8)
[2018-09-21 13:58] LABS: ANION GAP 12.6 (8-16); CARBON DIOXIDE 30.1 mmol/L (21-32); CREATININE 1.1 mg/dL (0.6-1.3); POTASSIUM 3.7 mmol/L (3.5-5.1)
== END 2018-09-21 21:20 | disposition home or self-care (01) ==
LOC: MLB 12:07
DX: I12.9 Hypertensive chronic kidney disease with stage 1 through stage 4 chronic kidney disease, or unspecified chronic kidney disease (principal); N18.9 Chronic kidney disease, unspecified; D50.9 Iron deficiency anemia, unspecified; D72.819 Decreased white blood cell count, unspecified; D73.5 Infarction of spleen; K63.5 Polyp of colon; K25.9 Gastric ulcer, unspecified as acute or chronic, without hemorrhage or perforation; D69.2 Other nonthrombocytopenic purpura; Z83.2 Family history of diseases of the blood and blood-forming organs and certain disorders involving the immune mechanism
CPT/HCPCS: 36415; 80048; 85025

== ENCOUNTER 2018-11-03 10:38 | Outpatient (CLI) | payer OTHER ==
[2018-11-03 11:01] LABS: BASOPHILS # (AUTO) 0.1 K/uL (0.00-0.22); BASOPHILS % (AUTO) 0.7 % (0.0-2.0); EOSINOPHILS # (AUTO) 0.2 K/uL (0-0.4); EOSINOPHILS % (AUTO) 1.7 % (0.0-4.0); HEMATOCRIT 37.8 % (36-48); HEMOGLOBIN 12.5 g/dL (12.0-16.0); LYMPHOCYTES # (AUTO) 0.6 K/uL (2.5-16.5); MEAN CORPUSCULAR HEMOGLOBIN 30 pg (27-31); MEAN CORPUSCULAR HGB CONC 33 g/dL (33-37); MONOCYTES # (AUTO) 0.5 K/uL (0.8-1.0); MONOCYTES % (AUTO) 4.9 % (1.7-9.3); NEUTROPHILS # (AUTO) 8.3 K/uL (1.8-7.7); PLATELET COUNT (AUTO) 203 K/uL (140-450); RED BLOOD CELL COUNT(AUTO) 4.24 MIL/uL (4.20-5.40); RED CELL DISTRIBUTION WIDTH 16.5 % (11.6-13.7); WHITE BLOOD COUNT (AUTO) 9.6 K/uL (4.8-10.8)
[2018-11-03 11:19] LABS: ALBUMIN 3.7 g/dL (3.4-5.0); ANION GAP 10.9 (8-16); CARBON DIOXIDE 28.8 mmol/L (21-32); POTASSIUM 3.7 mmol/L (3.5-5.1); TOTAL BILIRUBIN 0.5 mg/dL (0.0-1.0)
[2018-11-03 11:25] LABS: LYMPHOCYTES % (AUTO) 6.6 % (20.5-51.1); NEUTROPHILS % (AUTO) 86.1 % (42.2-75.2)
== END 2018-11-03 20:17 | disposition home or self-care (01) ==
LOC: MLB 10:38
PROVIDERS: ATTEND General Practice
DX: D50.9 Iron deficiency anemia, unspecified (principal)
CPT/HCPCS: 36415; 80053; 85025

== ENCOUNTER 2018-12-06 12:00 | Outpatient (CLI) | payer OTHER | END 2018-12-06 20:51 | disposition home or self-care (01) | LOC: MLB 12:00 | PROVIDERS: ATTEND General Practice | DX: Z13.89 Encounter for screening for other disorder (principal) | CPT/HCPCS: 36415; 80305 ==

== ENCOUNTER 2018-12-18 10:42 | Outpatient (CLI) | payer OTHER ==
[2018-12-18 11:11] LABS: BASOPHILS % (AUTO) 0.6 % (0.0-2.0); EOSINOPHILS # (AUTO) 0.1 K/uL (0-0.4); EOSINOPHILS % (AUTO) 1.3 % (0.0-4.0); HEMOGLOBIN 12.2 g/dL (12.0-16.0); LYMPHOCYTES # (AUTO) 0.6 K/uL (2.5-16.5); LYMPHOCYTES % (AUTO) 7.3 % (20.5-51.1); MEAN CORPUSCULAR HEMOGLOBIN 30 pg (27-31); MEAN CORPUSCULAR HGB CONC 34 g/dL (33-37); MEAN CORPUSCULAR VOLUME 87.8 fL (80-94); MONOCYTES # (AUTO) 0.4 K/uL (0.8-1.0); MONOCYTES % (AUTO) 4.6 % (1.7-9.3); NEUTROPHILS # (AUTO) 6.9 K/uL (1.8-7.7); NEUTROPHILS % (AUTO) 86.2 % (42.2-75.2); PLATELET COUNT (AUTO) 210 K/uL (140-450)
== END 2018-12-18 21:13 | disposition home or self-care (01) ==
LOC: MLB 10:42
PROVIDERS: ATTEND Internal Medicine Hematology & Oncology
DX: D50.9 Iron deficiency anemia, unspecified (principal); D72.819 Decreased white blood cell count, unspecified; D73.5 Infarction of spleen; D69.2 Other nonthrombocytopenic purpura; N00 Acute nephritic syndrome; N18.9 Chronic kidney disease, unspecified; K63.5 Polyp of colon
CPT/HCPCS: 36415; 85025

== ENCOUNTER 2019-01-09 11:16 | Outpatient (CLI) | payer OTHER ==
[2019-01-09 12:18] LABS: HEMATOCRIT 35.7 % (36-48); HEMOGLOBIN 11.8 g/dL (12.0-16.0); MEAN CORPUSCULAR HEMOGLOBIN 29 pg (27-31); MEAN CORPUSCULAR HGB CONC 33 g/dL (33-37); MEAN CORPUSCULAR VOLUME 88.7 fL (80-94); PLATELET COUNT (AUTO) 218 K/uL (140-450); RED BLOOD CELL COUNT(AUTO) 4.03 MIL/uL (4.20-5.40); RED CELL DISTRIBUTION WIDTH 20.3 % (11.6-13.7); WHITE BLOOD COUNT (AUTO) 9.1 K/uL (4.8-10.8)
[2019-01-09 12:40] LABS: ALBUMIN 3.7 g/dL (3.4-5.0); CARBON DIOXIDE 31.4 mmol/L (21-32); CREATININE 1.1 mg/dL (0.6-1.3); POTASSIUM 3.4 mmol/L (3.5-5.1); TOTAL BILIRUBIN 0.6 mg/dL (0.0-1.0)
[2019-01-09 12:43] LABS: BASOPHILS % (MANUAL) 0 % (0-2); EOSINOPHILS % (MANUAL) 0 % (0-4); LYMPHOCYTES % (MANUAL) 6 % (20-46); MONOCYTES % (MANUAL) 1 % (5-12)
[2019-01-09 13:08] LABS: APPEARANCE,URINE CLEAR (CLEAR); BILIRUBIN,URINE NEGATIVE (NEGATIVE); BLOOD, URINE TRACE-I (NEGATIVE); COLOR,URINE YELLOW (YELLOW); LEUKOCYTE ESTERASE ,URINE 1+ (NEGATIVE); NITRITE, URINE NEGATIVE (NEGATIVE); PH,URINE 6.5 (5.0-9.0); UGLUCOSE NEGATIVE (NEGATIVE)
== END 2019-01-09 19:45 | disposition home or self-care (01) ==
LOC: MLB 11:16
DX: M31.7 Microscopic polyangiitis (principal)
CPT/HCPCS: 36415; 80053; 81001; 85025; 87086

== ENCOUNTER 2019-01-24 08:48 | Outpatient (CLI) | payer OTHER ==
[2019-01-24 09:29] LABS: HEMATOCRIT 37.1 % (36-48); HEMOGLOBIN 12.2 g/dL (12.0-16.0); MEAN CORPUSCULAR HEMOGLOBIN 29 pg (27-31); MEAN CORPUSCULAR HGB CONC 33 g/dL (33-37); MEAN CORPUSCULAR VOLUME 88.3 fL (80-94); PLATELET COUNT (AUTO) 209 K/uL (140-450); RED CELL DISTRIBUTION WIDTH 19.9 % (11.6-13.7); WHITE BLOOD COUNT (AUTO) 8.1 K/uL (4.8-10.8)
[2019-01-24 09:54] LABS: ALBUMIN 3.8 g/dL (3.4-5.0); ANION GAP 10.9 (8-16); CARBON DIOXIDE 31.6 mmol/L (21-32); CREATININE 1.2 mg/dL (0.6-1.3); POTASSIUM 3.5 mmol/L (3.5-5.1); TOTAL BILIRUBIN 0.6 mg/dL (0.0-1.0)
[2019-01-24 10:09] LABS: BASOPHILS % (MANUAL) 0 % (0-2); EOSINOPHILS % (MANUAL) 0 % (0-4); LYMPHOCYTES % (MANUAL) 8 % (20-46); MONOCYTES % (MANUAL) 3 % (5-12)
== END 2019-01-24 20:19 | disposition home or self-care (01) ==
LOC: MLB 08:48
PROVIDERS: ATTEND Internal Medicine
DX: I12.9 Hypertensive chronic kidney disease with stage 1 through stage 4 chronic kidney disease, or unspecified chronic kidney disease (principal); E11.22 Type 2 diabetes mellitus with diabetic chronic kidney disease; N18.3 Chronic kidney disease, stage 3 (moderate)
CPT/HCPCS: 36415; 80053; 82570; 84157; 85025

== ENCOUNTER 2019-03-11 10:47 | Outpatient (CLI) | payer OTHER ==
[2019-03-11 12:20] LABS: BASOPHILS % (AUTO) 0.7 % (0.0-2.0); EOSINOPHILS # (AUTO) 0.1 K/uL (0-0.4); EOSINOPHILS % (AUTO) 1.3 % (0.0-4.0); HEMOGLOBIN 11.4 g/dL (12.0-16.0); LYMPHOCYTES # (AUTO) 0.4 K/uL (2.5-16.5); LYMPHOCYTES % (AUTO) 5.7 % (20.5-51.1); MEAN CORPUSCULAR HEMOGLOBIN 29 pg (27-31); MEAN CORPUSCULAR HGB CONC 32 g/dL (33-37); MEAN CORPUSCULAR VOLUME 90.7 fL (80-94); MONOCYTES # (AUTO) 0.2 K/uL (0.8-1.0); MONOCYTES % (AUTO) 3.1 % (1.7-9.3); NEUTROPHILS # (AUTO) 6.3 K/uL (1.8-7.7); NEUTROPHILS % (AUTO) 89.2 % (42.2-75.2); PLATELET COUNT (AUTO) 259 K/uL (140-450); RED BLOOD CELL COUNT(AUTO) 3.97 MIL/uL (4.20-5.40); RED CELL DISTRIBUTION WIDTH 19.9 % (11.6-13.7); WHITE BLOOD COUNT (AUTO) 7.1 K/uL (4.8-10.8)
[2019-03-11 13:40] LABS: ALBUMIN 3.8 g/dL (3.4-5.0); ANION GAP 13.3 (8-16); CREATININE 0.9 mg/dL (0.6-1.3); POTASSIUM 3.3 mmol/L (3.5-5.1); TOTAL BILIRUBIN 0.7 mg/dL (0.0-1.0)
== END 2019-03-11 19:55 | disposition home or self-care (01) ==
LOC: MLB 10:47
DX: D50.9 Iron deficiency anemia, unspecified (principal); D72.819 Decreased white blood cell count, unspecified; N18.9 Chronic kidney disease, unspecified; Z86.2 Personal history of diseases of the blood and blood-forming organs and certain disorders involving the immune mechanism; Z83.2 Family history of diseases of the blood and blood-forming organs and certain disorders involving the immune mechanism
CPT/HCPCS: 36415; 80053; 85025

== ENCOUNTER 2019-03-25 08:44 | Outpatient (CLI) | payer OTHER ==
[2019-03-25 10:45] LABS: BASOPHILS % (AUTO) 0.7 % (0.0-2.0); EOSINOPHILS # (AUTO) 0.1 K/uL (0-0.4); EOSINOPHILS % (AUTO) 1.2 % (0.0-4.0); HEMATOCRIT 33.6 % (36-48); HEMOGLOBIN 10.8 g/dL (12.0-16.0); LYMPHOCYTES # (AUTO) 0.4 K/uL (2.5-16.5); MEAN CORPUSCULAR HEMOGLOBIN 29 pg (27-31); MEAN CORPUSCULAR HGB CONC 32 g/dL (33-37); MEAN CORPUSCULAR VOLUME 90.7 fL (80-94); MONOCYTES # (AUTO) 0.3 K/uL (0.8-1.0); MONOCYTES % (AUTO) 4.4 % (1.7-9.3); NEUTROPHILS # (AUTO) 5.5 K/uL (1.8-7.7); NEUTROPHILS % (AUTO) 86.7 % (42.2-75.2); PLATELET COUNT (AUTO) 231 K/uL (140-450); RED BLOOD CELL COUNT(AUTO) 3.71 MIL/uL (4.20-5.40); RED CELL DISTRIBUTION WIDTH 20.4 % (11.6-13.7); WHITE BLOOD COUNT (AUTO) 6.3 K/uL (4.8-10.8)
[2019-03-25 10:59] LABS: ALBUMIN 3.8 g/dL (3.4-5.0); ANION GAP 13.5 (8-16); CARBON DIOXIDE 28.1 mmol/L (21-32); CREATININE 0.9 mg/dL (0.6-1.3); POTASSIUM 3.6 mmol/L (3.5-5.1); TOTAL BILIRUBIN 0.5 mg/dL (0.0-1.0)
[2019-03-25 11:25] LABS: BILIRUBIN,URINE NEGATIVE (NEGATIVE); BLOOD, URINE TRACE-I (NEGATIVE); COLOR,URINE YELLOW (YELLOW); LEUKOCYTE ESTERASE ,URINE TRACE (NEGATIVE); NITRITE, URINE NEGATIVE (NEGATIVE); UGLUCOSE NEGATIVE (NEGATIVE)
[2019-03-25 11:29] LABS: APPEARANCE,URINE SLIGHTLY HAZY (CLEAR)
[2019-03-25 11:41] LABS: RBC,URINE 0-5 /HPF (0-5); WBC,URINE 0-5 /HPF (0-5)
[2019-03-26 15:13] LABS: ANTI DOUBLE STRANDED DNA AB 1 IU/mL (0-9)
== END 2019-03-25 22:04 | disposition home or self-care (01) ==
LOC: MLB 08:44
DX: I12.9 Hypertensive chronic kidney disease with stage 1 through stage 4 chronic kidney disease, or unspecified chronic kidney disease (principal); N18.3 Chronic kidney disease, stage 3 (moderate); M32.14 Glomerular disease in systemic lupus erythematosus; R59.1 Generalized enlarged lymph nodes; M31.7 Microscopic polyangiitis; I73.9 Peripheral vascular disease, unspecified; Z79.899 Other long term (current) drug therapy
CPT/HCPCS: 36415; 80053; 81001; 84157; 85025; 86160

== ENCOUNTER 2019-04-12 18:30 | Emergency (ER) | payer OTHER ==
[~2019-04-12] VITALS: Ht 167.6 cm; Wt 163.3 kg
[2019-04-12 18:33] VITALS: BP 158/78
--- NOTE | 2019-04-12 18:42 | NUR ---
PT AMBULATED TO BED 08
--- NOTE | 2019-04-12 18:45 | NUR ---
PATIENT PRESENTS TO ED WITH C/O LUQ PAIN RADIATING TO THE BACK X 3 DAY. PAIN WORSENING. DENIES N/V, FEVER. HX- LUPUS NEPHRITIS &VASCULITIS, HTN, ASTHMA, OA, GALLO, ENLARGED INFARCTED SPLEEN . PATIENT STATES PAIN OF 4/10 AT THIS TIME; VSS; PATIENT POSITIONED FOR COMFORT; HOB ELEVATED; BEDRAILS UP X2; BED DOWN. ER MD MADE AWARE OF PT STATUS.
--- NOTE | 2019-04-12 19:02 | NUR ---
Patient being evaluated by physician at bedside.
[2019-04-12] MEDS ORDERED: NACL 0.9% 1,000 ML IV ONE (19:10)
[2019-04-12] MEDS ORDERED: MORPHINE SULFATE 10 MG/ML VIAL IVP ONE (19:10)
[2019-04-12 19:28] LABS: APPEARANCE,URINE CLEAR (CLEAR); BILIRUBIN,URINE NEGATIVE (NEGATIVE); BLOOD, URINE 1+ (NEGATIVE); COLOR,URINE YELLOW (YELLOW); LEUKOCYTE ESTERASE ,URINE 1+ (NEGATIVE); NITRITE, URINE NEGATIVE (NEGATIVE); UGLUCOSE NEGATIVE (NEGATIVE)
--- NOTE | 2019-04-12 20:25 | NUR ---
Note undone in EDM - 04/12/19 at 2028 by SANTIAGO PT DISCHARGED WITH PAPERWORK. RX MOTRIN AND TYLENOL FOR PAIN. EDUCATED PT REGARDING MEDICATIONS AND S/E. EDUCATED PT REGARDING D/C DIAGNOSIS AND INSTRUCTIONS. PT VERBALIZED UNDERSTANDING OF TEACHING. ADVISED PT TO GO TO [place] [employer] [facility] IF SHE WISHES TO REPORT INCIDENT. TOLD PT TO FOLLOW UP WITH PCP AND WHEN TO RETURN TO ED. PT VSS. ALL QUESTIONS ANSWERED.
[2019-04-12 20:31] LABS: BASOPHILS % (AUTO) 0.5 % (0.0-2.0); EOSINOPHILS # (AUTO) 0.1 K/uL (0-0.4); EOSINOPHILS % (AUTO) 1.3 % (0.0-4.0); HEMATOCRIT 33.6 % (36-48); HEMOGLOBIN 10.8 g/dL (12.0-16.0); LYMPHOCYTES # (AUTO) 0.6 K/uL (2.5-16.5); LYMPHOCYTES % (AUTO) 8.2 % (20.5-51.1); MEAN CORPUSCULAR HEMOGLOBIN 29 pg (27-31); MEAN CORPUSCULAR HGB CONC 32 g/dL (33-37); MEAN CORPUSCULAR VOLUME 90.6 fL (80-94); MONOCYTES # (AUTO) 0.1 K/uL (0.8-1.0); PLATELET COUNT (AUTO) 225 K/uL (140-450); RED BLOOD CELL COUNT(AUTO) 3.71 MIL/uL (4.20-5.40); RED CELL DISTRIBUTION WIDTH 20.3 % (11.6-13.7); WHITE BLOOD COUNT (AUTO) 6.8 K/uL (4.8-10.8)
[2019-04-12 20:39] LABS: ALBUMIN 3.6 g/dL (3.4-5.0); TOTAL BILIRUBIN 0.8 mg/dL (0.0-1.0)
--- NOTE | 2019-04-12 21:03 | NUR ---
PT RETURN FROM CT
[2019-04-12] MEDS ORDERED: cefTRIAXone 1,000 MG VIAL ONE (22:04)
[2019-04-12] MEDS ORDERED: KETOROLAC 15 MG/ML VIAL IVP ONE (23:15)
[2019-04-13 00:21] VITALS: BP 153/85
--- NOTE | 2019-04-13 00:21 | NUR ---
DISCHARGE PAPERS GIVEN TO PT. PT STATES 4/10 TOLLERABLE PAIN AND STATES RELIEFE. VSS. RX OF KEFLEX AND NORCO GIVEN. SIDE EFFECTS EXPLIANED. PROVIDED WITH COPIES OF LABS AND CD WITH IMMAGING. INSTRUCTED TO F/U WITH PCP AND WHEN TO RETURN TO ER. PT VERBALLIZED UNDERSTANDING OF DC INSTRUCTIONS. ALL QEUSTIONS ANSWERED.
== END 2019-04-13 00:21 | disposition home or self-care (01) ==
LOC: MED 18:30
DX: D73.89 Other diseases of spleen (principal); M32.9 Systemic lupus erythematosus, unspecified; N39.0 Urinary tract infection, site not specified; J45.909 Unspecified asthma, uncomplicated; I10 Essential (primary) hypertension; Z79.82 Long term (current) use of aspirin; Z79.899 Other long term (current) drug therapy; Z88.0 Allergy status to penicillin; Z88.2 Allergy status to sulfonamides; Z88.1 Allergy status to other antibiotic agents; Z88.8 Allergy status to other drugs, medicaments and biological substances
CPT/HCPCS: 36415; 74177; 80053; 81001; 85025; 87086; 93005; 96361; 96365; 96375; 99284; J0696; J1885; J2270; J7030; J7060; Q9967

== ENCOUNTER 2019-05-26 09:15 | Outpatient (CLI) | payer OTHER ==
[2019-05-26 10:03] LABS: HEMOGLOBIN 12.7 g/dL (12.0-16.0); MEAN CORPUSCULAR HEMOGLOBIN 29 pg (27-31); MEAN CORPUSCULAR HGB CONC 32 g/dL (33-37); MEAN CORPUSCULAR VOLUME 89.5 fL (80-94); PLATELET COUNT (AUTO) 290 K/uL (140-450); RED BLOOD CELL COUNT(AUTO) 4.36 MIL/uL (4.20-5.40); RED CELL DISTRIBUTION WIDTH 19.2 % (11.6-13.7); WHITE BLOOD COUNT (AUTO) 10.7 K/uL (4.8-10.8)
[2019-05-26 10:27] LABS: CREATININE 1.1 mg/dL (0.6-1.3)
[2019-05-26 10:28] LABS: ALBUMIN 3.9 g/dL (3.4-5.0); ANION GAP 13.7 (8-16); CARBON DIOXIDE 29.3 mmol/L (21-32); TOTAL BILIRUBIN 0.7 mg/dL (0.0-1.0)
[2019-05-26 10:33] LABS: APPEARANCE,URINE CLEAR (CLEAR); BILIRUBIN,URINE NEGATIVE (NEGATIVE); BLOOD, URINE TRACE-I (NEGATIVE); COLOR,URINE YELLOW (YELLOW); LEUKOCYTE ESTERASE ,URINE NEGATIVE (NEGATIVE); NITRITE, URINE NEGATIVE (NEGATIVE); UGLUCOSE NEGATIVE (NEGATIVE)
[2019-05-26 10:40] LABS: RBC,URINE 11-20 (MOD) /HPF (0-5); WBC,URINE 0-5 /HPF (0-5)
[2019-05-26 10:54] LABS: BASOPHILS % (MANUAL) 0 % (0-2); EOSINOPHILS % (MANUAL) 0 % (0-4); LYMPHOCYTES % (MANUAL) 4 % (20-46); MONOCYTES % (MANUAL) 2 % (5-12)
[2019-05-28 06:12] LABS: ANTI DOUBLE STRANDED DNA AB 1 IU/mL (0-9)
== END 2019-05-26 20:29 | disposition home or self-care (01) ==
LOC: MLB 09:15
DX: I77.6 Arteritis, unspecified (principal); M32.14 Glomerular disease in systemic lupus erythematosus; R31.9 Hematuria, unspecified; Z79.899 Other long term (current) drug therapy; F15.90 Other stimulant use, unspecified, uncomplicated; I10 Essential (primary) hypertension; J45.909 Unspecified asthma, uncomplicated; Z88.1 Allergy status to other antibiotic agents; Z88.0 Allergy status to penicillin; Z88.2 Allergy status to sulfonamides; Z88.8 Allergy status to other drugs, medicaments and biological substances
CPT/HCPCS: 36415; 80053; 81001; 85025; 85651; 86140; 86160

== ENCOUNTER 2019-07-01 09:14 | Outpatient (CLI) | payer OTHER ==
[2019-07-01 10:49] LABS: BASOPHILS % (AUTO) 0.5 % (0.0-2.0); EOSINOPHILS % (AUTO) 0.6 % (0.0-4.0); HEMATOCRIT 37.1 % (36-48); HEMOGLOBIN 11.9 g/dL (12.0-16.0); LYMPHOCYTES # (AUTO) 0.4 K/uL (2.5-16.5); MEAN CORPUSCULAR HEMOGLOBIN 29 pg (27-31); MEAN CORPUSCULAR HGB CONC 32 g/dL (33-37); MEAN CORPUSCULAR VOLUME 89.6 fL (80-94); MONOCYTES # (AUTO) 0.3 K/uL (0.8-1.0); MONOCYTES % (AUTO) 3.3 % (1.7-9.3); NEUTROPHILS % (AUTO) 90.6 % (42.2-75.2); PLATELET COUNT (AUTO) 182 K/uL (140-450); RED BLOOD CELL COUNT(AUTO) 4.14 MIL/uL (4.20-5.40); RED CELL DISTRIBUTION WIDTH 18.8 % (11.6-13.7); WHITE BLOOD COUNT (AUTO) 7.7 K/uL (4.8-10.8)
[2019-07-01 11:00] LABS: APPEARANCE,URINE CLEAR (CLEAR); BILIRUBIN,URINE NEGATIVE (NEGATIVE); BLOOD, URINE 1+ (NEGATIVE); COLOR,URINE YELLOW (YELLOW); LEUKOCYTE ESTERASE ,URINE NEGATIVE (NEGATIVE); NITRITE, URINE NEGATIVE (NEGATIVE); UGLUCOSE NEGATIVE (NEGATIVE)
[2019-07-01 11:10] LABS: RBC,URINE 11-20 (MOD) /HPF (0-5); WBC,URINE 0-5 /HPF (0-5)
[2019-07-01 11:19] LABS: ANION GAP 14.9 (8-16); CARBON DIOXIDE 27.6 mmol/L (21-32); POTASSIUM 4.5 mmol/L (3.5-5.1); TOTAL BILIRUBIN 0.6 mg/dL (0.0-1.0)
[2019-07-02 09:08] LABS: FOLIC ACID 10.4 ng/mL (>3.0)
[2019-07-03 12:07] LABS: TACROLIMUS 18.5 ng/mL (2.0-20.0)
== END 2019-07-01 20:22 | disposition home or self-care (01) ==
LOC: MLB 09:14
DX: D50.9 Iron deficiency anemia, unspecified (principal); D72.819 Decreased white blood cell count, unspecified; K63.5 Polyp of colon; K25.9 Gastric ulcer, unspecified as acute or chronic, without hemorrhage or perforation; D69.2 Other nonthrombocytopenic purpura; N00 Acute nephritic syndrome; N18.9 Chronic kidney disease, unspecified; D73.5 Infarction of spleen; Z86.2 Personal history of diseases of the blood and blood-forming organs and certain disorders involving the immune mechanism; Z83.2 Family history of diseases of the blood and blood-forming organs and certain disorders involving the immune mechanism
CPT/HCPCS: 36415; 80053; 81001; 82607; 82728; 82746; 83540; 84157; 85025; 85651; 86140; 86160

== ENCOUNTER 2019-08-25 11:15 | Outpatient (CLI) | payer OTHER ==
[~2019-08-25 11:15] MED LIST changes: -ASPI-1718 PO; +ASPI-1822 PO
== END 2019-08-25 21:29 | disposition home or self-care (01) ==
LOC: MLB 11:15
DX: D50.9 Iron deficiency anemia, unspecified (principal); D72.89 Other specified disorders of white blood cells
CPT/HCPCS: 36415; 85025

== ENCOUNTER 2019-10-07 11:16 | Outpatient (CLI) | payer OTHER ==
[2019-10-07 11:45] LABS: BASOPHILS # (AUTO) 0.1 K/uL (0.00-0.22); BASOPHILS % (AUTO) 0.7 % (0.0-2.0); EOSINOPHILS # (AUTO) 0.1 K/uL (0-0.4); HEMATOCRIT 40.3 % (36-48); LYMPHOCYTES # (AUTO) 0.4 K/uL (2.5-16.5); LYMPHOCYTES % (AUTO) 3.8 % (20.5-51.1); MEAN CORPUSCULAR HEMOGLOBIN 29 pg (27-31); MEAN CORPUSCULAR HGB CONC 32 g/dL (33-37); MEAN CORPUSCULAR VOLUME 88.8 fL (80-94); MONOCYTES # (AUTO) 0.4 K/uL (0.8-1.0); MONOCYTES % (AUTO) 3.8 % (1.7-9.3); NEUTROPHILS # (AUTO) 10.6 K/uL (1.8-7.7); NEUTROPHILS % (AUTO) 90.7 % (42.2-75.2); PLATELET COUNT (AUTO) 259 K/uL (140-450); RED BLOOD CELL COUNT(AUTO) 4.54 MIL/uL (4.20-5.40); RED CELL DISTRIBUTION WIDTH 17.6 % (11.6-13.7); WHITE BLOOD COUNT (AUTO) 11.7 K/uL (4.8-10.8)
[2019-10-07 12:03] LABS: APPEARANCE,URINE CLEAR (CLEAR); BILIRUBIN,URINE NEGATIVE (NEGATIVE); BLOOD, URINE NEGATIVE (NEGATIVE); COLOR,URINE YELLOW (YELLOW); LEUKOCYTE ESTERASE ,URINE 1+ (NEGATIVE); NITRITE, URINE NEGATIVE (NEGATIVE); UGLUCOSE NEGATIVE (NEGATIVE)
[2019-10-07 12:11] LABS: RBC,URINE 0-5 /HPF (0-5)
[2019-10-07 12:14] LABS: WBC,URINE 0-5 /HPF (0-5)
[2019-10-07 12:35] LABS: ALBUMIN 3.8 g/dL (3.4-5.0); ANION GAP 15.4 (8-16); CARBON DIOXIDE 28.5 mmol/L (21-32); CREATININE 1.1 mg/dL (0.6-1.3); POTASSIUM 3.9 mmol/L (3.5-5.1); TOTAL BILIRUBIN 0.6 mg/dL (0.0-1.0)
[2019-10-08 16:21] LABS: ANTI DOUBLE STRANDED DNA AB 1 IU/mL (0-9)
== END 2019-10-07 20:06 | disposition home or self-care (01) ==
LOC: MLB 11:16
DX: R35.0 Frequency of micturition (principal); M06.80 Other specified rheumatoid arthritis, unspecified site; Z79.899 Other long term (current) drug therapy
CPT/HCPCS: 36415; 80053; 81001; 85025; 85651; 86140; 86160; 87086

== ENCOUNTER 2019-10-23 11:53 | Outpatient (CLI) | payer OTHER | END 2019-10-23 21:45 | disposition home or self-care (01) | LOC: MRD 11:53 | DX: M21.42 Flat foot [pes planus] (acquired), left foot (principal); M21.41 Flat foot [pes planus] (acquired), right foot; M77.51 Other enthesopathy of right foot and ankle; M77.52 Other enthesopathy of left foot and ankle | CPT/HCPCS: 73620 ==

== ENCOUNTER 2019-11-03 10:26 | Outpatient (CLI) | payer OTHER ==
[2019-11-03 11:10] LABS: APPEARANCE,URINE SL CLOUDY (CLEAR); BASOPHILS % (AUTO) 0.6 % (0.0-2.0); BILIRUBIN,URINE NEGATIVE (NEGATIVE); BLOOD, URINE 1+ (NEGATIVE); COLOR,URINE DARK YELLOW (YELLOW); EOSINOPHILS # (AUTO) 0.1 K/uL (0-0.4); EOSINOPHILS % (AUTO) 0.8 % (0.0-4.0); HEMATOCRIT 37.9 % (36-48); HEMOGLOBIN 12.6 g/dL (12.0-16.0); LEUKOCYTE ESTERASE ,URINE 1+ (NEGATIVE); LYMPHOCYTES # (AUTO) 0.5 K/uL (2.5-16.5); LYMPHOCYTES % (AUTO) 6.3 % (20.5-51.1); MEAN CORPUSCULAR HEMOGLOBIN 29 pg (27-31); MEAN CORPUSCULAR HGB CONC 33 g/dL (33-37); MEAN CORPUSCULAR VOLUME 86.9 fL (80-94); MONOCYTES # (AUTO) 0.1 K/uL (0.8-1.0); MONOCYTES % (AUTO) 1.9 % (1.7-9.3); NEUTROPHILS # (AUTO) 6.6 K/uL (1.8-7.7); NEUTROPHILS % (AUTO) 90.4 % (42.2-75.2); NITRITE, URINE NEGATIVE (NEGATIVE); PLATELET COUNT (AUTO) 182 K/uL (140-450); RED BLOOD CELL COUNT(AUTO) 4.36 MIL/uL (4.20-5.40); RED CELL DISTRIBUTION WIDTH 17.5 % (11.6-13.7); UGLUCOSE NEGATIVE (NEGATIVE); WHITE BLOOD COUNT (AUTO) 7.3 K/uL (4.8-10.8)
[2019-11-03 11:21] LABS: RBC,URINE 11-20 (MOD) /HPF (0-5)
[2019-11-03 11:22] LABS: ALBUMIN 3.4 g/dL (3.4-5.0); ANION GAP 11.1 (8-16); CARBON DIOXIDE 29.8 mmol/L (21-32); CREATININE 1.2 mg/dL (0.6-1.3); POTASSIUM 3.9 mmol/L (3.5-5.1); TOTAL BILIRUBIN 0.6 mg/dL (0.0-1.0)
[2019-11-03 11:23] LABS: HYALINE CASTS, URINE 0-10 /LPF (None Seen); WBC,URINE 0-5 /HPF (0-5)
== END 2019-11-03 20:07 | disposition home or self-care (01) ==
LOC: MLB 10:26
DX: D50.9 Iron deficiency anemia, unspecified (principal); D69.2 Other nonthrombocytopenic purpura; D72.819 Decreased white blood cell count, unspecified; Z86.2 Personal history of diseases of the blood and blood-forming organs and certain disorders involving the immune mechanism
CPT/HCPCS: 36415; 80053; 81001; 85025; 85651; 86140; 87086

== ENCOUNTER 2019-11-21 10:03 | Emergency (ER) | payer OTHER ==
[~2019-11-21] VITALS: Ht 167.6 cm; Wt 157.9 kg
[2019-11-21 10:08] VITALS: BP 165/94
--- NOTE | 2019-11-21 10:25 | NUR ---
DR ROMO EVALUATING PT AT BEDSIDE
--- NOTE | 2019-11-21 10:29 | NUR ---
54/F C/O L EAR PRESSURE RADIATING TO HEAD X THIS AM WHILE WASHING HER FACE. WAS FEELING LIGHTHEADED AT THAT TIME, NO LOC OR FALL. NO DIZZINESS NOW. DENIES N/V, FEVER, SICK CONTACTS, UNILATERAL MUSCLE WEAKNESS, VISUAL CHANGES. STATES FATIGUE. PRESSURE SENSATION TO TOP OF HEAD NOW DESCRIBED CARRYING BOOKS ON HER HEAD PMH- HTN, LUPUS, FACIITIS, ASTHMA, SLEEP APNEA
[2019-11-21] MEDS ORDERED: KETOROLAC 30 MG/ML VIAL IVP ONE (10:30)
--- NOTE | 2019-11-21 10:31 | NUR ---
MANAGER GOVERNMENT WAITING AT BEDSIDE WITH W/C
--- NOTE | 2019-11-21 10:31 | NUR ---
MARINE ARCHITECT AT BEDSIDE FOR BLOOD DRAW
[2019-11-21 10:44] LABS: BASOPHILS % (AUTO) 0.2 % (0.0-2.0); EOSINOPHILS % (AUTO) 0.7 % (0.0-4.0); HEMOGLOBIN 12.7 g/dL (12.0-16.0); LYMPHOCYTES # (AUTO) 0.4 K/uL (2.5-16.5); LYMPHOCYTES % (AUTO) 6.4 % (20.5-51.1); MEAN CORPUSCULAR HEMOGLOBIN 29 pg (27-31); MEAN CORPUSCULAR HGB CONC 33 g/dL (33-37); MEAN CORPUSCULAR VOLUME 88.6 fL (80-94); MONOCYTES # (AUTO) 0.2 K/uL (0.8-1.0); MONOCYTES % (AUTO) 3.7 % (1.7-9.3); NEUTROPHILS # (AUTO) 5.8 K/uL (1.8-7.7); PLATELET COUNT (AUTO) 144 K/uL (140-450); RED CELL DISTRIBUTION WIDTH 20.2 % (11.6-13.7); WHITE BLOOD COUNT (AUTO) 6.5 K/uL (4.8-10.8)
--- NOTE | 2019-11-21 10:50 | NUR ---
PT BACK FROM CT SCAN VIA W/C
[2019-11-21 11:01] LABS: ALBUMIN 3.8 g/dL (3.4-5.0); ANION GAP 11.8 (8-16); CARBON DIOXIDE 28.9 mmol/L (21-32); CREATININE 1.3 mg/dL (0.6-1.3); POTASSIUM 3.7 mmol/L (3.5-5.1); TOTAL BILIRUBIN 0.5 mg/dL (0.0-1.0)
--- NOTE | 2019-11-21 11:33 | NUR ---
Patient discharged with v/s stable. Written and verbal after care instructions given and explained. Patient verbalized understanding. Ambulatory with cane with steady gait. All questions addressed prior to discharge. Advised to follow up with PMD.
[2019-11-21 11:34] VITALS: BP 132/81
== END 2019-11-21 11:33 | disposition home or self-care (01) ==
LOC: MED 10:03
DX: I10 Essential (primary) hypertension (principal); J45.909 Unspecified asthma, uncomplicated; M32.14 Glomerular disease in systemic lupus erythematosus; Z87.448 Personal history of other diseases of urinary system; Z88.0 Allergy status to penicillin; Z88.8 Allergy status to other drugs, medicaments and biological substances; Z88.2 Allergy status to sulfonamides; Z79.899 Other long term (current) drug therapy; Z79.82 Long term (current) use of aspirin; Z73.3 Stress, not elsewhere classified; M19.90 Unspecified osteoarthritis, unspecified site
CPT/HCPCS: 36415; 70450; 80053; 85025; 96374; 99284; J1885

== ENCOUNTER 2019-11-23 12:34 | Outpatient (CLI) | payer OTHER ==
[2019-11-23 13:44] LABS: BASOPHILS # (AUTO) 0.1 K/uL (0.00-0.22); BASOPHILS % (AUTO) 0.8 % (0.0-2.0); EOSINOPHILS % (AUTO) 0.3 % (0.0-4.0); HEMATOCRIT 40.1 % (36-48); LYMPHOCYTES # (AUTO) 0.4 K/uL (2.5-16.5); LYMPHOCYTES % (AUTO) 6.4 % (20.5-51.1); MEAN CORPUSCULAR HEMOGLOBIN 29 pg (27-31); MEAN CORPUSCULAR HGB CONC 33 g/dL (33-37); MEAN CORPUSCULAR VOLUME 88.7 fL (80-94); MONOCYTES # (AUTO) 0.1 K/uL (0.8-1.0); MONOCYTES % (AUTO) 1.5 % (1.7-9.3); NEUTROPHILS # (AUTO) 6.3 K/uL (1.8-7.7); PLATELET COUNT (AUTO) 156 K/uL (140-450); RED BLOOD CELL COUNT(AUTO) 4.52 MIL/uL (4.20-5.40); RED CELL DISTRIBUTION WIDTH 20.2 % (11.6-13.7); WHITE BLOOD COUNT (AUTO) 6.9 K/uL (4.8-10.8)
[2019-11-23 13:58] LABS: ALBUMIN 4.1 g/dL (3.4-5.0); ANION GAP 12.5 (8-16); CARBON DIOXIDE 28.3 mmol/L (21-32); CREATININE 1.1 mg/dL (0.6-1.3); MAGNESIUM 1.7 mg/dL (1.8-2.4); PHOSPHORUS 3.3 mg/dL (2.5-4.9); POTASSIUM 4.8 mmol/L (3.5-5.1); TOTAL BILIRUBIN 0.7 mg/dL (0.0-1.0)
[2019-11-23 14:11] LABS: APPEARANCE,URINE HAZY (CLEAR); BILIRUBIN,URINE NEGATIVE (NEGATIVE); BLOOD, URINE 1+ (NEGATIVE); COLOR,URINE YELLOW (YELLOW); LEUKOCYTE ESTERASE ,URINE NEGATIVE (NEGATIVE); NITRITE, URINE NEGATIVE (NEGATIVE); PH,URINE 6.5 (5.0-9.0); UGLUCOSE NEGATIVE (NEGATIVE)
[2019-11-23 15:03] LABS: URINE TOTAL PROTEIN 6.4 mg/dL (0-12)
[2019-11-23 15:28] LABS: WBC,URINE 0-5 /HPF (0-5)
== END 2019-11-23 21:00 | disposition home or self-care (01) ==
LOC: MLB 12:34
DX: I12.9 Hypertensive chronic kidney disease with stage 1 through stage 4 chronic kidney disease, or unspecified chronic kidney disease (principal); N18.2 Chronic kidney disease, stage 2 (mild); R80.9 Proteinuria, unspecified; Z94.0 Kidney transplant status
CPT/HCPCS: 36415; 80053; 81001; 82570; 83735; 84100; 85025

== ENCOUNTER 2019-12-04 11:18 | Outpatient (CLI) | payer OTHER ==
[2019-12-04 12:05] LABS: APPEARANCE,URINE HAZY (CLEAR); BASOPHILS # (AUTO) 0.1 K/uL (0.00-0.22); BASOPHILS % (AUTO) 0.8 % (0.0-2.0); BILIRUBIN,URINE NEGATIVE (NEGATIVE); BLOOD, URINE 1+ (NEGATIVE); COLOR,URINE YELLOW (YELLOW); EOSINOPHILS % (AUTO) 0.2 % (0.0-4.0); HEMATOCRIT 40.2 % (36-48); HEMOGLOBIN 13.2 g/dL (12.0-16.0); LEUKOCYTE ESTERASE ,URINE NEGATIVE (NEGATIVE); LYMPHOCYTES # (AUTO) 0.5 K/uL (2.5-16.5); LYMPHOCYTES % (AUTO) 5.9 % (20.5-51.1); MEAN CORPUSCULAR HEMOGLOBIN 29 pg (27-31); MEAN CORPUSCULAR HGB CONC 33 g/dL (33-37); MEAN CORPUSCULAR VOLUME 88.9 fL (80-94); MONOCYTES # (AUTO) 0.2 K/uL (0.8-1.0); MONOCYTES % (AUTO) 2.3 % (1.7-9.3); NEUTROPHILS % (AUTO) 90.8 % (42.2-75.2); NITRITE, URINE NEGATIVE (NEGATIVE); PH,URINE 5.5 (5.0-9.0); PLATELET COUNT (AUTO) 208 K/uL (140-450); RED BLOOD CELL COUNT(AUTO) 4.53 MIL/uL (4.20-5.40); RED CELL DISTRIBUTION WIDTH 20.5 % (11.6-13.7); UGLUCOSE NEGATIVE (NEGATIVE); WHITE BLOOD COUNT (AUTO) 8.8 K/uL (4.8-10.8)
[2019-12-04 12:25] LABS: ALBUMIN 4.1 g/dL (3.4-5.0); ANION GAP 15.8 (8-16); CARBON DIOXIDE 25.6 mmol/L (21-32); CREATININE 1.4 mg/dL (0.6-1.3); POTASSIUM 4.4 mmol/L (3.5-5.1); TOTAL BILIRUBIN 0.7 mg/dL (0.0-1.0)
[2019-12-04 14:18] LABS: WBC,URINE 0-5 /HPF (0-5)
[2019-12-05 09:17] LABS: ANTI DOUBLE STRANDED DNA AB 1 IU/mL (0-9); ANTI-NUCLEAR ANTIBODY,DIRECT Negative (Negative)
== END 2019-12-04 20:52 | disposition home or self-care (01) ==
LOC: MLB 11:18
DX: M06.9 Rheumatoid arthritis, unspecified (principal); R35.0 Frequency of micturition; Z79.899 Other long term (current) drug therapy
CPT/HCPCS: 36415; 80053; 81001; 85025; 85651; 86038; 86140; 86160

== ENCOUNTER 2020-01-22 10:13 | Outpatient (CLI) | payer OTHER ==
[2020-01-22 10:52] LABS: BASOPHILS # (AUTO) 0.1 K/uL (0.00-0.22); BASOPHILS % (AUTO) 0.6 % (0.0-2.0); EOSINOPHILS % (AUTO) 0.3 % (0.0-4.0); HEMOGLOBIN 13.8 g/dL (12.0-16.0); LYMPHOCYTES # (AUTO) 0.4 K/uL (2.5-16.5); MEAN CORPUSCULAR HEMOGLOBIN 31 pg (27-31); MEAN CORPUSCULAR HGB CONC 34 g/dL (33-37); MEAN CORPUSCULAR VOLUME 91.7 fL (80-94); MONOCYTES # (AUTO) 0.3 K/uL (0.8-1.0); MONOCYTES % (AUTO) 2.9 % (1.7-9.3); NEUTROPHILS % (AUTO) 91.2 % (42.2-75.2); PLATELET COUNT (AUTO) 197 K/uL (140-450); RED BLOOD CELL COUNT(AUTO) 4.47 MIL/uL (4.20-5.40); RED CELL DISTRIBUTION WIDTH 19.4 % (11.6-13.7); WHITE BLOOD COUNT (AUTO) 8.8 K/uL (4.8-10.8)
[2020-01-22 11:04] LABS: APPEARANCE,URINE CLEAR (CLEAR); BILIRUBIN,URINE NEGATIVE (NEGATIVE); BLOOD, URINE NEGATIVE (NEGATIVE); COLOR,URINE YELLOW (YELLOW); LEUKOCYTE ESTERASE ,URINE NEGATIVE (NEGATIVE); NITRITE, URINE NEGATIVE (NEGATIVE); PH,URINE 5.5 (5.0-9.0); UGLUCOSE NEGATIVE (NEGATIVE)
[2020-01-22 11:11] LABS: ALBUMIN 4.3 g/dL (3.4-5.0); ANION GAP 13.4 (8-16); CARBON DIOXIDE 28.5 mmol/L (21-32); CHOL/HDL RATIO 2.6 (1-4.5); CREATININE 1.3 mg/dL (0.6-1.3); POTASSIUM 3.9 mmol/L (3.5-5.1); TOTAL BILIRUBIN 0.8 mg/dL (0.0-1.0)
[2020-01-22 11:25] LABS: URIC ACID 8.4 mg/dL (2.6-7.2)
[2020-01-24 10:49] LABS: ANTI DOUBLE STRANDED DNA AB <1 IU/mL (0 - 9); ANTI-HISTONE AB <0.2 AI (0.0 - 0.9)
== END 2020-01-22 19:39 | disposition home or self-care (01) ==
LOC: MLB 10:13
PROVIDERS: ATTEND Internal Medicine Cardiovascular Disease
DX: D69.6 Thrombocytopenia, unspecified (principal); D89.9 Disorder involving the immune mechanism, unspecified; M06.4 Inflammatory polyarthropathy; M15.9 Polyosteoarthritis, unspecified; M32.10 Systemic lupus erythematosus, organ or system involvement unspecified; E66.01 Morbid (severe) obesity due to excess calories; E55.9 Vitamin D deficiency, unspecified
CPT/HCPCS: 36415; 80053; 81003; 82306; 83520; 84550; 85025; 85613; 85651; 86140; 86147; 86160; 86430

== ENCOUNTER 2020-02-23 13:11 | Outpatient (CLI) | payer OTHER ==
[2020-02-23 14:12] LABS: BASOPHILS # (AUTO) 0.1 K/uL (0.00-0.22); BASOPHILS % (AUTO) 0.8 % (0.0-2.0); EOSINOPHILS % (AUTO) 0.1 % (0.0-4.0); HEMATOCRIT 40.3 % (36-48); HEMOGLOBIN 13.4 g/dL (12.0-16.0); LYMPHOCYTES # (AUTO) 0.4 K/uL (2.5-16.5); LYMPHOCYTES % (AUTO) 2.8 % (20.5-51.1); MEAN CORPUSCULAR HEMOGLOBIN 31 pg (27-31); MEAN CORPUSCULAR HGB CONC 33 g/dL (33-37); MEAN CORPUSCULAR VOLUME 92.6 fL (80-94); MONOCYTES # (AUTO) 0.3 K/uL (0.8-1.0); NEUTROPHILS # (AUTO) 12.6 K/uL (1.8-7.7); NEUTROPHILS % (AUTO) 94.3 % (42.2-75.2); PLATELET COUNT (AUTO) 243 K/uL (140-450); RED BLOOD CELL COUNT(AUTO) 4.35 MIL/uL (4.20-5.40); WHITE BLOOD COUNT (AUTO) 13.4 K/uL (4.8-10.8)
[2020-02-23 14:33] LABS: ALBUMIN 4.3 g/dL (3.4-5.0); ANION GAP 12.2 (8-16); CARBON DIOXIDE 26.2 mmol/L (21-32); CREATININE 1.4 mg/dL (0.6-1.3); POTASSIUM 4.4 mmol/L (3.5-5.1); TOTAL BILIRUBIN 0.8 mg/dL (0.0-1.0)
== END 2020-02-23 19:30 | disposition home or self-care (01) ==
LOC: MLB 13:11
DX: I10 Essential (primary) hypertension (principal); M06.9 Rheumatoid arthritis, unspecified; R35.0 Frequency of micturition
CPT/HCPCS: 36415; 80053; 82570; 85025